=== PATIENT | male | born 1950 | race Two or more races ===

== ENCOUNTER 2016-08-19 17:50 | Emergency (ER) | payer MEDICARE, OTHER ==
[~2016-08-19] VITALS: Ht 170.2 cm; Wt 118.8 kg
[2016-08-19] MEDS ORDERED: DULO30CA PO (18:19)
[2016-08-19] MEDS ORDERED: ATOR1TAB21 PO (18:19)
[2016-08-19] MEDS ORDERED: FURO40TA2 PO (18:19)
[2016-08-19] MEDS ORDERED: FLOM5CAP PO (18:19)
[2016-08-19] MEDS ORDERED: AMLO10TA2 PO (18:19)
[2016-08-19] MEDS ORDERED: CLOP75TA2 PO (18:19)
[2016-08-19] MEDS ORDERED: PANT40TA2 PO (18:19)
[2016-08-19] MEDS ORDERED: ASPI1TAB PO (18:19)
[2016-08-19] MEDS ORDERED: ATEN50TA2 PO (18:19)
[2016-08-19] MEDS ORDERED: GABA600T PO (18:24)
[2016-08-19] MEDS ORDERED: OXYM15TA PO (18:24)
[2016-08-19] MEDS ORDERED: INSUHUMDS SC ×2 (18:24→18:30)
[2016-08-19] MEDS ORDERED: INSULANT SC (18:24)
[2016-08-19] MEDS ORDERED: ONDANSETRON 4MG/2ML VIAL (J2405) IV ONE (20:15)
[2016-08-19] MEDS ORDERED: GASTROGRAFIN SOLUTION 30ML (Q9963) As Ordered ONE (20:26)
[2016-08-19] MEDS ORDERED: GASTROGRAFIN SOLUTION 30ML (Q9963) PO ONE ×2 (20:30)
[2016-08-19 20:53] LABS: BASO # 0.1 K/mm3 (0.0-0.2); BASO % 0.7 % (0.0-1.0); EOS # 0.2 K/mm3 (0.0-0.50); EOS % 1.5 % (0.0-3.0); LARGE UNSTAINED CELL # 0.1 K/mm3 (0.0-0.4); LARGE UNSTAINED CELL % 1.1 % (0.0-4.0); LYMPH # 1.8 K/mm3 (1.5-4.5); LYMPH % 13.8 % (24.0-44.0); MEAN CORPUSCULAR HEMOGLOBIN 30.2 pg (27.0-33.0); MEAN CORPUSCULAR VOLUME 91.4 fl (80.0-96.0); MONO # 0.6 K/mm3 (0.0-0.8); NEUTROPHILS # 9.2 K/mm3 (1.8-7.7); NEUTROPHILS % 77.9 % (36.0-66.0); PLATELET COUNT, AUTOMATED 375 k/mm3 (150-450); WHITE BLOOD COUNT 11.8 K/mm3 (4.0-10.0)
[2016-08-19 21:11] LABS: ALBUMIN 3.8 GM/DL (3.2-5.2); ALBUMIN/GLOBULIN RATIO 1.12 (1.00-1.93); BILIRUBIN,DIRECT 0.2 MG/DL (0.0-0.2); BILIRUBIN,TOTAL 0.4 MG/DL (0.2-1.0); CALCIUM LEVEL 8.8 MG/DL (8.8-10.2); CREATININE FOR GFR 1.33 MG/DL (0.70-1.30); GLOMERULAR FILTRATION RATE 57.1 (>49); POTASSIUM SERUM 4.5 MEQ/L (3.5-5.1); TOTAL PROTEIN 7.2 GM/DL (6.4-8.2)
[2016-08-19] MEDS ORDERED: ISOVUE-370 76% 100ML VIAL (Q9967) As Ordered ONE (21:58)
--- NOTE | 2016-08-19 22:50 | REPUSA ---
CLINICAL HISTORY: Left lower quadrant pain. TECHNIQUE: Multiple axial CT images were obtained through the abdomen and pelvis after administratio n of oral and intravenous contrast material. COMMENTS: The liver is markedly lobulated with irregular contour compatible with cirrhosis. There is no intra or extrahepatic biliary ductal dilatation. The spleen is normal. The gallbladder is within normal l imits. The pancreas is of normal contour and attenuation characteristics. There is no evidence of a drenal mass. Both kidneys demonstrate prompt and equal nephrograms. There is no evidence of renal or ureteral mas s. No renal or ureteral calculi are identified. There is no hydroureter or hydronephrosis. Both ki dneys are lobulated but grossly normal in size There is no evidence for appendicitis. Diffuse sigmoid diverticulosis is present. There is no bowel wall thickening. No evidence for small or large bowel obstruction. There is no evidence of abdomina l ascites or lymphadenopathy. There is no evidence of intrinsic or extrinsic bladder mass. There is no pelvic ascites or lymphaden opathy. Images of the lung bases show no evidence of pleural or parenchymal mass. There are no pleural effus ions. Prostate gland is mildly enlarged. The bony structures are free of lytic or blastic lesions. Multilevel degenerative changes are seen i nvolving the thoracolumbar spine. Note is made of moderate to severe compression fracture deformity involving L1 vertebral body. Consider correlation with MRI. Scattered calcifications are seen involving the aorta and major branches compatible with atherosclero sis. IMPRESSION: 1. Evidence of cirrhosis. 2. Moderate to severe compression fracture deformity involving L1 vertebral body. Consider correlat ion with MRI. Thank you for your kind referral of this patient. We appreciate the opportunity to participate in thi s patient's care.
[2016-08-19] MEDS ORDERED: LIDOCAINE 5% OINT 30 GM TOP SCH (23:30)
[2016-08-20 00:26] VITALS: BP 139/54
== END 2016-08-20 01:31 | disposition home or self-care (01) ==
LOC: M ED 20:16
DX: M54.16 Radiculopathy, lumbar region (principal); R10.32 Left lower quadrant pain; S32.018A Other fracture of first lumbar vertebra, initial encounter for closed fracture; X58.XXXA Exposure to other specified factors, initial encounter; Y92.89 Other specified places as the place of occurrence of the external cause; Y93.89 Activity, other specified; Y99.8 Other external cause status; R11.0 Nausea; K21.9 Gastro-esophageal reflux disease without esophagitis; I10 Essential (primary) hypertension; E78.5 Hyperlipidemia, unspecified; E03.9 Hypothyroidism, unspecified; F41.9 Anxiety disorder, unspecified; F32.9 Major depressive disorder, single episode, unspecified; Z98.1 Arthrodesis status; Z79.899 Other long term (current) drug therapy; Z79.82 Long term (current) use of aspirin; Z79.4 Long term (current) use of insulin; Z87.891 Personal history of nicotine dependence
CPT/HCPCS: 74177; 80048; 80076; 81001; 82150; 83690; 85025; 86140; 96374; 99282; J2405; Q9963; Q9967

== ENCOUNTER → 2017-11-07 | Outpatient (REF) | payer MEDICARE, OTHER ==
[2017-11-07 18:00] LABS: ERYTHROCYTE SEDIMENTATION RATE 27 mm/hr (0-20)
== END ==
LOC: M LABNEURO 14:00
DX: R51 Headache (principal); I77.6 Arteritis, unspecified
CPT/HCPCS: 36415

== ENCOUNTER → 2018-06-28 | Outpatient (CLI) | payer MEDICARE, OTHER ==
[~2018-06-28] MED LIST: AKWASOL OU; AMLO10TA5 PO; ASPI1TAB PO; ASPI81TAEC PO; ATEN50TA2 PO; ATOR1TAB21 PO; BACT800T5 PO; BISA10SU PR; BISAC5TA PO; CALC1250 PO; CLOP75TA2 PO; DULO1CAP3 PO; DULO30CA PO; ELIQ2.5T PO; FLOM0.4C39 PO; FURO40TA2 PO; GABA-843 PO; GABA-845 PO; GABA600T4 PO; GING500C3 PO; GLUC1INJ21 SC; GLUC4CHW19 PO; HUMA75VL SC; INSUDET SC; INSUHUMDS SC; INSULANT SC; MECL-68 PO; MILK120011 PO; MUPI2OI TOP; OXYC-403 PO; OXYC-517 PO; OXYC10TA12 PO; OXYC15TA66 PO; OXYC15TA76 PO; OXYCO5TA PO; OXYM15TA PO; PANT40TA3 PO; PEG1POW PO; POLY1.4S OU; PRED10TA2 PO; PRED20TA PO; PRED50TA PO; ROXI1TAB2 PO; SENN18TA PO; SYNT100T PO; TOUJ1.2I SQ; VITA-122 PO; VITAD1000T PO; VITMTA PO
--- NOTE | 2018-06-28 13:02 | REP ---
MRI right knee without contrast: History: Unilateral primary osteoarthritis of the right knee. Rule out internal derangement. The patient reports tib-fib surgery February 2018. No comparison radiographs or comparison MRI study. Technique: Axial, coronal and sagittal imaging planes are utilized. T1, proton density and T2-weighted scans were obtained in the usual fashion with without fat saturation. MRI findings: There is considerable metallic field susceptibility artifact due to metallic orthopedic material transversely oriented across the patella as well as in the medial and posterior tibia. This larger proximal tibial hardware produces more troublesome artifact which extends up into the joint on some of the sequences. There is evidence of a small joint effusion. No observable Owusu's cyst. The anterior and posterior cruciate ligaments appear to be intact. There is no evidence of patellar or quadriceps tendon disruption. There is no evidence of medial collateral ligament disruption. The lateral collateral ligament cannot be cleared due to the metallic artifact. No definite meniscal tear is seen medially or laterally. There is a normal fabella posterolaterally. Impression: Metallic field susceptibility artifact limits the exam from hardware in the patella and proximal tibia. No definite internal derangement seen. Small joint effusion. Electronically Signed by Primo Perera MD 06/28/2018 02:31 P
== END ==
LOC: M RAD 09:37
PROVIDERS: ATTEND Physician Assistant
DX: M17.11 Unilateral primary osteoarthritis, right knee (principal)

== ENCOUNTER → 2018-11-17 | Outpatient (CLI) | payer MEDICARE, OTHER ==
[~2018-11-17] MED LIST changes: +ACTE20IN SC; -ASPI1TAB PO; +ASPI81TA26 PO; +CALC500T44 PO; +D31000TA PO; -DULO30CA PO; +DULO30CA9 PO; +ECOT81TA5 PO; +HUMA75IN2 SC; +MIRA3350 PO; +MORP1CAP32 PO; +TOUJ1.2I SC
--- NOTE | 2018-11-17 15:19 | REP ---
BILATERAL LOWER EXTREMITY DUPLEX DOPPLER ARTERIAL ULTRASOUND: Real-time ultrasound evaluation and duplex Doppler interrogation of bilateral lower extremity arterial systems is performed. Extensive atherosclerotic calcifications are present bilaterally, somewhat limiting the exam. Biphasic waveforms are seen diffusely throughout the bilateral lower extremity arterial systems. There is no compelling evidence for hemodynamically significant stenosis bilaterally. PEAK SYSTOLIC VELOCITY RIGHT LEFT Common femoral artery 87.6 cm/s 76.0 cm/s Profunda 42.4 57.0 Proximal SFA 65.6 59.5 Superficial femoral artery mid 56.0 68.0 Superficial femoral artery distal 66.7 45.0 Popliteal 35.7 39.5 Proximal anterior tibial artery 37.8 33.6 Tibial peroneal trunk 44.7 36.2 Proximal posterior tibial artery not seen 62.6 Distal posterior tibial artery 32.6 47.7 Distal anterior tibial artery 21.5 32.2 IMPRESSION: Extensive moderate atherosclerotic calcifications bilaterally limiting the exam. No compelling evidence for significant stenosis of bilateral lower extremity arterial systems. Electronically Signed by Chase Lei MD 11/18/2018 12:02 P
== END ==
LOC: M RAD 12:30
PROVIDERS: ATTEND Surgery Vascular Surgery
DX: I70.203 Unspecified atherosclerosis of native arteries of extremities, bilateral legs (principal)

== ENCOUNTER 2020-04-29 13:25 | Inpatient (IN) | payer MEDICARE, OTHER ==
[~2020-04-29] VITALS: Ht 170.2 cm; Wt 134.5 kg
[~2020-04-29 13:25] MED LIST changes: -AMLO10TA5 PO; +AMLO1TAB25 PO; +CHOL100029 PO; -DULO1CAP3 PO; +DULO1CAP6 PO; -MECL-68 PO; +MECL1TAB31 PO; +OXYC-1 PO; -OXYC15TA76 PO; +PANT40TA29 PO; -PANT40TA3 PO; -VITAD1000T PO
[2020-04-29] MEDS ORDERED: DEXTROSE 50% 50 ML SYRINGE IV PRN (14:45)
[2020-04-29] MEDS ORDERED: GLUCAGON INJ 1MG VIAL SC PRN (14:45)
[2020-04-29] MEDS ORDERED: GLUCOSE 4GM CHEW TABLET PO PRN (14:45)
[2020-04-29 15:18] VITALS: BP 121/58
[2020-04-29] MEDS ORDERED: ATEN50TA2 PO (15:33)
[2020-04-29] MEDS ORDERED: TOLN1CRE9 TOP (15:33)
[2020-04-29] MEDS ORDERED: PRED25TA PO (15:33)
[2020-04-29] MEDS ORDERED: PANT20TA6 PO (15:33)
[2020-04-29] MEDS ORDERED: MYRB50TA PO (15:33)
[2020-04-29] MEDS ORDERED: PIPE3INJ6 IV (15:33)
[2020-04-29] MEDS ORDERED: OXYB5TAB10 PO (15:33)
[2020-04-29] MEDS ORDERED: BISA10SU4 PR (15:33)
[2020-04-29] MEDS ORDERED: HUMA100I5 SC (15:33)
[2020-04-29] MEDS ORDERED: SYNT112T2 PO (15:33)
[2020-04-29] MEDS ORDERED: ELIQ2.5T PO (15:33)
[2020-04-29] MEDS ORDERED: CALC500C15 PO (15:33)
[2020-04-29] MEDS ORDERED: VANC IV (15:33)
[2020-04-29] MEDS ORDERED: DOCU100C16 PO (15:33)
[2020-04-29] MEDS ORDERED: ONDA-83 PO (15:33)
[2020-04-29] MEDS ORDERED: ACET-908 PO (15:33)
[2020-04-29] MEDS ORDERED: GABA800T4 PO (15:33)
[2020-04-29 16:34] LABS: VANCOMYCIN LEVEL TROUGH 17.7 UG/ML (10.0-20.0)
[2020-04-29] MEDS ORDERED: POLYVINYL ALCOHOL OPHTH SOLN 15 ML(LIQUITEARS) OU PRN (17:00)
[2020-04-29] MEDS: FUROSEMIDE 40 MG TAB PO SCH (18:01)
[2020-04-29] MEDS: GABAPENTIN 400 MG CAP PO SCH ×2 (18:01→21:37)
[2020-04-29] MEDS: HumaLOG INSULIN (NovoLOG) PER UNIT SC SCH (18:02)
[2020-04-29] MEDS: PIPERACILLIN/TAZOBACTAM SOD 3.375 GM in D5W MINI-BAG PLUS 50 ML IV SCH ×2 (18:02→22:44)
[2020-04-29] MEDS: ACETAMINOPHEN TAB 650MG DOSE (2X325MG) PO PRN (18:04)
[2020-04-29 19:13] LABS: CALCIUM LEVEL 8.7 MG/DL (8.8-10.2); CREATININE FOR GFR 1.54 MG/DL (0.70-1.30); GLOMERULAR FILTRATION RATE 47.8 (>42); POTASSIUM SERUM 3.8 MEQ/L (3.5-5.1)
--- NOTE | 2020-04-29 19:26 | HPEPDOC ---
Medical Billing And Coding Specialist Note DATE OF ADMISSION: 04.29.2020 DATE OF SERVICE: 04.29.2020 TIME OF ADMISSION: Please refer to physician's admission order. SOURCE OF ADMISSION INFORMATION: medical record, patient ADMITTING DIAGNOSES: ORIF right tibial fracture, nonunion with removable hardware, osteomyelitis, intramedullary abscess status post debridement and placement of external fixator 04.25.2020. Osteomyelitis R Tibia Prior ORIF Left ankle Chronic low back pain status post multiple back surgeries (5), insertion/removal spine stimulator Closed compression fracture first lumbar vertebrae Bilateral paraparesis left heel Diabetic ulcer Diabetes. Peripheral neuropathy. Anemia. Hypertension. Coronary artery disease. CHF. History PE. FARRUKH on BiPAP. Temporal arteritis on chronic steroids 50 mg daily, Tocilizumab resuming every 2 weeks. HLD. GERD. Anxiety. Left leg ulcer. Liver lesion, right lobe Tinea pedis CHIEF COMPLAINT: . 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 Patient was on oral antibiotics prior to debridement, will need to be on IV antibiotics for 6 weeks starting from 04/25/2020 (to 06.06.2020), currently on vancomycin and Zosyn. Vancomycin. Apparently pulse dose due to high troughs last 22mcg per mL, 04/29/2020 and clinical pharmacy change dosing to 1750 mg Q 24 hours with trough drawn on the 16th. Picc line in place. Patient followed by the ID clinic at [facility]. He notes resorting to WC mobility due to inconsistency/unreliability of LE strength with buckling of knees and increased risk of falls. He presents for comprehensive rehabilitation work on transfers, limited mobilization with weightbearing as tolerated right lower extremity, self-care for lower extremity osteomyelitis , education regarding his chronic conditions and optimal management. REVIEW OF SYSTEMS: The following is a completed review of systems and has been reviewed. Review of systems otherwise unremarkable. PAIN: Patient lives with chronic pain managed with [facility] living, failed prior spine stimulator, Fentanyl patches. EYES: Double vision, no complete visual loss EARS, NOSE, & THROAT: No throat pain, or dysphagia, or rhinorrhea. CARDIOVASCULAR: Denies chest pain or palpitations. PULMONARY: Denies shortness of breath. GASTROINTESTINAL: Denies constipation/diarrhea. GENITOURINARY: continent. BPH MUSCULOSKELETAL: chronic polyarticular MSK pain NEUROLOGICAL:.PN HEMATOLOGICAL: anemic, fatigue, bruises easily SKIN: left heel, fungal infections. PSYCHIATRIC: Unremarkable. All other review of systems found to be negative. PAST MEDICAL HISTORY: CAD status post PCI T2 DM HTN FARRUKH on BiPAP. Right temporal arteritis on steroids. Chronic low back pain status post multiple back surgeries HLD Right tibial fracture 2018, nonunion, REMOVED HARDWARE 12/21/2019, W PSEUDOMONAS ACNES DISEASE. 6 WEEKS OF IV VANCOMYCIN AND 818 MRI 1016 CONTINUED OSTEOMYELITIS WITH COMPLEX COLLECTION of fluid PAST SURGICAL HISTORY: ORIF, left ankle 1976 ORIF, right tibial fracture with nonunion. Debridement external fixator placement Carpal tunnel release Shoulder surgery. Basal cell carcinoma excision. Dorsal column stimulator. Laparotomy, cholecystectomy Ulnar nerve transection at the elbow. Tonsillectomy. S/P Knee arthroscopy ORIF R tibia fracture L Ankle fracture. Laminectomy. Total surgery. Multiple spinal surgeries ALLERGIES: Please see below. MEDICATIONS: Please see below. FAMILY HISTORY: Kidney disease in mother, lung cancer father SOCIAL HISTORY: Remote Smoker, No EtOH, lives in a ramped entrance single story home with his . DIET: low salt, low CHO, low Fat regular. PHYSICAL EXAMINATION: VITAL SIGNS: Please see below. GENERAL: Pleasant and cooperative. MIld distress. Alert and oriented times three. HEENT: PERRL. Extraocular movements intact. Clear conjunctiva, difficult to fully assess, no obvious adenopathy or thyromegaly. Full cervical range of motion without tenderness or spasm. Healed left temporal artery biopsy CARDIOVASCULAR: Regular rate and rhythm. LUNGS: Clear to auscultation bilaterally. No wheezes. No rhonchi. ABDOMEN: Soft, obese, distended. Positive Normal active bowel sounds. NEUROLOGICAL: Alert and oriented times three. Cranial nerves II through XII intact. Sensation grossly intact to light touch, diminished in lower extremities.. Reflexes 1 + and symmetric bilateral brachial radialis absent biceps, triceps tendon jerks. EXTREMITIES: 5/5 investment consultant, elbow flexion, elbow extension, unable to fully assess foot dorsiflexion, plantar flexion. Right foreleg in external fixator device. Right foot v cool, cyanotic 2-5 toes, no breakdown, edematous. No point tenderness about left knee. Generalized tenderness right knee, foreleg. Pulses difficult to appreciate SKIN: .multiple small reddened areas bilateral lower extremities circular quarter sized lesion left heel, external fixator, multiple attachment points right foreleg LABORATORY DATA: Please see below. IMAGING:Imaging documentation personally reviewed by record. MRI 04/04/2020 Proximal right tibial fracture nonunion with irregular fluid signal tract extending from the lateral fracture cortical defect into the intramedullary Cavity with 26 x 22 x 36 mm, irregularly intramedullary complex fluid collection and moderate lateral subcutaneous soft tissue edema. Most likely proximal tibial osteomyelitis with intramedullary abscess and overlying extremity soft tissue edema and/or cellulitis. FUNCTIONAL STATUS: Premorbid: Wheelchair for mobility slide board for transfers. Currently moderate to maximal assistance for mobility and maximum assistance for lower body dressing. Bilateral lower extremity weakness. GOALS: Probable most realistic to work towards regaining slide board transfers as start, see how pain management and weight bearing tolerance proceeds for BLE. Prevention of worsening left heel wound, facilitation of healing infected right foreleg, preservation of both feet through protective measures to reduce edema, protect skin from shearing forces, maintain warmth/circulation. 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 Patient was on oral antibiotics prior to debridement, will need to be on IV antibiotics for 6 weeks starting from 04/25/2020 (to 06.06.2020), currently on vancomycin and Zosyn. Vancomycin. Apparently pulse dose due to high troughs last 22mcg per mL, 04/29/2020 and clinical pharmacy change dosing to 1750 mg Q 24 hours with trough drawn on the 16th. Picc line in place. Patient followed by the ID clinic at [facility]. He notes resorting to WC mobility due to i nconsistency/unreliability of LE strength with buckling of knees and increased risk of falls. He presents for comprehensive rehabilitation work on transfers, limited mobilization with weightbearing as tolerated right lower extremity, self-care for lower extremity osteomyelitis , education regarding his chronic conditions and optimal management. PLAN: 1. Rehab- PT/OT advance gait and ADls, strengthen/stretch/maintain ROM all 4 limbs. We'll continue to work on timing pain medication with therapy interventions to optimize possible capacity to participate. Focus on safe transfers, wound management and prevention of further complications of complex medical conditions. 2. 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 3. Ortho- OM, rx vanc/zosyn, left heel ulcer at risk for OM, s/p multiple spinal surgeries, CLBP, s/p multiple jt replacements 4. Cardiac- hx of AK/ CAD with Stents, CHF, -HTN c/u ARB -HLD- c/u Zocor 5. Resp -incentive spirometry, monitor for infection 6. Endo- DM, hypothyroid, c/u insulin and ISS, thyroid med 7. - monitor output, RF 8. GI ppx- PPI 9. Skin wound care recommend turn and positioning every 2. Hours out of bed with static air cushion, no tenderness. Off loading the heels. Cleanse in the left foot with normal saline moistened gauze, medical, and the daily and covering with gauze secured with tape. Applying Tinactin twice a day to fungal area on foot, wrapping with angelina, securing with tape. Monitor Vanc protocols, ESR, CRP, vs, cbc POST ADMISSION PHYSICIAN EVALUATION: Medical and functional status: Description of medical status, medical assessment: As above. Rehabilitation diagnosis and current and prior cold morbid medical conditions as above. Risk of complications and plans to mitigate them as above. Description of functional status current status is as above. Prior status as above. Status compared to preadmission: There are no clinically significant differences between the patient's current status and the information described on the preadmission screening document. Treatment plan anticipated: Treatment plan is as described above. Required disciplines including physical therapy, occupational therapy, others as noted above. Intensity of services: 3 hours a day, 6-7 days a week. Special considerations: There are no specific special or safety considerations that would likely preclude immediate implementation of an intensive rehabilitation program or subsequently influence the plan of care. ATTESTATION: Considering all the information above, it is my best judgment that this patient requires intensive rehabilitation therapy as described above and an inpatient hospital environment due to the complexity of nursing, medical, and rehabilitation needs required by the patient. Furthermore, this patient can reasonably be expected to participate in an benefit from an inpatient rehabilitation stay with an interdisciplinary team approach to the delivery of rehabilitation care under the direction and supervision of rehabilitation physician. PROGNOSIS: Excellent. ESTIMATED LENGTH OF STAY:14 days. PROJECTED DISCHARGE DESTINATION: Home with family support and any durable medical equipment required to increase functional safety and mobility. TIME SPENT COUNSELING AND COORDINATING INITIAL CARE: Greater than 60 minutes. This document is generated using speech recognition software which may result in grammatical, typographical and individual word errors. Vital Signs Vital Sign - Last 24 Hours 04/29/20 15:18 Temp 96.6 Pulse 86 Resp 14 B/P (MAP) 121/58 (79) Pulse Ox 98 O2 Delivery Room Air Laboratory Data CBC/BMP Laboratory Tests 04/29/20 15:05 Labs 24H Laboratory Tests 2 04/29/20 15:05: Anion Gap 9, Glomerular Filtration Rate 47.8, Calcium Level 8.7L, Vancomycin Level Trough 17.7 04/29/20 16:21: Bedside Glucose (Misc Panel) 180H FSBS Laboratory Tests Test 04/29/20 16:21 Range/Units Bedside Glucose (Misc Panel) 180 83-110 MG/DL Home Medications Scheduled Apixaban (Eliquis) 2.5 Mg Tablet, 2.5 MG PO BID, (Reported) Aspirin (Ecotrin) 81 Mg Tablet.dr, 81 MG PO QHS, (Reported) Atenolol (Atenolol) 50 Mg Tablet, 50 MG PO BID, (Reported) Atorvastatin Calcium (Atorvastatin Calcium) 20 Mg Tab, 20 MG PO QHS, (Reported) Duloxetine Hcl (Duloxetine HCl) 60 Mg Cap, 60 MG PO QHS, (Reported) Furosemide (Furosemide) 40 Mg Tab, 40 MG PO BID, (Reported) Gabapentin (Gabapentin) 800 Mg Tablet, 800 MG PO TID, (Reported) Insulin Glargine,Hum.rec.anlog ([place] Solostar) 300 Unit/1 Ml Insuln.pen, 180 UNIT SC QHS, (Reported) Insulin Lispro (Humalog Kwikpen U-100) 100 Unit/1 Ml Insuln.pen, 1 DOSE SC AC, ( Reported) Levothyroxine Sodium (Synthroid) 112 Mcg Tablet, 112 MCG PO DAILY, (Reported) Mirabegron (Myrbetriq) 50 Mg Tab.er.24h, 50 MG PO QHS, (Reported) Morphine Sulfate (Morphine Sulfate ER 24HR) 45 Mg Cpmp.24hr, 45 MG PO BID, (Reported) VERIFIED DOSE Oxybutynin Chloride (Oxybutynin Chloride) 5 Mg Tablet, 5 MG PO TID, (Reported) Pantoprazole Sodium (Pantoprazole Sodium) 20 Mg Tablet.dr, 20 MG PO BID, (Reported) Piperacillin Sodium/Tazobactam (Piperacil-Tazobact 3.375 gm Vl) 3.375 Gm Vial, 1 INJ IV Q6H, (Reported) Prednisone (Prednisone) 2.5 Mg Tablet, 12.5 MG PO DAILY, (Reported) Tolnaftate (Tolnaftate) 30 Gm Cream..g., 1 APPLIC TOP DAILY, (Reported) APPLY TO LEFT FOOT Vancomycin HCl in Water (Vancomycin 1,750 mg/17.5 ml Vl) 1.75 Gm/17.5 Ml Vial, 1.75 GM IV DAILY, (Reported) HELD DOSE ON 04/29 TO START 1.75 G ON 04/30 Scheduled PRN Acetaminophen (Acetaminophen) 325 Mg Tablet, 650 MG PO Q6H PRN for PAIN / FEVER, (Reported) Bisacodyl (Bisacodyl) 10 Mg Supp.rect, 10 MG ME DAILY PRN for CONSTIPATION, (Reported) Calcium Carbonate (Antacid) 200 Mg Tab.chew, 500 MG PO DAILY PRN for HEARTBURN, (Reported) Docusate Sodium (Docusate Sodium) 100 Mg Capsule, 100 MG PO BID PRN for CONSTIPATION, (Reported) Ondansetron HCl (Ondansetron HCl) 4 Mg Tablet, 4 MG PO Q8H PRN for NAUSEA OR VOMITING, (Reported) Polyethylene Glycol 3350 (Miralax) 119 Gm Powder, 17 GM PO DAILY PRN for CONSTIPATION, (Reported) Polyvinyl Alcohol (Akwa Tears) 1.4 % Idalmis, 2 DROP OU QID PRN for DRY EYES Allergies Coded Allergies: No Known Allergies (Verified , 12/21/02) A-FIB/CHADSVASC A-FIB History Current/History of A-Fib/PAF?: No Current PO Anticoag Therapy: Yes Age/Risk Factor Scoring CHADSVASC: CHADSVASC Response (Comments) Value Age Risk Factor Age 65-74 years old 1 Gender Risk Factor Male 0 Hx of CHF Yes 1 Hx of HTN Yes 1 Hx of Stroke/TIA/or VTE No 0 Hx of Diabetes Yes 1 Hx of Vascular Disease Yes 1 Total 5 Treatment Treatment ordered: Apixaban JEFRY LOPEZ MD Apr 29, 2020 19:26
[2020-04-29 20:00] VITALS: BP 148/74
[2020-04-29] MEDS: VANCOMYCIN HCL 750 MG, VIAL MATE ADAPTER 1 EACH in D5W 250 ML IV SCH (20:25)
[2020-04-29] MEDS ORDERED: DOCUSATE SODIUM 100MG CAPSULE PO PRN (21:00)
[2020-04-29] MEDS: VANCOMYCIN HCL 500 MG in D5W MINI-BAG PLUS 100 ML IV SCH (21:33)
[2020-04-29] MEDS: MORPHINE 15 MG SA TAB PO SCH (21:35)
[2020-04-29] MEDS: DULoxetine 30 MG CAP (CYMBALTA) PO SCH (21:36)
[2020-04-29] MEDS: APIXABAN 2.5 MG TAB (ELIQUIS) PO SCH (21:36)
[2020-04-29] MEDS: atenoloL 50 MG TAB PO SCH (21:36)
[2020-04-29] MEDS: PANTOPRAZOLE 20 MG TAB PO SCH (21:36)
[2020-04-29] MEDS: oxyBUTYnin 5 MG TAB PO SCH (21:37)
[2020-04-29] MEDS: ASPIRIN 81 MG CHEW TABLET PEG SCH (21:37)
[2020-04-29] MEDS: LEVEMIR (INSULIN DETEMIR) 1 UNITS/0.01ML SC SCH (21:37)
[2020-04-29] MEDS: ATORVASTATIN 20 MG TAB PO SCH (21:37)
[2020-04-29] MEDS: SODIUM CHLORIDE 0.9% INJ 10 ML SYR IV PRN (23:48)
[2020-04-30 04:48] LABS: APPEARANCE, URINE CLOUDY (CLEAR); BACTERIA, URINE AUTO NEGATIVE (NEGATIVE); BILIRUBIN, URINE AUTO NEGATIVE (NEGATIVE); BLOOD, URINE BLOOD 1+ (NEGATIVE); COLOR, URINE YELLOW (YELLOW); GLUCOSE, URINE (UA) AUTO 3+ mg/dL (NEGATIVE); KETONE, URINE AUTO NEGATIVE (NEGATIVE); LEUKOCYTE ESTERASE, URINE AUTO 3+ (NEGATIVE); NITRITE, URINE AUTO NEGATIVE (NEGATIVE); PROTEIN, URINE AUTO NEGATIVE (NEGATIVE); RBC, URINE AUTO 16 /HPF (0-3); SQUAMOUS EPITHELIAL CELL UR AU 0 /HPF (0-6); UROBILINOGEN, URINE AUTO 0.2 mg/dL (0.0-2.0); WBC, URINE AUTO 145 /HPF (0-3)
[2020-04-30] MEDS: PIPERACILLIN/TAZOBACTAM SOD 3.375 GM in D5W MINI-BAG PLUS 50 ML IV SCH ×4 (04:51→22:39)
[2020-04-30] MEDS: SODIUM CHLORIDE 0.9% INJ 10 ML SYR IV SCH ×2 (05:54→16:49)
[2020-04-30] MEDS: LEVOTHYROXINE 112MCG TABLET (0.112MG) PO SCH (05:54)
[2020-04-30] MEDS: SODIUM CHLORIDE 0.9% INJ 10 ML SYR IV PRN ×4 (05:55→23:53)
[2020-04-30] MEDS: GABAPENTIN 400 MG CAP PO SCH ×3 (05:55→21:41)
[2020-04-30 06:03] VITALS: BP 150/72
[2020-04-30 07:36] LABS: BASO # 0.1 10^3/uL (0.0-0.2); BASO % 0.5 % (0.0-1.0); EOS # 0.3 10^3/uL (0.0-0.5); EOS % 2.7 % (0.0-3.0); HEMATOCRIT 26.6 % (42.0-52.0); HEMOGLOBIN 7.5 g/dl (13.5-17.5); LYMPH % 9.3 % (24.0-44.0); MEAN CORPUSCULAR HEMOGLOBIN 24.5 pg (27.0-33.0); MEAN CORPUSCULAR HGB CONC 28.2 g/dl (32.0-36.5); MEAN CORPUSCULAR VOLUME 86.9 fl (80.0-96.0); MONO # 0.6 10^3/uL (0.0-0.8); MONO % 6.2 % (0.0-5.0); NEUTROPHILS # 8.2 10^3/uL (1.5-8.5); NEUTROPHILS % 78.6 % (36.0-66.0); PLATELET COUNT, AUTOMATED 278 10^3/uL (150-450); RED BLOOD COUNT 3.06 10^6/uL (4.30-6.10); WHITE BLOOD COUNT 10.4 10^3/uL (4.0-10.0)
[2020-04-30] MEDS: predniSONE 1 MG TAB PO SCH (08:03)
[2020-04-30] MEDS: HumaLOG INSULIN (NovoLOG) PER UNIT SC SCH ×4 (08:03→22:16)
[2020-04-30 08:04] LABS: ALBUMIN 2.6 GM/DL (3.2-5.2); BILIRUBIN,TOTAL 0.6 MG/DL (0.2-1.0); CALCIUM LEVEL 8.8 MG/DL (8.8-10.2); CREATININE FOR GFR 1.44 MG/DL (0.70-1.30); GLOMERULAR FILTRATION RATE 51.6 (>42); POTASSIUM SERUM 3.5 MEQ/L (3.5-5.1); TOTAL PROTEIN 5.8 GM/DL (6.4-8.2)
[2020-04-30] MEDS: FUROSEMIDE 40 MG TAB PO SCH ×2 (08:04→16:42)
[2020-04-30] MEDS: APIXABAN 2.5 MG TAB (ELIQUIS) PO SCH ×2 (08:04→21:42)
[2020-04-30] MEDS: oxyBUTYnin 5 MG TAB PO SCH ×3 (08:05→21:42)
[2020-04-30] MEDS: MORPHINE 15 MG SA TAB PO SCH ×2 (08:05→21:42)
[2020-04-30] MEDS: MULTIVITAMINS/MINERALS THERAP 1 TAB PO SCH (08:05)
[2020-04-30] MEDS: atenoloL 50 MG TAB PO SCH ×2 (08:05→21:42)
[2020-04-30] MEDS: predniSONE 10 MG TAB PO SCH (08:06)
[2020-04-30] MEDS: PANTOPRAZOLE 20 MG TAB PO SCH ×2 (08:06→21:43)
[2020-04-30] MEDS: MIRALAX *UNIT DOSE* 17GM PACKET PO SCH (08:07)
[2020-04-30] MEDS ORDERED: PANTOPRAZOLE 40MG TAB (PROTONIX) PO SCH (09:00)
--- NOTE | 2020-04-30 12:33 | IPNPDOC ---
Text Note Date of Service The patient was seen on 04/30/20. NOTE Subjective: No any acute events overnight. 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 Patient received antibiotic therapy with vancomycin and Zosyn. Patient was transferred to ARU after initial stabilization. Osteomyelitis of right tibia Continue antibiotic therapy for 6 weeks Coronary artery diseases, status post ME with stents Continue home cardioprotective medications CHF Not in acute exacerbation Cardiac diet Diabetes Insulin sliding scale Detemir Keep glucose level between 140 and 180 Hypothyroidism Continue levothyroxine Mood disorder Continue with Cymbalta Obstructive sleep apnea CPAP. Right temporal arteritis: Continue with prednisone and outpatient follow-up Gastroesophageal reflux disease: Continue with Protonix History of PE: He is on chronic anticoagulation Morbid obesity: Complicating care VS,Fishbone, I+O VS, Fishbone, I+O Laboratory Tests 04/29/20 15:05 04/30/20 07:04 Vital Signs Date Time Temp Pulse Resp B/P (MAP) Pulse Ox O2 Delivery O2 Flow Rate FiO2 04/30/20 08:05 18 Room Air 04/30/20 08:05 70 148/70 04/30/20 06:03 97.3 94 I&O- Last 24 Hours up to 6 AM 04/30/20 06:00 Intake Total 1700 ml Output Total 875 ml Balance 825 ml MAIKEL NESS DO Apr 30, 2020 12:33
[2020-04-30 14:00] VITALS: BP 135/60
[2020-04-30] MEDS: VANCOMYCIN HCL 750 MG, VIAL MATE ADAPTER 1 EACH in D5W 250 ML IV SCH (20:35)
[2020-04-30 20:40] VITALS: BP 159/72
[2020-04-30] MEDS: VANCOMYCIN HCL 500 MG in D5W MINI-BAG PLUS 100 ML IV SCH (21:38)
[2020-04-30] MEDS: DULoxetine 30 MG CAP (CYMBALTA) PO SCH (21:41)
[2020-04-30] MEDS: ASPIRIN 81 MG CHEW TABLET PEG SCH (21:42)
[2020-04-30] MEDS: ATORVASTATIN 20 MG TAB PO SCH (21:43)
[2020-04-30] MEDS: LEVEMIR (INSULIN DETEMIR) 1 UNITS/0.01ML SC SCH (21:43)
[2020-05-01] VITALS (8 sets, daily range): BP systolic 126–142; BP diastolic 60–68
[2020-05-01] MEDS: GABAPENTIN 400 MG CAP PO SCH ×3 (05:38→20:39)
[2020-05-01] MEDS: PIPERACILLIN/TAZOBACTAM SOD 3.375 GM in D5W MINI-BAG PLUS 50 ML IV SCH ×4 (05:38→23:41)
[2020-05-01] MEDS: LEVOTHYROXINE 112MCG TABLET (0.112MG) PO SCH (05:38)
[2020-05-01 05:54] LABS: HEMATOCRIT 24.6 % (42.0-52.0); MEAN CORPUSCULAR HEMOGLOBIN 24.6 pg (27.0-33.0); MEAN CORPUSCULAR HGB CONC 28.5 g/dl (32.0-36.5); MEAN CORPUSCULAR VOLUME 86.6 fl (80.0-96.0); PLATELET COUNT, AUTOMATED 258 10^3/uL (150-450); RED BLOOD COUNT 2.84 10^6/uL (4.30-6.10); WHITE BLOOD COUNT 9.8 10^3/uL (4.0-10.0)
[2020-05-01 06:21] LABS: ALBUMIN 2.7 GM/DL (3.2-5.2); BILIRUBIN,TOTAL 0.5 MG/DL (0.2-1.0); CALCIUM LEVEL 8.5 MG/DL (8.8-10.2); CREATININE FOR GFR 1.55 MG/DL (0.70-1.30); GLOMERULAR FILTRATION RATE 47.4 (>42); POTASSIUM SERUM 3.2 MEQ/L (3.5-5.1); TOTAL PROTEIN 5.7 GM/DL (6.4-8.2)
[2020-05-01] MEDS: SODIUM CHLORIDE 0.9% INJ 10 ML SYR IV SCH ×2 (06:52→16:51)
[2020-05-01] MEDS: APIXABAN 2.5 MG TAB (ELIQUIS) PO SCH ×2 (08:34→20:41)
[2020-05-01] MEDS: atenoloL 50 MG TAB PO SCH ×2 (08:34→21:00)
[2020-05-01] MEDS: MORPHINE 15 MG SA TAB PO SCH ×2 (08:34→20:40)
[2020-05-01] MEDS: MULTIVITAMINS/MINERALS THERAP 1 TAB PO SCH (08:34)
[2020-05-01] MEDS: oxyBUTYnin 5 MG TAB PO SCH ×3 (08:35→20:39)
[2020-05-01] MEDS: predniSONE 1 MG TAB PO SCH (08:35)
[2020-05-01] MEDS: predniSONE 10 MG TAB PO SCH (08:35)
[2020-05-01] MEDS: PANTOPRAZOLE 20 MG TAB PO SCH ×2 (08:35→20:40)
[2020-05-01] MEDS: MIRALAX *UNIT DOSE* 17GM PACKET PO SCH (08:36)
[2020-05-01] MEDS: HumaLOG INSULIN (NovoLOG) PER UNIT SC SCH ×6 (08:36→20:41)
[2020-05-01] MEDS: FUROSEMIDE 40 MG TAB PO SCH ×2 (09:00→15:59)
[2020-05-01] MEDS: SODIUM CHLORIDE 0.9% INJ 10 ML SYR IV PRN ×2 (11:01→16:52)
[2020-05-01 11:15] LABS: HEMOGLOBIN A1c 8.8 %
[2020-05-01] MEDS ORDERED: POTASSIUM CHLORIDE 10 MEQ SR TABLET PO ONE ×2 (11:30→21:00)
[2020-05-01] MEDS ORDERED: FUROSEMIDE 40MG/4ML VIAL (J1940) IV ONE ×2 (13:45→19:00)
--- NOTE | 2020-05-01 15:05 | IPNPDOC ---
Text Note Date of Service The patient was seen on 05/01/20. NOTE Subjective: No complaints at present. Abnormal labs this am. No overt bleeding from anywhere. PHYSICAL EXAMINATION: VITAL SIGNS: Please see below. GENERAL: Pleasant and cooperative. No distress sitting in WC. Alert and oriented times three. HEENT: PERRL. Extraocular movements intact. Clear conjunctiva, difficult to fully assess, no obvious adenopathy or thyromegaly. Full cervical range of motion without tenderness or spasm. Healed left temporal artery biopsy CARDIOVASCULAR: Regular rate and rhythm. No rub/ murmur or gallop LUNGS: Clear to auscultation bilaterally. No wheezes. No rhonchi. Overall distant breath sounds. ABDOMEN: Soft, obese, distended. Positive Normal active bowel sounds. NEUROLOGICAL: Alert and oriented times three. Cranial nerves II through XII intact. Sensation grossly intact to light touch, diminished in lower extremities. 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 Right foreleg in external fixator device. Right foot v cool, cyanotic 2-5 toes, no breakdown, edematous. No point tenderness about left knee. Generalized tenderness right knee, foreleg. 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 Patient was on oral antibiotics prior to debridement, will need to be on IV antibiotics for 6 weeks starting from 04/25/2020 (to 06.06.2020), currently on vancomycin and Zosyn. Patient was transferred to ARU for completion of IV antibiotics. Patient is now at mobility due to inconsistency/unreliability of LE strength with buckling of knees and increased risk of falls. He presents for comprehensive rehabilitation work on transfers, limited mobilization with weightbearing as tolerated right lower extremity, self-care for lower extremity osteomyelitis , education regarding his chronic conditions and optimal management. Acute on chronic anemia Hb at 7.0 will transfuse 2 units of PRBC. Lasix iv between 2 untis of transfusion. Hypokalemia replaced OM of Right Tibia/ Non union of right tibial fracture from 2018 Right tibial fracture 2018, nonunion, OM, REMOVED HARDWARE 12/21/2019, W PSEUDOMONAS ACNES DISEASE. 6 WEEKS OF IV VANCOMYCIN AND 02/02/20 MRI 04/01/20 showed CONTINUED OSTEOMYELITIS WITH COMPLEX COLLECTION of fluid /intramedullary abscess status post debridement and placement of external fixator 04.25.2020. Antibiotics Vanco and Zosyn for at least 6 weeks from 04/25/2020 (to 06.06.2020), Bilateral upper extremity weakness more on the left upper extremity Patient reports has cervical compression and has been recommended surgery before. Chronic low back pain status post multiple back surgeries (5), insertion/removal spine stimulator Closed compression fracture first lumbar vertebrae Bilateral paraparesis WC bound Chronic Pain Leg/ back /neck/ neuropathy on Morphine po bid, gabapentin, cymbalta. DM with neuropathy and left heel ulcer sugars uncontrolled Continue Levemir 180 units at bed time Lispro 15 Units with meals + sliding scale lispr AC and HS. Hypertension. Atenolol Coronary artery disease. Atenolol, statin CHF Edema in the back and buttocks. will continue lasix. History PE. on Eliquis Morbid obesity/ FARRUKH on BiPAP. continue own Temporal arteritis on chronic [id number] mg Tocilizumab resuming every 2 weeks. HLD. statin GERD. PPI Anxiety. Liver lesion, right lobe Tinea pedis Prior ORIF Left ankle in 1976 VS,Fishbonericka, I+O VS, Fishbone, I+O Laboratory Tests 05/01/20 05:35 Vital Signs Date Time Temp Pulse Resp B/P (MAP) Pulse Ox O2 Delivery O2 Flow Rate FiO2 05/01/20 14:00 97.1 80 17 126/60 (82) 95 Room Air I&O- Last 24 Hours up to 6 AM 05/01/20 07:00 Intake Total 2660 ml Output Total 2550 ml Balance 110 ml SERGIO SANTIAGO MD May 01, 2020 15:05
[2020-05-01] MEDS: ACETAMINOPHEN TAB 650MG DOSE (2X325MG) PO PRN (15:19)
[2020-05-01] MEDS: ATORVASTATIN 20 MG TAB PO SCH (20:40)
[2020-05-01] MEDS: DULoxetine 30 MG CAP (CYMBALTA) PO SCH (20:40)
[2020-05-01] MEDS: ASPIRIN 81 MG CHEW TABLET PEG SCH (20:40)
[2020-05-01] MEDS: LEVEMIR (INSULIN DETEMIR) 1 UNITS/0.01ML SC SCH (20:42)
[2020-05-01] MEDS: VANCOMYCIN HCL 750 MG, VIAL MATE ADAPTER 1 EACH in D5W 250 ML IV SCH (21:08)
[2020-05-01] MEDS: VANCOMYCIN HCL 500 MG in D5W MINI-BAG PLUS 100 ML IV SCH (22:34)
[2020-05-02] VITALS (7 sets, daily range): BP systolic 130–170; BP diastolic 56–79
[2020-05-02] MEDS: PIPERACILLIN/TAZOBACTAM SOD 3.375 GM in D5W MINI-BAG PLUS 50 ML IV SCH ×4 (05:13→22:52)
[2020-05-02] MEDS: LEVOTHYROXINE 112MCG TABLET (0.112MG) PO SCH (05:14)
[2020-05-02] MEDS: GABAPENTIN 400 MG CAP PO SCH ×3 (05:14→20:37)
[2020-05-02] MEDS: SODIUM CHLORIDE 0.9% INJ 10 ML SYR IV SCH ×2 (05:17→17:17)
[2020-05-02] MEDS: ACETAMINOPHEN TAB 650MG DOSE (2X325MG) PO PRN ×2 (05:26→13:16)
[2020-05-02] MEDS: SODIUM CHLORIDE 0.9% INJ 10 ML SYR IV PRN ×3 (06:17→17:18)
[2020-05-02 06:45] LABS: HEMATOCRIT 27.6 % (42.0-52.0); HEMOGLOBIN 8.1 g/dl (13.5-17.5); MEAN CORPUSCULAR HEMOGLOBIN 25.8 pg (27.0-33.0); MEAN CORPUSCULAR HGB CONC 29.3 g/dl (32.0-36.5); MEAN CORPUSCULAR VOLUME 87.9 fl (80.0-96.0); PLATELET COUNT, AUTOMATED 250 10^3/uL (150-450); RED BLOOD COUNT 3.14 10^6/uL (4.30-6.10); WHITE BLOOD COUNT 10.7 10^3/uL (4.0-10.0)
[2020-05-02 07:08] LABS: ALBUMIN 2.3 GM/DL (3.2-5.2); C REACTIVE PROTEIN QUANTITATIV 2.7 MG/DL (0.00-0.30); CALCIUM LEVEL 7.5 MG/DL (8.8-10.2); CREATININE FOR GFR 1.49 MG/DL (0.70-1.30); GLOMERULAR FILTRATION RATE 49.6 (>42); POTASSIUM SERUM 3.1 MEQ/L (3.5-5.1)
[2020-05-02 08:00] LABS: ERYTHROCYTE SEDIMENTATION RATE 63 mm/hr (0-20)
[2020-05-02] MEDS: HumaLOG INSULIN (NovoLOG) PER UNIT SC SCH ×7 (09:57→20:36)
[2020-05-02] MEDS: predniSONE 10 MG TAB PO SCH (09:59)
[2020-05-02] MEDS: APIXABAN 2.5 MG TAB (ELIQUIS) PO SCH ×2 (10:01→20:37)
[2020-05-02] MEDS: predniSONE 1 MG TAB PO SCH (10:01)
[2020-05-02] MEDS: oxyBUTYnin 5 MG TAB PO SCH ×3 (10:01→20:37)
[2020-05-02] MEDS: FUROSEMIDE 40 MG TAB PO SCH ×2 (10:02→17:15)
[2020-05-02] MEDS: POTASSIUM CHLORIDE 10 MEQ SR TABLET PO SCH (10:02)
[2020-05-02] MEDS: MORPHINE 15 MG SA TAB PO SCH ×2 (10:03→20:39)
[2020-05-02] MEDS: PANTOPRAZOLE 20 MG TAB PO SCH ×2 (10:03→20:36)
[2020-05-02] MEDS: MULTIVITAMINS/MINERALS THERAP 1 TAB PO SCH (10:03)
[2020-05-02] MEDS: MIRALAX *UNIT DOSE* 17GM PACKET PO SCH (10:06)
[2020-05-02] MEDS: atenoloL 50 MG TAB PO SCH ×2 (10:06→20:38)
[2020-05-02] MEDS: CEPACOL LOZENGE PO PRN (16:17)
--- NOTE | 2020-05-02 17:00 | IPNPDOC ---
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 Patient was on oral antibiotics prior to debridement, will need to be on IV antibiotics for 6 weeks starting from 04/25/2020 (to 06.06.2020), currently on vancomycin and Zosyn. Vancomycin. Apparently pulse dose due to high troughs last 22mcg per mL, 04/29/2020 and clinical pharmacy change dosing to 1750 mg Q 24 hours with trough drawn today. Picc line in place. Patient followed by the ID clinic at [facility]. He notes resorting to WC mobility due to inconsistency/unreliability of LE strength with buckling of knees and increased risk of falls. He was admitted last Saturday for comprehensive rehabilitation work on transfers, limited mobilization with weightbearing as tolerated right lower extremity, self-care for lower extremity osteomyelitis , education regarding his chronic conditions and optimal management. Hb dropped over weekend necessitating transfusion 2 U PRBC. BS this morning spuriously elevated in 500, possible artifact from drawing off picc. Repeat 248 and finger sticks in 200s. On SS coverage and hefty doses long acting I. Pain is reasonably controlled, notes some respiratory distress over weekend requiring O2, back 90s on Room air today. REVIEW OF SYSTEMS: The following is a completed review of systems and has been reviewed. Review of systems otherwise unremarkable. PAIN: Patient lives with chronic pain managed with MS contin fci, failed prior spine stimulator, Fentanyl patches. EYES: Double vision, no complete visual loss EARS, NOSE, & THROAT: No throat pain, or dysphagia, or rhinorrhea. CARDIOVASCULAR: Denies chest pain or palpitations. PULMONARY: Denies shortness of breath. GASTROINTESTINAL: Denies constipation/diarrhea. GENITOURINARY: continent. BPH MUSCULOSKELETAL: chronic polyarticular MSK pain NEUROLOGICAL:.PN HEMATOLOGICAL: anemic, fatigue, bruises easily SKIN: left heel, fungal infections, new lesion right heel. PSYCHIATRIC: Unremarkable. All other review of systems found to be negative. PAST MEDICAL HISTORY: CAD status post PCI T2 DM HTN FARRUKH on BiPAP. Right temporal arteritis on steroids. Chronic low back pain status post multiple back surgeries HLD Right tibial fracture 2018, nonunion, REMOVED HARDWARE 12/21/2019, W PSEUDOMONAS ACNES DISEASE. 6 WEEKS OF IV VANCOMYCIN AND 818 MRI 1016 CONTINUED OSTEOMYELITIS WITH COMPLEX COLLECTION of fluid PAST SURGICAL HISTORY: ORIF, left ankle 1977 ORIF, right tibial fracture with nonunion. Debridement external fixator placement 11. 6. 20 Carpal tunnel release Shoulder surgery. Basal cell carcinoma excision. Dorsal column stimulator. Laparotomy, cholecystectomy Ulnar nerve transection at the elbow. Tonsillectomy. S/P Knee arthroscopy ORIF R tibia fracture L Ankle fracture. Laminectomy. Total surgery. Multiple spinal surgeries ALLERGIES: Please see below. MEDICATIONS: Please see below. PHYSICAL EXAMINATION: VITAL SIGNS: Please see below. GENERAL: Pleasant and cooperative. Alert and oriented times three. HEENT: Extraocular movements intact. Difficult to fully assess, no obvious adenopathy or thyromegaly. Full cervical range of motion without tenderness or spasm. Healed left temporal artery biopsy CARDIOVASCULAR: Regular rate and rhythm. LUNGS: Clear to auscultation bilaterally. No wheezes. No rhonchi. ABDOMEN: Soft, obese, distended. Positive Normal active bowel sounds. NEUROLOGICAL: Alert and oriented times three. Cranial nerves II through XII grossly intact. 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 Right foreleg in external fixator device. Right foot more pink and warmer today, however dime sized blackened circular area right heel , edematous. No point tenderness about left knee. Generalized tenderness right knee, foreleg. Pulses difficult to appreciate. SKIN: .multiple small reddened areas bilateral lower extremities circular quarter sized lesion left heel, external fixator, multiple attachment points right foreleg LABORATORY DATA: Please see below. IMAGING:Imaging documentation personally reviewed by record. MRI 04/04/2020 Proximal right tibial fracture nonunion with irregular fluid signal tract extending from the lateral fracture cortical defect into the intramedullary Cavity with 26 x 22 x 36 mm, irregularly intramedullary complex fluid collection and moderate lateral subcutaneous soft tissue edema. Most likely proximal tibial osteomyelitis with intramedullary abscess and overlying extremity soft tissue edema and/or cellulitis. FUNCTIONAL STATUS: Premorbid: Wheelchair for mobility slide board for transfers. Currently moderate to maximal assistance for mobility and maximum assistance for lower body dressing. Bilateral lower extremity weakness. Pt cont to demonstrate limited buttock clearance during transfer board transfers. Pt is limited by decreased activity tolerance and decreased strength. GOALS: Probable most realistic to work towards regaining slide board transfers as start, see how pain management and weight bearing tolerance proceeds for BLE. Prevention of worsening left and new right heel wounds, facilitation of healing infected right foreleg, preservation of both feet through protective measures to reduce edema, protect skin from shearing forces, maintain warmth/circulation, protective footwear without worsening shear. 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 Patient was on oral antibiotics prior to debridement, will need to be on IV antibiotics for 6 weeks starting from 04/25/2020 (to 06.06.2020), currently on vancomycin and Zosyn. Vancomycin. Apparently pulse dose due to high troughs last 22mcg per mL, 04/29/2020 and clinical pharmacy change dosing to 1750 mg Q 24 hours with trough drawn on the 16th. Picc line in place. Patient followed by the ID clinic at [facility]. He notes resorting to WC mobility due to inconsistency/unreliability of LE strength with buckling of knees and increased risk of falls. He presents for comprehensive rehabilitation work on transfers, limited mobilization with weightbearing as tolerated right lower extremity, self-care for lower extremity osteomyelitis , education regarding his chronic conditions and optimal management. PLAN: 1. Rehab- PT/OT advance gait and ADls, strengthen/stretch/maintain ROM all 4 limbs. We'll continue to work on timing pain medication with therapy interventions to optimize possible capacity to participate. Focus on safe transfers, wound management and prevention of further complications of complex medical conditions. 2. 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 3. Ortho- OM, rx vanc/zosyn, left heel ulcer at risk for OM, s/p multiple spinal surgeries, CLBP, s/p multiple jt replacements 4. Cardiac- hx of MO/ CAD with Stents, CHF, -HTN c/u ARB -HLD- c/u Zocor 5. Resp -incentive spirometry, monitor for infection 6. Endo- DM, hypothyroid, c/u insulin and ISS, thyroid med 7. - monitor output, RF 8. GI ppx- PPI 9. Skin wound care recommend turn and positioning every 2. Hours out of bed with static air cushion, no tenderness. Off loading the heels and heel protector, foam to right heel. Cleanse in the left foot with normal saline moistened gauze, medical, and the daily and covering with gauze secured with tape. Applying Tinactin twice a day to fungal area on foot, wrapping with angelina, securing with tape. Monitor Vanc protocols, ESR, CRP, vs, cbc PROGNOSIS: Excellent. ESTIMATED LENGTH OF STAY:14 days. PROJECTED DISCHARGE DESTINATION: Home with family support and any durable medical equipment required to increase functional safety and mobility. TIME SPENT COUNSELING AND COORDINATING INITIAL CARE: 35 minutes. This document is generated using speech recognition software which may result in grammatical, typographical and individual word errors. Allergies Coded Allergies: No Known Allergies (Verified , 12/21/02) Vital Signs Vital Signs Date Time Temp Pulse Resp B/P (MAP) Pulse Ox O2 Delivery O2 Flow Rate FiO2 05/02/20 14:00 98.8 82 17 147/70 (95) 91 Room Air 05/01/20 18:35 2.0 Laboratory Data CBC/BMP Laboratory Tests 05/02/20 06:11 Labs 24H Laboratory Tests 2 05/01/20 18:47: Vancomycin Level Trough 17.0 05/01/20 19:55: Bedside Glucose (Misc Panel) 402H 05/02/20 05:35: Bedside Glucose (Misc Panel) 260H 05/02/20 06:11: Nucleated Red Blood Cells % (auto) 0.6H, Erythrocyte Sedimentation Rate 63H, Anion Gap 15, Glomerular Filtration Rate 49.6, Calcium Level 7.5L, Total Bilirubin 1.0#, Aspartate Amino Transf (AST/SGOT) 41H, Alanine Aminotransferase (ALT/SGPT) 37, Alkaline Phosphatase 199H, C-Reactive Protein, Quantitative 2.70H, Total Protein 6.0L, Albumin 2.3L, Albumin/Globulin Ratio 0.6 05/02/20 07:14: Bedside Glucose (Misc Panel) 342H 11/16/20 07:52: Bedside Glucose Confirm (Misc) 248H 05/02/20 11:31: Bedside Glucose (Misc Panel) 225H 05/02/20 16:45: Bedside Glucose (Misc Panel) 155H Current Medications Current Medications Current Medications Medications (Trade) Dose Ordered Sig/Mima Route PRN Reason Start Time Stop Time Status Last Admin Dose Admin Acetaminophen (Tylenol Tab) 650 mg Q4HP PRN PO MILD PAIN (PS 1-4) 04/29/20 14:15 05/02/20 13:16 Apixaban (Eliquis) 2.5 mg BID PO 04/29/20 21:00 05/02/20 10:01 Artificial Tears (Akwa Tears) 2 drop QID PRN OU DRY EYES 04/29/20 17:00 Aspirin (Aspirin Chewable) 81 mg QPM PEG 04/29/20 21:00 05/01/20 20:40 Atenolol (Tenormin) 50 mg BID PO 04/29/20 21:00 05/02/20 10:06 Atorvastatin Calcium (Lipitor) 20 mg QPM PO 04/29/20 21:00 05/01/20 20:40 Cetylpyridinium Chloride (Cepacol) 1 chrissy Q4HP PRN PO SORE THROAT 05/01/20 16:00 05/02/20 16:17 Dextrose (Dextrose 50%) 25 ml ASDIRECTED PRN IV SEE LABEL COMMENTS 04/29/20 14:45 Docusate Sodium (Colace) 100 mg BIDP PRN PO CONSTIPATION 04/29/20 21:00 Duloxetine HCl (Cymbalta) 60 mg QHS PO 04/29/20 21:00 05/01/20 20:40 Furosemide (Lasix) 40 mg BID@09,17 PO 04/29/20 17:00 05/02/20 10:02 Gabapentin (Neurontin) 800 mg Q8H PO 04/29/20 14:00 05/02/20 13:16 Glucagon (Glucagon) 1 mg ASDIRECTED PRN SC SEE LABEL COMMENTS 04/29/20 14:45 Glucose (Glucose) 16 GM ASDIRECTED PRN PO SEE LABEL COMMENTS 04/29/20 14:45 Heparin Sodium (Heparin (Flush)) 200 units ASDIRECTED PRN IV SEE LABEL COMMENTS 04/29/20 20:00 05/02/20 13:18 Heparin Sodium (Heparin (Flush)) 200 units PICC IV 04/30/20 06:00 05/02/20 05:14 Home Med (Med Rec Complete!) ASDIRECTED XX 04/29/20 15:45 04/29/20 15:56 DC Insulin Detemir (Levemir Insulin) 180 units DAILY@2100 MT 04/29/20 21:00 05/01/20 20:42 Insulin Human Lispro (HumaLOG INSULIN) 15 units [facility] 05/01/20 12:00 05/01/20 20:35 DC 05/01/20 17:27 Insulin Human Lispro (HumaLOG INSULIN) 25 units [facility] 05/02/20 07:30 05/02/20 12:10 Insulin Human Lispro (HumaLOG INSULIN) See Protocol Table AC MT 04/29/20 17:30 05/02/20 12:09 Insulin Human Lispro (HumaLOG INSULIN) See Protocol Table [facility] 04/30/20 21:00 05/01/20 20:41 Levothyroxine Sodium (Synthroid) 112 mcg DAILY@06 PO 04/30/20 06:00 05/02/20 05:14 Morphine Sulfate (Ms Contin) 45 mg BID PO 04/29/20 21:00 05/02/20 10:03 Multivitamins (Theragram-M) 1 tab DAILY PO 04/30/20 09:00 05/02/20 10:03 Oxybutynin Chloride (Ditropan) 5 mg TID PO 04/29/20 21:00 05/02/20 16:17 Pantoprazole Sodium (Protonix) 20 mg BID PO 04/29/20 21:00 05/02/20 10:03 Pantoprazole Sodium (Protonix) 20 mg DAILY PO 04/30/20 09:00 04/29/20 16:34 DC Piperacillin Sod/ Tazobactam Sod 3.375 gm/Dextrose 50 ml @ 50 mls/hr Q6H IV 04/29/20 17:00 05/02/20 12:08 Polyethylene Glycol (Miralax) 1 pkt DAILY PO 04/30/20 09:00 Potassium Chloride (Micro-K Extencaps) 40 meq DAILY PO 05/02/20 09:00 05/02/20 10:02 Prednisone (Deltasone) 2 mg DAILY PO 04/30/20 09:00 05/02/20 10:01 Prednisone (Deltasone) 10 mg DAILY PO 04/30/20 09:00 05/02/20 09:59 Sodium Chloride (Saline Lock Flush) 10 ml ASDIRECTED PRN IV SEE LABEL COMMENTS 04/29/20 20:00 05/02/20 13:18 Sodium Chloride (Saline Lock Flush) 10 ml PICC IV 04/30/20 06:00 05/02/20 05:17 Vancomycin HCl 500 mg/Dextrose 110 ml @ 110 mls/hr Q24H IV 04/29/20 21:00 05/01/20 22:34 Vancomycin HCl 750 mg/IV Miscellaneous Supplies 1 each/ Dextrose 275 ml @ 275 mls/hr Q24H IV 04/29/20 20:00 05/01/20 21:08 JEFRY LOPEZ MD May 02, 2020 17:00
[2020-05-02] MEDS: VANCOMYCIN HCL 750 MG, VIAL MATE ADAPTER 1 EACH in D5W 250 ML IV SCH (20:30)
[2020-05-02] MEDS: LEVEMIR (INSULIN DETEMIR) 1 UNITS/0.01ML SC SCH (20:36)
[2020-05-02] MEDS: ATORVASTATIN 20 MG TAB PO SCH (20:37)
[2020-05-02] MEDS: DULoxetine 30 MG CAP (CYMBALTA) PO SCH (20:37)
[2020-05-02] MEDS: ASPIRIN 81 MG CHEW TABLET PEG SCH (20:37)
[2020-05-02] MEDS: VANCOMYCIN HCL 500 MG in D5W MINI-BAG PLUS 100 ML IV SCH (21:30)
[2020-05-03] MEDS: GABAPENTIN 400 MG CAP PO SCH ×3 (05:07→21:10)
[2020-05-03] MEDS: LEVOTHYROXINE 112MCG TABLET (0.112MG) PO SCH (05:07)
[2020-05-03] MEDS: PIPERACILLIN/TAZOBACTAM SOD 3.375 GM in D5W MINI-BAG PLUS 50 ML IV SCH ×4 (05:08→23:10)
[2020-05-03] MEDS: SODIUM CHLORIDE 0.9% INJ 10 ML SYR IV SCH ×2 (05:09→17:47)
[2020-05-03 05:54] VITALS: BP 180/75
[2020-05-03 06:21] LABS: HEMATOCRIT 29.6 % (42.0-52.0); HEMOGLOBIN 8.6 g/dl (13.5-17.5); MEAN CORPUSCULAR HEMOGLOBIN 25.7 pg (27.0-33.0); MEAN CORPUSCULAR HGB CONC 29.1 g/dl (32.0-36.5); MEAN CORPUSCULAR VOLUME 88.4 fl (80.0-96.0); PLATELET COUNT, AUTOMATED 272 10^3/uL (150-450); RED BLOOD COUNT 3.35 10^6/uL (4.30-6.10); WHITE BLOOD COUNT 12.2 10^3/uL (4.0-10.0)
[2020-05-03 06:26] VITALS: BP 162/70
[2020-05-03 06:38] LABS: ERYTHROCYTE SEDIMENTATION RATE 65 mm/hr (0-20)
[2020-05-03 06:48] LABS: ALBUMIN 2.5 GM/DL (3.2-5.2); BILIRUBIN,TOTAL 0.5 MG/DL (0.2-1.0); C REACTIVE PROTEIN QUANTITATIV 2.9 MG/DL (0.00-0.30); CALCIUM LEVEL 8.2 MG/DL (8.8-10.2); CREATININE FOR GFR 1.47 MG/DL (0.70-1.30); GLOMERULAR FILTRATION RATE 50.4 (>42); POTASSIUM SERUM 3.6 MEQ/L (3.5-5.1); TOTAL PROTEIN 5.8 GM/DL (6.4-8.2)
[2020-05-03] MEDS: HumaLOG INSULIN (NovoLOG) PER UNIT SC SCH ×7 (08:26→21:08)
[2020-05-03] MEDS: oxyBUTYnin 5 MG TAB PO SCH ×3 (08:28→21:10)
[2020-05-03] MEDS: MULTIVITAMINS/MINERALS THERAP 1 TAB PO SCH (08:28)
[2020-05-03] MEDS: POTASSIUM CHLORIDE 10 MEQ SR TABLET PO SCH (08:28)
[2020-05-03] MEDS: FUROSEMIDE 40 MG TAB PO SCH ×2 (08:29→16:44)
[2020-05-03] MEDS: atenoloL 50 MG TAB PO SCH ×2 (08:29→21:10)
[2020-05-03] MEDS: predniSONE 1 MG TAB PO SCH (08:31)
[2020-05-03] MEDS: MIRALAX *UNIT DOSE* 17GM PACKET PO SCH (08:31)
[2020-05-03] MEDS: APIXABAN 2.5 MG TAB (ELIQUIS) PO SCH ×2 (08:31→21:10)
[2020-05-03] MEDS: PANTOPRAZOLE 20 MG TAB PO SCH ×2 (08:31→21:09)
[2020-05-03] MEDS: predniSONE 10 MG TAB PO SCH (08:31)
[2020-05-03] MEDS: MORPHINE 15 MG SA TAB PO SCH ×2 (08:31→21:11)
[2020-05-03] MEDS: ZINC SULFATE 220 MG CAP PO SCH ×2 (10:54→21:09)
[2020-05-03] MEDS: ASCORBIC ACID 500 MG TAB PO SCH (10:54)
[2020-05-03] MEDS: CEPACOL LOZENGE PO PRN ×2 (10:54→21:09)
[2020-05-03] MEDS: SODIUM CHLORIDE 0.9% INJ 10 ML SYR IV PRN ×3 (12:08→17:47)
[2020-05-03 14:00] VITALS: BP 129/61
[2020-05-03] MEDS: FIBER-CON 625 MG TAB PO SCH (14:00)
--- NOTE | 2020-05-03 14:46 | IPNPDOC ---
PM&R Progress Note DATE OF SERVICE: May 03, 2020 Project Engineer Progress Note DATE OF ADMISSION: Apr 29, 2020 at 14:24 INPATIENT REHABILITATION ADMISSION DAY: #5 CHIEF COMPLAINT: . 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 Patient was on oral antibiotics prior to debridement, will need to be on IV antibiotics for 6 weeks starting from 04/25/2020 (to 06.06.2020), currently on vancomycin and Zosyn. Vancomycin. Apparently pulse dose due to high troughs last 22mcg per mL, 04/29/2020 and clinical pharmacy change dosing to 1750 mg Q 24 hours with trough drawn today. Picc line in place. Patient followed by the ID clinic at [facility]. He notes resorting to WC mobility due to inconsistency/unreliability of LE strength with buckling of knees and increased risk of falls. He was admitted last Saturday for comprehensive rehabilitation work on transfers, limited mobilization with weightbearing as tolerated right lower extremity, self-care for lower extremity osteomyelitis , education regarding his chronic conditions and optimal management. Hb dropped over weekend necessitating transfusion 2 U PRBC. BS yesterday morning spuriously elevated in 500, possible artifact from drawing off picc. Repeat 248 and finger sticks in 200s. This morning 249 glucometer, 398 blood draw, getting glucometer checked/recalibrated. On SS coverage and hefty doses long acting I. Pain is reasonably controlled, notes some respiratory distress over weekend requiring O2, back 90s on Room air today. Gets SOB with exertion. REVIEW OF SYSTEMS: The following is a completed review of systems and has been reviewed. Review of systems otherwise unremarkable. PAIN: Patient lives with chronic pain managed with MS contin snf, failed prior spine stimulator, Fentanyl patches. EYES: Double vision, no complete visual loss EARS, NOSE, & THROAT: No throat pain, or dysphagia, or rhinorrhea. CARDIOVASCULAR: Denies chest pain or palpitations. PULMONARY: Denies shortness of breath. GASTROINTESTINAL: Notes frequent soft stools. GENITOURINARY: continent. BPH MUSCULOSKELETAL: chronic polyarticular MSK pain NEUROLOGICAL:.PN HEMATOLOGICAL: anemic, fatigue, bruises easily SKIN: left heel, fungal infections, new lesion right heel. PSYCHIATRIC: Unremarkable. All other review of systems found to be negative. PAST MEDICAL HISTORY: CAD status post PCI T2 DM HTN FARRUKH on BiPAP. Right temporal arteritis on steroids. Chronic low back pain status post multiple back surgeries HLD Right tibial fracture 2018, nonunion, REMOVED HARDWARE 12/21/2019, W PSEUDOMONAS ACNES DISEASE. 6 WEEKS OF IV VANCOMYCIN AND 818 MRI 1016 CONTINUED OSTEOMYELITIS WITH COMPLEX COLLECTION of fluid PAST SURGICAL HISTORY: ORIF, left ankle 1976 ORIF, right tibial fracture with nonunion. Debridement external fixator placement Carpal tunnel release Shoulder surgery. Basal cell carcinoma excision. Dorsal column stimulator. Laparotomy, cholecystectomy Ulnar nerve transection at the elbow. Tonsillectomy. S/P Knee arthroscopy ORIF R tibia fracture L Ankle fracture. Laminectomy. Total surgery. Multiple spinal surgeries ALLERGIES: Please see below. MEDICATIONS: Please see below. PHYSICAL EXAMINATION: VITAL SIGNS: Please see below. GENERAL: Pleasant and cooperative. Alert and oriented times three. HEENT: Extraocular movements intact. Difficult to fully assess, no obvious adenopathy or thyromegaly. Full cervical range of motion without tenderness or spasm. Healed left temporal artery biopsy CARDIOVASCULAR: Regular rate and rhythm. LUNGS: Clear to auscultation bilaterally. No wheezes. No rhonchi. ABDOMEN: Soft, obese, distended. Positive Normal active bowel sounds. NEUROLOGICAL: Alert and oriented times three. Cranial nerves II through XII grossly intact. Sensation grossly intact to light touch, diminished in lower extremities EXTREMITIES: 5/5 returner, elbow flexion, elbow extension, unable to fully assess foot dorsiflexion, plantar flexion but can wiggle both feet. Right foreleg in external fixator device. Right foot more pink and warmer, however dime sized blackened circular area right heel , edematous. No point tenderness about left knee. Generalized tenderness right knee, foreleg. Pulses difficult to appreciate. Sensation decreased globally over both feet. SKIN: multiple small reddened areas bilateral lower extremities circular quarter sized lesion left heel, external fixator, multiple attachment points right foreleg LABORATORY DATA: Please see below. FUNCTIONAL STATUS: Premorbid: Wheelchair for mobility slide board for transfers. Currently moderate to maximal assistance for mobility and maximum assistance for lower body dressing. Bilateral lower extremity weakness. Pt cont to demonstrate limited buttock clearance during transfer board transfers requiring CTGA. Pt is limited by decreased activity tolerance and decreased strength and decreased standing tolerance BLE. GOALS: Probable most realistic to work towards regaining slide board transfers in and out of bed, to commode, car, see how pain management and weight bearing tolerance proceeds for BLE. Prevention of worsening left and new right heel wounds, facilitation of healing infected right foreleg, preservation of both feet through protective measures to reduce edema, protect skin from shearing forces, maintain warmth/circulation, protective footwear without worsening shear. 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 Patient was on oral antibiotics prior to debridement, will need to be on IV antibiotics for 6 weeks starting from 04/25/2020 (to 06.06.2020), currently on vancomycin and Zosyn. Vancomycin. Apparently pulse dose due to high troughs last 22mcg per mL, 04/29/2020 and clinical pharmacy change dosing to 1750 mg Q 24 hours with trough drawn on the , pharmacy making calculated adjustments. Picc line in place. Patient followed by the ID clinic at [facility], discussed case with MT Hampton who confirmed rx plan Vanc 1500 BID, Zosyn 3.25 Q 6 x 6 week. He will continue with comprehensive rehabilitation work on transfers, limited mobilization with weightbearing as tolerated right lower extremity, self-care for lower extremity osteomyelitis , education regarding his chronic conditions and optimal management. PLAN: 1. Rehab- PT/OT advance gait and ADls, strengthen/stretch/maintain ROM all 4 limbs. We'll continue to work on timing pain medication with therapy interventions to optimize possible capacity to participate. Focus on safe transfers, wound management and prevention of further complications of complex medical conditions. 2. 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 3. Ortho- OM, rx vanc/zosyn, left heel ulcer at risk for OM, s/p multiple spinal surgeries, CLBP, s/p multiple jt replacements. Added Vitamin C, Zinc to promote would healing, continue wound care protocol. 4. Cardiac- hx of FL/ CAD with Stents, CHF, -HTN c/u ARB -HLD- c/u Zocor 5. Resp -incentive spirometry, monitor for infection 6. Endo- DM, hypothyroid, c/u insulin and ISS, thyroid med, coordinate with hospitalists regarding slightly increasing dose long acting Insulin goal of keeping better control. 7. - monitor output, RF 8. GI ppx- PPI, pepto, fibe, probiotics, dc miralax, low threshold to submit sample for C Diff if liquid stools noted. 9. Skin wound care recommend turn and positioning every 2. Hours out of bed with static air cushion, no tenderness. Off loading the heels and heel protector, foam to right heel. Cleanse in the left foot with normal saline moistened gauze, medical, and the daily and covering with gauze secured with tape. Applying Tinactin twice a day to fungal area on foot, wrapping with angelina, securing with tape. Monitor Vanc protocols, ESR, CRP, vs, cbc PROGNOSIS: Excellent. ESTIMATED LENGTH OF STAY:14 days. PROJECTED DISCHARGE DESTINATION: Home with family support and any durable medical equipment required to increase functional safety and mobility. TIME SPENT COUNSELING AND COORDINATING INITIAL CARE: 35 minutes. This document is generated using speech recognition software which may result in grammatical, typographical and individual word errors. Allergies Coded Allergies: No Known Allergies (Verified , 12/21/02) Vital Signs Vital Signs Date Time Temp Pulse Resp B/P (MAP) Pulse Ox O2 Delivery O2 Flow Rate FiO2 05/03/20 08:31 18 Room Air 05/03/20 08:29 70 158/70 05/03/20 05:54 99.4 93 05/01/20 18:35 2.0 Laboratory Data CBC/BMP Laboratory Tests 05/03/20 05:38 Labs 24H Laboratory Tests 2 05/02/20 16:45: Bedside Glucose (Misc Panel) 155H 05/02/20 19:38: Bedside Glucose (Misc Panel) 240H 05/03/20 05:32: Bedside Glucose (Misc Panel) 249H 05/03/20 05:38: Nucleated Red Blood Cells % (auto) 0.3H, Erythrocyte Sedimentation Rate 65H, Anion Gap 11, Glomerular Filtration Rate 50.4, Calcium Level 8.2L, Total Bilirubin 0.5, Aspartate Amino Transf (AST/SGOT) 42H, Alanine Aminotransferase (ALT/SGPT) 45, Alkaline Phosphatase 204H, C-Reactive Protein, Quantitative 2.90H, Total Protein 5.8L, Albumin 2.5L, Albumin/Globulin Ratio 0.8 05/03/20 11:31: Bedside Glucose (Misc Panel) 282H Current Medications Current Medications Current Medications Medications (Trade) Dose Ordered Sig/Mima Route PRN Reason Start Time Stop Time Status Last Admin Dose Admin Acetaminophen (Tylenol Tab) 650 mg Q4HP PRN PO MILD PAIN (PS 1-4) 04/29/20 14:15 05/02/20 13:16 Apixaban (Eliquis) 2.5 mg BID PO 04/29/20 21:00 05/03/20 08:31 Artificial Tears (Akwa Tears) 2 drop QID PRN OU DRY EYES 04/29/20 17:00 Ascorbic Acid (Vitamin C) 1,000 mg DAILY PO 05/03/20 09:00 05/03/20 10:54 Aspirin (Aspirin Chewable) 81 mg QPM PEG 04/29/20 21:00 Hold 05/02/20 20:37 Atenolol (Tenormin) 50 mg BID PO 04/29/20 21:00 05/03/20 08:29 Atorvastatin Calcium (Lipitor) 20 mg QPM PO 04/29/20 21:00 05/02/20 20:37 Bismuth Subsalicylate (Pepto Bismol) 30 ml Q4HP PRN PO DIARRHEA 05/03/20 11:30 Calcium Polycarbophil (Fiber Con) 1 ea DAILY PO 05/03/20 12:00 05/16/20 09:00 05/03/20 14:00 Cetylpyridinium Chloride (Cepacol) 1 chrissy Q4HP PRN PO SORE THROAT 05/01/20 16:00 05/03/20 10:54 Dextrose (Dextrose 50%) 25 ml ASDIRECTED PRN IV SEE LABEL COMMENTS 04/29/20 14:45 Docusate Sodium (Colace) 100 mg BIDP PRN PO CONSTIPATION 04/29/20 21:00 Duloxetine HCl (Cymbalta) 60 mg QHS PO 04/29/20 21:00 05/02/20 20:37 Furosemide (Lasix) 40 mg BID@ PO 04/29/20 17:00 05/03/20 08:29 Gabapentin (Neurontin) 800 mg Q8H PO 04/29/20 14:00 05/03/20 14:01 Glucagon (Glucagon) 1 mg ASDIRECTED PRN SC SEE LABEL COMMENTS 04/29/20 14:45 Glucose (Glucose) 16 GM ASDIRECTED PRN PO SEE LABEL COMMENTS 04/29/20 14:45 Heparin Sodium (Heparin (Flush)) 200 units ASDIRECTED PRN IV SEE LABEL COMMENTS 04/29/20 20:00 05/03/20 12:08 Heparin Sodium (Heparin (Flush)) 200 units PICC IV 04/30/20 06:00 05/03/20 05:08 Home Med (Med Rec Complete!) ASDIRECTED XX 04/29/20 15:45 04/29/20 15:56 DC Insulin Detemir (Levemir Insulin) 180 units DAILY@2100 CO 04/29/20 21:00 05/02/20 20:36 Insulin Human Lispro (HumaLOG INSULIN) 15 units [facility] 05/01/20 12:00 05/01/20 20:35 DC 05/01/20 17:27 Insulin Human Lispro (HumaLOG INSULIN) 25 units [facility] 05/02/20 07:30 05/03/20 07:28 DC 05/02/20 17:16 Insulin Human Lispro (HumaLOG INSULIN) 30 units [facility] 05/03/20 07:30 05/03/20 12:08 Insulin Human Lispro (HumaLOG INSULIN) See Protocol Table AC [facility] 04/29/20 17:30 05/03/20 12:07 Insulin Human Lispro (HumaLOG INSULIN) [facility] 04/30/20 21:00 05/01/20 20:41 Lactobacillus Acidophilus (Bacid) 1 ea WM PO 05/03/20 18:00 Levothyroxine Sodium (Synthroid) 112 mcg DAILY@06 PO 04/30/20 06:00 05/03/20 05:07 Morphine Sulfate (Ms Contin) 45 mg BID PO 04/29/20 21:00 05/03/20 08:31 Multivitamins (Theragram-M) 1 tab DAILY PO 04/30/20 09:00 05/03/20 08:28 Oxybutynin Chloride (Ditropan) 5 mg TID PO 04/29/20 21:00 05/03/20 08:28 Pantoprazole Sodium (Protonix) 20 mg BID PO 04/29/20 21:00 05/03/20 08:31 Pantoprazole Sodium (Protonix) 20 mg DAILY PO 04/30/20 09:00 04/29/20 16:34 DC Piperacillin Sod/ Tazobactam Sod 3.375 gm/Dextrose 50 ml @ 50 mls/hr Q6H IV 04/29/20 17:00 05/03/20 10:53 Polyethylene Glycol (Miralax) 1 pkt DAILY PO 04/30/20 09:00 Hold Potassium Chloride (Micro-K Extencaps) 40 meq DAILY PO 05/02/20 09:00 05/03/20 08:28 Prednisone (Deltasone) 2 mg DAILY PO 04/30/20 09:00 05/03/20 08:31 Prednisone (Deltasone) 10 mg DAILY PO 04/30/20 09:00 05/03/20 08:31 Sodium Chloride (Saline Lock Flush) 10 ml ASDIRECTED PRN IV SEE LABEL COMMENTS 04/29/20 20:00 05/03/20 12:08 Sodium Chloride (Saline Lock Flush) 10 ml PICC IV 04/30/20 06:00 05/03/20 05:09 Vancomycin HCl 500 mg/Dextrose 110 ml @ 110 mls/hr Q24H IV 04/29/20 21:00 05/02/20 21:30 Vancomycin HCl 750 mg/IV Miscellaneous Supplies 1 each/ Dextrose 275 ml @ 275 mls/hr Q24H IV 04/29/20 20:00 05/02/20 20:30 Zinc Sulfate (Zinc Sulfate) 220 mg BID PO 05/03/20 09:00 05/03/20 10:54 JEFRY LOPEZ MD May 03, 2020 14:46
[2020-05-03] MEDS: LACTOBACILLUS ACIDOPHILUS CAP (BACID) PO SCH (16:44)
[2020-05-03 20:00] VITALS: BP 167/73
[2020-05-03] MEDS: VANCOMYCIN HCL 750 MG, VIAL MATE ADAPTER 1 EACH in D5W 250 ML IV SCH (21:07)
[2020-05-03] MEDS: LEVEMIR (INSULIN DETEMIR) 1 UNITS/0.01ML SC SCH (21:08)
[2020-05-03] MEDS: PINK BISMUTH SUSP 524MG/30ML ORAL SYRINGE PO PRN (21:09)
[2020-05-03] MEDS: DULoxetine 30 MG CAP (CYMBALTA) PO SCH (21:09)
[2020-05-03] MEDS: ATORVASTATIN 20 MG TAB PO SCH (21:10)
[2020-05-03] MEDS: VANCOMYCIN HCL 500 MG in D5W MINI-BAG PLUS 100 ML IV SCH (22:00)
[2020-05-04] MEDS: LEVOTHYROXINE 112MCG TABLET (0.112MG) PO SCH (05:08)
[2020-05-04] MEDS: PIPERACILLIN/TAZOBACTAM SOD 3.375 GM in D5W MINI-BAG PLUS 50 ML IV SCH ×4 (05:08→22:57)
[2020-05-04] MEDS: GABAPENTIN 400 MG CAP PO SCH ×3 (05:08→21:48)
[2020-05-04] MEDS: SODIUM CHLORIDE 0.9% INJ 10 ML SYR IV SCH ×2 (05:09→17:01)
[2020-05-04 06:00] VITALS: BP 151/70
[2020-05-04 07:05] LABS: HEMATOCRIT 28.8 % (42.0-52.0); HEMOGLOBIN 8.3 g/dl (13.5-17.5); MEAN CORPUSCULAR HEMOGLOBIN 25.7 pg (27.0-33.0); MEAN CORPUSCULAR HGB CONC 28.8 g/dl (32.0-36.5); MEAN CORPUSCULAR VOLUME 89.2 fl (80.0-96.0); PLATELET COUNT, AUTOMATED 265 10^3/uL (150-450); RED BLOOD COUNT 3.23 10^6/uL (4.30-6.10); WHITE BLOOD COUNT 11.8 10^3/uL (4.0-10.0)
[2020-05-04 07:27] LABS: ERYTHROCYTE SEDIMENTATION RATE 67 mm/hr (0-20)
[2020-05-04] MEDS: FIBER-CON 625 MG TAB PO SCH (08:15)
[2020-05-04] MEDS: APIXABAN 2.5 MG TAB (ELIQUIS) PO SCH ×2 (08:15→20:17)
[2020-05-04] MEDS: HumaLOG INSULIN (NovoLOG) PER UNIT SC SCH ×7 (08:16→21:00)
[2020-05-04] MEDS: POTASSIUM CHLORIDE 10 MEQ SR TABLET PO SCH (08:17)
[2020-05-04] MEDS: atenoloL 50 MG TAB PO SCH ×2 (08:17→20:17)
[2020-05-04] MEDS: PANTOPRAZOLE 20 MG TAB PO SCH ×2 (08:17→20:16)
[2020-05-04] MEDS: FUROSEMIDE 40 MG TAB PO SCH ×2 (08:17→17:00)
[2020-05-04] MEDS: MORPHINE 15 MG SA TAB PO SCH ×2 (08:17→20:16)
[2020-05-04] MEDS: oxyBUTYnin 5 MG TAB PO SCH ×3 (08:17→20:16)
[2020-05-04] MEDS: ASCORBIC ACID 500 MG TAB PO SCH (08:18)
[2020-05-04] MEDS: predniSONE 10 MG TAB PO SCH (08:18)
[2020-05-04] MEDS: ZINC SULFATE 220 MG CAP PO SCH ×2 (08:18→20:16)
[2020-05-04] MEDS: predniSONE 1 MG TAB PO SCH (08:18)
[2020-05-04] MEDS: MULTIVITAMINS/MINERALS THERAP 1 TAB PO SCH (08:18)
[2020-05-04] MEDS: LACTOBACILLUS ACIDOPHILUS CAP (BACID) PO SCH ×3 (08:18→17:01)
--- NOTE | 2020-05-04 09:15 | IPNPDOC ---
PM&R Progress Note DATE OF SERVICE: May 04, 2020 Campus Safety Officer Progress Note DATE OF ADMISSION: Apr 29, 2020 at 14:24 05/04/2020 INPATIENT REHABILITATION ADMISSION DAY: #6 CHIEF COMPLAINT: . 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 Patient was on oral antibiotics prior to debridement, will need to be on IV antibiotics for 6 weeks starting from 04/25/2020 (to 06.06.2020), currently on vancomycin and Zosyn. Vancomycin. Apparently pulse dose due to high troughs last 22mcg per mL, 04/29/2020 and clinical pharmacy change dosing to 1750 mg Q 24 hours with trough drawn today. Picc line in place. Patient followed by the ID clinic at [facility]. He notes resorting to WC mobility due to inconsistency/unreliability of LE strength with buckling of knees and increased risk of falls. He was admitted last Saturday for comprehensive rehabilitation work on transfers, limited mobilization with weightbearing as tolerated right lower extremity, self-care for lower extremity osteomyelitis , education regarding his chronic conditions and optimal management. Hb dropped over weekend necessitating transfusion 2 U PRBC. BS yesterday morning spuriously elevated in 500, possible artifact from drawing off picc. Repeat 248 and finger sticks in 200s. This morning 249 glucometer, 398 blood draw, getting glucometer checked/recalibrated. On SS coverage and hefty doses long acting I. Pain is reasonably controlled, notes some respiratory distress over weekend requiring O2, back 90s on Room air today. Gets SOB with exertion. Yesterday, gave a dose of Pepto-Bismol and added fiber for frequent soft stools. He notes no further bowel action or GI distress had another soft stool this morning. REVIEW OF SYSTEMS: The following is a completed review of systems and has been reviewed. Review of systems otherwise unremarkable. PAIN: Patient lives with chronic pain managed with MS contin alf, failed prior spine stimulator, Fentanyl patches. EYES: Double vision, no complete visual loss EARS, NOSE, & THROAT: No throat pain, or dysphagia, or rhinorrhea. CARDIOVASCULAR: Denies chest pain or palpitations. PULMONARY: Denies shortness of breath. GASTROINTESTINAL: Notes frequent soft stools. GENITOURINARY: continent. BPH MUSCULOSKELETAL: chronic polyarticular MSK pain NEUROLOGICAL:.PN HEMATOLOGICAL: anemic, fatigue, bruises easily SKIN: left heel, fungal infections, new lesion right heel. PSYCHIATRIC: Unremarkable. All other review of systems found to be negative. PAST MEDICAL HISTORY: CAD status post PCI T2 DM HTN FARRUKH on BiPAP. Right temporal arteritis on steroids. Chronic low back pain status post multiple back surgeries HLD Right tibial fracture 2018, nonunion, REMOVED HARDWARE 12/21/2019, W PSEUDOMONAS ACNES DISEASE. 6 WEEKS OF IV VANCOMYCIN AND 818 MRI 1016 CONTINUED OSTEOMYELITIS WITH COMPLEX COLLECTION of fluid PAST SURGICAL HISTORY: ORIF, left ankle 1976 ORIF, right tibial fracture with nonunion. Debridement external fixator placement Carpal tunnel release Shoulder surgery. Basal cell carcinoma excision. Dorsal column stimulator. Laparotomy, cholecystectomy Ulnar nerve transection at the elbow. Tonsillectomy. S/P Knee arthroscopy ORIF R tibia fracture L Ankle fracture. Laminectomy. Total surgery. Multiple spinal surgeries ALLERGIES: Please see below. MEDICATIONS: Please see below. PHYSICAL EXAMINATION: VITAL SIGNS: Please see below. GENERAL: Pleasant and cooperative. Alert and oriented times three. HEENT: Extraocular movements intact. Difficult to fully assess, no obvious adenopathy or thyromegaly. Full cervical range of motion without tenderness or spasm. Healed left temporal artery biopsy CARDIOVASCULAR: Regular rate and rhythm. LUNGS: Clear to auscultation bilaterally. No wheezes. No rhonchi. ABDOMEN: Soft, obese, distended. Positive Normal active bowel sounds. NEUROLOGICAL: Alert and oriented times three. Cranial nerves II through XII grossly intact. Sensation grossly intact to light touch, diminished in lower extremities EXTREMITIES: 5/5 spike maker, elbow flexion, elbow extension, unable to fully assess foot dorsiflexion, plantar flexion but can wiggle both feet. Right foreleg in external fixator device. Right foot more pink and warmer less edematous . No point tenderness about left knee. Generalized tenderness right knee, foreleg. Pulses difficult to appreciate. Sensation decreased globally over both feet. Booties present bilateral feet SKIN: multiple small reddened areas bilateral lower extremities circular quarter sized lesion left heel, external fixator, multiple attachment points right foreleg dime sized blackened circular area right heel no increase in size, small pin head satellite blackened area lower achilles. Right heel 1cm clean heel ulceration . LABORATORY DATA: Please see below. FUNCTIONAL STATUS: Premorbid: Wheelchair for mobility slide board for transfers. Pt. continues to demonstrate limited strength in LE's to facilitate slideboard transfers; requires donning of pants prior to initiating transfer to facilitate sliding as is unable to clear buttocks; states that he uses powder at home to improve this and likely was presenting with this difficulty over some time prior to admission. Patient participated with bathing and dressing tasks at bed level. Able to wash james area, upper legs and lower legs with long handled sponge in supine and UB seated EOB. Assistance required to wash feet and buttocks and to don/doff socks. Max A required to don clean brief at bed level. GOALS: Probable most realistic to work towards regaining slide board transfers in and out of bed, to commode, car, see how pain management and weight bearing tolerance proceeds for BLE. Prevention of worsening left and new right heel wounds, facilitation of healing infected right foreleg, preservation of both feet through protective measures to reduce edema, protect skin from shearing forces, maintain warmth/circulation, protective footwear without worsening shear. 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 Patient was on oral antibiotics prior to debridement, will need to be on IV antibiotics for 6 weeks starting from 04/25/2020 (to 06.06.2020), currently on vancomycin and Zosyn. Vancomycin. Apparently pulse dose due to high troughs last 22mcg per mL, 04/29/2020 and clinical pharmacy change dosing to 1750 mg Q 24 hours with trough drawn on the 16, pharmacy making calculated adjustments. Picc line in place. Patient followed by the ID clinic at [facility], discussed case with MT Hampton who confirmed rx plan Vanc 1500 BID, Zosyn 3.25 Q 6 x 6 week. He will continue with comprehensive rehabilitation work on transfers, limited mobilization with weightbearing as tolerated right lower extremity, self-care for lower extremity osteomyelitis , education regarding his chronic conditions and optimal management. Will need continued close monitoring of bilateral heels, healing status. PLAN: 1. Rehab- PT/OT advance gait and ADls, strengthen/stretch/maintain ROM all 4 limbs. We'll continue to work on safe transfers, wound management and prevention of further complications of complex medical conditions. 2. 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 3. Ortho- OM, rx vanc/zosyn, left heel ulcer at risk for OM, s/p multiple spinal surgeries, CLBP, s/p multiple jt replacements. Added Vitamin C, Zinc to promote would healing, continue wound care protocol. 4. Cardiac- hx of AK/ CAD with Stents, CHF, -HTN c/u ARB -HLD- c/u Zocor 5. Resp -incentive spirometry, monitor for infection 6. Endo- DM, hypothyroid, c/u insulin and ISS, thyroid med, coordinate with hospitalists regarding slightly increasing dose long acting Insulin/daytime Insulin with goal of keeping better control. FBS slightly better under 200 today. 7. - monitor output, RF 8. GI ppx- PPI, pepto, fiber, probiotics, dc miralax, low threshold to submit sample for C Diff if liquid stools noted. Improving. 9. Skin wound care recommend turn and positioning every 2. Off loading the heels and heel protector, foam to right heel. Cleanse in the left foot with normal saline moistened gauze, medical, and the daily and covering with gauze secured with tape. Applying Tinactin twice a day to fungal area on foot, wrapping with angelina, securing with tape. Monitor Vanc protocols, ESR, CRP, vs, cbc PROGNOSIS: Excellent. ESTIMATED LENGTH OF STAY:14 days. PROJECTED DISCHARGE DESTINATION: Home with family support and any durable medical equipment required to increase functional safety and mobility. TIME SPENT COUNSELING AND COORDINATING INITIAL CARE: 35 minutes. This document is generated using speech recognition software which may result in grammatical, typographical and individual word errors. Allergies Coded Allergies: No Known Allergies (Verified , 12/21/02) Vital Signs Vital Signs Date Time Temp Pulse Resp B/P (MAP) Pulse Ox O2 Delivery O2 Flow Rate FiO2 05/04/20 08:17 16 05/04/20 08:17 73 151/70 05/04/20 06:00 98.3 95 Room Air 05/01/20 18:35 2.0 Laboratory Data CBC/BMP Laboratory Tests 05/04/20 06:51 Labs 24H Laboratory Tests 2 05/03/20 11:31: Bedside Glucose (Misc Panel) 282H 05/03/20 16:41: Bedside Glucose (Misc Panel) 252H 05/03/20 20:39: Bedside Glucose (Misc Panel) 282H 05/04/20 06:31: Bedside Glucose (Misc Panel) 177H 05/04/20 06:51: Nucleated Red Blood Cells % (auto) 0.3H, Erythrocyte Sedimentation Rate 67H Current Medications Current Medications Current Medications Medications (Trade) Dose Ordered Sig/Mima Route PRN Reason Start Time Stop Time Status Last Admin Dose Admin Acetaminophen (Tylenol Tab) 650 mg Q4HP PRN PO MILD PAIN (PS 1-4) 04/29/20 14:15 05/02/20 13:16 Apixaban (Eliquis) 2.5 mg BID PO 04/29/20 21:00 05/04/20 08:15 Artificial Tears (Akwa Tears) 2 drop QID PRN OU DRY EYES 04/29/20 17:00 Ascorbic Acid (Vitamin C) 1,000 mg DAILY PO 05/03/20 09:00 05/04/20 08:18 Aspirin (Aspirin Chewable) 81 mg QPM PEG 04/29/20 21:00 Hold 05/02/20 20:37 Atenolol (Tenormin) 50 mg BID PO 04/29/20 21:00 05/04/20 08:17 Atorvastatin Calcium (Lipitor) 20 mg QPM PO 04/29/20 21:00 05/03/20 21:10 Bismuth Subsalicylate (Pepto Bismol) 30 ml Q4HP PRN PO DIARRHEA 05/03/20 11:30 05/03/20 21:09 Calcium Polycarbophil (Fiber Con) 1 ea DAILY PO 05/03/20 12:00 05/16/20 09:00 05/04/20 08:15 Cetylpyridinium Chloride (Cepacol) 1 chrissy Q4HP PRN PO SORE THROAT 05/01/20 16:00 05/03/20 21:09 Dextrose (Dextrose 50%) 25 ml ASDIRECTED PRN IV SEE LABEL COMMENTS 04/29/20 14:45 Docusate Sodium (Colace) 100 mg BIDP PRN PO CONSTIPATION 04/29/20 21:00 Duloxetine HCl (Cymbalta) 60 mg QHS PO 04/29/20 21:00 05/03/20 21:09 Furosemide (Lasix) 40 mg BID@09,17 PO 04/29/20 17:00 05/04/20 08:17 Gabapentin (Neurontin) 800 mg Q8H PO 04/29/20 14:00 05/04/20 05:08 Glucagon (Glucagon) 1 mg ASDIRECTED PRN SC SEE LABEL COMMENTS 04/29/20 14:45 Glucose (Glucose) 16 GM ASDIRECTED PRN PO SEE LABEL COMMENTS 04/29/20 14:45 Heparin Sodium (Heparin (Flush)) 200 units ASDIRECTED PRN IV SEE LABEL COMMENTS 04/29/20 20:00 05/04/20 05:09 Heparin Sodium (Heparin (Flush)) 200 units PICC IV 04/30/20 06:00 05/04/20 05:09 Home Med (Med Rec Complete!) ASDIRECTED XX 04/29/20 15:45 04/29/20 15:56 DC Insulin Detemir (Levemir Insulin) 180 units DAILY@2100 DC 04/29/20 21:00 05/03/20 21:08 Insulin Human Lispro (HumaLOG INSULIN) 15 units [facility] 05/01/20 12:00 05/01/20 20:35 DC 05/01/20 17:27 Insulin Human Lispro (HumaLOG INSULIN) 25 units [facility] 05/02/20 07:30 05/03/20 07:28 SD 05/02/20 17:16 Insulin Human Lispro (HumaLOG INSULIN) 30 units [facility] 05/03/20 07:30 05/04/20 08:16 Insulin Human Lispro (HumaLOG INSULIN) See Protocol Table AC DC 04/29/20 17:30 05/04/20 08:16 Insulin Human Lispro (HumaLOG INSULIN) See Protocol Table [facility] 04/30/20 21:00 05/03/20 21:08 Lactobacillus Acidophilus (Bacid) 1 ea WM PO 05/03/20 18:00 05/04/20 08:18 Levothyroxine Sodium (Synthroid) 112 mcg DAILY@06 PO 04/30/20 06:00 05/04/20 05:08 Morphine Sulfate (Ms Contin) 45 mg BID PO 04/29/20 21:00 05/04/20 08:17 Multivitamins (Theragram-M) 1 tab DAILY PO 04/30/20 09:00 05/04/20 08:18 Oxybutynin Chloride (Ditropan) 5 mg TID PO 04/29/20 21:00 05/04/20 08:17 Pantoprazole Sodium (Protonix) 20 mg BID PO 04/29/20 21:00 05/04/20 08:17 Pantoprazole Sodium (Protonix) 20 mg DAILY PO 04/30/20 09:00 04/29/20 16:34 DC Piperacillin Sod/ Tazobactam Sod 3.375 gm/Dextrose 50 ml @ 50 mls/hr Q6H IV 04/29/20 17:00 05/04/20 05:08 Polyethylene Glycol (Miralax) 1 pkt DAILY PO 04/30/20 09:00 Hold Potassium Chloride (Micro-K Extencaps) 40 meq DAILY PO 05/02/20 09:00 05/04/20 08:17 Prednisone (Deltasone) 2 mg DAILY PO 04/30/20 09:00 05/04/20 08:18 Prednisone (Deltasone) 10 mg DAILY PO 04/30/20 09:00 05/04/20 08:18 Sodium Chloride (Saline Lock Flush) 10 ml ASDIRECTED PRN IV SEE LABEL COMMENTS 04/29/20 20:00 05/03/20 17:47 Sodium Chloride (Saline Lock Flush) 10 ml PICC IV 04/30/20 06:00 05/04/20 05:09 Vancomycin HCl 500 mg/Dextrose 110 ml @ 110 mls/hr Q24H IV 04/29/20 21:00 05/03/20 22:00 Vancomycin HCl 750 mg/IV Miscellaneous Supplies 1 each/ Dextrose 275 ml @ 275 mls/hr Q24H IV 04/29/20 20:00 05/03/20 21:07 Zinc Sulfate (Zinc Sulfate) 220 mg BID PO 05/03/20 09:00 05/04/20 08:18 JEFRY LOPEZ MD May 04, 2020 09:15
[2020-05-04 09:31] LABS: ALBUMIN 2.6 GM/DL (3.2-5.2); BILIRUBIN,TOTAL 0.5 MG/DL (0.2-1.0); C REACTIVE PROTEIN QUANTITATIV 2.22 MG/DL (0.00-0.30); CALCIUM LEVEL 8.3 MG/DL (8.8-10.2); CREATININE FOR GFR 1.4 MG/DL (0.70-1.30); GLOMERULAR FILTRATION RATE 53.3 (>42); POTASSIUM SERUM 3.6 MEQ/L (3.5-5.1); TOTAL PROTEIN 5.5 GM/DL (6.4-8.2)
[2020-05-04] MEDS: SODIUM CHLORIDE 0.9% INJ 10 ML SYR IV PRN (10:59)
[2020-05-04 14:00] VITALS: BP 142/63
[2020-05-04 20:00] VITALS: BP 141/70
[2020-05-04] MEDS: VANCOMYCIN HCL 750 MG, VIAL MATE ADAPTER 1 EACH in D5W 250 ML IV SCH ×2 (20:14→21:47)
[2020-05-04] MEDS: ATORVASTATIN 20 MG TAB PO SCH (20:16)
[2020-05-04] MEDS: DULoxetine 30 MG CAP (CYMBALTA) PO SCH (20:16)
[2020-05-04] MEDS: LEVEMIR (INSULIN DETEMIR) 1 UNITS/0.01ML SC SCH (21:49)
[2020-05-05] MEDS: SODIUM CHLORIDE 0.9% INJ 10 ML SYR IV PRN (00:19)
[2020-05-05] MEDS: PIPERACILLIN/TAZOBACTAM SOD 3.375 GM in D5W MINI-BAG PLUS 50 ML IV SCH ×4 (04:03→22:52)
[2020-05-05] MEDS: LEVOTHYROXINE 112MCG TABLET (0.112MG) PO SCH (05:46)
[2020-05-05] MEDS: GABAPENTIN 400 MG CAP PO SCH ×3 (05:46→21:23)
[2020-05-05] MEDS: SODIUM CHLORIDE 0.9% INJ 10 ML SYR IV SCH ×2 (05:48→17:51)
[2020-05-05 06:00] VITALS: BP 145/88
[2020-05-05 07:13] LABS: HEMATOCRIT 30.4 % (42.0-52.0); HEMOGLOBIN 8.7 g/dl (13.5-17.5); MEAN CORPUSCULAR HEMOGLOBIN 25.7 pg (27.0-33.0); MEAN CORPUSCULAR HGB CONC 28.6 g/dl (32.0-36.5); MEAN CORPUSCULAR VOLUME 89.9 fl (80.0-96.0); PLATELET COUNT, AUTOMATED 259 10^3/uL (150-450); RED BLOOD COUNT 3.38 10^6/uL (4.30-6.10); WHITE BLOOD COUNT 11.8 10^3/uL (4.0-10.0)
[2020-05-05 07:16] LABS: ALBUMIN 2.6 GM/DL (3.2-5.2); BILIRUBIN,TOTAL 0.5 MG/DL (0.2-1.0); C REACTIVE PROTEIN QUANTITATIV 2.39 MG/DL (0.00-0.30); CALCIUM LEVEL 8.5 MG/DL (8.8-10.2); CREATININE FOR GFR 1.36 MG/DL (0.70-1.30); GLOMERULAR FILTRATION RATE 55.2 (>42); POTASSIUM SERUM 3.5 MEQ/L (3.5-5.1); TOTAL PROTEIN 5.5 GM/DL (6.4-8.2)
[2020-05-05 07:43] LABS: ERYTHROCYTE SEDIMENTATION RATE 60 mm/hr (0-20)
[2020-05-05] MEDS: LACTOBACILLUS ACIDOPHILUS CAP (BACID) PO SCH ×3 (08:55→17:51)
[2020-05-05] MEDS: HumaLOG INSULIN (NovoLOG) PER UNIT SC SCH ×7 (08:55→20:37)
[2020-05-05] MEDS: oxyBUTYnin 5 MG TAB PO SCH ×3 (08:56→20:40)
[2020-05-05] MEDS: MULTIVITAMINS/MINERALS THERAP 1 TAB PO SCH (08:56)
[2020-05-05] MEDS: atenoloL 50 MG TAB PO SCH ×2 (08:56→20:39)
[2020-05-05] MEDS: POTASSIUM CHLORIDE 10 MEQ SR TABLET PO SCH (08:56)
[2020-05-05] MEDS: PANTOPRAZOLE 20 MG TAB PO SCH ×2 (08:57→20:38)
[2020-05-05] MEDS: predniSONE 10 MG TAB PO SCH (08:57)
[2020-05-05] MEDS: ZINC SULFATE 220 MG CAP PO SCH ×2 (08:57→20:40)
[2020-05-05] MEDS: FUROSEMIDE 40 MG TAB PO SCH ×2 (08:58→17:51)
[2020-05-05] MEDS: APIXABAN 2.5 MG TAB (ELIQUIS) PO SCH ×2 (08:58→20:38)
[2020-05-05] MEDS: FIBER-CON 625 MG TAB PO SCH (08:58)
[2020-05-05] MEDS: predniSONE 1 MG TAB PO SCH (08:58)
[2020-05-05] MEDS: ASCORBIC ACID 500 MG TAB PO SCH (08:58)
[2020-05-05] MEDS: MORPHINE 15 MG SA TAB PO SCH ×2 (08:59→20:38)
[2020-05-05] MEDS: ACETAMINOPHEN TAB 650MG DOSE (2X325MG) PO PRN (12:07)
[2020-05-05 14:00] VITALS: BP 150/69
--- NOTE | 2020-05-05 14:57 | IPNPDOC ---
PM&R Progress Note DATE OF SERVICE: May 05, 2020 Location Manager Progress Note DATE OF ADMISSION: Apr 29, 2020 at 14:24 05/05/2020 INPATIENT REHABILITATION ADMISSION DAY: #7 CHIEF COMPLAINT: . 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 Patient was on oral antibiotics prior to debridement, will need to be on IV antibiotics for 6 weeks starting from 04/25/2020 (to 06.06.2020), currently on vancomycin and Zosyn. Vancomycin. Apparently pulse dose due to high troughs last 22mcg per mL, 04/29/2020 and clinical pharmacy change dosing to 1750 mg Q 24 hours with trough drawn today. Picc line in place. Patient [facility]. He notes resorting to WC mobility due to inconsistency/unreliability of LE strength with buckling of knees and increased risk of falls. He was admitted 04.29 for comprehensive rehabilitation work on transfers, limited mobilization with weightbearing as tolerated right lower extremity, self-care for lower extremity osteomyelitis , education regarding his chronic conditions and optimal management. Hb dropped over weekend following admission necessitating transfusion 2 U PRBC, has held steady thus far, will require monitoring, on steroids. BS readings labile earlier this week possible artifact from drawing off picc. Repeat low 200s.. On SS coverage and hefty doses long acting I. Pain is reasonably controlled, no further respiratory distress, improving exercise tolerance. Started a few episodes of soft, not runny BM, improved with a dose of Pepto and addition of Fiberconfib. REVIEW OF SYSTEMS: The following is a completed review of systems and has been reviewed. Review of systems otherwise unremarkable. PAIN: Patient lives with chronic pain managed with MS contin supervisor intermediates, failed prior spine stimulator, Fentanyl patches, currently controlled, some soreness RLE. EYES: Double vision, no complete visual loss EARS, NOSE, & THROAT: No throat pain, or dysphagia, or rhinorrhea. CARDIOVASCULAR: Denies chest pain or palpitations. PULMONARY: Denies shortness of breath. GASTROINTESTINAL: Notes frequent soft stools. GENITOURINARY: continent. BPH MUSCULOSKELETAL: chronic polyarticular MSK pain NEUROLOGICAL:.PN HEMATOLOGICAL: anemic, fatigue, bruises easily SKIN: left heel, fungal infections, new lesion right heel. PSYCHIATRIC: Unremarkable. All other review of systems found to be negative. PAST MEDICAL HISTORY: CAD status post PCI T2 DM HTN FARRUKH on BiPAP. Right temporal arteritis on steroids. Chronic low back pain status post multiple back surgeries HLD Right tibial fracture 2018, nonunion, REMOVED HARDWARE 12/21/2019, W PSEUDOMONAS ACNES DISEASE. 6 WEEKS OF IV VANCOMYCIN AND 818 MRI 1016 CONTINUED OSTEOMYELITIS WITH COMPLEX COLLECTION of fluid PAST SURGICAL HISTORY: ORIF, left ankle 1976 ORIF, right tibial fracture with nonunion. Debridement external fixator placement 11. Carpal tunnel release Shoulder surgery. Basal cell carcinoma excision. Dorsal column stimulator. Laparotomy, cholecystectomy Ulnar nerve transection at the elbow. Tonsillectomy. S/P Knee arthroscopy ORIF R tibia fracture L Ankle fracture. Laminectomy. Total surgery. Multiple spinal surgeries ALLERGIES: Please see below. MEDICATIONS: Please see below. PHYSICAL EXAMINATION: VITAL SIGNS: Please see below. GENERAL: Pleasant and cooperative. Alert and oriented times three. HEENT: Extraocular movements intact. no obvious adenopathy or thyromegaly. Healed left temporal artery biopsy CARDIOVASCULAR: Regular rate and rhythm. LUNGS: Clear to auscultation bilaterally. No wheezes. No rhonchi. ABDOMEN: Soft, obese, distended. Positive Normal active bowel sounds. NEUROLOGICAL: Alert and oriented times three. Cranial nerves II through XII grossly intact. Sensation grossly intact to light touch, diminished in distal lower extremities EXTREMITIES: 5/5 target man, elbow flexion, elbow extension, 4/5 foot dorsiflexion, plantar flexion . Right foreleg in external fixator device. Right foot more pink and warmer. No point tenderness about left knee. Generalized tenderness rig ht knee, foreleg. Pulses difficult to appreciate. Sensation decreased globally over both feet. SKIN: multiple small reddened areas bilateral lower extremities circular quarter sized clean lesion left heel, external fixator, multiple attachment points right foreleg dime sized blackened circular dime sized area right heel with satellite lesion Achilles insertion. LABORATORY DATA: Please see below. FUNCTIONAL STATUS: Premorbid: Wheelchair for mobility slide board for transfers. Pt. gaining strength in LE's to facilitate slideboard transfers with SBA. Can independently mobilize in 20 WC, but not quite sturdy enough for weight requirements for supervisor intermediates use. Able to wash james area, upper legs and lower legs with long handled sponge insupine and UB seated EOB. Assistance required to wash feet and buttocks and to don/doff socks. Max A required to thread brief around feet with difficulty coordinating BLE's with use of drilling field professional simultanously. Clothing management with max assist for side to side weight shifting. GOALS: Probable most realistic to work towards regaining slide board transfers in and out of bed, to commode, car, see how pain management and weight bearing tolerance proceeds for BLE. Prevention of worsening left and new right heel wounds, facilitation of healing infected right foreleg, preservation of both feet through protective measures to reduce edema, protect skin from shearing forces, maintain warmth/circulation, protective footwear without worsening shear. 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 Patient was on oral antibiotics prior to debridement, will need to be on IV antibiotics for 6 weeks starting from 04/25/2020 (to 06.06.2020), currently on vancomycin and Zosyn. Vancomycin. Apparently pulse dose due to high troughs last 22mcg per mL, 04/29/2020 and clinical pharmacy change dosing to 1750 mg Q 24 hours with trough drawn on the , pharmacy making calculated adjustments. Picc line in place. Patient followed by the ID clinic [facility], discussed case with MT Hampton who confirmed rx plan Vanc 1500 BID, Zosyn 3.25 Q 6 x 6 week. He will continue with comprehensive rehabilitation work on t ransfers, limited mobilization with weightbearing as tolerated right lower extremity, self-care for lower extremity osteomyelitis , education regarding his chronic conditions and optimal management. Will need continued close monitoring of bilateral heels, healing status. Added FiberCon and probiotics to help bulk stools encouraged eating apples and also adding iron for anemia, which will also slow bowel motility. PLAN: 1. Rehab- PT/OT advance gait and ADls, strengthen/stretch/maintain ROM all 4 limbs. We'll continue to work on safe transfers, wound management and prevention of further complications of complex medical conditions. 2. 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 3. Ortho- OM, rx vanc/zosyn, left heel ulcer at risk for OM, s/p multiple spinal surgeries, CLBP, s/p multiple jt replacements. Added Vitamin C, Zinc to promote would healing, continue wound care protocol. 4. Cardiac- hx of MA/ CAD with Stents, CHF, -HTN c/u ARB -HLD- c/u Zocor 5. Resp -incentive spirometry, monitor for infection 6. Endo- DM, hypothyroid, c/u insulin and ISS, thyroid med, coordinate with hospitalists regarding slightly increasing dose long acting Insulin/daytime Insulin with goal of keeping better control. FBS slightly better. 7. - monitor output, RF 8. GI ppx- PPI, pepto, fiber, probiotics, dc miralax, low threshold to submit sample for C Diff if liquid stools noted. Improving. 9. Skin wound care recommend turn and positioning every 2. Off loading the heels and heel protector, foam to right heel. Cleanse in the left foot with normal saline moistened gauze, medical, and the daily and covering with gauze secured with tape. Applying Tinactin twice a day to fungal area on foot, wrapping with angelina, securing with tape. Monitor Vanc protocols, ESR, CRP, vs, cbc PROGNOSIS: Excellent. ESTIMATED LENGTH OF STAY:14 days. PROJECTED DISCHARGE DESTINATION: Home with family support and any durable medical equipment required to increase functional safety and mobility. TIME SPENT COUNSELING AND COORDINATING INITIAL CARE: 35 minutes. This document is generated using speech recognition software which may result in grammatical, typographical and individual word errors. Allergies Coded Allergies: No Known Allergies (Verified , 12/21/02) Vital Signs Vital Signs Date Time Temp Pulse Resp B/P (MAP) Pulse Ox O2 Delivery O2 Flow Rate FiO2 05/05/20 14:29 20 Room Air 05/05/20 14:00 98.0 83 150/69 (96) 91 05/01/20 18:35 2.0 Laboratory Data CBC/BMP Laboratory Tests 05/05/20 05:37 Labs 24H Laboratory Tests 2 05/04/20 16:38: Bedside Glucose (Misc Panel) 246H 05/04/20 18:12: Vancomycin Level Trough 13.8 05/04/20 19:56: Bedside Glucose (Misc Panel) 235H 05/05/20 05:37: Nucleated Red Blood Cells % (auto) 0.0, Erythrocyte Sedimentation Rate 60H, Anion Gap 7L, Glomerular Filtration Rate 55.2, Calcium Level 8.5L, Total Bilirubin 0.5, Aspartate Amino Transf (AST/SGOT) 42H, Alanine Aminotransferase (ALT/SGPT) 45, Alkaline Phosphatase 201H, C-Reactive Protein, Quantitative 2.39H, Total Protein 5.5L, Albumin 2.6L, Albumin/Globulin Ratio 0.9 05/05/20 06:01: Bedside Glucose (Misc Panel) 234H 05/05/20 11:29: Bedside Glucose (Misc Panel) 204H Current Medications Current Medications Current Medications Medications (Trade) Dose Ordered Sig/Mima Route PRN Reason Start Time Stop Time Status Last Admin Dose Admin Acetaminophen (Tylenol Tab) 650 mg Q4HP PRN PO MILD PAIN (PS 1-4) 04/29/20 14:15 05/05/20 12:07 Apixaban (Eliquis) 2.5 mg BID PO 04/29/20 21:00 05/05/20 08:58 Artificial Tears (Akwa Tears) 2 drop QID PRN OU DRY EYES 04/29/20 17:00 Ascorbic Acid (Vitamin C) 1,000 mg DAILY PO 05/03/20 09:00 05/05/20 08:58 Aspirin (Aspirin Chewable) 81 mg QPM PEG 04/29/20 21:00 05/02/20 20:37 Atenolol (Tenormin) 50 mg BID PO 04/29/20 21:00 05/05/20 08:56 Atorvastatin Calcium (Lipitor) 20 mg QPM PO 04/29/20 21:00 05/04/20 20:16 Bismuth Subsalicylate (Pepto Bismol) 30 ml Q4HP PRN PO DIARRHEA 05/03/20 11:30 05/03/20 21:09 Calcium Polycarbophil (Fiber Con) 1 ea DAILY PO 05/03/20 12:00 05/16/20 09:00 05/05/20 08:58 Calcium Polycarbophil (Fiber Con) 1 ea DAILY PO 05/05/20 17:00 UNV Cetylpyridinium Chloride (Cepacol) 1 chrissy Q4HP PRN PO SORE THROAT 05/01/20 16:00 05/03/20 21:09 Dextrose (Dextrose 50%) 25 ml ASDIRECTED PRN IV SEE LABEL COMMENTS 04/29/20 14:45 Docusate Sodium (Colace) 100 mg BIDP PRN PO CONSTIPATION 04/29/20 21:00 Duloxetine HCl (Cymbalta) 60 mg QHS PO 04/29/20 21:00 05/04/20 20:16 Ferrous Gluconate (Fergon) 324 mg DAILY PO 05/05/20 09:00 Furosemide (Lasix) 40 mg BID@,17 PO 04/29/20 17:00 05/05/20 08:58 Gabapentin (Neurontin) 800 mg Q8H PO 04/29/20 14:00 05/05/20 05:46 Glucagon (Glucagon) 1 mg ASDIRECTED PRN SC SEE LABEL COMMENTS 04/29/20 14:45 Glucose (Glucose) 16 GM ASDIRECTED PRN PO SEE LABEL COMMENTS 04/29/20 14:45 Heparin Sodium (Heparin (Flush)) 200 units ASDIRECTED PRN IV SEE LABEL COMMENTS 04/29/20 20:00 05/05/20 00:18 Heparin Sodium (Heparin (Flush)) 200 units PICC IV 04/30/20 06:00 05/05/20 05:47 Home Med (Med Rec Complete!) ASDIRECTED XX 04/29/20 15:45 04/29/20 15:56 DC Insulin Detemir (Levemir Insulin) 180 units DAILY@2100 [place] 04/29/20 21:00 05/04/20 21:49 Insulin Human Lispro (HumaLOG INSULIN) 15 units [facility] 05/01/20 12:00 05/01/20 20:35 DC 05/01/20 17:27 Insulin Human Lispro (HumaLOG INSULIN) 25 units [facility] 05/02/20 07:30 05/03/20 07:28 DC 05/02/20 17:16 Insulin Human Lispro (HumaLOG INSULIN) 30 units [facility] 05/03/20 07:30 05/05/20 06:27 DC 05/04/20 17:01 Insulin Human Lispro (HumaLOG INSULIN) 33 units [facility] 05/05/20 07:30 05/05/20 11:59 Insulin Human Lispro (HumaLOG INSULIN) See Protocol Table AC SC 04/29/20 17:30 05/05/20 11:58 Insulin Human Lispro (HumaLOG INSULIN) See Protocol Table QHS SC 04/30/20 21:00 05/03/20 21:08 Lactobacillus Acidophilus (Bacid) 1 ea WM PO 05/03/20 18:00 05/05/20 11:59 Levothyroxine Sodium (Synthroid) 112 mcg DAILY@06 PO 04/30/20 06:00 05/05/20 05:46 Morphine Sulfate (Ms Contin) 45 mg BID PO 04/29/20 21:00 05/05/20 08:59 Multivitamins (Theragram-M) 1 tab DAILY PO 04/30/20 09:00 05/05/20 08:56 Oxybutynin Chloride (Ditropan) 5 mg TID PO 04/29/20 21:00 05/05/20 08:56 Pantoprazole Sodium (Protonix) 20 mg BID PO 04/29/20 21:00 05/05/20 08:57 Pantoprazole Sodium (Protonix) 20 mg DAILY PO 04/30/20 09:00 04/29/20 16:34 DC Piperacillin Sod/ Tazobactam Sod 3.375 gm/Dextrose 50 ml @ 50 mls/hr Q6H IV 04/29/20 17:00 05/05/20 11:58 Polyethylene Glycol (Miralax) 1 pkt DAILY PO 04/30/20 09:00 Hold Potassium Chloride (Micro-K Extencaps) 40 meq DAILY PO 05/02/20 09:00 05/05/20 08:56 Prednisone (Deltasone) 2 mg DAILY PO 04/30/20 09:00 05/05/20 08:58 Prednisone (Deltasone) 10 mg DAILY PO 04/30/20 09:00 05/05/20 08:57 Sodium Chloride (Saline Lock Flush) 10 ml ASDIRECTED PRN IV SEE LABEL COMMENTS 04/29/20 20:00 05/05/20 00:19 Sodium Chloride (Saline Lock Flush) 10 ml PICC IV 04/30/20 06:00 05/05/20 05:48 Vancomycin HCl 500 mg/Dextrose 110 ml @ 110 mls/hr Q24H IV 04/29/20 21:00 05/04/20 19:00 DC 05/03/20 22:00 Vancomycin HCl 750 mg/IV Miscellaneous Supplies 1 each/ Dextrose 275 ml @ 275 mls/hr Q24H IV 04/29/20 20:00 05/04/20 20:14 Vancomycin HCl 750 mg/IV Miscellaneous Supplies 1 each/ Dextrose 275 ml @ 275 mls/hr Q24H IV 05/04/20 21:00 05/04/20 21:47 Zinc Sulfate (Zinc Sulfate) 220 mg BID PO 05/03/20 09:00 05/05/20 08:57 JEFRY LOPEZ MD May 05, 2020 14:57
[2020-05-05] MEDS: FERROUS GLUCONATE 324 MG TAB PO SCH (15:12)
[2020-05-05] MEDS ORDERED: FIBER-CON 625 MG TAB PO SCH (17:00)
[2020-05-05] MEDS: VANCOMYCIN HCL 750 MG, VIAL MATE ADAPTER 1 EACH in D5W 250 ML IV SCH ×2 (19:54→21:22)
[2020-05-05 20:15] VITALS: BP 151/82
[2020-05-05] MEDS: LEVEMIR (INSULIN DETEMIR) 1 UNITS/0.01ML SC SCH (20:37)
[2020-05-05] MEDS: ATORVASTATIN 20 MG TAB PO SCH (20:38)
[2020-05-05] MEDS: ASPIRIN 81 MG CHEW TABLET PEG SCH (20:38)
[2020-05-05] MEDS: DULoxetine 30 MG CAP (CYMBALTA) PO SCH (20:38)
[2020-05-06] MEDS: PIPERACILLIN/TAZOBACTAM SOD 3.375 GM in D5W MINI-BAG PLUS 50 ML IV SCH ×4 (04:45→23:06)
[2020-05-06] MEDS: SODIUM CHLORIDE 0.9% INJ 10 ML SYR IV SCH ×2 (05:57→16:46)
[2020-05-06] MEDS: LEVOTHYROXINE 112MCG TABLET (0.112MG) PO SCH (05:57)
[2020-05-06] MEDS: GABAPENTIN 400 MG CAP PO SCH ×3 (05:57→20:38)
[2020-05-06 06:00] VITALS: BP 147/74
[2020-05-06] MEDS: HumaLOG INSULIN (NovoLOG) PER UNIT SC SCH ×7 (07:32→20:37)
[2020-05-06] MEDS: LACTOBACILLUS ACIDOPHILUS CAP (BACID) PO SCH ×3 (09:09→16:46)
[2020-05-06] MEDS: predniSONE 1 MG TAB PO SCH (09:09)
[2020-05-06] MEDS: ZINC SULFATE 220 MG CAP PO SCH ×2 (09:11→20:37)
[2020-05-06] MEDS: APIXABAN 2.5 MG TAB (ELIQUIS) PO SCH ×2 (09:11→20:37)
[2020-05-06] MEDS: MORPHINE 15 MG SA TAB PO SCH ×2 (09:11→20:39)
[2020-05-06] MEDS: FIBER-CON 625 MG TAB PO SCH (09:11)
[2020-05-06] MEDS: atenoloL 50 MG TAB PO SCH ×2 (09:12→20:39)
[2020-05-06] MEDS: PANTOPRAZOLE 20 MG TAB PO SCH ×2 (09:12→20:38)
[2020-05-06] MEDS: POTASSIUM CHLORIDE 10 MEQ SR TABLET PO SCH (09:12)
[2020-05-06] MEDS: MULTIVITAMINS/MINERALS THERAP 1 TAB PO SCH (09:12)
[2020-05-06] MEDS: oxyBUTYnin 5 MG TAB PO SCH ×3 (09:13→20:38)
[2020-05-06] MEDS: ASCORBIC ACID 500 MG TAB PO SCH (09:13)
[2020-05-06] MEDS: FUROSEMIDE 40 MG TAB PO SCH ×2 (09:13→16:45)
[2020-05-06] MEDS: predniSONE 10 MG TAB PO SCH (09:13)
[2020-05-06] MEDS: FERROUS GLUCONATE 324 MG TAB PO SCH (09:13)
[2020-05-06] MEDS: PINK BISMUTH SUSP 524MG/30ML ORAL SYRINGE PO PRN ×2 (09:23→20:36)
[2020-05-06 14:00] VITALS: BP 140/77
--- NOTE | 2020-05-06 15:58 | IPNPDOC ---
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 Patient was on oral antibiotics prior to debridement, will need to be on IV antibiotics for 6 weeks starting from 04/25/2020 (to 06.06.2020), currently on vancomycin and Zosyn. Vancomycin. Apparently pulse dose due to high troughs last 22mcg per mL, 04/29/2020 and clinical pharmacy change dosing to 1750 mg Q 24 hours with trough drawn today. Picc line in place. Patient followed by [facility]. He notes resorting to WC mobility due to inconsistency/unreliability of LE strength with buckling of knees and increased risk of falls. He was admitted 04.29 for comprehensive rehabilitation work on transfers, limited mobilization with weightbearing as tolerated right lower extremity, self-care for lower extremity osteomyelitis , education regarding his chronic conditions and optimal management. Hb dropped over weekend following admission necessitating transfusion 2 U PRBC, has held steady thus far, will require monitoring, on steroids. BS readings labile earlier this week possible artifact from drawing off picc. Repeat low 200s.. On SS coverage and hefty doses long acting I. Pain is reasonably controlled, no further respiratory distress, improving exercise tolerance. Started a few episodes of soft, not runny BM, improved with a dose of Pepto and addition of Fiberconfib. Nursing confiscated stash of candies and brown sugar jerky. Blood sugars in 120s during day. REVIEW OF SYSTEMS: The following is a completed review of systems and has been reviewed. Review of systems otherwise unremarkable. PAIN: Patient lives with chronic pain managed with MS contin buttermaker, failed prior spine stimulator, Fentanyl patches, currently controlled, some soreness RLE. EYES: Double vision, no complete visual loss EARS, NOSE, & THROAT: No throat pain, or dysphagia, or rhinorrhea. CARDIOVASCULAR: Denies chest pain or palpitations. PULMONARY: Denies shortness of breath. GASTROINTESTINAL: Notes frequent soft stools. GENITOURINARY: continent. BPH MUSCULOSKELETAL: chronic polyarticular MSK pain NEUROLOGICAL:.PN HEMATOLOGICAL: anemic, fatigue, bruises easily SKIN: left heel, fungal infections, new lesion right heel. PSYCHIATRIC: Unremarkable. All other review of systems found to be negative. PAST MEDICAL HISTORY: CAD status post PCI T2 DM HTN FARRUKH on BiPAP. Right temporal arteritis on steroids. Chronic low back pain status post multiple back surgeries HLD Right tibial fracture 2018, nonunion, REMOVED HARDWARE 12/21/2019, W PSEUDOMONAS ACNES DISEASE. 6 WEEKS OF IV VANCOMYCIN AND 818 MRI 1016 CONTINUED OSTEOMYELITIS WITH COMPLEX COLLECTION of fluid PAST SURGICAL HISTORY: ORIF, left ankle 1976 ORIF, right tibial fracture with nonunion. Debridement external fixator placement Carpal tunnel release Shoulder surgery. Basal cell carcinoma excision. Dorsal column stimulator. Laparotomy, cholecystectomy Ulnar nerve transection at the elbow. Tonsillectomy. S/P Knee arthroscopy ORIF R tibia fracture L Ankle fracture. Laminectomy. Total surgery. Multiple spinal surgeries ALLERGIES: Please see below. MEDICATIONS: Please see below. PHYSICAL EXAMINATION: VITAL SIGNS: Please see below. GENERAL: Pleasant and cooperative. Alert and oriented times three. HEENT: Extraocular movements intact. no obvious adenopathy or thyromegaly. Healed left temporal artery biopsy CARDIOVASCULAR: Regular rate and rhythm. LUNGS: Clear to auscultation bilaterally. No wheezes. No rhonchi. ABDOMEN: Soft, obese, distended. Positive Normal active bowel sounds. NEUROLOGICAL: Alert and oriented times three. Cranial nerves II through XII grossly intact. Sensation grossly intact to light touch, diminished in distal lower extremities EXTREMITIES: 5/5 ip architect, elbow flexion, elbow extension, 4/5 foot dorsiflexion, plantar flexion . Right foreleg in external fixator device. Right foot more pink and warmer, less edema. No point tenderness about left knee. Generalized tenderness right knee, foreleg. Pulses difficult to appreciate. Sensation decreased globally over both feet. SKIN: multiple small reddened areas bilateral lower extremities circular 1.5cm clean lesion left heel, external fixator, multiple attachment points right foreleg dime sized blackened circular dime sized area right heel with satellite lesion Achilles insertion. Small ecchymotic areas gluteal cleft, no breakdown, no redness, ischia clear. LABORATORY DATA: Please see below. FUNCTIONAL STATUS: Premorbid: Wheelchair for mobility slide board for transfers. Pt. gaining strength in LE's to facilitate slideboard transfers with SBA. Can independently mobilize in 20 WC, but not quite sturdy enough for weight requirements for buttermaker use. Able to wash james area, upper legs and lower legs with long handled sponge insupine and UB seated EOB. Assistance required to wash feet and buttocks and to don/doff socks. Max A required to thread brief around feet with difficulty coordinating BLE's with use of cnmt simultanously. Clothing management with max assist for side to side weight shifting. GOALS: Probable most realistic to work towards regaining slide board transfers in and out of bed, to commode, car, see how pain management and weight bearing tolerance proceeds for BLE. Prevention of worsening left and new right heel wounds, facilitation of healing infected right foreleg, preservation of both feet through protective measures to reduce edema, protect skin from shearing forces, maintain warmth/circulation, protective footwear without worsening shear. 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 Patient was on oral antibiotics prior to debridement, will need to be on IV antibiotics for 6 weeks starting from 04/25/2020 (to 06.06.2020), currently on vancomycin and Zosyn. Vancomycin. Apparently pulse dose due to high troughs last 22mcg per mL, 04/29/2020 and clinical pharmacy change dosing to 1750 mg Q 24 hours with trough drawn on the 16, pharmacy making calculated adjustments. Picc line in place. Patient followed by the ID clinic at [facility], discussed case with MT Hampton who confirmed rx plan Vanc 1500 BID, Zosyn 3.25 Q 6 x 6 week. He will continue with comprehensive rehabilitation work on transfers, limited mobilization with weightbearing as tolerated right lower extremity, self-care for lower extremity osteomyelitis , education regarding his chronic conditions and optimal management. Will need continued close monitoring of bilateral heels, healing status. Added FiberCon and probiotics to help bulk stools encouraged eating apples and also adding iron for anemia, which will also slow bowel motility. PLAN: 1. Rehab- PT/OT advance gait and ADls, strengthen/stretch/maintain ROM all 4 limbs. We'll continue to work on safe transfers, wound management and prevention of further complications of complex medical conditions. 2. 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 3. Ortho- OM, rx vanc/zosyn, left heel ulcer at risk for OM, s/p multiple spinal surgeries, CLBP, s/p multiple jt replacements. Added Vitamin C, Zinc to promote would healing, continue wound care protocol. 4. Cardiac- hx of MS/ CAD with Stents, CHF seems to be retaining fluid in hands a bit more, may need more diuresis -HTN c/u ARB -HLD- c/u Zocor 5. Resp -incentive spirometry, monitor for infection 6. Endo- DM, hypothyroid, c/u insulin and ISS, thyroid med, coordinate with hospitalists regarding slightly increasing dose long acting Insulin/daytime Insulin with goal of keeping better control. FBS slightly better. 7. - monitor output, RF 8. GI ppx- PPI, pepto, fiber, probiotics, dc miralax, low threshold to submit sample for C Diff if liquid stools noted. Improving. 9. Skin wound care recommend turn and positioning every 2. Off loading the heels and heel protector, foam to right heel. Cleanse in the left foot with normal saline moistened gauze, medical, and the daily and covering with gauze secured with tape. Applying Tinactin twice a day to fungal area on foot, wrapping with angelina, securing with tape. Monitor Vanc protocols, ESR, CRP, vs, cbc. Changed to /fr lab monitoring. PROGNOSIS: Excellent. ESTIMATED LENGTH OF STAY:14 days. PROJECTED DISCHARGE DESTINATION: Home with family support and any durable medical equipment required to increase functional safety and mobility. TIME SPENT COUNSELING AND COORDINATING INITIAL CARE: 35 minutes. This document is generated using speech recognition software which may result in grammatical, typographical and individual word errors. Allergies Coded Allergies: No Known Allergies (Verified , 12/21/02) Vital Signs Vital Signs Date Time Temp Pulse Resp B/P (MAP) Pulse Ox O2 Delivery O2 Flow Rate FiO2 05/06/20 14:00 98.0 87 17 140/77 (98) 91 Room Air 05/01/20 18:35 2.0 Laboratory Data Labs 24H Laboratory Tests 2 05/05/20 16:18: Bedside Glucose (Misc Panel) 126H 05/05/20 20:12: Bedside Glucose (Misc Panel) 267H 05/06/20 06:01: Bedside Glucose (Misc Panel) 222H 05/06/20 11:37: Bedside Glucose (Misc Panel) 126H Current Medications Current Medications Current Medications Medications (Trade) Dose Ordered Sig/Mima Route PRN Reason Start Time Stop Time Status Last Admin Dose Admin Acetaminophen (Tylenol Tab) 650 mg Q4HP PRN PO MILD PAIN (PS 1-4) 04/29/20 14:15 05/05/20 12:07 Apixaban (Eliquis) 2.5 mg BID PO 04/29/20 21:00 05/06/20 09:11 Artificial Tears (Akwa Tears) 2 drop QID PRN OU DRY EYES 04/29/20 17:00 Ascorbic Acid (Vitamin C) 1,000 mg DAILY PO 05/03/20 09:00 05/06/20 09:13 Aspirin (Aspirin Chewable) 81 mg QPM PEG 04/29/20 21:00 05/05/20 20:38 Atenolol (Tenormin) 50 mg BID PO 04/29/20 21:00 05/06/20 09:12 Atorvastatin Calcium (Lipitor) 20 mg QPM PO 04/29/20 21:00 05/05/20 20:38 Bismuth Subsalicylate (Pepto Bismol) 30 ml Q4HP PRN PO DIARRHEA 05/03/20 11:30 05/06/20 09:23 Calcium Polycarbophil (Fiber Con) 1 ea DAILY PO 05/03/20 12:00 05/16/20 09:00 05/06/20 09:11 Calcium Polycarbophil (Fiber Con) 1 ea DAILY PO 05/05/20 17:00 UNV Cetylpyridinium Chloride (Cepacol) 1 chrissy Q4HP PRN PO SORE THROAT 05/01/20 16:00 05/03/20 21:09 Dextrose (Dextrose 50%) 25 ml ASDIRECTED PRN IV SEE LABEL COMMENTS 04/29/20 14:45 Docusate Sodium (Colace) 100 mg BIDP PRN PO CONSTIPATION 04/29/20 21:00 Duloxetine HCl (Cymbalta) 60 mg QHS PO 04/29/20 21:00 05/05/20 20:38 Ferrous Gluconate (Fergon) 324 mg DAILY PO 05/05/20 09:00 05/06/20 09:13 Furosemide (Lasix) 40 mg BID@09,17 PO 04/29/20 17:00 05/06/20 09:13 Gabapentin (Neurontin) 800 mg Q8H PO 04/29/20 14:00 05/06/20 14:03 Glucagon (Glucagon) 1 mg ASDIRECTED PRN SC SEE LABEL COMMENTS 04/29/20 14:45 Glucose (Glucose) 16 GM ASDIRECTED PRN PO SEE LABEL COMMENTS 04/29/20 14:45 Heparin Sodium (Heparin (Flush)) 200 units ASDIRECTED PRN IV SEE LABEL COMMENTS 04/29/20 20:00 05/05/20 00:18 Heparin Sodium (Heparin (Flush)) 200 units PICC IV 04/30/20 06:00 05/06/20 05:57 Home Med (Med Rec Complete!) ASDIRECTED XX 04/29/20 15:45 04/29/20 15:56 DC Insulin Detemir (Levemir Insulin) 180 units DAILY@2100 [place] 04/29/20 21:00 05/05/20 20:37 Insulin Human Lispro (HumaLOG INSULIN) 15 units [facility] 05/01/20 12:00 05/01/20 20:35 DC 05/01/20 17:27 Insulin Human Lispro (HumaLOG INSULIN) 25 units [facility] 05/02/20 07:30 05/03/20 07:28 DC 05/02/20 17:16 Insulin Human Lispro (HumaLOG INSULIN) 30 units [facility] 05/03/20 07:30 05/05/20 06:27 DC 05/04/20 17:01 Insulin Human Lispro (HumaLOG INSULIN) 33 units [facility] 05/05/20 07:30 05/06/20 12:08 Insulin Human Lispro (HumaLOG INSULIN) See Protocol Table [facility] [place] 04/29/20 17:30 05/06/20 12:07 Insulin Human Lispro (HumaLOG INSULIN) See [facility] 04/30/20 21:00 05/05/20 20:37 Lactobacillus Acidophilus (Bacid) 1 ea WM PO 05/03/20 18:00 05/06/20 12:08 Levothyroxine Sodium (Synthroid) 112 mcg DAILY@06 PO 04/30/20 06:00 05/06/20 05:57 Morphine Sulfate (Ms Contin) 45 mg BID PO 04/29/20 21:00 05/06/20 09:11 Multivitamins (Theragram-M) 1 tab DAILY PO 04/30/20 09:00 05/06/20 09:12 Oxybutynin Chloride (Ditropan) 5 mg TID PO 04/29/20 21:00 05/06/20 09:13 Pantoprazole Sodium (Protonix) 20 mg BID PO 04/29/20 21:00 05/06/20 09:12 Pantoprazole Sodium (Protonix) 20 mg DAILY PO 04/30/20 09:00 04/29/20 16:34 DC Piperacillin Sod/ Tazobactam Sod 3.375 gm/Dextrose 50 ml @ 50 mls/hr Q6H IV 04/29/20 17:00 05/06/20 10:58 Polyethylene Glycol (Miralax) 1 pkt DAILY PO 04/30/20 09:00 Hold Potassium Chloride (Micro-K Extencaps) 40 meq DAILY PO 05/02/20 09:00 05/06/20 09:12 Prednisone (Deltasone) 2 mg DAILY PO 04/30/20 09:00 05/06/20 09:09 Prednisone (Deltasone) 10 mg DAILY PO 04/30/20 09:00 05/06/20 09:13 Sodium Chloride (Saline Lock Flush) 10 ml ASDIRECTED PRN IV SEE LABEL COMMENTS 04/29/20 20:00 05/05/20 00:19 Sodium Chloride (Saline Lock Flush) 10 ml PICC IV 04/30/20 06:00 05/06/20 05:57 Vancomycin HCl 500 mg/Dextrose 110 ml @ 110 mls/hr Q24H IV 04/29/20 21:00 05/04/20 19:00 DC 05/03/20 22:00 Vancomycin HCl 750 mg/IV Miscellaneous Supplies 1 each/ Dextrose 275 ml @ 275 mls/hr Q24H IV 04/29/20 20:00 05/05/20 19:54 Vancomycin HCl 750 mg/IV Miscellaneous Supplies 1 each/ Dextrose 275 ml @ 275 mls/hr Q24H IV 05/04/20 21:00 05/05/20 21:22 Zinc Sulfate (Zinc Sulfate) 220 mg BID PO 05/03/20 09:00 05/06/20 09:11 JEFRY LOPEZ MD May 06, 2020 15:58
[2020-05-06] MEDS: SODIUM CHLORIDE 0.9% INJ 10 ML SYR IV PRN (16:47)
[2020-05-06] MEDS: ACETAMINOPHEN TAB 650MG DOSE (2X325MG) PO PRN (18:40)
[2020-05-06 20:01] VITALS: BP 168/73
[2020-05-06] MEDS: VANCOMYCIN HCL 750 MG, VIAL MATE ADAPTER 1 EACH in D5W 250 ML IV SCH ×2 (20:35→21:58)
[2020-05-06] MEDS: ASPIRIN 81 MG CHEW TABLET PEG SCH (20:37)
[2020-05-06] MEDS: LEVEMIR (INSULIN DETEMIR) 1 UNITS/0.01ML SC SCH (20:37)
[2020-05-06] MEDS: ATORVASTATIN 20 MG TAB PO SCH (20:38)
[2020-05-06] MEDS: CEPACOL LOZENGE PO PRN (20:38)
[2020-05-06] MEDS: DULoxetine 30 MG CAP (CYMBALTA) PO SCH (20:38)
[2020-05-07] MEDS: SODIUM CHLORIDE 0.9% INJ 10 ML SYR IV SCH ×2 (05:17→17:41)
[2020-05-07] MEDS: LEVOTHYROXINE 112MCG TABLET (0.112MG) PO SCH (05:17)
[2020-05-07] MEDS: GABAPENTIN 400 MG CAP PO SCH ×3 (05:17→20:20)
[2020-05-07] MEDS: PIPERACILLIN/TAZOBACTAM SOD 3.375 GM in D5W MINI-BAG PLUS 50 ML IV SCH ×4 (05:17→22:32)
[2020-05-07 05:44] VITALS: BP 162/73
[2020-05-07] MEDS: HumaLOG INSULIN (NovoLOG) PER UNIT SC SCH ×7 (08:30→20:15)
[2020-05-07] MEDS: MULTIVITAMINS/MINERALS THERAP 1 TAB PO SCH (08:31)
[2020-05-07] MEDS: predniSONE 10 MG TAB PO SCH (08:31)
[2020-05-07] MEDS: POTASSIUM CHLORIDE 10 MEQ SR TABLET PO SCH (08:31)
[2020-05-07] MEDS: LACTOBACILLUS ACIDOPHILUS CAP (BACID) PO SCH ×3 (08:31→16:50)
[2020-05-07] MEDS: ASCORBIC ACID 500 MG TAB PO SCH (08:31)
[2020-05-07] MEDS: APIXABAN 2.5 MG TAB (ELIQUIS) PO SCH ×2 (08:31→20:20)
[2020-05-07] MEDS: FERROUS GLUCONATE 324 MG TAB PO SCH (08:31)
[2020-05-07] MEDS: FUROSEMIDE 40 MG TAB PO SCH ×2 (08:31→16:50)
[2020-05-07] MEDS: predniSONE 1 MG TAB PO SCH (08:32)
[2020-05-07] MEDS: FIBER-CON 625 MG TAB PO SCH (08:32)
[2020-05-07] MEDS: MORPHINE 15 MG SA TAB PO SCH ×2 (08:32→20:21)
[2020-05-07] MEDS: PANTOPRAZOLE 20 MG TAB PO SCH ×2 (08:33→20:21)
[2020-05-07] MEDS: ZINC SULFATE 220 MG CAP PO SCH ×2 (08:33→20:20)
[2020-05-07] MEDS: oxyBUTYnin 5 MG TAB PO SCH ×3 (08:33→20:21)
[2020-05-07] MEDS: atenoloL 50 MG TAB PO SCH ×2 (08:33→20:22)
[2020-05-07 14:00] VITALS: BP 133/58
[2020-05-07 20:06] VITALS: BP 165/77
[2020-05-07] MEDS: VANCOMYCIN HCL 750 MG, VIAL MATE ADAPTER 1 EACH in D5W 250 ML IV SCH ×2 (20:13→21:25)
[2020-05-07] MEDS: PINK BISMUTH SUSP 524MG/30ML ORAL SYRINGE PO PRN (20:15)
[2020-05-07] MEDS: LEVEMIR (INSULIN DETEMIR) 1 UNITS/0.01ML SC SCH (20:15)
[2020-05-07] MEDS: ASPIRIN 81 MG CHEW TABLET PEG SCH (20:19)
[2020-05-07] MEDS: CEPACOL LOZENGE PO PRN (20:20)
[2020-05-07] MEDS: DULoxetine 30 MG CAP (CYMBALTA) PO SCH (20:20)
[2020-05-07] MEDS: ATORVASTATIN 20 MG TAB PO SCH (20:21)
[2020-05-08] MEDS: LEVOTHYROXINE 112MCG TABLET (0.112MG) PO SCH (05:07)
[2020-05-08] MEDS: GABAPENTIN 400 MG CAP PO SCH ×3 (05:07→21:05)
[2020-05-08] MEDS: SODIUM CHLORIDE 0.9% INJ 10 ML SYR IV SCH ×2 (05:07→17:08)
[2020-05-08] MEDS: PIPERACILLIN/TAZOBACTAM SOD 3.375 GM in D5W MINI-BAG PLUS 50 ML IV SCH ×3 (05:07→17:07)
[2020-05-08 06:00] VITALS: BP 177/80
[2020-05-08] MEDS: HumaLOG INSULIN (NovoLOG) PER UNIT SC SCH ×7 (08:49→21:01)
[2020-05-08] MEDS: ASCORBIC ACID 500 MG TAB PO SCH (08:50)
[2020-05-08] MEDS: MORPHINE 15 MG SA TAB PO SCH ×2 (08:50→20:58)
[2020-05-08] MEDS: MULTIVITAMINS/MINERALS THERAP 1 TAB PO SCH (08:50)
[2020-05-08] MEDS: predniSONE 1 MG TAB PO SCH (08:51)
[2020-05-08] MEDS: atenoloL 50 MG TAB PO SCH ×2 (08:51→21:00)
[2020-05-08] MEDS: predniSONE 10 MG TAB PO SCH (08:51)
[2020-05-08] MEDS: FERROUS GLUCONATE 324 MG TAB PO SCH (08:51)
[2020-05-08] MEDS: PANTOPRAZOLE 20 MG TAB PO SCH ×2 (08:52→20:57)
[2020-05-08] MEDS: oxyBUTYnin 5 MG TAB PO SCH ×3 (08:52→20:57)
[2020-05-08] MEDS: ZINC SULFATE 220 MG CAP PO SCH ×2 (08:52→20:57)
[2020-05-08] MEDS: APIXABAN 2.5 MG TAB (ELIQUIS) PO SCH ×2 (08:52→20:57)
[2020-05-08] MEDS: LACTOBACILLUS ACIDOPHILUS CAP (BACID) PO SCH ×3 (08:52→17:05)
[2020-05-08] MEDS: FIBER-CON 625 MG TAB PO SCH (08:52)
[2020-05-08] MEDS: FUROSEMIDE 40 MG TAB PO SCH (08:52)
[2020-05-08] MEDS: POTASSIUM CHLORIDE 10 MEQ SR TABLET PO SCH (08:53)
[2020-05-08] MEDS: SODIUM CHLORIDE 0.9% INJ 10 ML SYR IV PRN (10:55)
[2020-05-08 14:00] VITALS: BP 132/60
--- NOTE | 2020-05-08 16:39 | IPNPDOC ---
Text Note Date of Service The patient was seen on 05/08/20. NOTE Subjective: No complaints at present. One of the ports of the PICC line is not working as per nurses. No fever or chills, No chest pain or SOB. No abdominal pain. His sugars have been in the 180 to 240 range. PHYSICAL EXAMINATION: VITAL SIGNS: Please see below. GENERAL: Pleasant and cooperative. No distress laying in bed. Alert and oriented times three. HEENT: PERRL.NC/AT , moist mucous membranes. CARDIOVASCULAR: Regular rate and rhythm. No rub/ murmur or gallop LUNGS: Clear to auscultation bilaterally. No wheezes. No rhonchi. Overall distant breath sounds. Few basal crackles. ABDOMEN: Soft, obese, distended. Positive Normal active bowel sounds. NEUROLOGICAL: Alert and oriented times three. Cranial nerves II through XII intact. Sensation grossly intact to light touch, diminished in lower extremities. EXTREMITIES: Right foreleg in external fixator device. Right foot edematous. No point tenderness about left knee., Edema in both the thighs and also in the left foot. 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 Patient was on oral antibiotics prior to debridement, will need to be on IV antibiotics for 6 weeks starting from 04/25/2020 (to 06.06.2020), currently on vancomycin and Zosyn. Patient was transferred to ARU for completion of IV antibiotics. Patient is now at mobility due to inconsistency/unreliability of LE strength with buckling of knees and increased risk of falls. He presents for comprehensive rehabilitation work on transfers, limited mobilization with weightbearing as tolerated right lower extremity, self-care for lower extremity osteomyelitis , education regarding his chronic conditions and optimal management. Acute on chronic anemia s/p 2 units of PRBC. HH remains stable. OM of Right Tibia/ Non union of right tibial fracture from 2018 Right tibial fracture 2018, nonunion, OM, REMOVED HARDWARE 12/21/2019, W PSEUDOMONAS ACNES DISEASE. 6 WEEKS OF IV VANCOMYCIN AND 02/02/20 MRI 04/01/20 showed CONTINUED OSTEOMYELITIS WITH COMPLEX COLLECTION of fluid /intramedullary abscess status post debridement and placement of external fixator 04.25.2020. Antibiotics Vanco and Zosyn for at least 6 weeks from 04/25/2020 (to 06.06.2020), Bilateral upper extremity weakness more on the left upper extremity Patient reports has cervical compression and has been recommended surgery before. Chronic low back pain status post multiple back surgeries (5), insertion/removal spine stimulator Closed compression fracture first lumbar vertebrae Bilateral paraparesis WC bound Chronic Pain Leg/ back /neck/ neuropathy on Morphine po bid, gabapentin, cymbalta. DM with neuropathy and left heel ulcer sugars still not well controlled Continue Levemir 180 units at bed time Lispro 37 units with meals + sliding scale lispr AC and HS. Hypertension. Atenolol Coronary artery disease. Atenolol, statin CHF Edema in the back and buttocks seems to be a little more than before will continue lasix. will give an iv lasix today. CKD stage 3 creatinine stable. History PE. on Eliquis Morbid obesity/ FARRUKH on BiPAP. continue own Temporal arteritis on chronic [id number] mg Tocilizumab resuming every 2 weeks. HLD. statin GERD. PPI Anxiety. Liver lesion, right lobe Tinea pedis Prior ORIF Left ankle in 1976 VS,Adarsh, I+O VS, Adarsh, I+O Vital Signs Date Time Temp Pulse Resp B/P (MAP) Pulse Ox O2 Delivery O2 Flow Rate FiO2 05/08/20 14:00 97.3 80 18 132/60 (84) 92 Room Air I&O- Last 24 Hours up to 6 AM 05/08/20 07:00 Intake Total 3610 ml Output Total 2725 ml Balance 885 ml SERGIO SANTIAGO MD May 08, 2020 16:39
[2020-05-08] MEDS ORDERED: FUROSEMIDE 40MG/4ML VIAL (J1940) IV ONE (17:00)
[2020-05-08] MEDS: VANCOMYCIN HCL 750 MG, VIAL MATE ADAPTER 1 EACH in D5W 250 ML IV SCH ×2 (20:52→22:15)
[2020-05-08] MEDS: DULoxetine 30 MG CAP (CYMBALTA) PO SCH (20:57)
[2020-05-08] MEDS: ATORVASTATIN 20 MG TAB PO SCH (20:57)
[2020-05-08] MEDS: ASPIRIN 81 MG CHEW TABLET PEG SCH (20:57)
[2020-05-08] MEDS: LEVEMIR (INSULIN DETEMIR) 1 UNITS/0.01ML SC SCH (21:01)
[2020-05-08 22:00] VITALS: BP 149/70
[2020-05-09] MEDS: PIPERACILLIN/TAZOBACTAM SOD 3.375 GM in D5W MINI-BAG PLUS 50 ML IV SCH ×5 (00:04→23:24)
[2020-05-09] MEDS: PINK BISMUTH SUSP 524MG/30ML ORAL SYRINGE PO PRN (05:36)
[2020-05-09 06:00] VITALS: BP 154/74
[2020-05-09] MEDS: SODIUM CHLORIDE 0.9% INJ 10 ML SYR IV SCH ×2 (06:19→16:49)
[2020-05-09] MEDS: HumaLOG INSULIN (NovoLOG) PER UNIT SC SCH ×7 (07:30→21:00)
[2020-05-09] MEDS: LACTOBACILLUS ACIDOPHILUS CAP (BACID) PO SCH ×3 (08:00→17:18)
[2020-05-09] MEDS: ONDANSETRON 4 MG ORAL DISINTEGRATING TAB PO PRN ×2 (08:07→17:18)
[2020-05-09] MEDS: GABAPENTIN 400 MG CAP PO SCH ×3 (10:32→21:24)
--- NOTE | 2020-05-09 11:37 | IPNPDOC ---
PM&R Progress Note DATE OF SERVICE: May 09, 2020 Surgical Scrub Technician Progress Note DATE OF ADMISSION: Apr 29, 2020 at 14:24 INPATIENT REHABILITATION ADMISSION DAY: #11 CHIEF COMPLAINT: . 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 Patient was on oral antibiotics prior to debridement, will need to be on IV antibiotics for 6 weeks starting from 04/25/2020 (to 06.06.2020), currently on vancomycin and Zosyn. Vancomycin. Apparently pulse dose due to high troughs last 22mcg per mL, 04/29/2020 and clinical pharmacy change dosing to 1750 mg Q 24 hours with trough drawn today. Picc line in place. Patient followed by the ID clinic at [facility]. He notes resorting to WC mobility due to inconsistency/unreliability of LE strength with buckling of knees and increased risk of falls. He was admitted 04.29 for comprehensive rehabilitation work on transfers, limited mobilization with weightbearing as tolerated right lower extremity, self-care for lower extremity osteomyelitis , education regarding his chronic conditions and optimal management. Hb dropped over weekend following admission necessitating transfusion 2 U PRBC, has held steady thus far, will require monitoring, on steroids. BS readings labile earlier this week possible artifact from drawing off picc. Repeat low 200s.. On SS coverage and hefty doses long a cting I. Pain is reasonably controlled, no further respiratory distress, improving exercise tolerance. Started a few episodes of soft, not runny BM, improved with a dose of Pepto and addition of Fiberconfib. Nursing confiscated stash of candies and brown sugar jerky last week and blood sugars improved significantly. Patient has had frequent soft stools, increased to gastroenteritis this weekend with nausea/vomiting overnight. REVIEW OF SYSTEMS: The following is a completed review of systems and has been r thuwediandra. Review of systems otherwise unremarkable. PAIN: Patient lives with chronic pain managed with MS contin half-way, failed prior spine stimulator, Fentanyl patches, currently controlled, some soreness RLE. EYES: Double vision, no complete visual loss EARS, NOSE, & THROAT: No throat pain, or dysphagia, or rhinorrhea. CARDIOVASCULAR: Denies chest pain or palpitations. PULMONARY: Denies shortness of breath. GASTROINTESTINAL: Notes frequent soft stools, recent NVD. GENITOURINARY: continent. BPH MUSCULOSKELETAL: chronic polyarticular MSK pain NEUROLOGICAL:.PN HEMATOLOGICAL: anemic, fatigue, bruises easily SKIN: left heel, fungal infections, new lesion right heel. PSYCHIATRIC: Unremarkable. All other review of systems found to be negative. MEDICATIONS: Please see below. PHYSICAL EXAMINATION: VITAL SIGNS: Please see below. GENERAL: Pleasant and cooperative. Alert and oriented times three. HEENT: Extraocular movements intact. no obvious adenopathy or thyromegaly. Healed left temporal artery biopsy CARDIOVASCULAR: Regular rate and rhythm. LUNGS: Clear to auscultation bilaterally. No wheezes. No rhonchi. ABDOMEN: Soft, obese, distended. Positive Normal active bowel sounds. NEUROLOGICAL: Alert and oriented times three. Cranial nerves II through XII grossly intact. Sensation grossly intact to light touch, diminished in distal lower extremities EXTREMITIES: 5/5 institutional research coordinator, elbow flexion, elbow extension, 4/5 foot dorsiflexion, plantar flexion . Right foreleg in external fixator device. Right foot more pink and warmer, less edema. No point tenderness about left knee. Generalized tenderness right knee, foreleg. Pulses difficult to appreciate. Sensation decreased globally over both feet. SKIN: multiple small reddened areas bilateral lower extremities circular 1.5cm clean lesion left heel, external fixator, multiple attachment points right foreleg dime sized blackened circular dime sized area right heel with satellite lesion Achilles insertion. Small ecchymotic areas gluteal cleft, no breakdown, no redness, ischia clear. LABORATORY DATA: Please see below. FUNCTIONAL STATUS: Premorbid: Wheelchair for mobility slide board for transfers. Pt. gaining strength in LE's to facilitate slideboard transfers with SBA. 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 Able to wash james area, upper legs and lower legs with long handled sponge insupine and UB seated EOB. Assistance required to wash feet and buttocks and to don/doff socks. Max A required to thread brief around feet with difficulty coordinating BLE's with use of chemical pathologist simultaneously. Clothing management with max assist for side to side weight shifting. Improving with Slide Board transfers sup. GOALS: Probable most realistic to work towards regaining slide board transfers in and out of bed, to commode, car, see how pain management and weight bearing tolerance proceeds for BLE. Prevention of worsening left and new right heel wounds, facilitation of healing infected right foreleg, preservation of both feet through protective measures to reduce edema, protect skin from shearing forces, maintain warmth/circulation, protective footwear without worsening shear. 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 Patient was on oral antibiotics prior to debridement, will need to be on IV antibiotics for 6 weeks starting from 04/25/2020 (to 06.06.2020), currently on vancomycin and Zosyn. Vancomycin. Apparently pulse dose due to high troughs last 22mcg per mL, 04/29/2020 and clinical pharmacy change dosing to 1750 mg Q 24 hours with trough drawn on the , pharmacy making calculated adjustments. Picc line in place. Patient followed by the ID clinic at [facility], discussed case with MT Hampton who confirmed rx plan Vanc 1500 BID, Zosyn 3.25 Q 6 x 6 week. He will continue with comprehensive rehabilitation work on transfers, limited mobilization with weightbearing as tolerated right lower extremity, self-care for lower extremity osteomyelitis , education regarding his chronic conditions and optimal management. Will need continued close monitoring of bilateral heels, healing status. Added FiberCon , Peptco Bismol, probiotics to help bulk stools encouraged eating apples and also adding iron for anemia, which will also slow bowel motility. Zofran given and will send cx and adjust Insulin requirements with reduced PO intake. PLAN: 1. Rehab- PT/OT advance gait and ADls, strengthen/stretch/maintain ROM all 4 limbs. We'll continue to work on safe transfers, wound management and prevention of further complications of complex medical conditions. 2. 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 3. Ortho- OM, rx vanc/zosyn, left heel ulcer at risk for OM, s/p multiple spinal surgeries, CLBP, s/p multiple jt replacements. Added Vitamin C, Zinc to promote would healing, continue wound care protocol. 4. Cardiac- hx of [place]/ CAD with Stents, CHF seems to be retaining fluid in hands a bit more, may need more diuresis -HTN c/u ARB -HLD- c/u Zocor 5. Resp -incentive spirometry, monitor for infection 6. Endo- DM, hypothyroid, c/u insulin and ISS, thyroid med, coordinate with ho spitalists regarding slightly increasing dose long acting Insulin/daytime Insulin with goal of keeping better control. FBS better w decreased PO intake. 7. - monitor output, RF 8. GI ppx- PPI, pepto, fiber, probiotics, dc miralax, submit sample for C Diff, and gastroenteritis screen. 9. Skin wound care recommend turn and positioning every 2. Off loading the heels and heel protector, foam to right heel. Cleanse in the left foot with normal saline moistened gauze, medical, and the daily and covering with gauze secured with tape. Applying Tinactin twice a day to fungal area on foot, wrapping with angelina, securing with tape. Monitor Vanc protocols, ESR, CRP, vs, cbc. Changed to 2x/week monitoring. PROGNOSIS: Excellent. ESTIMATED LENGTH OF STAY:14 days. PROJECTED DISCHARGE DESTINATION: Home with family support and any durable medical equipment required to increase functional safety and mobility. TIME SPENT COUNSELING AND COORDINATING INITIAL CARE: 35 minutes. This document is generated using speech recognition software which may result in grammatical, typographical and individual word errors. Allergies Coded Allergies: No Known Allergies (Verified , 12/21/02) Vital Signs Vital Signs Date Time Temp Pulse Resp B/P (MAP) Pulse Ox O2 Delivery O2 Flow Rate FiO2 05/09/20 06:00 98.0 84 18 154/74 (100) 95 Room Air Laboratory Data Labs 24H Laboratory Tests 2 05/08/20 11:55: Bedside Glucose (Misc Panel) 228H 05/08/20 16:35: Bedside Glucose (Misc Panel) 288H 05/08/20 19:11: Vancomycin Level Trough 17.1 05/08/20 19:50: Bedside Glucose (Misc Panel) 283H 05/09/20 05:17: Bedside Glucose (Misc Panel) 209H 05/09/20 11:30: Bedside Glucose (Misc Panel) 202H Current Medications Current Medications Current Medications Medications (Trade) Dose Ordered Sig/Mima Route PRN Reason Start Time Stop Time Status Last Admin Dose Admin Acetaminophen (Tylenol Tab) 650 mg Q4HP PRN PO MILD PAIN (PS 1-4) 04/29/20 14:15 05/06/20 18:40 Apixaban (Eliquis) 2.5 mg BID PO 04/29/20 21:00 05/08/20 20:57 Artificial Tears (Akwa Tears) 2 drop QID PRN OU DRY EYES 04/29/20 17:00 Ascorbic Acid (Vitamin C) 1,000 mg DAILY PO 05/03/20 09:00 05/08/20 08:50 Aspirin (Aspirin Chewable) 81 mg QPM PEG 04/29/20 21:00 05/08/20 20:57 Atenolol (Tenormin) 50 mg BID PO 04/29/20 21:00 05/08/20 21:00 Atorvastatin Calcium (Lipitor) 20 mg QPM PO 04/29/20 21:00 05/08/20 20:57 Bismuth Subsalicylate (Pepto Bismol) 30 ml Q4HP PRN PO DIARRHEA 05/03/20 11:30 05/09/20 05:36 Calcium Polycarbophil (Fiber Con) 1 ea DAILY PO 05/03/20 12:00 05/16/20 09:00 05/08/20 08:52 Calcium Polycarbophil (Fiber Con) 1 ea DAILY PO 05/05/20 17:00 UNV Cetylpyridinium Chloride (Cepacol) 1 chrissy Q4HP PRN PO SORE THROAT 05/01/20 16:00 05/07/20 20:20 Dextrose (Dextrose 50%) 25 ml ASDIRECTED PRN IV SEE LABEL COMMENTS 04/29/20 14:45 Docusate Sodium (Colace) 100 mg BIDP PRN PO CONSTIPATION 04/29/20 21:00 Duloxetine HCl (Cymbalta) 60 mg QHS PO 04/29/20 21:00 05/08/20 20:57 Ferrous Gluconate (Fergon) 324 mg DAILY PO 05/05/20 09:00 05/08/20 08:51 Furosemide (Lasix) 40 mg BID@ PO 04/29/20 17:00 05/08/20 08:52 Gabapentin (Neurontin) 800 mg Q8H PO 04/29/20 14:00 05/08/20 21:05 Glucagon (Glucagon) 1 mg ASDIRECTED PRN SC SEE LABEL COMMENTS 04/29/20 14:45 Glucose (Glucose) 16 GM ASDIRECTED PRN PO SEE LABEL COMMENTS 04/29/20 14:45 Heparin Sodium (Heparin (Flush)) 200 units ASDIRECTED PRN IV SEE LABEL COMMENTS 04/29/20 20:00 05/08/20 10:55 Heparin Sodium (Heparin (Flush)) 200 units PICC IV 04/30/20 06:00 05/09/20 06:19 Home Med (Med Rec Complete!) ASDIRECTED XX 04/29/20 15:45 04/29/20 15:56 DC Insulin Detemir (Levemir Insulin) 180 units DAILY@2100 [place] 04/29/20 21:00 05/08/20 21:01 Insulin Human Lispro (HumaLOG INSULIN) 15 units [facility] 05/01/20 12:00 05/01/20 20:35 DC 05/01/20 17:27 Insulin Human Lispro (HumaLOG INSULIN) 25 units [facility] 05/02/20 07:30 05/03/20 07:28 DC 05/02/20 17:16 Insulin Human Lispro (HumaLOG INSULIN) 30 units [facility] 05/03/20 07:30 05/05/20 06:27 DC 05/04/20 17:01 Insulin Human Lispro (HumaLOG INSULIN) 33 units [facility] 05/05/20 07:30 05/08/20 16:29 DC 05/08/20 12:17 Insulin Human Lispro (HumaLOG INSULIN) 37 units [facility] 05/08/20 17:30 05/08/20 17:07 Insulin Human Lispro (HumaLOG INSULIN) See Protocol Table AC MT 04/29/20 17:30 05/09/20 08:52 Insulin Human Lispro (HumaLOG INSULIN) [facility] 04[facility] 21:00 05/08/20 21:01 Lactobacillus Acidophilus (Bacid) 1 ea WM PO 05/03/20 18:00 05/08/20 17:05 Levothyroxine Sodium (Synthroid) 112 mcg DAILY@06 PO 04/30/20 06:00 05/08/20 05:07 Morphine Sulfate (Ms Contin) 45 mg BID PO 04/29/20 21:00 05/08/20 20:58 Multivitamins (Theragram-M) 1 tab DAILY PO 04/30/20 09:00 05/08/20 08:50 Ondansetron HCl (Zofran Odt) 4 mg Q6HP PRN PO NAUSEA OR VOMITING 05/09/20 08:00 05/09/20 08:07 Oxybutynin Chloride (Ditropan) 5 mg TID PO 04/29/20 21:00 05/08/20 20:57 Pantoprazole Sodium (Protonix) 20 mg BID PO 04/29/20 21:00 05/08/20 20:57 Pantoprazole Sodium (Protonix) 20 mg DAILY PO 04/30/20 09:00 04/29/20 16:34 DC Piperacillin Sod/ Tazobactam Sod 3.375 gm/Dextrose 50 ml @ 50 mls/hr Q6H IV 04/29/20 17:00 06/06/20 16:59 05/09/20 05:02 Polyethylene Glycol (Miralax) 1 pkt DAILY PO 04/30/20 09:00 Potassium Chloride (Micro-K Extencaps) 40 meq DAILY PO 05/02/20 09:00 05/08/20 08:53 Prednisone (Deltasone) 2 mg DAILY PO 04/30/20 09:00 05/08/20 08:51 Prednisone (Deltasone) 10 mg DAILY PO 04/30/20 09:00 05/08/20 08:51 Sodium Chloride (Saline Lock Flush) 10 ml ASDIRECTED PRN IV SEE LABEL COMMENTS 04/29/20 20:00 05/08/20 10:55 Sodium Chloride (Saline Lock Flush) 10 ml PICC IV 04/30/20 06:00 05/09/20 06:19 Vancomycin HCl 500 mg/Dextrose 110 ml @ 110 mls/hr Q24H IV 04/29/20 21:00 05/04/20 19:00 DC 05/03/20 22:00 Vancomycin HCl 750 mg/IV Miscellaneous Supplies 1 each/ Dextrose 275 ml @ 275 mls/hr Q24H IV 04/29/20 20:00 05/08/20 20:52 Vancomycin HCl 750 mg/IV Miscellaneous Supplies 1 each/ Dextrose 275 ml @ 275 mls/hr Q24H IV 05/04/20 21:00 05/08/20 22:15 Zinc Sulfate (Zinc Sulfate) 220 mg BID PO 05/03/20 09:00 05/08/20 20:57 JEFRY LOPEZ MD May 09, 2020 11:37
[2020-05-09] MEDS: SODIUM CHLORIDE 0.9% INJ 10 ML SYR IV PRN (11:40)
[2020-05-09] MEDS: predniSONE 10 MG TAB PO SCH (12:37)
[2020-05-09] MEDS: predniSONE 1 MG TAB PO SCH (12:38)
[2020-05-09] MEDS: FUROSEMIDE 40 MG TAB PO SCH ×2 (12:38→17:18)
[2020-05-09] MEDS: atenoloL 50 MG TAB PO SCH ×2 (12:38→21:23)
[2020-05-09] MEDS: APIXABAN 2.5 MG TAB (ELIQUIS) PO SCH ×2 (12:57→21:23)
[2020-05-09] MEDS: oxyBUTYnin 5 MG TAB PO SCH ×3 (12:57→21:23)
[2020-05-09] MEDS: LEVOTHYROXINE 112MCG TABLET (0.112MG) PO SCH (12:57)
[2020-05-09] MEDS: FIBER-CON 625 MG TAB PO SCH (12:58)
[2020-05-09] MEDS: MULTIVITAMINS/MINERALS THERAP 1 TAB PO SCH (12:58)
[2020-05-09] MEDS: POTASSIUM CHLORIDE 10 MEQ SR TABLET PO SCH (12:58)
[2020-05-09] MEDS: PANTOPRAZOLE 20 MG TAB PO SCH ×2 (12:58→21:23)
[2020-05-09] MEDS: MORPHINE 15 MG SA TAB PO SCH ×2 (12:58→21:25)
[2020-05-09] MEDS: ASCORBIC ACID 500 MG TAB PO SCH (12:59)
[2020-05-09] MEDS: ZINC SULFATE 220 MG CAP PO SCH ×2 (12:59→21:25)
[2020-05-09] MEDS: FERROUS GLUCONATE 324 MG TAB PO SCH (12:59)
[2020-05-09 13:35] VITALS: BP 145/78
[2020-05-09 14:22] LABS: BASO % 0.3 % (0.0-1.0); EOS # 0.3 10^3/uL (0.0-0.5); EOS % 2.3 % (0.0-3.0); HEMATOCRIT 41.5 % (42.0-52.0); LYMPH # 0.3 10^3/uL (1.5-5.0); LYMPH % 2.1 % (24.0-44.0); MEAN CORPUSCULAR HEMOGLOBIN 26.3 pg (27.0-33.0); MEAN CORPUSCULAR HGB CONC 28.9 g/dl (32.0-36.5); MONO # 0.8 10^3/uL (0.0-0.8); MONO % 6.1 % (0.0-5.0); NEUTROPHILS # 11.6 10^3/uL (1.5-8.5); NEUTROPHILS % 87.7 % (36.0-66.0); PLATELET COUNT, AUTOMATED 302 10^3/uL (150-450); RED BLOOD COUNT 4.56 10^6/uL (4.30-6.10); WHITE BLOOD COUNT 13.2 10^3/uL (4.0-10.0)
[2020-05-09 15:10] LABS: CREATININE FOR GFR 1.33 MG/DL (0.70-1.30); GLOMERULAR FILTRATION RATE 56.6 (>42); POTASSIUM SERUM 4.1 MEQ/L (3.5-5.1); TOTAL PROTEIN 6.5 GM/DL (6.4-8.2)
[2020-05-09] MEDS ORDERED: ISOVUE-370 76% 100ML VIAL As Ordered ONE (17:52)
--- NOTE | 2020-05-09 19:24 | REPVR ---
PROCEDURE INFORMATION: Exam: CT Abdomen And Pelvis With Contrast Exam date and time: 05/09/2020 6:51 PM Age: 69 years old Clinical indication: Abdominal pain; Generalized TECHNIQUE: Imaging protocol: Computed tomography of the abdomen and pelvis with intravenous contrast. Radiation optimization: All CT scans at this facility use at least one of these dose optimization techniques: automated exposure control; mA and/or kV adjustment per patient size (includes targeted exams where dose is matched to clinical indication); or iterative reconstruction. Contrast material: ISOVUE 370; Contrast volume: 100 ml; Contrast route: INTRAVENOUS (IV); COMPARISON: CT ABD/PEL W/IV CONTRAST ONLY 11/24/2018 5:36 PM FINDINGS: Lungs: No suspicious mass or airspace process in the visualized lung bases. Liver: Liver appears cirrhotic with nodular contours. Low-density lesion in the right hepatic lobe measuring 2.2 cm on axial image 45, new since the prior CT. Another new lesion in the posterior right hepatic lobe measuring 2.7 cm on axial image 48. Gallbladder and bile ducts: Gallbladder is surgically absent. Pancreas: Pancreas appears normal. No focal mass or peripancreatic inflammation. Spleen: Spleen appears homogeneous without focal mass. Adrenal glands: Adrenal glands are normal in appearance. Kidneys and ureters: Kidneys appear normal, with no stone, solid mass or hydronephrosis. Stomach and bowel: No evidence of acute diverticulitis. Appendix: Appendix is not seen. No RLQ inflammation to suggest appendicitis. Intraperitoneal space: Small volume of abdominal and pelvic free fluid likely related to ascites.No evidence of small bowel obstruction. No pneumoperitoneum. Vasculature: Atherosclerotic calcifications in the coronary vessels. Main portal and splenic veins enhance normally. Atherosclerotic change present in the aorta, without aneurysm. Lymph nodes: . No enlarged lymph nodes. Urinary bladder: Urinary bladder appears normal. Reproductive: No overt enlargement of the prostate gland. Bones/joints: Degenerative changes are present in the hips and lumbar spine and posterior decompression changes are also present in the spine. Soft tissues: Diffuse body wall edema is present. Other findings: Exam is limited due to patient motion. IMPRESSION: Cirrhosis with small volume ascites. Two new lesions in the liver. Measurements are given above. These were not present in November 2018 and could be developing neoplasm, metastases or regenerating nodules. Electronically signed by: Dimas Morris On 05/09/2020 19:24:36 PM
[2020-05-09 21:00] VITALS: BP 138/63
[2020-05-09] MEDS: LEVEMIR (INSULIN DETEMIR) 1 UNITS/0.01ML SC SCH (21:00)
[2020-05-09] MEDS: VANCOMYCIN HCL 750 MG, VIAL MATE ADAPTER 1 EACH in D5W 250 ML IV SCH ×2 (21:12→22:17)
[2020-05-09] MEDS: DULoxetine 30 MG CAP (CYMBALTA) PO SCH (21:25)
[2020-05-09] MEDS: ATORVASTATIN 20 MG TAB PO SCH (21:25)
[2020-05-09] MEDS: ASPIRIN 81 MG CHEW TABLET PEG SCH (21:25)
[2020-05-10] MEDS: SODIUM CHLORIDE 0.9% INJ 10 ML SYR IV PRN ×2 (00:20→11:55)
[2020-05-10] MEDS: PIPERACILLIN/TAZOBACTAM SOD 3.375 GM in D5W MINI-BAG PLUS 50 ML IV SCH ×4 (05:21→22:49)
[2020-05-10 05:30] VITALS: BP 125/60
[2020-05-10] MEDS: SODIUM CHLORIDE 0.9% INJ 10 ML SYR IV SCH ×2 (06:25→17:47)
[2020-05-10] MEDS: GABAPENTIN 400 MG CAP PO SCH ×3 (06:25→20:47)
[2020-05-10] MEDS: LEVOTHYROXINE 112MCG TABLET (0.112MG) PO SCH (06:25)
[2020-05-10] MEDS: HumaLOG INSULIN (NovoLOG) PER UNIT SC SCH ×7 (08:22→20:50)
[2020-05-10] MEDS: FIBER-CON 625 MG TAB PO SCH (08:23)
[2020-05-10] MEDS: predniSONE 10 MG TAB PO SCH (08:23)
[2020-05-10] MEDS: MULTIVITAMINS/MINERALS THERAP 1 TAB PO SCH (08:23)
[2020-05-10] MEDS: ZINC SULFATE 220 MG CAP PO SCH ×2 (08:23→20:48)
[2020-05-10] MEDS: FUROSEMIDE 40 MG TAB PO SCH ×2 (08:23→17:43)
[2020-05-10] MEDS: POTASSIUM CHLORIDE 10 MEQ SR TABLET PO SCH (08:23)
[2020-05-10] MEDS: APIXABAN 2.5 MG TAB (ELIQUIS) PO SCH ×2 (08:23→20:47)
--- NOTE | 2020-05-10 08:23 | IPNPDOC ---
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 He notes resorting to WC mobility due to inconsistency/unreliability of LE strength with buckling of knees and increased risk of falls. He was admitted 04.29 for comprehensive rehabilitation work on transfers, limited mobilization with weightbearing as tolerated right lower extremity, self -care for lower extremity osteomyelitis , education regarding his chronic conditions and optimal management. Hb dropped initially necessitating transfusion 2 U PRBC, will require monitoring, on steroids for temporal arteritis. BS was labile, improved control with increased Insulin and dietary restrictions. Patient was on oral antibiotics prior to debridement, will need to be on IV antibiotics for 6 weeks starting from 04/25/2020 (to 06.06.2020), currently on vancomycin and Zosyn. Picc line in place. Requested pharmacy to recalc dosing. Patient followed by the ID clinic at [facility], however due to recent escalation of clinical toxicity with elevated LFTs, CRP, nausea, vomiting and loose stools, we appreciate Dr. Lynn involvement in the case. Patient was unable to keep anything down by mouth yesterday. CT Abdomen noted for mild ascites, possible liver lesions. REVIEW OF SYSTEMS: The following is a completed review of systems and has been reviewed. 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 EYES: Double vision, no complete visual loss EARS, NOSE, & THROAT: No throat pain, or dysphagia, or rhinorrhea. CARDIOVASCULAR: Denies chest pain or palpitations. PULMONARY: Denies shortness of breath. GASTROINTESTINAL: Notes frequent soft stools, recent NVD, improving this morning, episode large loose incontinent stool last night soiling both lower extremities. GENITOURINARY: continent. BPH MUSCULOSKELETAL: chronic polyarticular MSK pain NEUROLOGICAL:.PN HEMATOLOGICAL: anemic, fatigue, bruises easily SKIN: left heel, fungal infections, new lesion right heel. PSYCHIATRIC: anxiety All other review of systems found to be negative. MEDICATIONS: Please see below. PHYSICAL EXAMINATION: VITAL SIGNS: Please see below. GENERAL: Pleasant and cooperative drowsy but more responsive and conversant this morning. HEENT: Extraocular movements intact. no obvious adenopathy or thyromegaly. Healed left temporal artery biopsy site CARDIOVASCULAR: S1S2 Tachycardic. LUNGS: Clear to auscultation bilaterally. No wheezes. No rhonchi. Crackles bilateral bases. ABDOMEN: Soft, obese, less distended today. Positive normal active bowel sounds. NEUROLOGICAL:. Cranial nerves II through XII grossly intact. Sensation grossly intact to light touch, diminished in distal lower extremities EXTREMITIES: 5/5 weekend caregiver, elbow flexion, elbow extension, 4/5 foot dorsiflexion, plantar flexion . Right foreleg in external fixator device. Right foot more pink and warmer, less edema. No point tenderness about left knee. Generalized tenderness right knee, foreleg. Pulses difficult to appreciate. Sensation decreased globally over both feet. SKIN: multiple small reddened areas bilateral lower extremities circular 1.5cm clean lesion left heel, external fixator, multiple attachment points right foreleg dime sized blackened circular dime sized area right heel with satellite lesion Achilles insertion. Previously have noted small ecchymotic areas gluteal cleft, no breakdown, no redness, ischia clear. LABORATORY DATA: Please see below. Increasing , ALT, Alk Phos, CRP, WBC (also on chronic steroids) IMAGIN05.10.2020 CT Abdomen noted for: Liver: Liver appears cirrhotic with nodular contours. Low-density lesion in the right hepatic lobe measuring 2.2 cm on axial image 45, new since the prior CT. Another new lesion in the posterior right hepatic lobe measuring 2.7 cm on axial image 48. Cirrhosis with small volume ascites FUNCTIONAL STATUS: Premorbid: Wheelchair for mobility slide board for transfers. Pt. gaining strength in LE's to facilitate slideboard transfers with SBA. Can independently mobilize in 20 WC, but not quite sturdy enough for weight requirements for group home use. Able to wash james area, upper legs and lower legs with long handled sponge insupine and UB seated EOB. Assistance required to wash feet and buttocks and to don/doff socks. Max A required to thread brief around feet with difficulty coordinating BLE's with use of dinkey locomotive operator simultanously. Clothing management with max assist for side to side weight shifting. Improving with Slide Board transfers sup. GOALS: Most realistic to work towards regaining slide board transfers in and out of bed, to commode, car, see how pain management and weight bearing tolerance proceeds for BLE. Prevention of worsening bilateral heel wounds, facilitation of healing infected right foreleg, preservation of both feet through protective measures to reduce edema, protect skin from shearing forces, maintain warmth/circulation, protective footwear without worsening shear. 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 He will continue with comprehensive rehabilitation work on transfers, limited mobilization with weightbearing as tolerated right lower extremity, self-care for lower extremity osteomyelitis , education regarding his chronic conditions and optimal management. Will need continued close monitoring of bilateral heels, healing status. Added FiberCon , Peptco Bismol, probiotics to help bulk stools encouraged eating apples and also adding iron for anemia, which will also slow bowel motility. Zofran given and will send cx and adjust Insulin requirements with reduced PO intake, FBS 217 with Levemir held last night and much of usual insulin dosing held yesterday due to inability to tolerate PO intake. Ascites and slight increased swelling hands/feet reflect some fluid imbalance despite poor PO intake. Will continue close I&O and weights to ty and get better sense of how ahead/behind he is. PLAN: 1. Rehab- PT/OT advance gait and ADls, strengthen/stretch/maintain ROM all 4 limbs. We'll continue to work on safe transfers, wound management and prevention of further complications of complex medical conditions. Resume as tolerated today and continue to progress. 2. Neuro- probable DM neuropathy and polyradiculopathy along with hx temporal arteritis, compensate for PN s/s, observe for visual deterioration, none thus far, continue steroids, monitor ESR-recent escalation may reflect overall increased inflammation/infectious processes. 3. Ortho- OM, rx vanc/zosyn, left heel ulcer at risk for OM, s/p multiple spinal surgeries, CLBP, s/p multiple jt replacements. Added Vitamin C, Zinc to promote would healing, continue wound care protocol. 4. Cardiac- hx of [place]/ CAD with Stents, CHF seems to be retaining fluid in hands a bit more, may need more diuresis -HTN c/u ARB -HLD- c/u Zocor 5. Resp -incentive spirometry, monitor for infection 6. Endo- DM, hypothyroid, c/u insulin and ISS, thyroid med, coordinate with hospitalists regarding slightly increasing dose long acting Insulin/daytime Insulin with goal of keeping better control. FBS better w decreased PO intake. 7. - monitor output, RF 8. GI ppx- PPI, pepto, fiber, probiotics, dc miralax, submit sample for C Diff, and gastroenteritis screen. 9. Skin wound care recommend turn and positioning every 2. Off loading the heels and heel protector, foam to right heel. Cleanse in the left foot with normal saline moistened gauze, medical, and the daily and covering with gauze secured with tape. Applying Tinactin twice a day to fungal area on foot, wrapping with angelina, securing with tape. Monitor Vanc protocols,LFTS, ESR, CRP, vs, cbc. Discussed case with pharmacist, creatinine clearance is good, however we have room to warrant slight reduction in vanco dosing. PROGNOSIS: Good. ESTIMATED LENGTH OF STAY:14 days. PROJECTED DISCHARGE DESTINATION: Home with family support and any durable medical equipment required to increase functional safety and mobility. TIME SPENT COUNSELING AND COORDINATING INITIAL CARE: 40 minutes. This document is generated using speech recognition software which may result in grammatical, typographical and individual word errors. Allergies Coded Allergies: No Known Allergies (Verified , 12/21/02) Vital Signs Vital Signs Date Time Temp Pulse Resp B/P (MAP) Pulse Ox O2 Delivery O2 Flow Rate FiO2 05/10/20 05:30 96.9 82 18 125/60 (81) 93 Room Air Laboratory Data CBC/BMP Laboratory Tests 05/09/20 13:57 Labs 24H Laboratory Tests 2 05/09/20 11:30: Bedside Glucose (Misc Panel) 202H 05/09/20 13:57: Immature Granulocyte % (Auto) 1.5, Neutrophils (%) (Auto) 87.7H, Lymphocytes (%) (Auto) 2.1L, Monocytes (%) (Auto) 6.1H, Eosinophils (%) (Auto) 2.3, Basophils (%) (Auto) 0.3, Neutrophils # (Auto) 11.6H, Lymphocytes # (Auto) 0.3L, Monocytes # (Auto) 0.8, Eosinophils # (Auto) 0.3, Basophils # (Auto) 0.0, Nucleated Red Blood Cells % (auto) 0.4H, Anion Gap 10, Glomerular Filtration Rate 56.6, Calcium Level 9.0, Total Bilirubin 1.0, Aspartate Amino Transf (AST/SGOT) 100H, Alanine Aminotransferase (ALT/SGPT) 95H, Alkaline Phosphatase 312H, Total Protein 6.5, Albumin 3.0L, Albumin/Globulin Ratio 0.9 05/09/20 16:16: Bedside Glucose (Misc Panel) 236H 05/09/20 17:14: Erythrocyte Sedimentation Rate 63H, C-Reactive Protein, Quantitative 7.26H 05/09/20 20:05: Bedside Glucose (Misc Panel) 214H 05/10/20 06:30: Bedside Glucose (Misc Panel) 217H Microbiology Microbiology 05/09/20 Blood Culture, Received Pending 05/09/20 Blood Culture, Received Pending Current Medications Current Medications Current Medications Medications (Trade) Dose Ordered Sig/Mima Route PRN Reason Start Time Stop Time Status Last Admin Dose Admin Acetaminophen (Tylenol Tab) 650 mg Q4HP PRN PO MILD PAIN (PS 1-4) 04/29/20 14:15 05/06/20 18:40 Apixaban (Eliquis) 2.5 mg BID PO 04/29/20 21:00 05/09/20 21:23 Artificial Tears (Akwa Tears) 2 drop QID PRN OU DRY EYES 04/29/20 17:00 Ascorbic Acid (Vitamin C) 1,000 mg DAILY PO 05/03/20 09:00 05/08/20 08:50 Aspirin (Aspirin Chewable) 81 mg QPM PEG 04/29/20 21:00 05/09/20 21:25 Atenolol (Tenormin) 50 mg BID PO 04/29/20 21:00 05/09/20 21:23 Atorvastatin Calcium (Lipitor) 20 mg QPM PO 04/29/20 21:00 05/09/20 21:25 Bismuth Subsalicylate (Pepto Bismol) 30 ml Q4HP PRN PO DIARRHEA 05/03/20 11:30 05/09/20 05:36 Calcium Polycarbophil (Fiber Con) 1 ea DAILY PO 05/03/20 12:00 05/16/20 09:00 05/08/20 08:52 Calcium Polycarbophil (Fiber Con) 1 ea DAILY PO 05/05/20 17:00 UNV Cetylpyridinium Chloride (Cepacol) 1 chrissy Q4HP PRN PO SORE THROAT 05/01/20 16:00 05/07/20 20:20 Dextrose (Dextrose 50%) 25 ml ASDIRECTED PRN IV SEE LABEL COMMENTS 04/29/20 14:45 Docusate Sodium (Colace) 100 mg BIDP PRN PO CONSTIPATION 04/29/20 21:00 05/09/20 15:39 DC Duloxetine HCl (Cymbalta) 60 mg QHS PO 04/29/20 21:00 05/09/20 21:25 Ferrous Gluconate (Fergon) 324 mg DAILY PO 05/05/20 09:00 Hold 05/08/20 08:51 Furosemide (Lasix) 40 mg BID@,17 PO 04/29/20 17:00 05/09/20 17:18 Gabapentin (Neurontin) 800 mg Q8H PO 04/29/20 14:00 05/10/20 06:25 Glucagon (Glucagon) 1 mg ASDIRECTED PRN SC SEE LABEL COMMENTS 04/29/20 14:45 Glucose (Glucose) 16 GM ASDIRECTED PRN PO SEE LABEL COMMENTS 04/29/20 14:45 Heparin Sodium (Heparin (Flush)) 200 units ASDIRECTED PRN IV SEE LABEL COMMENTS 04/29/20 20:00 05/10/20 00:20 Heparin Sodium (Heparin (Flush)) 200 units PICC IV 04/30/20 06:00 05/10/20 06:25 Home Med (Med Rec Complete!) ASDIRECTED XX 04/29/20 15:45 04/29/20 15:56 DC Insulin Detemir (Levemir Insulin) 180 units DAILY@2100 SC 04/29/20 21:00 05/08/20 21:01 Insulin Human Lispro (HumaLOG INSULIN) 15 units AC SC 05/01/20 12:00 05/01/20 20:35 DC 05/01/20 17:27 Insulin Human Lispro (HumaLOG INSULIN) 25 units AC SC 05/02/20 07:30 05/03/20 07:28 DC 05/02/20 17:16 Insulin Human Lispro (HumaLOG INSULIN) 30 units [facility] 05/03/20 07:30 05/05/20 06:27 DC 05/04/20 17:01 Insulin Human Lispro (HumaLOG INSULIN) 33 units [facility] 05/05/20 07:30 05/08/20 16:29 DC 05/08/20 12:17 Insulin Human Lispro (HumaLOG INSULIN) 35 units [facility] 05/10/20 07:30 Insulin Human Lispro (HumaLOG INSULIN) 37 units [facility] 05/08/20 17:30 05/09/20 18:07 DC 05/08/20 17:07 Insulin Human Lispro (HumaLOG INSULIN) See Protocol Table [facility] 04/29/20 17:30 05/09/20 17:18 Insulin Human Lispro (HumaLOG INSULIN) See Protocol Table [facility] 04/30/20 21:00 05/08/20 21:01 Lactobacillus Acidophilus (Bacid) 1 ea WM PO 05/03/20 18:00 05/09/20 17:18 Levothyroxine Sodium (Synthroid) 112 mcg DAILY@06 PO 04/30/20 06:00 05/10/20 06:25 Morphine Sulfate (Ms Contin) 45 mg BID PO 04/29/20 21:00 05/09/20 21:25 Multivitamins (Theragram-M) 1 tab DAILY PO 04/30/20 09:00 05/08/20 08:50 Ondansetron HCl (Zofran Odt) 4 mg Q6HP PRN PO NAUSEA OR VOMITING 05/09/20 08:00 05/09/20 17:18 Oxybutynin Chloride (Ditropan) 5 mg TID PO 04/29/20 21:00 05/09/20 21:23 Pantoprazole Sodium (Protonix) 20 mg BID PO 04/29/20 21:00 05/09/20 21:23 Pantoprazole Sodium (Protonix) 20 mg DAILY PO 04/30/20 09:00 04/29/20 16:34 DC Piperacillin Sod/ Tazobactam Sod 3.375 gm/Dextrose 50 ml @ 50 mls/hr Q6H IV 04/29/20 17:00 06/06/20 16:59 05/10/20 05:21 Polyethylene Glycol (Miralax) 1 pkt DAILY PO 04/30/20 09:00 05/09/20 15:39 DC Potassium Chloride (Micro-K Extencaps) 40 meq DAILY PO 05/02/20 09:00 05/08/20 08:53 Prednisone (Deltasone) 2 mg DAILY PO 04/30/20 09:00 05/09/20 12:38 Prednisone (Deltasone) 10 mg DAILY PO 04/30/20 09:00 05/09/20 12:37 Sodium Chloride (Saline Lock Flush) 10 ml ASDIRECTED PRN IV SEE LABEL COMMENTS 04/29/20 20:00 05/10/20 00:20 Sodium Chloride (Saline Lock Flush) 10 ml PICC IV 04/30/20 06:00 05/10/20 06:25 Vancomycin HCl 500 mg/Dextrose 110 ml @ 110 mls/hr Q24H IV 04/29/20 21:00 05/04/20 19:00 DC 05/03/20 22:00 Vancomycin HCl 750 mg/IV Miscellaneous Supplies 1 each/ Dextrose 275 ml @ 275 mls/hr Q24H IV 04/29/20 20:00 05/09/20 21:12 Vancomycin HCl 750 mg/IV Miscellaneous Supplies 1 each/ Dextrose 275 ml @ 275 mls/hr Q24H IV 05/04/20 21:00 05/09/20 22:17 Zinc Sulfate (Zinc Sulfate) 220 mg BID PO 05/03/20 09:00 05/09/20 21:25 JEFRY LOPEZ MD May 10, 2020 08:23
[2020-05-10] MEDS: PANTOPRAZOLE 20 MG TAB PO SCH ×2 (08:24→20:48)
[2020-05-10] MEDS: oxyBUTYnin 5 MG TAB PO SCH ×3 (08:24→20:47)
[2020-05-10] MEDS: MORPHINE 15 MG SA TAB PO SCH ×2 (08:24→20:48)
[2020-05-10] MEDS: ASCORBIC ACID 500 MG TAB PO SCH (08:24)
[2020-05-10] MEDS: LACTOBACILLUS ACIDOPHILUS CAP (BACID) PO SCH ×3 (08:24→17:43)
[2020-05-10] MEDS: predniSONE 1 MG TAB PO SCH (08:24)
[2020-05-10] MEDS: atenoloL 50 MG TAB PO SCH ×2 (08:25→20:49)
[2020-05-10 12:35] LABS: BASO % 0.4 % (0.0-1.0); EOS # 0.2 10^3/uL (0.0-0.5); EOS % 2.5 % (0.0-3.0); HEMATOCRIT 33.1 % (42.0-52.0); HEMOGLOBIN 9.5 g/dl (13.5-17.5); LYMPH # 0.4 10^3/uL (1.5-5.0); MEAN CORPUSCULAR HEMOGLOBIN 26.2 pg (27.0-33.0); MEAN CORPUSCULAR HGB CONC 28.7 g/dl (32.0-36.5); MEAN CORPUSCULAR VOLUME 91.4 fl (80.0-96.0); MONO # 0.8 10^3/uL (0.0-0.8); MONO % 8.2 % (0.0-5.0); NEUTROPHILS % 82.6 % (36.0-66.0); PLATELET COUNT, AUTOMATED 301 10^3/uL (150-450); RED BLOOD COUNT 3.62 10^6/uL (4.30-6.10); WHITE BLOOD COUNT 9.7 10^3/uL (4.0-10.0)
[2020-05-10] MEDS: ACETAMINOPHEN TAB 650MG DOSE (2X325MG) PO PRN (12:58)
[2020-05-10 13:01] LABS: ALBUMIN 2.5 GM/DL (3.2-5.2); BILIRUBIN,TOTAL 0.8 MG/DL (0.2-1.0); C REACTIVE PROTEIN QUANTITATIV 13.1 MG/DL (0.00-0.30); CALCIUM LEVEL 8.6 MG/DL (8.8-10.2); CREATININE FOR GFR 1.57 MG/DL (0.70-1.30); GLOMERULAR FILTRATION RATE 46.7 (>42); TOTAL PROTEIN 5.7 GM/DL (6.4-8.2)
[2020-05-10 13:35] LABS: ERYTHROCYTE SEDIMENTATION RATE 68 mm/hr (0-20)
--- NOTE | 2020-05-10 13:40 | CR ---
INFECTIOUS DISEASE CONSULTATION DATE OF CONSULTATION: 05/09/2020 CONSULTATION REQUESTED BY: Dr. Andujar. REASON FOR CONSULTATION: For evaluation of abdominal pain, soft stools in a patient with chronic osteomyelitis of the right tibia. HISTORY OF PRESENT ILLNESS: Mr. Szymanski is a pleasant, morbidly obese, 69-year-old gentleman with a history of tibial fracture in January of 2018, who had an open reduction internal fixation by [facility]. The patient had a nonunion and had removal of the hardware on 12/21/2019. The patient was the treated with six weeks of I.V. Vancomycin for P. acnes, but he had persistent osteomyelitis and tibial abscess. He underwent further debridement with external fixator on 04/25/2020 and transferred to [facility] for continued I.V. antibiotics with Zosyn and Vancomycin per recommendation from infectious disease at [facility]. The patient had been doing fairly well. He was admitted ten days ago on 04/29/2020 and slowly progressed until this morning when he had some increase in his soft stools, worsening abdominal pain and vomiting. He was noted to be dehydrated. He did not want to drink or eat. He refused some of his medications this morning. He had received, prior to his I and D, oral antibiotics. PRIOR MEDICAL HISTORY: Significant for right tibial fracture 01/2018; status post ORIF with nonunion due to steroid use, removal of hardware 12/21/2019, culture of P. acnes, coronary artery disease, hypertension, peripheral neuropathy, diabetes, diabetic foot ulcer, bilateral renal cysts, compression lumbar vertebrae; the patient has not walked for two years, temporal arteritis on prednisone and Tocilizumab every two weeks, gastroesophageal reflux disease, anxiety, liver adhesion. PAST SURGICAL HISTORY: ORIF of left ankle in 1976, right tibial fracture with nonunion 01/2018, carpal tunnel release, shoulder surgery, dorsal column stimulator, laparotomy, cholecystectomy, tonsillectomy, knee arthroscopy, laminectomy, five back surgeries. ALLERGIES: No known drug allergies. MEDICATIONS: 1. Zofran 4 mg p.o. every 6 hours p.r.n. 2. Insulin 37 units subcutaneously ac. 3. Vancomycin 750 I.V. every 24 hours. 4. Probiotics; patient refused today. 5. Fibercon; patient refused. 6. senokot as needed. 7. Zinc 220 mg p.o. b.i.d. 8. Micro-K 40 mEq daily. 9. Multivitamin one tablet daily. 10. Prednisone 12 mg daily. 11. Levothyroxine 112 mcg daily. 12. Aspirin 81 mg daily. 13. Atenolol 50 mg b.i.d. 14. Atorvastatin 20 mg daily. 15. Duloxetine 60 mg q.h.s. 16. Pantoprazole 20 mg b.i.d. 17. Oxybutynin 5 mg p.o. t.i.d. 18. Levemir 180 units subcutaneously daily. 19. Furosemide 40 mg p.o. b.i.d. 20. Zosyn 3.375 grams I.V. every 6 hours. 21. Gabapentin 800 mg p.o. every 8 hours. LABORATORY DATA: White count 13.2 which is slightly increased compared to previous white counts which were between 9 and 11. Hemoglobin 12, hematocrit 41.5 which is a dramatic increase from last week from 30 to 41.5 most likely due to dehydration. Sodium 141, potassium 4.1, chloride 104, bicarb 27, BUN 23, creatinine 1.33, glucose 231, calcium 9. AST 100, ALT 95, alkaline phosphatase 312. Total protein 6.5, albumin 2, vancomycin trough 17.1. Urinalysis on 04/30/2020 had 145 wbc, 16 rbc. No cultures have been done since admission. PHYSICAL EXAMINATION: GENERAL: He is a sick looking gentleman who has a CPAP mask, lethargic, responds to questions appropriately but falls asleep as soon as I stopped talking to him, dehydrated, asking for water, drank at least half a cup while I was at his bedside. HEENT: Oropharynx dry mucosa. Good dentition. Head and neck no adenopathy. Face cushingoid due to chronic steroid use. NECK: Supple. No JVD. HEART: Normal S1, S2. No murmurs appreciated. LUNGS: Distant lungs anteriorly clear. No wheezes, rales or rhonchi. ABDOMEN: Distended, mildly tender. Decreased bowel sounds. No hepatosplenomegaly appreciated, but morbidly obese. EXTREMITIES: Trace edema. He has an external fixator below the knee of the right leg. He has an incision with carey along the lateral gaffe over the fibula, those carey are clean with no surrounding cellulitis or redness. Left leg has a few Optifoam, that were removed, there were just ecchymosis or blood blisters with no evidence of infection. Upper extremities +1 pitting edema bilaterally with multiple ecchymosis. PICC line in the left arm without any redness, tenderness or swelling. No evidence of infection. IMPRESSION: This is a 69-year-old gentleman with a 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 acnes on I.V. Vancomycin and Zosyn per [facility] from 04/25/2020 until 06/06/2020. The patient now has increasing abdominal pain, vomiting, increased LFTs, mild leukocytosis. Concern for bowel pathology. He had two bowel movements this morning, which were soft. Patient on a large amount of narcotics 45 mg b.i.d. He could have an ileus, obstructive liver disease with some infectious process, bacteremia possibly from the line, although less likely. PLAN: Will obtain CT abdomen and pelvis with contrast today. If patient has diarrhea or loose stools, send stool for C. diff not a GI panel . Will obtain two sets of blood cultures, CRP, sed rate today. May need a liver ultrasound as well. Thank you for this consultation. FLORECITA
[2020-05-10 14:00] VITALS: BP 130/64
[2020-05-10 20:34] VITALS: BP 124/57
[2020-05-10] MEDS: VANCOMYCIN HCL 750 MG, VIAL MATE ADAPTER 1 EACH in D5W 250 ML IV SCH ×2 (20:40→21:42)
[2020-05-10] MEDS: DULoxetine 30 MG CAP (CYMBALTA) PO SCH (20:47)
[2020-05-10] MEDS: ATORVASTATIN 20 MG TAB PO SCH (20:47)
[2020-05-10] MEDS: ASPIRIN 81 MG CHEW TABLET PEG SCH (20:48)
[2020-05-10] MEDS: LEVEMIR (INSULIN DETEMIR) 1 UNITS/0.01ML SC SCH (20:49)
[2020-05-11] MEDS: SODIUM CHLORIDE 0.9% INJ 10 ML SYR IV PRN ×2 (00:03→14:34)
[2020-05-11] MEDS: PIPERACILLIN/TAZOBACTAM SOD 3.375 GM in D5W MINI-BAG PLUS 50 ML IV SCH ×4 (05:35→23:02)
[2020-05-11 06:32] VITALS: BP 133/62
[2020-05-11] MEDS: GABAPENTIN 400 MG CAP PO SCH ×3 (06:34→20:31)
[2020-05-11] MEDS: SODIUM CHLORIDE 0.9% INJ 10 ML SYR IV SCH ×2 (06:34→17:02)
[2020-05-11] MEDS: LEVOTHYROXINE 112MCG TABLET (0.112MG) PO SCH (06:34)
[2020-05-11 07:15] LABS: CLOSTRIDIUM DIFFICILE PCR NEGATIVE (NEGATIVE)
[2020-05-11] MEDS: HumaLOG INSULIN (NovoLOG) PER UNIT SC SCH ×7 (07:44→20:27)
[2020-05-11] MEDS: PANTOPRAZOLE 20 MG TAB PO SCH ×2 (07:45→20:31)
[2020-05-11] MEDS: atenoloL 50 MG TAB PO SCH ×2 (07:45→20:32)
[2020-05-11] MEDS: predniSONE 10 MG TAB PO SCH (07:45)
[2020-05-11] MEDS: oxyBUTYnin 5 MG TAB PO SCH ×3 (07:45→20:31)
[2020-05-11] MEDS: APIXABAN 2.5 MG TAB (ELIQUIS) PO SCH ×2 (07:45→20:31)
[2020-05-11] MEDS: predniSONE 1 MG TAB PO SCH (07:46)
[2020-05-11] MEDS: POTASSIUM CHLORIDE 10 MEQ SR TABLET PO SCH (07:46)
[2020-05-11] MEDS: ZINC SULFATE 220 MG CAP PO SCH ×2 (07:46→20:31)
[2020-05-11] MEDS: FUROSEMIDE 40 MG TAB PO SCH (07:46)
[2020-05-11] MEDS: FIBER-CON 625 MG TAB PO SCH (07:46)
[2020-05-11] MEDS: ASCORBIC ACID 500 MG TAB PO SCH (07:47)
[2020-05-11] MEDS: MORPHINE 15 MG SA TAB PO SCH ×2 (07:47→20:32)
[2020-05-11] MEDS: LACTOBACILLUS ACIDOPHILUS CAP (BACID) PO SCH ×3 (07:47→17:02)
[2020-05-11] MEDS: MULTIVITAMINS/MINERALS THERAP 1 TAB PO SCH (07:48)
--- NOTE | 2020-05-11 10:48 | IPNPDOC ---
PM&R Progress Note DATE OF SERVICE: May 11, 2020 Bottle [employer]rier Progress Note DATE OF ADMISSION: Apr 29, 2020 at 14:24 05/11/2020 INPATIENT REHABILITATION ADMISSION DAY: #13 CHIEF COMPLAINT: . 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 He notes resorting to WC mobility due to inconsistency/unreliability of LE strength with buckling of knees and increased risk of falls. He was admitted 04.29 for comprehensive rehabilitation work on transfers, limited mobilization with weightbearing as tolerated right lower extremity, self-care for lower extremity osteomyelitis , education regarding his chronic c onditions and optimal management. Hb dropped initially necessitating transfusion 2 U PRBC, will require monitoring, on steroids for temporal arteritis. BS was labile, improved control with increased Insulin and dietary restrictions. Patient was on oral antibiotics prior to debridement, will need to be on IV antibiotics for 6 weeks starting from 04/25/2020 (to 06.06.2020), currently on vancomycin and Zosyn. Picc line in place. Requested pharmacy to recalc dosing. Patient followed by the ID clinic at [facility], however due to recent escalation of clinical toxicity with elevated LFTs, CRP, nausea, vomiting and loose stools, we appreciate Dr. Lynn involvement in the case. Patient was unable to keep anything down by mouth yesterday. CT Abdomen noted for mild ascites, liver lesions, cirrhosis, patient notes prior GI workup negative for Ca. BM more formed, no abdominal distress, SOB, AMS or NVD today. Vanc trough came back slightly higher at 19.2, pharm recalculating dosing. in today for family training, still needs work on transfers. REVIEW OF SYSTEMS: The following is a completed review of systems and has been reviewed. PAIN: Patient lives with chronic pain managed with MS contin terminal manager, failed prior spine stimulator, Fentanyl patches, currently controlled, some soreness RLE. EYES: Double vision, no complete visual loss EARS, NOSE, & THROAT: No throat pain, or dysphagia, or rhinorrhea. CARDIOVASCULAR: Denies chest pain or palpitations. PULMONARY: Denies shortness of breath. GASTROINTESTINAL: Improving GI symptoms, stools formed GENITOURINARY: continent. BPH MUSCULOSKELETAL: chronic polyarticular MSK pain NEUROLOGICAL:.PN HEMATOLOGICAL: anemic, fatigue, bruises easily SKIN: left heel, fungal infections, new lesion right heel. PSYCHIATRIC: anxiety All other review of systems found to be negative. MEDICATIONS: Please see below. PHYSICAL EXAMINATION: VITAL SIGNS: Please see below. GENERAL: Pleasant and cooperative drowsy but more responsive and conversant this morning. HEENT: Extraocular movements intact. no obvious adenopathy or thyromegaly. Healed left temporal artery biopsy site CARDIOVASCULAR: S1S2 Tachycardic. LUNGS: Clear to auscultation bilaterally. No wheezes. No rhonchi. ABDOMEN: Soft, obese, less distended today. Positive normal active bowel sounds. NEUROLOGICAL: Cranial nerves II through XII grossly intact. Sensation grossly intact to light touch, diminished in distal lower extremities EXTREMITIES: 5/5 corner cutter machine operator, elbow flexion, elbow extension, 4/5 foot dorsiflexion, plantar flexion Right foreleg in external fixator device, healing carey /incision right foreleg. Right foot more pink and warmer, less edema. No point tenderness about left knee. Generalized tenderness right knee, foreleg. Pulses difficult to appreciate. Sensation decreased globally over both feet. SKIN: multiple small reddened areas bilateral lower extremities circular 1.2cm clean lesion left heel more shallow, no drainage, external fixator, multiple attachment points right foreleg, dime sized blackened circular dime sized area right heel, previous satellite lesion Achilles insertion resolved. Left forearm weeping serous fluid, hands puffy. LABORATORY DATA: Please see below. Increasing , ALT, Alk Phos, CRP, WBC (also on chronic steroids). Blood cx and c diff neg. IMAGIN05.10.2020 CT Abdomen noted for: Liver: Liver appears cirrhotic with nodular contours. Low-density lesion in the right hepatic lobe measuring 2.2 cm on axial image 45, new since the prior CT. Another new lesion in the posterior right hepatic lobe measuring 2.7 cm on axial image 48. Cirrhosis with small volume ascites FUNCTIONAL STATUS: Premorbid: Wheelchair for mobility slide board for transfers. Pt. gaining strength in LE's to facilitate slideboard transfers with SBA. Can independently mobilize in 20 WC, but not quite sturdy enough for weight requirements for terminal manager use. Able to wash james area, upper legs and lower legs with long handled sponge insupine and UB seated EOB. Assistance required to wash feet and buttocksand to don/doff socks. Max A required to thread brief around feet with difficulty coordinating BLE's with use of rotary cutter operator simultanously. Clothing management with max assist for side to side weight shifting. Improving with Slide Board transfers sup, struggled with to master SB transfers to back of vehicle, unable to achieve. Will need transport assistance and bariatric wheelchair for size, unable to ambulate with assistive device due to size, inability to sustain weight bearing on right lower extremity and risk of worsening breakdown on heels with prolonged standing activities of any type. Although he is a large man, the 20 wheelchair was better fit to permit self propulsion and ability to reach the wheels to push himself, he has limited ability to scoot due to the hardware getting caught up in the wheelchair and has to keep the leg slightly extended. GOALS: Most realistic to work towards regaining slide board transfers in and out of bed, to commode, car, see how pain management and weight bearing tolerance proceeds for BLE. Prevention of worsening bilateral heel wounds, facilitation of healing infected right foreleg, preservation of both feet through protective measures to reduce edema, protect skin from shearing forces, maintain warmth/circulation, protective footwear without worsening shear. 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 He will continue with comprehensive rehabilitation work on transfers, limited mobilization with weightbearing as tolerated right lower extremity, self-care for lower extremity osteomyelitis , education regarding his chronic conditions and optimal management. Will need continued close monitoring of bilateral heels, healing status. Added FiberCon , Peptco Bismol, probiotics to help bulk stools encouraged eating apples and also adding iron for anemia, which will also slow bowel motility. Zofran given cx neg and adjusted Insulin requirements with reduced PO intake, FBS 111 t and much of usual insulin dosing held periodically due to inability to tolerate PO intake or low BS, 75 today. Ascites and slight increased swelling hands/feet reflect some fluid imbalance despite poor PO intake. Appreciate hospitalist input to diurese and adjust meds. Will continue close I&O and weights to ty and get better sense of how ahead/behind he is as the week goes on. PLAN: 1. Rehab- PT/OT advance gait and ADls, strengthen/stretch/maintain ROM all 4 limbs. We'll continue to work on safe transfers, wound management and prevention of further complications of complex medical conditions. Resumed as tolerated and continue to progress. 2. 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 3. Ortho- OM, rx vanc/zosyn, left heel ulcer at risk for OM, s/p multiple spinal surgeries, CLBP, s/p multiple jt replacements. Added Vitamin C, Zinc to promote would healing, continue wound care protocol. 4. Cardiac- hx of NM/ CAD with Stents, CHF seems to be retaining fluid in hands a bit more, proceeding with increased diuresis, hospitalist checking US UE/LE R/O DVT and CXRY -HTN c/u ARB -HLD- c/u Zocor 5. Resp -incentive spirometry, monitor for infection 6. Endo- DM, hypothyroid, c/u insulin and ISS, thyroid med, FBS better w decreased PO intake and increased physical activities. 7. - monitor output, RF 8. GI ppx- PPI, pepto, fiber, probiotics, dc miralax, submit sample for C Diff, and gastroenteritis screen. 9. Skin wound care recommend turn and positioning every 2. Off loading the heels and heel protector, foam to right heel. Cleanse in the left foot with normal saline moistened gauze, medical, and the daily and covering with gauze secured with tape. Applying Tinactin twice a day to fungal area on foot, wrapping with angelina, securing with tape. Monitor Vanc protocols,LFTS, ESR, CRP, vs, cbc. Changed to 2x/week monitoring. PROGNOSIS: Good. ESTIMATED LENGTH OF STAY:14 days. PROJECTED DISCHARGE DESTINATION: Home with family support and any durable medical equipment required to increase functional safety and mobility. TIME SPENT COUNSELING AND COORDINATING INITIAL CARE: 40 minutes. This document is generated using speech recognition software which may result in grammatical, typographical and individual word errors. Allergies Coded Allergies: No Known Allergies (Verified , 12/21/02) Vital Signs Vital Signs Date Time Temp Pulse Resp B/P (MAP) Pulse Ox O2 Delivery O2 Flow Rate FiO2 05/11/20 07:47 18 Room Air 05/11/20 07:45 73 133/62 05/11/20 06:32 96.4 90 Laboratory Data CBC/BMP Laboratory Tests 05/10/20 12:00 Labs 24H Laboratory Tests 2 05/10/20 12:00: Immature Granulocyte % (Auto) 2.3, Neutrophils (%) (Auto) 82.6H, Lymphocytes (%) (Auto) 4.0L, Monocytes (%) (Auto) 8.2H, Eosinophils (%) (Auto) 2.5, Basophils (%) (Auto) 0.4, Neutrophils # (Auto) 8.0, Lymphocytes # (Auto) 0.4L, Monocytes # (Auto) 0.8, Eosinophils # (Auto) 0.2, Basophils # (Auto) 0.0, Immature Granulocyte # (Auto) 0.2H, Nucleated Red Blood Cells % (auto) 0.2H, Platelet Estimate , Erythrocyte Sedimentation Rate 68H, Anion Gap 11, Glomerular Filtration Rate 46.7, Calcium Level 8.6L, Total Bilirubin 0.8, Aspartate Amino Transf (AST/SGOT) 62H, Alanine Aminotransferase (ALT/SGPT) 70, Alkaline Phosphatase 235H, C-Reactive Protein, Quantitative 13.10H, Total Protein 5.7L, Albumin 2.5L, Albumin/Globulin Ratio 0.8 05/10/20 16:29: Bedside Glucose (Misc Panel) 188H 05/10/20 19:15: Vancomycin Level Trough 19.2 05/10/20 20:46: Bedside Glucose (Misc Panel) 183H 05/11/20 06:03: Clostridium difficile 027-NAP1-B1 PRESUMPTIVE NEGATIVE, Clostridium difficile Toxin (PCR) NEGATIVE 05/11/20 06:40: Bedside Glucose (Misc Panel) 111H Microbiology Microbiology 05/09/20 Blood Culture - Preliminary, Resulted No growth after 24 hours . All specim... 05/09/20 Blood Culture - Preliminary, Resulted No growth after 24 hours . All specim... Current Medications Current Medications Current Medications Medications (Trade) Dose Ordered Sig/Mima Route PRN Reason Start Time Stop Time Status Last Admin Dose Admin Acetaminophen (Tylenol Tab) 650 mg Q4HP PRN PO MILD PAIN (PS 1-4) 04/29/20 14:15 05/10/20 12:58 Apixaban (Eliquis) 2.5 mg BID PO 04/29/20 21:00 05/11/20 07:45 Artificial Tears (Akwa Tears) 2 drop QID PRN OU DRY EYES 04/29/20 17:00 Ascorbic Acid (Vitamin C) 1,000 mg DAILY PO 05/03/20 09:00 05/11/20 07:47 Aspirin (Aspirin Chewable) 81 mg QPM PEG 04/29/20 21:00 05/10/20 20:48 Atenolol (Tenormin) 50 mg BID PO 04/29/20 21:00 05/11/20 07:45 Atorvastatin Calcium (Lipitor) 20 mg QPM PO 04/29/20 21:00 05/10/20 20:47 Bismuth Subsalicylate (Pepto Bismol) 30 ml Q4HP PRN PO DIARRHEA 05/03/20 11:30 05/09/20 05:36 Calcium Polycarbophil (Fiber Con) 1 ea DAILY PO 05/03/20 12:00 05/16/20 09:00 05/11/20 07:46 Calcium Polycarbophil (Fiber Con) 1 ea DAILY PO 05/05/20 17:00 UNV Cetylpyridinium Chloride (Cepacol) 1 chrissy Q4HP PRN PO SORE THROAT 05/01/20 16:00 05/07/20 20:20 Dextrose (Dextrose 50%) 25 ml ASDIRECTED PRN IV SEE LABEL COMMENTS 04/29/20 14:45 Docusate Sodium (Colace) 100 mg BIDP PRN PO CONSTIPATION 04/29/20 21:00 05/09/20 15:39 DC Duloxetine HCl (Cymbalta) 60 mg QHS PO 04/29/20 21:00 05/10/20 20:47 Ferrous Gluconate (Fergon) 324 mg DAILY PO 05/05/20 09:00 Hold 05/08/20 08:51 Furosemide (Lasix) 40 mg BID@,17 PO 04/29/20 17:00 05/11/20 07:46 Gabapentin (Neurontin) 800 mg Q8H PO 04/29/20 14:00 05/11/20 06:34 Glucagon (Glucagon) 1 mg ASDIRECTED PRN SC SEE LABEL COMMENTS 04/29/20 14:45 Glucose (Glucose) 16 GM ASDIRECTED PRN PO SEE LABEL COMMENTS 04/29/20 14:45 Heparin Sodium (Heparin (Flush)) 200 units ASDIRECTED PRN IV SEE LABEL COMMENTS 04/29/20 20:00 05/11/20 00:03 Heparin Sodium (Heparin (Flush)) 200 units PICC IV 04/30/20 06:00 05/11/20 06:34 Home Med (Med Rec Complete!) ASDIRECTED XX 04/29/20 15:45 04/29/20 15:56 DC Insulin Detemir (Levemir Insulin) 180 units DAILY@2100 IN 04/29/20 21:00 05/10/20 20:49 Insulin Human Lispro (HumaLOG INSULIN) 15 units [facility] 05/01/20 12:00 05/01/20 20:35 DC 05/01/20 17:27 Insulin Human Lispro (HumaLOG INSULIN) 25 units [facility] 05/02/20 07:30 05/03/20 07:28 DC 05/02/20 17:16 Insulin Human Lispro (HumaLOG INSULIN) 30 units [facility] 05/03/20 07:30 05/05/20 06:27 DC 05/04/20 17:01 Insulin Human Lispro (HumaLOG INSULIN) 33 units [facility] 05/05/20 07:30 05/08/20 16:29 DC 05/08/20 12:17 Insulin Human Lispro (HumaLOG INSULIN) 35 units [facility] 05/10/20 07:30 05/11/20 07:44 Insulin Human Lispro (HumaLOG INSULIN) 37 units [facility] 05/08/20 17:30 05/09/20 18:07 DC 05/08/20 17:07 Insulin Human Lispro (HumaLOG INSULIN) See Protocol Table AC IN 04/29/20 17:30 05/11/20 07:44 Insulin Human Lispro (HumaLOG INSULIN) See Protocol Table [facility] 04/30/20 21:00 05/08/20 21:01 Lactobacillus Acidophilus (Bacid) 1 ea WM PO 05/03/20 18:00 05/11/20 07:47 Levothyroxine Sodium (Synthroid) 112 mcg DAILY@06 PO 04/30/20 06:00 05/11/20 06:34 Morphine Sulfate (Ms Contin) 45 mg BID PO 04/29/20 21:00 05/11/20 07:47 Multivitamins (Theragram-M) 1 tab DAILY PO 04/30/20 09:00 05/11/20 07:48 Ondansetron HCl (Zofran Odt) 4 mg Q6HP PRN PO NAUSEA OR VOMITING 05/09/20 08:00 05/09/20 17:18 Oxybutynin Chloride (Ditropan) 5 mg TID PO 04/29/20 21:00 05/11/20 07:45 Pantoprazole Sodium (Protonix) 20 mg BID PO 04/29/20 21:00 05/11/20 07:45 Pantoprazole Sodium (Protonix) 20 mg DAILY PO 04/30/20 09:00 04/29/20 16:34 DC Piperacillin Sod/ Tazobactam Sod 3.375 gm/Dextrose 50 ml @ 50 mls/hr Q6H IV 04/29/20 17:00 06/06/20 16:59 05/11/20 05:35 Polyethylene Glycol (Miralax) 1 pkt DAILY PO 04/30/20 09:00 05/09/20 15:39 DC Potassium Chloride (Micro-K Extencaps) 40 meq DAILY PO 05/02/20 09:00 05/11/20 07:46 Prednisone (Deltasone) 2 mg DAILY PO 04/30/20 09:00 05/11/20 07:46 Prednisone (Deltasone) 10 mg DAILY PO 04/30/20 09:00 05/11/20 07:45 Sodium Chloride (Saline Lock Flush) 10 ml ASDIRECTED PRN IV SEE LABEL COMMENTS 04/29/20 20:00 05/11/20 00:03 Sodium Chloride (Saline Lock Flush) 10 ml PICC IV 04/30/20 06:00 05/11/20 06:34 Vancomycin HCl 500 mg/Dextrose 110 ml @ 110 mls/hr Q24H IV 04/29/20 21:00 05/04/20 19:00 DC 05/03/20 22:00 Vancomycin HCl 500 mg/Dextrose 110 ml @ 110 mls/hr Q24H IV 05/11/20 21:00 Vancomycin HCl 750 mg/IV Miscellaneous Supplies 1 each/ Dextrose 275 ml @ 275 mls/hr Q24H IV 04/29/20 20:00 05/10/20 20:40 Vancomycin HCl 750 mg/IV Miscellaneous Supplies 1 each/ Dextrose 275 ml @ 275 mls/hr Q24H IV 05/04/20 21:00 05/11/20 10:16 DC 05/10/20 21:42 Zinc Sulfate (Zinc Sulfate) 220 mg BID PO 05/03/20 09:00 05/11/20 07:46 JEFRY LOPEZ MD May 11, 2020 10:48
[2020-05-11] MEDS ORDERED: metOLazone 5 MG TAB PO ONE (14:00)
--- NOTE | 2020-05-11 14:11 | REP ---
INDICATION: sob h/o chf r/o edema/pleural effusion COMPARISON: 11/24/2018 TECHNIQUE: Portable AP view of the chest FINDINGS: Left-sided PICC line with tip in the SVC. The mediastinum and cardiac silhouette are stable and within normal limits for portable technique. The lung jasmine are clear without acute consolidation, effusion, or pneumothorax. Skeletal structures are intact. IMPRESSION: No acute cardiopulmonary process appreciated. <Electronically signed by Neptali Ghotra > 05/11/20 [id number]
[2020-05-11] MEDS ORDERED: FUROSEMIDE 100MG/10ML VIAL (J1940) IV ONE (14:30)
--- NOTE | 2020-05-11 15:41 | REP ---
INDICATION: edema r/o dvt COMPARISON: None. TECHNIQUE: Real time compression and duplex Doppler interrogation of the left lower extremity deep venous system is performed. FINDINGS: The left common femoral, superficial femoral and popliteal veins are fully compressible with transducer pressure and demonstrate normal spontaneous and phasic flow, without evidence of deep venous thrombosis. IMPRESSION: No evidence of deep venous thrombosis of the left lower extremity femoral popliteal venous system. <Electronically signed by Chase Lei > 05/11/20 [id number]
--- NOTE | 2020-05-11 15:43 | REP ---
INDICATION: left picc edema r/o dvt COMPARISON: None. TECHNIQUE: Real time compression and duplex Doppler evaluation of the Left upper extremity deep venous system is performed. FINDINGS: The Left subclavian, jugular, axillary, brachial, and basilic veins are fully compressible where accessible with transducer pressure, and demonstrate no intraluminal thrombus and normal venous waveforms. A PICC line is seen in the basilic vein. There is thrombus in the mid to distal left cephalic vein.. IMPRESSION: Thrombus seen in the mid to distal left cephalic vein. Otherwise no other evidence of deep vein thrombosis of the left upper extremity deep vein system. <Electronically signed by Chase Lei > 05/11/20 [id number]
--- NOTE | 2020-05-11 17:38 | IPNPDOC ---
Date Seen The patient was seen on 05/11/20. Progress Note Subjective: Patient was seen and examined the bedside chart it's been reviewed. He has noted increasing swelling of the left upper extremity with significant amount of leakage and drainage as well as bilateral lower extremity edema, which is worsened. He has been at negative balance for the past 4 days of fever, chills, slight shortness of breath, but no paroxysmal nocturnal dyspnea or orthopnea. He denies any cough PHYSICAL EXAMINATION: VITAL SIGNS: Please see below. GENERAL: Morbidly obese male, answering questions appropriately. No conversational dyspnea HEENT: Moist mucous membranes. No JVD or thyromegaly CARDIOVASCULAR: S1, S2, sinus rhythm, no murmurs, rubs or gallops LUNGS diminished and distant breath sounds, fine crepitations at the bases but clear to auscultation in the upper lobes ABDOMEN: Soft, obese, distended. , No hepatosplenomegaly Positive Normal active bowel sounds 4 quadrants. NEUROLOGICAL: Alert and oriented times three. Cranial nerves II through XII intact. Sensation grossly intact to light touch, diminished in lower extremities. EXTREMITIES: Right foreleg in external fixator device. 3+ bilateral lower extremity edema to the sacrum, left arm has significant edema and weeping. 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 Patientis on IV vancomycin and Zosynfrom 04/25/2020 to 06.06.2020. 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 Pharmacy has been now managing patient's intravenous vancomycin. He is on a trial of diuresis in order to improve his lower extremity edema. Due to episodes of hypoglycemia. Patient's long-acting insulins been decreased. We'll continue to monitor for now with fingersticks before every meal CHS and will need to [place] patient's basal apartment. VS, I&O, 24H, Fishbone Vital Signs/I&O Vital Signs Date Time Temp Pulse Resp B/P (MAP) Pulse Ox O2 Delivery O2 Flow Rate FiO2 05/11/20 14:00 97.5 76 19 94 Room Air 05/11/20 07:45 133/62 I&O- Last 24 Hours up to 6 AM 05/11/20 05:59 Intake Total 1510 ml Output Total 425 ml Balance 1085 ml Laboratory Data 24H LABS Laboratory Tests 2 05/10/20 16:29: Bedside Glucose (Misc Panel) 188H 05/10/20 19:15: Vancomycin Level Trough 19.2 05/10/20 20:46: Bedside Glucose (Misc Panel) 183H 05/11/20 06:03: Clostridium difficile 027-NAP1-B1 PRESUMPTIVE NEGATIVE, Clostridium difficile Toxin (PCR) NEGATIVE 05/11/20 06:40: Bedside Glucose (Misc Panel) 111H 05/11/20 12:39: Bedside Glucose (Misc Panel) 75L 05/11/20 14:12: Microbiology Microbiology 05/09/20 Blood Culture - Preliminary, Resulted No growth after 24 hours . All specim... 05/09/20 Blood Culture - Preliminary, Resulted No growth after 24 hours . All specim... NEENA ACE MD May 11, 2020 14:41
[2020-05-11 20:00] VITALS: BP 184/74
[2020-05-11 20:05] LABS: CALCIUM LEVEL 8.4 MG/DL (8.8-10.2); CREATININE FOR GFR 1.5 MG/DL (0.70-1.30); GLOMERULAR FILTRATION RATE 49.3 (>42); MAGNESIUM LEVEL 1.9 MG/DL (1.8-2.4); POTASSIUM SERUM 3.9 MEQ/L (3.5-5.1)
[2020-05-11] MEDS: VANCOMYCIN HCL 750 MG, VIAL MATE ADAPTER 1 EACH in D5W 250 ML IV SCH (20:22)
[2020-05-11] MEDS: LEVEMIR (INSULIN DETEMIR) 1 UNITS/0.01ML SC SCH (20:27)
[2020-05-11] MEDS: ASPIRIN 81 MG CHEW TABLET PEG SCH (20:31)
[2020-05-11] MEDS: DULoxetine 30 MG CAP (CYMBALTA) PO SCH (20:31)
[2020-05-11] MEDS: ATORVASTATIN 20 MG TAB PO SCH (20:31)
[2020-05-11] MEDS ORDERED: VANCOMYCIN HCL 500 MG in D5W MINI-BAG PLUS 100 ML IV SCH (21:00)
[2020-05-12] MEDS: PIPERACILLIN/TAZOBACTAM SOD 3.375 GM in D5W MINI-BAG PLUS 50 ML IV SCH ×4 (05:08→23:10)
[2020-05-12] MEDS: GABAPENTIN 400 MG CAP PO SCH ×3 (05:32→21:22)
[2020-05-12] MEDS: LEVOTHYROXINE 112MCG TABLET (0.112MG) PO SCH (05:32)
[2020-05-12 06:03] VITALS: BP 137/65
[2020-05-12] MEDS: SODIUM CHLORIDE 0.9% INJ 10 ML SYR IV SCH ×2 (06:22→17:27)
[2020-05-12] MEDS: HumaLOG INSULIN (NovoLOG) PER UNIT SC SCH ×7 (07:30→21:00)
[2020-05-12] MEDS ORDERED: metOLazone 5 MG TAB PO ONE (08:00)
[2020-05-12] MEDS ORDERED: FUROSEMIDE 100MG/10ML VIAL (J1940) IV ONE (08:30)
[2020-05-12] MEDS: ZINC SULFATE 220 MG CAP PO SCH ×2 (08:42→21:21)
[2020-05-12] MEDS: predniSONE 1 MG TAB PO SCH (08:42)
[2020-05-12] MEDS: oxyBUTYnin 5 MG TAB PO SCH ×3 (08:44→21:21)
[2020-05-12] MEDS: MULTIVITAMINS/MINERALS THERAP 1 TAB PO SCH (08:44)
[2020-05-12] MEDS: MORPHINE 15 MG SA TAB PO SCH ×2 (08:44→21:22)
[2020-05-12] MEDS: predniSONE 10 MG TAB PO SCH (08:44)
[2020-05-12] MEDS: FIBER-CON 625 MG TAB PO SCH (08:44)
[2020-05-12] MEDS: FERROUS GLUCONATE 324 MG TAB PO SCH (08:44)
[2020-05-12] MEDS: PANTOPRAZOLE 20 MG TAB PO SCH ×2 (08:44→21:22)
[2020-05-12] MEDS: LACTOBACILLUS ACIDOPHILUS CAP (BACID) PO SCH ×3 (08:44→17:26)
[2020-05-12] MEDS: POTASSIUM CHLORIDE 10 MEQ SR TABLET PO SCH (08:45)
[2020-05-12] MEDS: APIXABAN 2.5 MG TAB (ELIQUIS) PO SCH ×2 (08:45→21:21)
[2020-05-12] MEDS: ASCORBIC ACID 500 MG TAB PO SCH (08:45)
[2020-05-12] MEDS: atenoloL 50 MG TAB PO SCH ×2 (08:45→21:23)
[2020-05-12] MEDS ORDERED: MAGNESIUM CHLORIDE 64 MG TABCR (SLO MAG) PO SCH (09:00)
--- NOTE | 2020-05-12 09:57 | IPNPDOC ---
PM&R Progress Note DATE OF SERVICE: May 12, 2020 Furnace [employer]aster Progress Note DATE OF ADMISSION: Apr 29, 2020 at 14:24 INPATIENT REHABILITATION ADMISSION DAY: #14 CHIEF COMPLAINT: . 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 while on steroid immunosuppressive therapy for right temporal arteritis, developed nonunion and osteomyelitis with intramedullary abscess of healing right tibial fracture. He notes resorting to WC mobility due to inconsistency/unreliability of LE strength with buckling of knees and increased risk of falls. He was admitted 04.29 for comprehensive rehabilitation work on transfers, limited mobilization with weightbearing as tolerated right lower extremity, self-care for lower extremity osteomyelitis education regarding his chronic conditions and optimal medical management. Hb dropped initially necessitating transfusion 2 U PRBC, will require monitoring. BS was labile, improved control with increased Insulin, increased activity and dietary restrictions. Patient was on oral antibiotics prior to debridement, will need to be on IV antibiotics for 6 weeks starting from 04/25/2020 (to 06.06.2020), currently on Vancomycin and Zosyn. Picc line in place. Requested pharmacy to recalc dosing due to probable recent toxicity with elevated trough 19, recalculated dosing to 500mg. Patient followed by the ID clinic at [facility], however due to recent escalation of clinical toxicity with elevated LFTs, CRP, nausea, vomiting and loose stools, we appreciate Dr. Lynn involvement in the case. Patient was unable to keep anything down by mouth 05.09. CT Abdomen noted for mild ascites, new and old liver lesions, cirrhosis, patient notes prior GI workup negative for Ca. As week progressed, BM more formed at times, still loose this morning, no abdominal distress, no SOB, AMS or NVD today. Vanc trough came back slightly higher at 19.2,. and family were in yesterday for family training, still needs work on transfers. Slept well over night. 4 extremity US noted for DVT left mid to distal cephalic veins, BLE clear, CXray clear. Dr. Hardy pushing diuretics. 12Kg weight gain. REVIEW OF SYSTEMS: The following is a completed review of systems and has been reviewed. PAIN: Patient lives with chronic low back pain managed with MS contin skilled nursing, failed prior spine stimulator, Fentanyl patches, currently controlled about 6/10.No soreness RLE. EYES: Double vision, no complete visual loss EARS, NOSE, & THROAT: No throat pain, or dysphagia, or rhinorrhea. CARDIOVASCULAR: Denies chest pain or palpitations. PULMONARY: Denies shortness of breath. GASTROINTESTINAL: Improving GI symptoms, stools formed GENITOURINARY: continent. BPH MUSCULOSKELETAL: chronic polyarticular MSK pain NEUROLOGICAL:.PN HEMATOLOGICAL: anemic, fatigue, bruises easily SKIN: left heel, fungal infections, new lesion right heel. PSYCHIATRIC: anxiety All other review of systems found to be negative. MEDICATIONS: Please see below. PHYSICAL EXAMINATION: VITAL SIGNS: Please see below. GENERAL: Pleasant and conversant, much more alert this morning. Hands less swollen, still stanley weeping left forearm. HEENT: Extraocular movements intact. no obvious adenopathy or thyromegaly. Healed left temporal artery biopsy site CARDIOVASCULAR: S1S2 Tachycardic. LUNGS: Clear to auscultation bilaterally. No wheezes. No rhonchi. ABDOMEN: Soft, obese, less distended today. Positive normal active bowel sounds. NEUROLOGICAL: Cranial nerves II through XII grossly intact. Sensation grossly intact to light touch, diminished in distal lower extremities EXTREMITIES: 5/5 counter stacker, elbow flexion, elbow extension, 4/5 foot dorsiflexion, plantar flexion Right foreleg in external fixator device, healing sta ples/incision right foreleg. Less redness/warmth left forearm. Picc in place. Both feet more pink and warmer, less edema. SKIN: fewere small reddened areas bilateral lower extremities circular 1.2cm clean lesion left heel more shallow, no drainage, external fixator, multiple attachment points right foreleg, dime sized blackened circular dime sized area right heel, previous satellite lesion Achilles insertion resolved. LABORATORY DATA: Please see below. Elevated Cr , ALT, Alk Phos, CRP, WBC (also on chronic steroids). Blood cx and c diff neg. Did not do general GI panel. IMAGIN05.10.2020 CT Abdomen noted for: Liver: Liver appears cirrhotic with nodular contours. Low-density lesion in the right hepatic lobe measuring 2.2 cm on axial image 45, new since the prior CT. Another new lesion in the posterior right hepatic lobe measuring 2.7 cm on axial image 48. Cirrhosis with small volume ascites 05.12.2020 US UE/LE noted for: FINDINGS: The Left subclavian, jugular, axillary, brachial, and basilic veins are fully compressible where accessible with transducer pressure, and demonstrate no intraluminal thrombus and normal venous waveforms. A PICC line is seen in the basilic vein. There is thrombus in the mid to distal left cephalic vein.. IMPRESSION: Thrombus seen in the mid to distal left cephalic vein. Otherwise no other evidence of deep vein thrombosis of the left upper extremity deep vein system. C X-Ray negative Left-sided PICC line with tip in the SVC. The mediastinum and cardiac silhouette are stable and within normal limits for portable technique. The lung jasmine are clear without acute consolidation, effusion, or pneumothorax. Skeletal structures are intact. FUNCTIONAL STATUS: Premorbid: Wheelchair for mobility slide board for transfers. Pt. gaining strength in LE's to facilitate slideboard transfers with SBA. Can independently mobilize in 20 WC, but not quite sturdy enough for weight requirements for home appliance washing machine mechanic use. Able to wash james area, upper legs and lower legs with long handled sponge insupine and UB seated EOB. Assistance required t o wash feet and buttocksand to don/doff socks. Max A required to thread brief around feet with difficulty coordinating BLE's with use of career technology teacher simultanously. Clothing management with max assist for side to side weight shifting. Improving with Slide Board transfers sup, struggled with to mast er SB transfers to back of vehicle, unable to achieve. He has mobility limitations that significantly impairs his ability to produce pain in activities of daily living such as toileting, dressing, grooming, bathing and customary locations in the home. His limitations cannot sufficiently be resolving use of an appropriately fitted cane or walker and his home has adequate access between rooms to maneuver him with a manual wheelchair. The use of a manual wheelchair will significantly improve his ability to participate in mobility related activities of daily living and he has sufficient upper extremity function, physical and mental capabilities and desired to self propel the manual wheelchair safely on a typical day. His would be able to serve as a caregiver to provide assistance with the wheelchair when necessary. Will need transport assistance and durable bariatric wheelchair for his size, current weight over 300 pounds. He is unable to ambulate with assistive device due to size, bilateral lower extremity paresis due to lumbosacral challenges, inability to sustain weight bearing on right lower extremity and risk of worsening breakdown on heels with prolonged standing activities of any type. Although he is a large man, the 20 wheelchair was a better fit to permit self propulsion and ability to reach the wheels to push himself, he has limited ability to scoot due to the hardware getting caught up in the wheelchair and he has to keep the right leg slightly extended. Swing away arm rests are needed to best position the slide board for transfers and a Gel Foam cushion needed for preservation of skin integrity. GOALS: Most realistic to continue work towards regaining consistency of slide board transfers in and out of bed, to commode, car, see how pain management and weight bearing tolerance proceeds for BLE. Prevention of worsening bilateral heel wounds, facilitation of healing infected right foreleg, preservation of both feet through protective measures to reduce edema, protect skin from shearing forces, maintain warmth/circulation, protective footwear without worsening shear. 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 while on immunosuppressive therapy for right temporal arteritis. He developed nonunion and osteomyelitis with intramedullary abscess of prior healing right tibial fracture. He will continue with comprehensive rehabilitation work on transfers, limited mobilization with weightbearing as tolerated right lower extremity, self-care for lower extremity osteomyelitis , education regarding his chronic conditions and optimal management. Will need continued close monitoring of bilateral heels, healing status. Added FiberCon , Pepto Bismol, probiotics to help bulk stools, encouraged eating apples and also added iron for anemia, which will also slow bowel motility. Will continue to adjust Insulin requirements FBS improved more consistently in low 100s, and some daytime Insulin doses held due to tighter control. Ascites and slight increased swelling hands/feet improving with diuresis. Appreciate hospitalist and I.D input. Will continue close I&O and weights to try and get better sense of how ahead/behind he is as the week goes on and decision whether or not DC home is feasible before next week. PLAN: 1. Rehab- PT/OT advance gait and ADls, strengthen/stretch/maintain ROM all 4 limbs. We'll continue to work on safe transfers, wound management and prevention of further complications of complex medical conditions. Resumed as tolerated and continue to progress. DVT L arm, applying compressive and absorbant dressings left forearm with elevation at rest. Appears with patent/compressible brachial and basilica veins, picc functioning, can continue use, hopefully as more fluid comes off, less compartment effect and less weeping will be noted. Awaiting input from pharm/hospitalist given complexity of case whether or not more aggressive anticoagulation/precautions indicated. 2. 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 3. Ortho- OM, rx vanc/zosyn, left heel ulcer at less risk for OM as it continues to heal. He is also s/p multiple spinal surgeries, CLBP, s/p multiple jt replacements. Added Vitamin C, Zinc to promote would healing, continue wound care protocols. To have carey removed as outpatient next week and fx healing reassessed. 4. Cardiac- hx of MA/ CAD with Stents, CHF gained weight quickly and edematous extremities, was retaining responding to increased diuresis. -HTN c/u ARB -HLD- c/u Zocor 5. Resp -incentive spirometry, monitor for infection 6. Endo- DM, hypothyroid, c/u insulin and ISS, thyroid med, FBS better w decreased PO intake and increased physical activities. 7. - monitor output, RF 8. GI ppx- PPI, pepto, fiber, probiotics, dc miralax, submit sample for gastroenteritis screen still needed, C Diff was negative, however fluid overload combined with dysbiosis can also cause frequent loose stools. Mg wnl, will hold dosing and recheck. 9. Skin wound care recommend turn and positioning every 2. Off loading the heels and heel protector, foam to right heel. Cleanse in the left foot with normal saline moistened gauze, medi honey application, and change daily and covering with gauze secured with tape. Applying Tinactin twice a day to fungal area on foot, wrapping with angelina, securing with tape. Monitor Vanc protocols,LFTS, ESR, CRP, vs, cbc. PROGNOSIS: Good. PROJECTED DISCHARGE DESTINATION: Home with family support and any durable medical equipment required to increase functional safety and mobility. TIME SPENT COUNSELING AND COORDINATING INITIAL CARE: 40 minutes. This document is generated using speech recognition software which may result in grammatical, typographical and individual word errors. Allergies Coded Allergies: No Known Allergies (Verified , 12/21/02) Vital Signs Vital Signs Date Time Temp Pulse Resp B/P (MAP) Pulse Ox O2 Delivery O2 Flow Rate FiO2 05/12/20 08:45 75 140/64 05/12/20 08:44 18 05/12/20 06:03 97.9 93 NIPPV (BIPAP/CPAP) Laboratory Data CBC/BMP Laboratory Tests 05/11/20 19:18 Labs 24H Laboratory Tests 2 05/11/20 12:39: Bedside Glucose (Misc Panel) 75L 05/11/20 14:12: QA-Srl-B-Type Natriuretic Peptide 461H 05/11/20 16:47: Bedside Glucose (Misc Panel) 157H 05/11/20 19:18: Anion Gap 7L, Glomerular Filtration Rate 49.3, Calcium Level 8.4L, Magnesium Level 1.9 05/11/20 20:04: Bedside Glucose (Misc Panel) 116H 05/12/20 06:37: Bedside Glucose (Misc Panel) 119H Microbiology Microbiology 05/09/20 Blood Culture - Preliminary, Resulted No Growth after 48 hours. All Specime... 05/09/20 Blood Culture - Preliminary, Resulted No Growth after 48 hours. All Specime... Current Medications Current Medications Current Medications Medications (Trade) Dose Ordered Sig/Mima Route PRN Reason Start Time Stop Time Status Last Admin Dose Admin Acetaminophen (Tylenol Tab) 650 mg Q4HP PRN PO MILD PAIN (PS 1-4) 04/29/20 14:15 05/10/20 12:58 Apixaban (Eliquis) 2.5 mg BID PO 04/29/20 21:00 05/12/20 08:45 Artificial Tears (Akwa Tears) 2 drop QID PRN OU DRY EYES 04/29/20 17:00 Ascorbic Acid (Vitamin C) 1,000 mg DAILY PO 05/03/20 09:00 05/12/20 08:45 Aspirin (Aspirin Chewable) 81 mg QPM PEG 04/29/20 21:00 05/11/20 20:31 Atenolol (Tenormin) 50 mg BID PO 04/29/20 21:00 05/12/20 08:45 Atorvastatin Calcium (Lipitor) 20 mg QPM PO 04/29/20 21:00 05/11/20 20:31 Bismuth Subsalicylate (Pepto Bismol) 30 ml Q4HP PRN PO DIARRHEA 05/03/20 11:30 05/09/20 05:36 Calcium Polycarbophil (Fiber Con) 1 ea DAILY PO 05/03/20 12:00 05/16/20 09:00 05/12/20 08:44 Calcium Polycarbophil (Fiber Con) 1 ea DAILY PO 05/05/20 17:00 UNV Cetylpyridinium Chloride (Cepacol) 1 chrissy Q4HP PRN PO SORE THROAT 05/01/20 16:00 05/07/20 20:20 Dextrose (Dextrose 50%) 25 ml ASDIRECTED PRN IV SEE LABEL COMMENTS 04/29/20 14:45 Docusate Sodium (Colace) 100 mg BIDP PRN PO CONSTIPATION 04/29/20 21:00 05/09/20 15:39 DC Duloxetine HCl (Cymbalta) 60 mg QHS PO 04/29/20 21:00 05/11/20 20:31 Ferrous Gluconate (Fergon) 324 mg DAILY PO 05/05/20 09:00 05/12/20 08:44 Furosemide (Lasix) 40 mg BID@09,17 PO 04/29/20 17:00 05/11/20 13:31 DC 05/11/20 07:46 Gabapentin (Neurontin) 800 mg Q8H PO 04/29/20 14:00 05/12/20 05:32 Glucagon (Glucagon) 1 mg ASDIRECTED PRN SC SEE LABEL COMMENTS 04/29/20 14:45 Glucose (Glucose) 16 GM ASDIRECTED PRN PO SEE LABEL COMMENTS 04/29/20 14:45 Heparin Sodium (Heparin (Flush)) 200 units ASDIRECTED PRN IV SEE LABEL COMMENTS 04/29/20 20:00 05/11/20 14:34 Heparin Sodium (Heparin (Flush)) 200 units PICC IV 04/30/20 06:00 05/12/20 06:22 Home Med (Med Rec Complete!) ASDIRECTED XX 04/29/20 15:45 04/29/20 15:56 DC Insulin Detemir (Levemir Insulin) 180 units DAILY@2100 IN 04/29/20 21:00 05/11/20 20:27 Insulin Human Lispro (HumaLOG INSULIN) 15 units [facility] 05/01/20 12:00 05/01/20 20:35 DC 05/01/20 17:27 Insulin Human Lispro (HumaLOG INSULIN) 25 units [facility] 05/02/20 07:30 05/03/20 07:28 DC 05/02/20 17:16 Insulin Human Lispro (HumaLOG INSULIN) 30 units [facility] 05/03/20 07:30 05/05/20 06:27 DC 05/04/20 17:01 Insulin Human Lispro (HumaLOG INSULIN) 33 units [facility] 05/05/20 07:30 05/08/20 16:29 DC 05/08/20 12:17 Insulin Human Lispro (HumaLOG INSULIN) 35 units [facility] 05/10/20 07:30 05/11/20 17:01 Insulin Human Lispro (HumaLOG INSULIN) 37 units [facility] 05/08/20 17:30 05/09/20 18:07 DC 05/08/20 17:07 Insulin Human Lispro (HumaLOG INSULIN) See Protocol Table [facility] 04/29/20 17:30 05/12/20 08:46 Insulin Human Lispro (HumaLOG INSULIN) See Protocol Table [facility] 04/30/20 21:00 05/08/20 21:01 Lactobacillus Acidophilus (Bacid) 1 ea WM PO 05/03/20 18:00 05/12/20 08:44 Levothyroxine Sodium (Synthroid) 112 mcg DAILY@06 PO 04/30/20 06:00 05/12/20 05:32 Magnesium Chloride (Slow-Mag) 64 mg DAILY PO 05/12/20 09:00 05/12/20 08:41 Morphine Sulfate (Ms Contin) 45 mg BID PO 04/29/20 21:00 05/12/20 08:44 Multivitamins (Theragram-M) 1 tab DAILY PO 04/30/20 09:00 05/12/20 08:44 Ondansetron HCl (Zofran Odt) 4 mg Q6HP PRN PO NAUSEA OR VOMITING 05/09/20 08:00 05/09/20 17:18 Oxybutynin Chloride (Ditropan) 5 mg TID PO 04/29/20 21:00 05/12/20 08:44 Pantoprazole Sodium (Protonix) 20 mg BID PO 04/29/20 21:00 05/12/20 08:44 Pantoprazole Sodium (Protonix) 20 mg DAILY PO 04/30/20 09:00 04/29/20 16:34 DC Piperacillin Sod/ Tazobactam Sod 3.375 gm/Dextrose 50 ml @ 50 mls/hr Q6H IV 04/29/20 17:00 06/06/20 16:59 05/12/20 05:08 Polyethylene Glycol (Miralax) 1 pkt DAILY PO 04/30/20 09:00 05/09/20 15:39 DC Potassium Chloride (Micro-K Extencaps) 40 meq DAILY PO 05/02/20 09:00 05/12/20 08:45 Prednisone (Deltasone) 2 mg DAILY PO 04/30/20 09:00 05/12/20 08:42 Prednisone (Deltasone) 10 mg DAILY PO 04/30/20 09:00 05/12/20 08:44 Sodium Chloride (Saline Lock Flush) 10 ml ASDIRECTED PRN IV SEE LABEL COMMENTS 04/29/20 20:00 05/11/20 14:34 Sodium Chloride (Saline Lock Flush) 10 ml PICC IV 04/30/20 06:00 05/12/20 06:22 Vancomycin HCl 500 mg/Dextrose 110 ml @ 110 mls/hr Q24H IV 04/29/20 21:00 05/04/20 19:00 DC 05/03/20 22:00 Vancomycin HCl 500 mg/Dextrose 110 ml @ 110 mls/hr Q24H IV 05/11/20 21:00 05/11/20 21:22 Vancomycin HCl 750 mg/IV Miscellaneous Supplies 1 each/ Dextrose 275 ml @ 275 mls/hr Q24H IV 04/29/20 20:00 05/11/20 20:22 Vancomycin HCl 750 mg/IV Miscellaneous Supplies 1 each/ Dextrose 275 ml @ 275 mls/hr Q24H IV 05/04/20 21:00 05/11/20 10:16 DC 05/10/20 21:42 Zinc Sulfate (Zinc Sulfate) 220 mg BID PO 05/03/20 09:00 05/12/20 08:42 JEFRY LOPEZ MD May 12, 2020 09:57
[2020-05-12] MEDS ORDERED: APIXABAN 2.5 MG TAB (ELIQUIS) PO ONE (11:45)
[2020-05-12 14:00] VITALS: BP 143/65
[2020-05-12] MEDS: ACETAMINOPHEN TAB 650MG DOSE (2X325MG) PO PRN (14:06)
[2020-05-12 19:56] VITALS: BP 135/69
[2020-05-12 20:18] LABS: CALCIUM LEVEL 8.5 MG/DL (8.8-10.2); CREATININE FOR GFR 1.71 MG/DL (0.70-1.30); GLOMERULAR FILTRATION RATE 42.3 (>42); POTASSIUM SERUM 3.8 MEQ/L (3.5-5.1)
[2020-05-12] MEDS ORDERED: VANCOMYCIN HCL 1,000 MG, VIAL MATE ADAPTER 1 EACH in D5W 250 ML IV SCH (21:00)
[2020-05-12] MEDS: LEVEMIR (INSULIN DETEMIR) 1 UNITS/0.01ML SC SCH (21:21)
[2020-05-12] MEDS: ATORVASTATIN 20 MG TAB PO SCH (21:22)
[2020-05-12] MEDS: ASPIRIN 81 MG CHEW TABLET PEG SCH (21:22)
[2020-05-12] MEDS: DULoxetine 30 MG CAP (CYMBALTA) PO SCH (21:22)
[2020-05-13] MEDS: SODIUM CHLORIDE 0.9% INJ 10 ML SYR IV PRN (00:20)
[2020-05-13] MEDS: LEVOTHYROXINE 112MCG TABLET (0.112MG) PO SCH (05:12)
[2020-05-13] MEDS: GABAPENTIN 400 MG CAP PO SCH ×2 (05:12→14:47)
[2020-05-13] MEDS: PIPERACILLIN/TAZOBACTAM SOD 3.375 GM in D5W MINI-BAG PLUS 50 ML IV SCH ×3 (05:12→16:47)
[2020-05-13] MEDS: SODIUM CHLORIDE 0.9% INJ 10 ML SYR IV SCH ×2 (05:13→16:47)
[2020-05-13 05:55] VITALS: BP 142/67
[2020-05-13 07:13] LABS: HEMOGLOBIN 9.1 g/dl (13.5-17.5); MEAN CORPUSCULAR HEMOGLOBIN 25.6 pg (27.0-33.0); MEAN CORPUSCULAR HGB CONC 28.4 g/dl (32.0-36.5); MEAN CORPUSCULAR VOLUME 89.9 fl (80.0-96.0); PLATELET COUNT, AUTOMATED 281 10^3/uL (150-450); RED BLOOD COUNT 3.56 10^6/uL (4.30-6.10)
[2020-05-13] MEDS: HumaLOG INSULIN (NovoLOG) PER UNIT SC SCH ×6 (07:29→17:10)
[2020-05-13 07:38] LABS: ERYTHROCYTE SEDIMENTATION RATE 65 mm/hr (0-20)
[2020-05-13] MEDS ORDERED: ELIQ5TAB PO (07:42)
[2020-05-13] MEDS ORDERED: RISATAB3 PO (07:44)
[2020-05-13] MEDS ORDERED: FERR32TA PO (07:44)
[2020-05-13 07:47] LABS: ALBUMIN 2.5 GM/DL (3.2-5.2); BILIRUBIN,TOTAL 0.5 MG/DL (0.2-1.0); C REACTIVE PROTEIN QUANTITATIV 3.89 MG/DL (0.00-0.30); CALCIUM LEVEL 8.4 MG/DL (8.8-10.2); CREATININE FOR GFR 1.51 MG/DL (0.70-1.30); GLOMERULAR FILTRATION RATE 48.9 (>42); TOTAL PROTEIN 5.7 GM/DL (6.4-8.2)
[2020-05-13] MEDS: LACTOBACILLUS ACIDOPHILUS CAP (BACID) PO SCH ×3 (07:47→16:40)
[2020-05-13] MEDS: MULTIVITAMINS/MINERALS THERAP 1 TAB PO SCH (07:47)
[2020-05-13] MEDS: PANTOPRAZOLE 20 MG TAB PO SCH (07:47)
[2020-05-13] MEDS: ZINC SULFATE 220 MG CAP PO SCH (07:47)
[2020-05-13] MEDS: FERROUS GLUCONATE 324 MG TAB PO SCH (07:48)
[2020-05-13] MEDS: oxyBUTYnin 5 MG TAB PO SCH ×2 (07:48→15:52)
[2020-05-13] MEDS: MORPHINE 15 MG SA TAB PO SCH (07:48)
[2020-05-13] MEDS: FIBER-CON 625 MG TAB PO SCH (07:49)
[2020-05-13] MEDS: APIXABAN 2.5 MG TAB (ELIQUIS) PO SCH (07:49)
[2020-05-13] MEDS: predniSONE 10 MG TAB PO SCH (07:49)
[2020-05-13 07:50] VITALS: BP 138/67
[2020-05-13] MEDS: atenoloL 50 MG TAB PO SCH (07:50)
[2020-05-13] MEDS: POTASSIUM CHLORIDE 10 MEQ SR TABLET PO SCH (07:51)
[2020-05-13] MEDS: ASCORBIC ACID 500 MG TAB PO SCH (07:51)
[2020-05-13] MEDS: predniSONE 1 MG TAB PO SCH (07:55)
[2020-05-13] MEDS ORDERED: POTASSIUM CHLORIDE 10 MEQ SR TABLET PO ONE (08:45)
[2020-05-13] MEDS: FUROSEMIDE 40 MG TAB PO SCH ×2 (09:25→16:41)
--- NOTE | 2020-05-13 10:47 | IPNPDOC ---
Date Seen The patient was seen on 05/13/20. Progress Note Subjective: Patient was seen, examined at the bedside chart it's been reviewed. He denies any shortness of breath, chest pain, pressure or tightness. Denies any pleuritic chest pain. He has decreased swelling in the left arm with persistent 3+ pitting edema in the lower extremities, unchanged from before. Patient was found to have a nonocclusive thrombus on the left arm where the PICC line is but is anxious to go home. PHYSICAL EXAMINATION: VITAL SIGNS: Please see below. GENERAL: Morbidly obese male, no respiratory distress HEENT: Moist mucous membranes. No JVD. No cervical lymphadenopathy CARDIOVASCULAR: S1, S2, sinus rhythm, no murmurs, rubs or gallops LUNGS diminished and distant breath sounds, fine crepitations at the bases but clear to auscultation in the upper lobes ABDOMEN: Soft, obese, distended. , No hepatosplenomegaly Positive Normal active bowel sounds 4 quadrants. NEUROLOGICAL: Alert and oriented times three. Cranial nerves II through XII intact. Sensation grossly intact to light touch, diminished in lower extremities. EXTREMITIES: Right foreleg in external fixator device. 3+ bilateral lower extremity edema to the sacrum, left arm has significant edema and weeping. 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 Patientis on IV vancomycin and Zosynfrom 04/25/2020 to 06.06.2020. Left cephalic vein thrombosis, status post PICC line Osteomyelitis of the right tibia status post hardware. Chronic kidney disease stage III Acute on chronic anemia Chronic low back pain status post multiple back surgeries (5), insertion/removal spine stimulator Closed compression fracture first lumbar vertebrae Bilateral paraparesis WC bound Chronic Pain Leg/ back /neck/ neuropathy DM with neuropathy and left heel ulcer Diabetes with episodes of hypoglycemia, glucose of 78-80 PLAN: Patient has developed a PICC line associated blood clot and according to his GFR patient's ELIQUIS has been increased to 5 mg twice a day .ideally, patient should have the PICC line removed and a Placed. I have discussed with Dr. Andujar that the following options are possi ble If the patient agrees (1) discontinue the PICC line, general surgery to place a triple lumen for prolonged IV antibiotics, resume anticoagulation after triple-lumen catheter. He has been placed.(2) postpone discharge today, requests a midline or PICC line on Saturday, hold oral anticoagulation prior to midline or PICC line insertion on Saturday, discontinue the PICC line once a new central line has been placed. If the patient insists on being discharged today, patient is to continue his oral anticoagulation at a higher dose 5 mg twice a day, re-consider removing the PICC line as outpatient, and for primary care physician to schedule a new central catheter before removing the PICC line. Because the patient has had episodes of glucose of 78-80 patient's Levemir can be decreased by 5 units. Patient is to continue on IV antibiotics as recommended by Dr. Kelley home care nurse to obtain blood tests for Vancomycin trough to assist in adjustments of vancomycin dose by Dr. MARINELLI or S pharmacy as previously recommended. He is to have a weekly CBC with differential, sedimentation rate ,C-reactive protein, and Basic metabolic panel checked everyMonday to adjust medications and monitor the infection VS, [facility] Vital Signs Date Time Temp Pulse Resp B/P (MAP) Pulse Ox O2 Delivery O2 Flow Rate FiO2 05/13/20 07:50 80 138/67 05/13/20 07:48 18 Room Air 05/13/20 05:55 97.8 92 I&O- Last 24 Hours up to 6 AM 05/13/20 06:00 Intake Total 990 ml Output Total 3250 ml Balance -2260 ml Laboratory Data 24H LABS Laboratory Tests 2 05/12/20 11:19: Bedside Glucose (Misc Panel) 158H 05/12/20 16:22: Bedside Glucose (Misc Panel) 218H 05/12/20 19:03: Anion Gap 9, Glomerular Filtration Rate 42.3, Calcium Level 8.5L, Magnesium Level 2.0, Vancomycin Level Trough 21.5H 05/12/20 19:37: Bedside Glucose (Misc Panel) 187H 05/13/20 05:38: Bedside Glucose (Misc Panel) 81L 05/13/20 06:35: Nucleated Red Blood Cells % (auto) 0.2H, Erythrocyte Sedimentation Rate 65H, Anion Gap 6L, Glomerular Filtration Rate 48.9, Calcium Level 8.4L, Magnesium Level 2.0, Total Bilirubin 0.5, Aspartate Amino Transf (AST/SGOT) 53H, Alanine Aminotransferase (ALT/SGPT) 60, Alkaline Phosphatase 272H, C-Reactive Protein, Quantitative 3.89H, Total Protein 5.7L, Albumin 2.5L, Albumin/Globulin Ratio 0.8 05/13/20 09:33: Random Vancomycin Level 24.6 CBC/BMP Laboratory Tests 05/12/20 19:03 05/13/20 06:35 Microbiology Microbiology 05/12/20 Campylobacter (PCR), Received Pending 05/12/20 Clostridium difficile Toxin A&B PCR, Received Pending 05/12/20 Plesiomonas shigelloides (PCR), Received Pending 05/12/20 Salmonella (PCR)(LAURA), Received Pending 05/12/20 Vibrio Species (PCR), Received Pending 05/12/20 Vibrio Cholerae (PCR), Received Pending 05/12/20 Yersinia enterocolitica (PCR), Received Pending 05/12/20 Enteroaggregative E. coli (PCR), Received Pending 05/12/20 Enteropathogenic E. coli (PCR), Received Pending 05/12/20 Enterotoxigenic E. coli (PCR), Received Pending 05/12/20 E. coli Shiga-like Toxin (PCR), Received Pending 05/12/20 Escherichia coli 0157 (PCR), Received Pending 05/12/20 Enteroinvasive E. coli/Shigella PCR, Received Pending 05/12/20 Cryptosporidium (PCR), Received Pending 05/12/20 Cyclospora cayetanensis (PCR), Received Pending 05/12/20 Entamoeba histolytica (PCR), Received Pending 05/12/20 Giardia lamblia (PCR), Received Pending 05/12/20 Adenovirus Type F 40/41 (PCR), Received Pending 05/12/20 Astrovirus (PCR), Received Pending 05/12/20 Norovirus GI/GII (PCR), Received Pending 05/12/20 Rotavirus A (PCR), Received Pending 05/12/20 Sapovirus I/II/IV/V (PCR), Received Pending 05/09/20 Blood Culture - Preliminary, Resulted No Growth after 72 hours. All specime... 05/09/20 Blood Culture - Preliminary, Resulted No Growth after 72 hours. All specime... NEENA ACE MD May 13, 2020 10:47
[2020-05-13 14:00] VITALS: BP 148/66
[2020-05-13] MEDS ORDERED: TOUJ1.2I SC (14:21)
[2020-05-13] MEDS ORDERED: KLOR10TA76 PO (14:21)
[2020-05-13] MEDS ORDERED: PIPE3INJ6 IV (14:21)
[2020-05-13] MEDS ORDERED: FIBE62TA PO (14:21)
[2020-05-13] MEDS ORDERED: INSUHUMDS SC (14:21)
[2020-05-13] MEDS ORDERED: VANC IV (14:21)
[2020-05-13] MEDS ORDERED: ASCO50TA PO (14:21)
[2020-05-13] MEDS ORDERED: ZINC220CA PO (14:21)
[2020-05-13] MEDS: ACETAMINOPHEN TAB 650MG DOSE (2X325MG) PO PRN (14:50)
--- NOTE | 2020-05-13 15:53 | DS.PDOC ---
PM&R Discharge Summary [facility] Discharge Note DATE OF ADMISSION: Apr 29, 2020 at 14:24 DATE OF DISCHARGE: 05.13.2020 DISCHARGE DIAGNOSES: ORIF right tibial fracture, nonunion with removable hardware, osteomyelitis, intramedullary abscess status post debridement and placement of external fixator 04.25.2020. Osteomyelitis R Tibia Prior ORIF Left ankle Chronic low back pain status post multiple back surgeries (5), insertion/removal spine stimulator Closed compression fracture first lumbar vertebrae Bilateral paraparesis left heel Diabetic ulcer Diabetes. Peripheral neuropathy. Anemia. Hypertension. Coronary artery disease. CHF History PE FARRUKH on BiPAP Temporal arteritis on chronic steroids 50 mg daily, Tocilizumab resuming every 2 weeks. HLD. GERD. Anxiety. Bilateral heel ulcers Liver lesion, right lobe, new Tinea pedis DVT left forearm mid/distal cephalic vein PAST MEDICAL HISTORY: CAD status post PCI T2 DM HTN FARRUKH on BiPAP. Right temporal arteritis on steroids. Chronic low back pain status post multiple back surgeries HLD Right tibial fracture 2018, nonunion, REMOVED HARDWARE 12/21/2019, W PSEUDOMONAS ACNES DISEASE. 6 WEEKS OF IV VANCOMYCIN MRI 1016 CONTINUED OSTEOMYELITIS WITH COMPLEX COLLECTION of fluid PAST SURGICAL HISTORY: ORIF, left ankle 1977 ORIF, right tibial fracture with nonunion. Debridement external fixator placement Carpal tunnel release Shoulder surgery. Basal cell carcinoma excision. Dorsal column stimulator. Laparotomy, cholecystectomy Ulnar nerve transection at the elbow. Tonsillectomy. S/P Knee arthroscopy ORIF R tibia fracture L Ankle fracture. Laminectomy. Total surgery. 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 while on immunosuppressive therapy for right temporal arteritis. He developed nonunion and osteomyelitis with intramedullary abscess of prior healing right tibial fracture. He underwent surgical incision/drainage and has an external fixation device. He was admitted 04.29 for comprehensive rehabilitation work on transfers, limited mobilization with weight bearing as tolerated right lower extremity, self-care for lower extremity osteomyelitis education regarding his chronic conditions and optimal medical management. Hb dropped initially necessitating transfusion 2 U PRBC, will require monitoring. BS was labile running high 200s to 300s during the day, improved control with increased Insulin, increased activity and dietary restrictions. Patient was on oral antibiotics prior to debridement, will need to be on IV antibiotics for 6 weeks starting from 04/25/2020 (to 06.06.2020), currently on Vancomycin and Zosyn. Had to downshift dosing due to clinical toxicity and elevated trough and elevated CR to 1.71 down to 1.51 day of discharge. Picc line in place. Marked 12 Kg weight gain, weeping from left forearm and 4 extremity edema noted requiring more aggressive diuresis. 4 extremity US on 05.11 noted for DVT left mid/distal cephalic vein, otherwise clear. Cxray clear. 05.11 Had episode of NVD, continued soft/loose stools C Diff negative, Vanc downshifted from 750 to 500 w elev trough 19.2, Cr crept up to 1.71 yesterday now down to 1.5 on discharge. Added FiberCon , Pepto Bismol, probiotics to help bulk stools, encouraged eating apples and also added iron for anemia, which has helped slow bowel motility. PHYSICAL EXAMINATION: VITAL SIGNS: Please see below. GENERAL: Pleasant and conversant, much more alert this morning. Hands less swollen, no further weeping left forearm with optilock dressing. HEENT: Extraocular movements intact. No obvious adenopathy or thyromegaly. Healed left temporal artery biopsy site CARDIOVASCULAR: S1S2 no gallops or murmurs. LUNGS: Clear to auscultation bilaterally. No wheezes. No rhonchi. ABDOMEN: Soft, obese, less distended today. Positive normal active bowel sounds. NEUROLOGICAL: Cranial nerves II through XII grossly intact. 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 Less redness/warmth left forearm. Picc in place. Both feet more pink and warmer, less edema. SKIN: fewer small reddened areas bilateral lower extremities circular 1.2cm clean circular lesion left heel more shallow, no drainage, external fixator, multiple attachment points right foreleg, dime sized blackened circular dime sized area right heel, previous satellite lesion Achilles insertion resolved. LABORATORY DATA: Please see below. Elevated Cr , ALT, Alk Phos, CRP, WBC (also on chronic steroids). Blood cx and c diff neg. General GI panel pending at time of discharge. FUNCTIONAL STATUS AT DISCHARGE: Bed mobility supine to sit with mod A. Pt completed clothing management seated EOB modified Independent. Max assist supine to sit Sliding board transfers with supervision Continent Bowel/Bladder uses bariatric commode IMAGES: MRI 04/04/2020 Proximal right tibial fracture nonunion with irregular fluid signal tract extending from the lateral fracture cortical defect into the intramedullary Cavity with 26 x 22 x 36 mm, irregularly intramedullary complex fluid collection and moderate lateral subcutaneous soft tissue edema. Most likely proximal tibial osteomyelitis with intramedullary abscess and overlying extremity soft tissue edema and/or cellulitis. 05.10.2020 CT Abdomen noted for: Liver: Liver appears cirrhotic with nodular contours. Low-density lesion in the right hepatic lobe measuring 2.2 cm on axial image 45, new since the prior CT. Another new lesion in the posterior right hepatic lobe measuring 2.7 cm on axial image 48. Cirrhosis with small volume ascites 05.12.2020 US UE/LE noted for: FINDINGS: The Left subclavian, jugular, axillary, brachial, and basilic veins are fully compressible where accessible with transducer pressure, and demonstrate no intraluminal thrombus and normal venous waveforms. A PICC line is seen in the basilic vein. There is thrombus in the mid to distal left cephalic vein.. IMPRESSION: Thrombus seen in the mid to distal left cephalic vein. Otherwise no other evidence of deep vein thrombosis of the left upper extremity deep vein system. C X-Ray negative Left-sided PICC line with tip in the SVC. The mediastinum and cardiac silho uette are stable and within normal limits for portable technique. The lung jasmine are clear without acute consolidation, effusion, or pneumothorax. Skeletal structures are intact. ALLERGIES: See below. MEDICATIONS: See Below. DISCHARGE DISPOSITION: Home with follow up with Home Health, PT, OT. Nursing, Ortho, PMD, I.D. Neuro/Rheumatology, GI. Slide board, Bariatric 20 wheelchair with flip away arm rests, Gel Cusion. Optilock absorbant dressing, curlex and Acewrap left forearm. Close Follow up for: Pain management ID osteomyelitis RLE and Wound healing heels, R Foreleg/external fixator /incision staple removal ? Picc change if clots off further and attempt to continuously infuse Zosyn, trial TPA to unclog one port does not work, however on Eliquis for upper extremity DVT, suboptimal time to attempt a switch. ? insulin pump in future CV, DVT L UE/Htn/episodic CHF Sleep apnea New vs old liver lesions GI/Heme onc TIME SPENT: Chart Review, examination, re examination, multiple calls, faxes, physician care coordination and triple pharmacy coordination inpatient, community and infusion pharmacists and documentation 120 minutes. This document is generated using speech recognition software which may result in grammatical, typographical and individual word errors. Vital Signs/I&O Vital Sign - Last 24 Hours 05/12/20 05/12/20 05/12/20 05/13/20 19:56 21:22 21:23 05:55 Temp 97.4 97.8 Pulse 83 83 83 Resp 19 18 18 B/P (MAP) 135/69 (91) 135/69 142/67 (92) Pulse Ox 92 92 O2 Delivery Room Air Room Air Room Air 05/13/20 05/13/20 05/13/20 07:48 07:50 14:00 Temp 97.5 Pulse 80 86 Resp 18 18 B/P (MAP) 138/67 148/66 (93) Pulse Ox 91 O2 Delivery Room Air Room Air I&O- Last 24 Hours up to 6 AM 05/13/20 06:00 Intake Total 990 ml Output Total 3250 ml Balance -2260 ml Laboratory Data CBC/BMP Laboratory Tests 05/11/20 19:18 05/12/20 19:03 05/13/20 06:35 Labs 48H Laboratory Tests 05/11/20 16:47: Bedside Glucose (Misc Panel) 157H 05/11/20 19:18: Sodium Level 142, Potassium Level 3.9, Chloride Level 104, Carbon Dioxide Level 31, Anion Gap 7L, Blood Urea Nitrogen 16, Creatinine 1.50H, Glomerular Filtration Rate 49.3, Fasting Glucose 120H, Calcium Level 8.4L, Magnesium Level 1.9 05/11/20 20:04: Bedside Glucose (Misc Panel) 116H 05/12/20 06:37: Bedside Glucose (Misc Panel) 119H 05/12/20 11:19: Bedside Glucose (Misc Panel) 158H 05/12/20 16:22: Bedside Glucose (Misc Panel) 218H 05/12/20 19:03: Sodium Level 139, Potassium Level 3.8, Chloride Level 101, Carbon Dioxide Level 29, Anion Gap 9, Blood Urea Nitrogen 25#H, Creatinine 1.71H, Glomerular Filtration Rate 42.3, Fasting Glucose 190H, Calcium Level 8.5L, Magnesium Level 2.0, Vancomycin Level Trough 21.5H 05/12/20 19:37: Bedside Glucose (Misc Panel) 187H 05/13/20 05:38: Bedside Glucose (Misc Panel) 81L 05/13/20 06:35: White Blood Count 9.0, Red Blood Count 3.56L, Hemoglobin 9.1L, Hematocrit 32.0L, Mean Corpuscular Volume 89.9, Mean Corpuscular Hemoglobin 25.6L, Mean Corpuscular Hemoglobin Concent 28.4L, Red Cell Distribution Width 20.2H, Platelet Count 281, Nucleated Red Blood Cells % (auto) 0.2H, Erythrocyte Sedimentation Rate 65H, Sodium Level 141, Potassium Level 3.0#L, Chloride Level 103, Carbon Dioxide Level 32, Anion Gap 6L, Blood Urea Nitrogen 22H, Creatinine 1.51H, Glomerular Filtration Rate 48.9, Fasting Glucose 72, Calcium Level 8.4L, Magnesium Level 2.0, Total Bilirubin 0.5, Aspartate Amino Transf (AST/SGOT) 53H, Alanine Aminotransferase (ALT/SGPT) 60, Alkaline Phosphatase 272H, C-Reactive Protein, Quantitative 3.89H, Total Protein 5.7L, Albumin 2.5L, Albumin/Globulin Ratio 0.8 05/13/20 09:33: Random Vancomycin Level 24.6 05/13/20 11:43: Bedside Glucose (Misc Panel) 90 FSBS Laboratory Tests Test 05/12/20 16:22 05/12/20 19:37 05/13/20 05:38 05/13/20 11:43 Range/Units Bedside Glucose (Misc Panel) 218 187 81 90 83-110 MG/DL Microbiology Microbiology 05/12/20 Campylobacter (PCR), Received Pending 05/12/20 Clostridium difficile Toxin A&B PCR, Received Pending 05/12/20 Plesiomonas shigelloides (PCR), Received Pending 05/12/20 Salmonella (PCR)(LAURA), Received Pending 05/12/20 Vibrio Species (PCR), Received Pending 05/12/20 Vibrio Cholerae (PCR), Received Pending 05/12/20 Yersinia enterocolitica (PCR), Received Pending 05/12/20 Enteroaggregative E. coli (PCR), Received Pending 05/12/20 Enteropathogenic E. coli (PCR), Received Pending 05/12/20 Enterotoxigenic E. coli (PCR), Received Pending 05/12/20 E. coli Shiga-like Toxin (PCR), Received Pending 05/12/20 Escherichia coli 0157 (PCR), Received Pending 05/12/20 Enteroinvasive E. coli/Shigella PCR, Received Pending 05/12/20 Cryptosporidium (PCR), Received Pending 05/12/20 Cyclospora cayetanensis (PCR), Received Pending 05/12/20 Entamoeba histolytica (PCR), Received Pending 05/12/20 Giardia lamblia (PCR), Received Pending 05/12/20 Adenovirus Type F 40/41 (PCR), Received Pending 05/12/20 Astrovirus (PCR), Received Pending 05/12/20 Norovirus GI/GII (PCR), Received Pending 05/12/20 Rotavirus A (PCR), Received Pending 05/12/20 Sapovirus I/II/IV/V (PCR), Received Pending 05/09/20 Blood Culture - Preliminary, Resulted No Growth after 72 hours. All specime... 05/09/20 Blood Culture - Preliminary, Resulted No Growth after 72 hours. All specime... Medications Medications Current Medications Medications (Trade) Dose Ordered Sig/Mima Route PRN Reason Start Time Stop Time Status Last Admin Dose Admin Acetaminophen (Tylenol Tab) 650 mg Q4HP PRN PO MILD PAIN (PS 1-4) 04/29/20 14:15 05/13/20 14:50 Apixaban (Eliquis) 2.5 mg BID PO 04/29/20 21:00 05/12/20 11:32 DC 05/12/20 08:45 Apixaban (Eliquis) 5 mg BID PO 05/12/20 21:00 05/13/20 07:49 Artificial Tears (Akwa Tears) 2 drop QID PRN OU DRY EYES 04/29/20 17:00 Ascorbic Acid (Vitamin C) 1,000 mg DAILY PO 05/03/20 09:00 05/13/20 07:51 Aspirin (Aspirin Chewable) 81 mg QPM PEG 04/29/20 21:00 05/12/20 21:22 Atenolol (Tenormin) 50 mg BID PO 04/29/20 21:00 05/13/20 07:50 Atorvastatin Calcium (Lipitor) 20 mg QPM PO 04/29/20 21:00 05/12/20 21:22 Bismuth Subsalicylate (Pepto Bismol) 30 ml Q4HP PRN PO DIARRHEA 05/03/20 11:30 05/09/20 05:36 Calcium Polycarbophil (Fiber Con) 1 ea DAILY PO 05/03/20 12:00 05/16/20 09:00 05/13/20 07:49 Calcium Polycarbophil (Fiber Con) 1 ea DAILY PO 05/05/20 17:00 UNV Cetylpyridinium Chloride (Cepacol) 1 chrissy Q4HP PRN PO SORE THROAT 05/01/20 16:00 05/07/20 20:20 Dextrose (Dextrose 50%) 25 ml ASDIRECTED PRN IV SEE LABEL COMMENTS 04/29/20 14:45 Docusate Sodium (Colace) 100 mg BIDP PRN PO CONSTIPATION 04/29/20 21:00 05/09/20 15:39 DC Duloxetine HCl (Cymbalta) 60 mg QHS PO 04/29/20 21:00 05/12/20 21:22 Ferrous Gluconate (Fergon) 324 mg DAILY PO 05/05/20 09:00 05/13/20 07:48 Furosemide (Lasix) 40 mg BID@,17 PO 04/29/20 17:00 05/11/20 13:31 DC 05/11/20 07:46 Furosemide (Lasix) 40 mg BID@09,17 PO 05/13/20 09:00 05/13/20 09:25 Gabapentin (Neurontin) 800 mg Q8H PO 04/29/20 14:00 05/13/20 14:47 Glucagon (Glucagon) 1 mg ASDIRECTED PRN SC SEE LABEL COMMENTS 04/29/20 14:45 Glucose (Glucose) 16 GM ASDIRECTED PRN PO SEE LABEL COMMENTS 04/29/20 14:45 Heparin Sodium (Heparin (Flush)) 200 units ASDIRECTED PRN IV SEE LABEL COMMENTS 04/29/20 20:00 05/13/20 00:20 Heparin Sodium (Heparin (Flush)) 200 units PICC IV 04/30/20 06:00 05/13/20 05:13 Home Med (Med Rec Complete!) ASDIRECTED XX 04/29/20 15:45 04/29/20 15:56 DC Insulin Detemir (Levemir Insulin) 150 units DAILY@2100 [place] 05/13/20 21:00 Insulin Detemir (Levemir Insulin) 180 units DAILY@2100 [place] 04/29/20 21:00 05/13/20 09:01 DC 05/12/20 21:21 Insulin Human Lispro (HumaLOG INSULIN) 15 units [facility] 05/01/20 12:00 05/01/20 20:35 DC 05/01/20 17:27 Insulin Human Lispro (HumaLOG INSULIN) 25 units [facility] 05/02/20 07:30 05/03/20 07:28 [place] 05/02/20 17:16 Insulin Human Lispro (HumaLOG INSULIN) 30 units [facility] 05/03/20 07:30 05/05/20 06:27 DC 05/04/20 17:01 Insulin Human Lispro (HumaLOG INSULIN) 33 units [facility] 05/05/20 07:30 05/08/20 16:29 DC 05/08/20 12:17 Insulin Human Lispro (HumaLOG INSULIN) 35 units [facility] 05/10/20 07:30 05/12/20 17:27 Insulin Human Lispro (HumaLOG INSULIN) 37 units [facility] 05/08/20 17:30 05/09/20 18:07 DC 05/08/20 17:07 Insulin Human Lispro (HumaLOG INSULIN) See Protocol Table [facility] [place] 04/29/20 17:30 05/12/20 17:26 Insulin Human Lispro (HumaLOG INSULIN) See Protocol Table [facility] 04/30/20 21:00 05/08/20 21:01 Lactobacillus Acidophilus (Bacid) 1 ea WM PO 05/03/20 18:00 05/13/20 12:47 Levothyroxine Sodium (Synthroid) 112 mcg DAILY@06 PO 04/30/20 06:00 05/13/20 05:12 Magnesium Chloride (Slow-Mag) 64 mg DAILY PO 05/12/20 09:00 Hold 05/12/20 08:41 Morphine Sulfate (Ms Contin) 45 mg BID PO 04/29/20 21:00 05/13/20 07:48 Multivitamins (Theragram-M) 1 tab DAILY PO 04/30/20 09:00 05/13/20 07:47 Ondansetron HCl (Zofran Odt) 4 mg Q6HP PRN PO NAUSEA OR VOMITING 05/09/20 08:00 05/09/20 17:18 Oxybutynin Chloride (Ditropan) 5 mg TID PO 04/29/20 21:00 05/13/20 07:48 Pantoprazole Sodium (Protonix) 20 mg BID PO 04/29/20 21:00 05/13/20 07:47 Pantoprazole Sodium (Protonix) 20 mg DAILY PO 04/30/20 09:00 04/29/20 16:34 DC Piperacillin Sod/ Tazobactam Sod 3.375 gm/Dextrose 50 ml @ 50 mls/hr Q6H IV 04/29/20 17:00 06/06/20 16:59 05/13/20 10:42 Polyethylene Glycol (Miralax) 1 pkt DAILY PO 04/30/20 09:00 05/09/20 15:39 DC Potassium Chloride (Micro-K Extencaps) 40 meq DAILY PO 05/02/20 09:00 Hold 05/13/20 07:51 Prednisone (Deltasone) 2 mg DAILY PO 04/30/20 09:00 05/13/20 07:55 Prednisone (Deltasone) 10 mg DAILY PO 04/30/20 09:00 05/13/20 07:49 Sodium Chloride (Saline Lock Flush) 10 ml ASDIRECTED PRN IV SEE LABEL COMMENTS 04/29/20 20:00 05/13/20 00:20 Sodium Chloride (Saline Lock Flush) 10 ml PICC IV 04/30/20 06:00 05/13/20 05:13 Vancomycin HCl 500 mg/Dextrose 110 ml @ 110 mls/hr Q24H IV 04/29/20 21:00 05/04/20 19:00 DC 05/03/20 22:00 Vancomycin HCl 500 mg/Dextrose 110 ml @ 110 mls/hr Q24H IV 05/11/20 21:00 05/12/20 20:20 DC 05/11/20 21:22 Vancomycin HCl 750 mg/IV Miscellaneous Supplies 1 each/ Dextrose 275 ml @ 275 mls/hr Q24H IV 04/29/20 20:00 05/12/20 20:20 DC 05/11/20 20:22 Vancomycin HCl 750 mg/IV Miscellaneous Supplies 1 each/ Dextrose 275 ml @ 275 mls/hr Q24H IV 05/04/20 21:00 05/11/20 10:16 DC 05/10/20 21:42 Vancomycin HCl 1000 mg/IV Miscellaneous Supplies 1 each/ Dextrose 270 ml @ 270 mls/hr Q24H IV 05/12/20 21:00 05/13/20 11:51 DC 05/12/20 21:20 Zinc Sulfate (Zinc Sulfate) 220 mg BID PO 05/03/20 09:00 05/13/20 07:47 Scheduled Apixaban (Eliquis) 5 Mg Tablet, 5 MG PO BID Ascorbic Acid (Vitamin C) 500 Mg Tablet, 1,000 MG PO DAILY Aspirin (Ecotrin) 81 Mg Tablet.dr, 81 MG PO QHS, (Reported) Atenolol (Atenolol) 50 Mg Tablet, 50 MG PO BID, (Reported) Atorvastatin Calcium (Atorvastatin Calcium) 20 Mg Tab, 20 MG PO QHS, (Reported) Calcium Polycarbophil (Fiber-Lax) 625 Mg Tablet, 1 EA PO DAILY Duloxetine Hcl (Duloxetine HCl) 60 Mg Cap, 60 MG PO QHS, (Reported) Ferrous Gluconate (Ferrous Gluconate) 324 Mg Tablet, 324 MG PO DAILY Furosemide (Furosemide) 40 Mg Tab, 40 MG PO BID, (Reported) Gabapentin (Gabapentin) 800 Mg Tablet, 800 MG PO TID, (Reported) Insulin Glargine,Hum.rec.anlog ([place] Solostar) 300 Unit/1 Ml Insuln.pen, 150 UNIT SC QHS Insulin Human Lispro (Humalog) 100 Unit/1 Ml Vial, 33 UNITS SC AC Insulin Lispro (Humalog Kwikpen U-100) 100 Unit/1 Ml Insuln.pen, 1 DOSE SC AC, (Reported) L.acidoph/L.bulg/B.bif/S.therm (Josy-Bid Caplet) 1 Each Tablet, 1 EA PO WM Levothyroxine Sodium (Synthroid) 112 Mcg Tablet, 112 MCG PO DAILY, (Reported) Mirabegron (Myrbetriq) 50 Mg Tab.er.24h, 50 MG PO QHS, (Reported) Morphine Sulfate (Morphine Sulfate ER 24HR) 45 Mg Cpmp.24hr, 45 MG PO BID, (Reported) VERIFIED DOSE Oxybutynin Chloride (Oxybutynin Chloride) 5 Mg Tablet, 5 MG PO TID, (Reported) Pantoprazole Sodium (Pantoprazole Sodium) 20 Mg Tablet.dr, 20 MG PO BID, (Reported) Piperacillin Sodium/Tazobactam (Piperacil-Tazobact 3.375 gm Vl) 3.375 Gm Vial, 13.58 GM IV DAILY Continuous infusion per infusion nursing team Potassium Chloride (Klor-Con M10) 10 Meq Tab.er.prt, 40 MEQ PO DAILY Prednisone (Prednisone) 2.5 Mg Tablet, 12.5 MG PO DAILY, (Reported) Tolnaftate (Tolnaftate) 30 Gm Cream..g., 1 APPLIC TOP DAILY, (Reported) APPLY TO LEFT FOOT Vancomycin HCl in Water (Vancomycin 1,750 mg/17.5 ml Vl) 1.75 Gm/17.5 Ml Vial, 750 MG IV DAILY To begin 750mg Q 24hr dosing 1600 on 05.14.2020 Zinc Sulfate (Zinc Sulfate) 220 Mg Capsule, 220 MG PO BID Scheduled PRN Acetaminophen (Acetaminophen) 325 Mg Tablet, 650 MG PO Q6H PRN for PAIN / FEVER, (Reported) Bisacodyl (Bisacodyl) 10 Mg Supp.rect, 10 MG NC DAILY PRN for CONSTIPATION, (Reported) Calcium Carbonate (Antacid) 200 Mg Tab.chew, 500 MG PO DAILY PRN for HEARTBURN, (Reported) Docusate Sodium (Docusate Sodium) 100 Mg Capsule, 100 MG PO BID PRN for CONSTIPATION, (Reported) Ondansetron HCl (Ondansetron HCl) 4 Mg Tablet, 4 MG PO Q8H PRN for NAUSEA OR VOMITING, (Reported) Polyethylene Glycol 3350 (Miralax) 119 Gm Powder, 17 GM PO DAILY PRN for CONSTIPATION, (Reported) Polyvinyl Alcohol (Akwa Tears) 1.4 % Idalmis, 2 DROP OU QID PRN for DRY EYES Allergies Coded Allergies: No Known Allergies (Verified , 12/21/02) JEFRY LOPEZ MD May 13, 2020 15:53
[2020-05-13] MEDS ORDERED: VANCOMYCIN HCL 500 MG in D5W MINI-BAG PLUS 100 ML IV ONE (16:00)
[2020-05-13] MEDS ORDERED: LEVEMIR (INSULIN DETEMIR) 1 UNITS/0.01ML SC SCH (21:00)
== END 2020-05-13 18:20 | disposition home health service (06) | DRG 560 ==
LOC: M PM&R 14:24
PROVIDERS: ADMIT Physical Medicine & Rehabilitation; ATTEND Physical Medicine & Rehabilitation
PROC: 30233N1 Transfusion of Nonautologous Red Blood Cells into Peripheral Vein, Percutaneous Approach (ICD-10-PCS; principal; 2020-05-01)
DX: S82.101D Unspecified fracture of upper end of right tibia, subsequent encounter for closed fracture with routine healing (principal); M86.9 Osteomyelitis, unspecified; L97.429 Non-pressure chronic ulcer of left heel and midfoot with unspecified severity; G82.20 Paraplegia, unspecified; Z68.41 Body mass index [BMI] 40.0-44.9, adult; L97.419 Non-pressure chronic ulcer of right heel and midfoot with unspecified severity; I82.612 Acute embolism and thrombosis of superficial veins of left upper extremity; I13.0 Hypertensive heart and chronic kidney disease with heart failure and stage 1 through stage 4 chronic kidney disease, or unspecified chronic kidney disease; T82.868A Thrombosis due to vascular prosthetic devices, implants and grafts, initial encounter; M54.5 Low back pain; E11.621 Type 2 diabetes mellitus with foot ulcer; E11.42 Type 2 diabetes mellitus with diabetic polyneuropathy; D64.9 Anemia, unspecified; I25.10 Atherosclerotic heart disease of native coronary artery without angina pectoris; I50.9 Heart failure, unspecified; G47.33 Obstructive sleep apnea (adult) (pediatric); M31.6 Other giant cell arteritis; E78.5 Hyperlipidemia, unspecified; K21.9 Gastro-esophageal reflux disease without esophagitis; F41.9 Anxiety disorder, unspecified; K76.89 Other specified diseases of liver; B35.3 Tinea pedis; E11.622 Type 2 diabetes mellitus with other skin ulcer; H54.7 Unspecified visual loss; R20.0 Anesthesia of skin; E03.9 Hypothyroidism, unspecified; R11.2 Nausea with vomiting, unspecified; R26.89 Other abnormalities of gait and mobility; N18.30 Chronic kidney disease, stage 3 unspecified; E11.22 Type 2 diabetes mellitus with diabetic chronic kidney disease; E66.01 Morbid (severe) obesity due to excess calories; N40.0 Benign prostatic hyperplasia without lower urinary tract symptoms; I25.2 Old myocardial infarction; E87.6 Hypokalemia; Z85.828 Personal history of other malignant neoplasm of skin; Z90.49 Acquired absence of other specified parts of digestive tract; Z87.891 Personal history of nicotine dependence; Z79.01 Long term (current) use of anticoagulants; Z79.82 Long term (current) use of aspirin; Z79.4 Long term (current) use of insulin; Z79.52 Long term (current) use of systemic steroids; Z79.899 Other long term (current) drug therapy; Z79.891 Long term (current) use of opiate analgesic; Z86.711 Personal history of pulmonary embolism; Z95.828 Presence of other vascular implants and grafts; Z95.5 Presence of coronary angioplasty implant and graft; Z74.09 Other reduced mobility; Y83.1 Surgical operation with implant of artificial internal device as the cause of abnormal reaction of the patient, or of later complication, without mention of misadventure at the time of the procedure

== ENCOUNTER 2020-05-18 12:34 | Inpatient (IN) | payer MEDICARE, OTHER ==
[~2020-05-18] VITALS: Ht 170.2 cm; Wt 141.3 kg
[~2020-05-18 12:34] MED LIST changes: +ACET-908 PO; +ASCO50TA PO; +BISA10SU4 PR; +CALC500C15 PO; +DOCU100C16 PO; +ELIQ5TAB PO; +FERR32TA PO; +FIBE62TA PO; +GABA800T4 PO; +HUMA100I5 SC; +KLOR10TA76 PO; +MIRALAX *UNIT DOSE* 17GM PACKET PO PRN; +MYRB50TA PO; +ONDA-83 PO; +OXYB5TAB10 PO; +PANT20TA6 PO; +PIPE3INJ6 IV; +PRED25TA PO; +RISATAB3 PO; +SYNT112T2 PO; +TOLN1CRE9 TOP; +VANC IV; +ZINC220CA PO
--- NOTE | 2020-05-18 14:26 | REP ---
INDICATION: DYSPNEA/COUGH COMPARISON: 05/11/2020 TECHNIQUE: Portable AP view of the chest FINDINGS: Examination is markedly limited by underpenetration, poor inspiratory effort, and positioning. Left perihilar and left basilar atelectasis cannot be excluded. No focal consolidation. No obvious effusion. No pneumothorax. Stable cardiomegaly noted. Skeletal structures are stable. IMPRESSION: Limited examination cannot exclude left perihilar and left basilar atelectasis. <Electronically signed by Neptali Ghotra > 05/18/20 [id number]
[2020-05-18 14:38] LABS: INR 1.32; PROTHROMBIN TIME 16.7 SECONDS (12.5-14.3)
[2020-05-18 14:45] LABS: ERYTHROCYTE SEDIMENTATION RATE 73 mm/hr (0-20)
[2020-05-18 14:48] LABS: VENOUS BASE EXCESS 8.4 (-2.0-2.0); VENOUS HCO3 37.2 MEQ/L (23.0-27.0); VENOUS O2 SATURATION 82.8 % (60.0-80.0); VENOUS PARTIAL PRESSURE CO2 81.6 mmHg (38.0-50.0); VENOUS PARTIAL PRESSURE O2 54.1 mmHg (30.0-50.0); VENOUS PH 7.277 UNITS (7.330-7.430); VENOUS STANDARD HCO3 31.9 MEQ/L; VENOUS TOTAL CO2 39.7 MEQ/L (24.0-28.0)
[2020-05-18 15:00] LABS: ALBUMIN 2.6 GM/DL (3.2-5.2); BILIRUBIN,DIRECT 0.3 MG/DL (0.0-0.2); BILIRUBIN,TOTAL 0.5 MG/DL (0.2-1.0); CALCIUM LEVEL 8.3 MG/DL (8.8-10.2); CK-MB VALUE MASS 5.3 NG/ML (<3.6); CREATININE FOR GFR 2.27 MG/DL (0.70-1.30); GLOMERULAR FILTRATION RATE 30.5 (>42); MB/CK RELATIVE INDEX 8.41 (< OR =4); POTASSIUM SERUM 3.1 MEQ/L (3.5-5.1); THYROID STIMULATING HORMONE 2.4 uIU/ML (0.358-3.740); THYROXINE (T4) 8.7 UG/DL (4.5-12.0); TOTAL PROTEIN 6.3 GM/DL (6.4-8.2); TROPONIN I 0.47 NG/ML (< 0.10)
[2020-05-18] MEDS ORDERED: NALOXONE INJ 0.4MG/1ML VIAL (J2310 PER 1MG) IV STA ×2 (15:11→15:56)
[2020-05-18 16:11] LABS: BASO # 0.1 10^3/uL (0.0-0.2); BASO % 0.7 % (0.0-1.0); EOS # 0.1 10^3/uL (0.0-0.5); EOS % 0.9 % (0.0-3.0); HEMATOCRIT 31.1 % (42.0-52.0); HEMOGLOBIN 8.9 g/dl (13.5-17.5); LYMPH # 0.4 10^3/uL (1.5-5.0); LYMPH % 3.2 % (24.0-44.0); MEAN CORPUSCULAR HEMOGLOBIN 25.9 pg (27.0-33.0); MEAN CORPUSCULAR HGB CONC 28.6 g/dl (32.0-36.5); MEAN CORPUSCULAR VOLUME 90.4 fl (80.0-96.0); MONO # 0.9 10^3/uL (0.0-0.8); MONO % 6.1 % (0.0-5.0); NEUTROPHILS # 11.7 10^3/uL (1.5-8.5); NEUTROPHILS % 84.4 % (36.0-66.0); PLATELET COUNT, AUTOMATED 378 10^3/uL (150-450); RED BLOOD COUNT 3.44 10^6/uL (4.30-6.10); WHITE BLOOD COUNT 13.9 10^3/uL (4.0-10.0)
[2020-05-18] MEDS ORDERED: NS 500 ML IV ONE (17:15)
[2020-05-18] MEDS ORDERED: cefTRIAXone SOD 2 GM in D5W MINI-BAG PLUS 50 ML IV ONE (17:15)
[2020-05-18 17:27] LABS: VENOUS BASE EXCESS 11.2 (-2.0-2.0); VENOUS PARTIAL PRESSURE CO2 73.9 mmHg (38.0-50.0); VENOUS PARTIAL PRESSURE O2 50.2 mmHg (30.0-50.0); VENOUS STANDARD HCO3 34.6 MEQ/L; VENOUS TOTAL CO2 41.2 MEQ/L (24.0-28.0)
[2020-05-18] MEDS ORDERED: INSUHUMDS SC (17:56)
[2020-05-18] MEDS ORDERED: OXYC-517 PO (17:56)
[2020-05-18] MEDS ORDERED: AKWASOL OU (17:56)
[2020-05-18] MEDS ORDERED: KLOR10TA76 PO (17:56)
[2020-05-18] MEDS ORDERED: ZINC220CA PO (17:56)
[2020-05-18] MEDS ORDERED: BACITAB PO (17:56)
[2020-05-18] MEDS ORDERED: FERR325T16 PO (17:56)
[2020-05-18] MEDS ORDERED: ASCO500T PO (17:56)
[2020-05-18] MEDS ORDERED: TOUJ1.2I SC (17:56)
[2020-05-18] MEDS ORDERED: ELIQ5TAB PO (17:56)
[2020-05-18] MEDS ORDERED: FIBE625T PO (17:56)
[2020-05-18 18:13] LABS: CK-MB VALUE MASS 4.2 NG/ML (<3.6); MB/CK RELATIVE INDEX 7.92 (< OR =4); TROPONIN I 0.43 NG/ML (< 0.10)
[2020-05-18] MEDS ORDERED: DEXTROSE 50% 50 ML SYRINGE IV PRN (18:15)
[2020-05-18] MEDS ORDERED: GLUCAGON INJ 1MG VIAL SC PRN (18:15)
[2020-05-18] MEDS ORDERED: GLUCOSE 4GM CHEW TABLET PO PRN (18:15)
[2020-05-18] MEDS ORDERED: POLYVINYL ALCOHOL OPHTH SOLN 15 ML(LIQUITEARS) OU PRN (18:15)
--- NOTE | 2020-05-18 18:23 | HPEPDOC ---
General Date of Admission 05/18/20 Date of Service: May 18, 2020 Chief Complaint The patient is a 69-year-old male admitted with a reason for visit of Hypotension. Source: Patient, Family Exam Limitations: Mild cognitive slowing Timing/Duration: 24 hours Severity: Moderate Associated Symptoms: Shortness of breath History of Present Illness Patient is 69 years old male with past medical history of coronary artery disease, hypertension, peripheral neuropathy, diabetes, diabetic foot ulcer, bilateral renal cysts, compression lumbar vertebrae, right tibial fracture 01/2018; status post ORIF with nonunion due to steroid use, removal of hardware 12/21/2019 presented to the hospital with altered mental status. According to his family patient was somnolent and lethargic since morning. In ER patient was found to have leukocytosis of 13.9, potassium 3.1, lactic acid 2.4, blood gas showed pH 7.2 with CO2 81. Patient was placed on the BiPAP blood gas improved pH 7.3 CO2 is 73.9. Chest x-ray showed possible left perihilar and left basilar atelectasis. Home Medications Scheduled Apixaban (Eliquis) 5 Mg Tablet, 5 MG PO BID Ascorbic Acid (Vitamin C) 500 Mg Tablet, 1,000 MG PO DAILY Aspirin (Ecotrin) 81 Mg Tablet.dr, 81 MG PO QHS, (Reported) Atenolol (Atenolol) 50 Mg Tablet, 50 MG PO BID, (Reported) Atorvastatin Calcium (Atorvastatin Calcium) 20 Mg Tab, 20 MG PO QHS, (Reported) Calcium Polycarbophil (Fiber-Lax) 625 Mg Tablet, 1 EA PO DAILY Duloxetine Hcl (Duloxetine HCl) 60 Mg Cap, 60 MG PO QHS, (Reported) Ferrous Gluconate (Ferrous Gluconate) 324 Mg Tablet, 324 MG PO DAILY Furosemide (Furosemide) 40 Mg Tab, 40 MG PO BID, (Reported) Gabapentin (Gabapentin) 800 Mg Tablet, 800 MG PO TID, (Reported) Insulin Glargine,Hum.rec.anlog (Meka Quijano) 300 Unit/1 Ml Insuln.pen, 150 UNIT SC QHS Insulin Human Lispro (Humalog) 100 Unit/1 Ml Vial, 33 UNITS SC AC Insulin Lispro (Humalog Kwikpen U-100) 100 Unit/1 Ml Insuln.pen, 1 DOSE SC AC, (Reported) L.acidoph/L.bulg/B.bif/S.therm (Josy-Bid Caplet) 1 Each Tablet, 1 EA PO WM Levothyroxine Sodium (Synthroid) 112 Mcg Tablet, 112 MCG PO DAILY, (Reported) Mirabegron (Myrbetriq) 50 Mg Tab.er.24h, 50 MG PO QHS, (Reported) Morphine Sulfate (Morphine Sulfate ER 24HR) 45 Mg Cpmp.24hr, 45 MG PO BID, (Reported) VERIFIED DOSE Oxybutynin Chloride (Oxybutynin Chloride) 5 Mg Tablet, 5 MG PO TID, (Reported) Pantoprazole Sodium (Pantoprazole Sodium) 20 Mg Tablet.dr, 20 MG PO BID, (Repor shelly) Piperacillin Sodium/Tazobactam (Piperacil-Tazobact 3.375 gm Vl) 3.375 Gm Vial, 13.58 GM IV DAILY Continuous infusion per infusion nursing team Potassium Chloride (Klor-Con M10) 10 Meq Tab.er.prt, 40 MEQ PO DAILY Prednisone (Prednisone) 2.5 Mg Tablet, 12.5 MG PO DAILY, (Reported) Tolnaftate (Tolnaftate) 30 Gm Cream..g., 1 APPLIC TOP DAILY, (Reported) APPLY TO LEFT FOOT Vancomycin HCl in Water (Vancomycin 1,750 mg/17.5 ml Vl) 1.75 Gm/17.5 Ml Vial, 750 MG IV DAILY To begin 750mg Q 24hr dosing 1600 on 05.14.2020 Zinc Sulfate (Zinc Sulfate) 220 Mg Capsule, 220 MG PO BID Scheduled PRN Acetaminophen (Acetaminophen) 325 Mg Tablet, 650 MG PO Q6H PRN for PAIN / FEVER, (Reported) Bisacodyl (Bisacodyl) 10 Mg Supp.rect, 10 MG IN DAILY PRN for CONSTIPATION, (Reported) Calcium Carbonate (Antacid) 200 Mg Tab.chew, 500 MG PO DAILY PRN for HEARTBURN, (Reported) Docusate Sodium (Docusate Sodium) 100 Mg Capsule, 100 MG PO BID PRN for CONSTIPATION, (Reported) Ondansetron HCl (Ondansetron HCl) 4 Mg Tablet, 4 MG PO Q8H PRN for NAUSEA OR VOMITING, (Reported) Polyethylene Glycol 3350 (Miralax) 119 Gm Powder, 17 GM PO DAILY PRN for CONSTIPATION, (Reported) Polyvinyl Alcohol (Akwa Tears) 1.4 % Idalmis, 2 DROP OU QID PRN for DRY EYES Allergies Coded Allergies: No Known Allergies (Verified , 12/21/02) Past Medical History Medical History Significant for right tibial fracture 01/2018; status post ORIF with nonunion due to steroid use, removal of hardware 12/21/2019, culture of P. acnes, coronary artery disease, hypertension, peripheral neuropathy, diabetes, diabetic foot ulcer, bilateral renal cysts, compression lumbar vertebrae; the patient has not walked for two years, temporal arteritis on prednisone and Tocilizumab every two weeks, gastroesophageal reflux disease,anxiety, liver adhesion. Surgical History ORIF of left ankle in 1976, right tibial fracture with nonunion 01/2018, carpal tunnel release, shoulder surgery, dorsal column stimulator, laparotomy, cholecystectomy, tonsillectomy, knee arthroscopy, laminectomy, five back surgeries. Family History I personally reviewed family history and found not pertinent Social History * Smoker: Denies Alcohol: Denies Drugs: denies A-FIB/CHADSVASC A-FIB History Current/History of A-Fib/PAF?: No Current PO Anticoag Therapy: No Review of Systems Constitutional: Reports: Fatigue Eyes: Denies: Pain ENT: Denies: Head Aches Skin: Denies: Rash, Lesions Pulmonary: Reports: Dyspnea Cardiovascular: Denies: Chest Pain, Palpitations Gastrointestinal: Denies: Nausea Genitourinary: Denies: Dysuria, Frequency Hematologic: Denies: Bruising Endocrine: Denies: Polydipsia, Polyphagia Musculoskeletal: Denies: Neck Pain Neurological: Denies: Weakness Psych: Reports: Mood Normal Physical Examination General Exam: Positive: Alert, Moderate Distress Eye Exam: Positive: PERRLA ENT Exam: Positive: Atraumatic Neck Exam: Positive: Supple; Negative: JVD Chest Exam: Positive: Diminished Heart Exam: Positive: Rate Normal Telemetry: Positive: No significant arrhythmia Abdomen Exam: Positive: Normal bowel sounds Extremity Exam: Negative: Clubbing, Cyanosis Skin Exam: Positive: Nl turgor and temperature Neuro Exam: Positive: Cranial Nerves 3-12 NL Psych Exam: Positive: Oriented x 3 Vital Signs Vital Signs Date Time Temp Pulse Resp B/P (MAP) Pulse Ox O2 Delivery O2 Flow Rate FiO2 05/18/20 16:49 66 24 100 NIPPV (BIPAP/CPAP) 05/18/20 16:00 124/60 (81) 05/18/20 14:17 98.4 05/18/20 14:15 60 Laboratory Data Labs 24H Laboratory Tests 2 05/18/20 14:09: Immature Granulocyte % (Auto) 4.7H, Neutrophils (%) (Auto) 84.4H, Lymphocytes (%) (Auto) 3.2L, Monocytes (%) (Auto) 6.1H, Eosinophils (%) (Auto) 0.9, Basophils (%) (Auto) 0.7, Neutrophils # (Auto) 11.7H, Lymphocytes # (Auto) 0.4L, Monocytes # (Auto) 0.9H, Eosinophils # (Auto) 0.1, Basophils # (Auto) 0.1, Nucleated Red Blood Cells % (auto) 0.5H, Erythrocyte Sedimentation Rate 73H, Prothrombin Time 16.7H, Prothromb Time International Ratio 1.32, Anion Gap 4L, Glomerular Filtration Rate 30.5L, Lactic Acid Level 2.4*H, Calcium Level 8.3L, Total Bilirubin 0.5, Direct Bilirubin 0.3H, Aspartate Amino Transf (AST/SGOT) 75H, Alanine Aminotransferase (ALT/SGPT) 67, Alkaline Phosphatase 320H, Total Creatine Kinase 63, Creatine Kinase MB 5.3H, Creatine Kinase MB Relative Index 8.41H, Troponin I 0.47H, C-Reactive Protein, Quantitative 9.15H, XS-Nvl-D-Type Natriuretic Peptide 703H, Total Protein 6.3L, Albumin 2.6L, Albumin/Globulin Ra anh 0.7, Thyroid Stimulating Hormone (TSH) 2.400, Thyroxine (T4) 8.7 05/18/20 14:40: Blood Gas Bicarbonate Standard 31.9, Venous Blood pH 7.277L, Venous Blood Partial Pressure CO2 81.6H, Venous Blood Partial Pressure O2 54.1H, Venous Blood Total Carbon Dioxide 39.7H, Venous Blood HCO3 37.2H, Venous Blood Oxygen Saturation 82.8H, Venous Blood Base Excess 8.4H 05/18/20 16:10: Urine Color YELLOW, Urine Appearance TURBIDH, Urine pH 5.0, Urine Specific [place] 1.015, Urine Protein 1+H, Urine Glucose (UA) NEGATIVE, Urine Ketones NEGATIVE, Urine Blood 2+H, Urine Nitrite NEGATIVE, Urine Bilirubin NEGATIVE, Urine Urobilinogen 0.2, Urine Leukocyte Esterase 3+H, Urine WBC (Auto) TNTCH, Urine RBC (Auto) 141H, Urine Hyaline Casts (Auto) 0, Urine Bacteria (Auto) 2+H, Urine Squamous Epithelial Cells 0, Urine Yeast-Like Cells (Auto) LARGEH, Urine Sperm (Auto) SMALLH 05/18/20 17:09: 05/18/20 17:22: Blood Gas Bicarbonate Standard 34.6, Venous Blood pH 7.340, Venous Blood Partial Pressure CO2 73.9H, Venous Blood Partial Pressure O2 50.2H, Venous Blood Total Carbon Dioxide 41.2H, Venous Blood HCO3 39.0H, Venous Blood Oxygen Saturation 82.0H, Venous Blood Base Excess 11.2H CBC/BMP Laboratory Tests 05/18/20 14:09 Microbiology Microbiology 05/18/20 Urine Culture, Received Pending 05/18/20 Blood Culture, Received Pending 05/18/20 Blood Culture, Received Pending Assessment/Plan Patient is 69 years old male with past medical history of coronary artery disease, hypertension, peripheral neuropathy, diabetes, diabetic foot ulcer, bilateral renal cysts, compression lumbar vertebrae, right tibial fracture 01/2018; status post ORIF with nonunion due to steroid use, removal of hardware 12/21/2019 presented to the hospital with altered mental status. According to his family patient was somnolent and lethargic since morning. In ER patient was fou nd to have leukocytosis of 13.9, potassium 3.1, lactic acid 2.4, blood gas showed pH 7.2 with CO2 81. Patient was placed on the BiPAP blood gas improved pH 7.3 CO2 is 73.9. Chest x-ray showed possible left perihilar and left basilar atelectasis. Problems (1) Acute hypercapnic respiratory failure Status: Acute Problem Text: Most likely is Secondary to polypharmacy Chest x-ray negative for acute infiltrate Patient was on the large dose of opioids and 800 mg of gabapentin 3 times a day which potentiate the effect of opioids DC gabapentin Reduced dose of opioids BiPAP Monitor ABG (2) FARRUKH treated with BiPAP Status: Acute Problem Text: See above (3) ARF (acute renal failure) Status: Acute Problem Text: Secondary to the large dose of opioid, dehydration and Zosyn Continue to monitor Will reduce the dose of furosemide (4) Debility Status: Chronic Problem Text: Due to multiple comorbidities PT/OT (5) Congestive heart failure (CHF) Status: Chronic Problem Text: Not in acute exacerbation Continue home cardioprotective medications I's and O's Cardiac diet (6) Right tibial fracture Status: Chronic Problem Text: Patient has external fixation 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 acnes on I.V. Vancomycin and Zosyn per [facility] from 04/25/2020 until 06/06/2020 Plan / VTE VTE Prophylaxis Ordered?: Yes MAIKEL NESS DO May 18, 2020 18:23
[2020-05-18] MEDS: VANCOMYCIN HCL 750 MG, VIAL MATE ADAPTER 1 EACH in D5W 250 ML IV SCH (19:08)
[2020-05-18 20:01] LABS: VENOUS BASE EXCESS 5.1 (-2.0-2.0); VENOUS O2 SATURATION 99.7 % (60.0-80.0); VENOUS PARTIAL PRESSURE CO2 39.5 mmHg (38.0-50.0); VENOUS PH 7.483 UNITS (7.330-7.430); VENOUS STANDARD HCO3 29.2 MEQ/L; VENOUS TOTAL CO2 30.2 MEQ/L (24.0-28.0)
[2020-05-18] MEDS ORDERED: HumaLOG INSULIN (NovoLOG) PER UNIT SC SCH (21:00)
[2020-05-18] MEDS ORDERED: DOCUSATE SODIUM 100MG CAPSULE PO PRN (21:00)
[2020-05-18] MEDS ORDERED: predniSONE 2.5 MG TAB PO SCH (21:00)
[2020-05-18] MEDS ORDERED: FUROSEMIDE 40 MG TAB PO SCH (21:00)
[2020-05-18] MEDS ORDERED: LEVEMIR (INSULIN DETEMIR) 1 UNITS/0.01ML SC SCH (21:00)
[2020-05-18] MEDS: ASPIRIN 81 MG ENTERIC TAB PO SCH (21:57)
[2020-05-18] MEDS: DULoxetine 30 MG CAP (CYMBALTA) PO SCH (21:57)
[2020-05-18] MEDS: APIXABAN 5 MG TAB (ELIQUIS) PO SCH (21:57)
[2020-05-18] MEDS: atenoloL 50 MG TAB PO SCH (21:58)
[2020-05-18] MEDS: ATORVASTATIN 20 MG TAB PO SCH (21:58)
[2020-05-18] MEDS: FUROSEMIDE 40 MG TAB PO SCH (21:58)
[2020-05-18] MEDS: ZINC SULFATE 220 MG CAP PO SCH (21:59)
[2020-05-18] MEDS: PANTOPRAZOLE 20 MG TAB PO SCH (21:59)
[2020-05-19] VITALS (12 sets, daily range): BP systolic 110–133; BP diastolic 51–73; O2SAT 99
[2020-05-19] MEDS ORDERED: ZOSYN 3.375GM VIAL (J2543) IV SCH (06:00)
[2020-05-19 06:39] LABS: HEMATOCRIT 29.2 % (42.0-52.0); HEMOGLOBIN 8.5 g/dl (13.5-17.5); MEAN CORPUSCULAR HEMOGLOBIN 26.6 pg (27.0-33.0); MEAN CORPUSCULAR HGB CONC 29.1 g/dl (32.0-36.5); MEAN CORPUSCULAR VOLUME 91.5 fl (80.0-96.0); PLATELET COUNT, AUTOMATED 354 10^3/uL (150-450); RED BLOOD COUNT 3.19 10^6/uL (4.30-6.10); WHITE BLOOD COUNT 14.2 10^3/uL (4.0-10.0)
[2020-05-19] MEDS: LEVOTHYROXINE 112MCG TABLET (0.112MG) PO SCH (06:49)
[2020-05-19 07:16] LABS: ALBUMIN 2.5 GM/DL (3.2-5.2); BILIRUBIN,TOTAL 0.7 MG/DL (0.2-1.0); CALCIUM LEVEL 8.4 MG/DL (8.8-10.2); CREATININE FOR GFR 2.5 MG/DL (0.70-1.30); GLOMERULAR FILTRATION RATE 27.3 (>42); POTASSIUM SERUM 3.3 MEQ/L (3.5-5.1); TOTAL PROTEIN 5.9 GM/DL (6.4-8.2)
[2020-05-19] MEDS ORDERED: HumaLOG INSULIN (NovoLOG) PER UNIT SC SCH ×2 (07:30→12:00)
--- NOTE | 2020-05-19 08:30 | REP ---
INDICATION: sepsis COMPARISON: 05/09/2020 TECHNIQUE: Axial noncontrast images from the lung bases to the pubic symphysis with coronal and sagittal reformations. This CT examination was performed using the following dose reduction techniques: Automated exposure control, adjustment of mA and/or kv according to the patient's size, and use of iterative reconstruction technique. FINDINGS: Lung bases demonstrate chronic interstitial changes and superimposed basilar atelectasis (right greater than left) Liver again demonstrates macronodular contour with perihepatic ascites consistent with known cirrhosis. At least 2 hypodense stable round lesions are identified in the left lobe measuring 3.1 cm diameter and in the right lobe/caudate lobe region measuring 2.9 cm diameter. Spleen, atrophic pancreas, bilateral adrenal glands and kidneys are stable and grossly normal. Evidence for prior cholecystectomy. The enteric system is unremarkable and without obstruction or acute inflammatory process. Normal terminal ileum and appendix identified in the right lower quadrant. Pelvis demonstrates Weiner catheter in collapsed bladder and age-appropriate prostate/seminal vesicles. No ascites. No free air. No adenopathy. No focal inflammatory stranding. Abdominal aorta without aneurysm. Musculoskeletal structures demonstrate degenerative changes and evidence for prior lumbar laminectomy. IMPRESSION: 1. Stable hepatic changes including cirrhosis and perihepatic ascites along with 2 rounded hypodense lesions unchanged compared to 05/09/2020. 2. No obvious acute process appreciated. <Electronically signed by Neptali Ghotra > 05/19/20 2037
[2020-05-19] MEDS: FERROUS GLUCONATE 324 MG TAB PO SCH (09:00)
[2020-05-19] MEDS ORDERED: LEVEMIR (INSULIN DETEMIR) 1 UNITS/0.01ML SC SCH (09:00)
[2020-05-19] MEDS: APIXABAN 5 MG TAB (ELIQUIS) PO SCH (09:00)
[2020-05-19] MEDS ORDERED: ENOXAPARIN 40MG/0.4ML SYRINGE (J1650 PER 10MG) SC SCH (09:00)
[2020-05-19] MEDS: POTASSIUM CHLORIDE 10 MEQ SR TABLET PO SCH (09:16)
[2020-05-19] MEDS: ZINC SULFATE 220 MG CAP PO SCH ×2 (09:17→22:03)
[2020-05-19] MEDS: ASCORBIC ACID 500 MG TAB PO SCH (09:17)
[2020-05-19] MEDS: FUROSEMIDE 40 MG TAB PO SCH (09:17)
[2020-05-19] MEDS: FIBER-CON 625 MG TAB PO SCH (09:17)
[2020-05-19 09:18] LABS: TROPONIN I 0.24 NG/ML (< 0.10)
[2020-05-19] MEDS: atenoloL 50 MG TAB PO SCH ×2 (09:18→21:36)
[2020-05-19] MEDS: PANTOPRAZOLE 20 MG TAB PO SCH ×2 (09:18→21:36)
[2020-05-19] MEDS: predniSONE 5 MG TAB PO SCH ×2 (09:19→21:36)
[2020-05-19 11:20] LABS: ABG BASE EXCESS 5.9 (-2.0-2.0); ABG HCO3 31.9 MEQ/L (22.0-26.0); ABG O2 SATURATION 91.6 % (95.0-99.0); ABG PARTIAL PRESSURE CO2 54.9 mmHg (35.0-45.0); ABG PARTIAL PRESSURE O2 62.6 mmHg (75.0-100.0); ABG STANDARD HCO3 29.7 MEQ/L (22.0-26.0); ABG TOTAL CO2 33.6 MEQ/L (23.0-31.0); ABG pH (ARTERIAL) 7.382 UNITS (7.350-7.450)
[2020-05-19] MEDS: PIPERACILLIN/TAZOBACTAM SOD 3.375 GM in D5W MINI-BAG PLUS 50 ML IV SCH ×3 (12:10→23:24)
[2020-05-19] MEDS: HumaLOG INSULIN (NovoLOG) PER UNIT SC SCH ×3 (12:10→21:00)
--- NOTE | 2020-05-19 12:35 | IPNPDOC ---
Text Note Date of Service The patient was seen on 05/19/20. NOTE Subjective: Patient more alert and awake in the morning. He stated his breathing improved. He was on BiPAP overnight. Patient developed hematuria. Objective: GENERAL APPEARANCE: Morbidly obese male HEENT: no scleral icterus, no JVD, EOMI CARDIOVASCULAR: Irregularly irregular LUNGS: Diminished lung sounds bilaterally ABDOMEN: soft & not tender w palpitation MUSCULOSKELETAL: no cyanosis, no swelling INTEGUMENT: no generalized palor NEUROLOGICAL: cranial nerve function from 2-12 intact intact, follows commands, speech not dysarthric Assessment/Plan Patient is 69 years old male with past medical history of coronary artery disease, hypertension, peripheral neuropathy, diabetes, diabetic foot ulcer, bilateral renal cysts, compression lumbar vertebrae, right tibial fracture 01/2018; status post ORIF with nonunion due to steroid use, removal of hardware 12/21/2019 presented to the hospital with altered mental status. According to his family patient was somnolent and lethargic since morning. In ER patient was found to have leukocytosis of 13.9, potassium 3.1, lactic acid 2.4, blood gas showed pH 7.2 with CO2 81. Patient was placed on the BiPAP blood gas improved pH 7.3 CO2 is 73.9. Chest x-ray showed possible left perihilar and left basilar atelectasis. Problems (1) Acute hypercapnic respiratory failure Resolved Most likely is Secondary to polypharmacy Chest x-ray negative for acute infiltrate Patient was on the large dose of opioids and 800 mg of gabapentin 3 times a day which potentiate the effect of opioids DC gabapentin Reduced dose of opioids BiPAP qhs ABG in the morning improved (2) FARRUKH treated with BiPAP See above (3) ARF (acute renal failure) Secondary to the large dose of opioid, dehydration and Zosyn Continue to monitor The dose of furosemide was reduced (4) Debility Due to multiple comorbidities PT/OT (5) Congestive heart failure (CHF) Not in acute exacerbation Continue home cardioprotective medications I's and O's Cardiac diet (6) Right tibial fracture Patient has external fixation 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 acnes on I.V. Vancomycin and Zosyn per [facility] from 04/25/2020 until 06/06/2020 Hematuria DC Eliquis Patient will need follow-up with urologist in the outpatient settings Anemia Combined anemia of chronic diseases and iron deficiency anemia secondary to h ematuria and GI loss Stool positive occult blood Patient will need follow-up with GI in the outpatient settings We'll check iron studies Transaminitis with increased alkaline phosphatase CT showed Stable hepatic changes including cirrhosis and perihepatic ascites along with 2 rounded hypodense lesions unchanged compared to 05/09/2020. VS,Fishbone, I+O VS, Fishbone, I+O Laboratory Tests 05/18/20 14:09 05/19/20 06:00 Vital Signs Date Time Temp Pulse Resp B/P (MAP) Pulse Ox O2 Delivery O2 Flow Rate FiO2 05/19/20 10:01 71 123/73 (90) 91 Room Air 05/19/20 09:00 45 05/19/20 08:00 19 05/19/20 07:30 97.0 I&O- Last 24 Hours up to 6 AM 05/19/20 06:00 Intake Total 775 ml Balance 775 ml MAIKEL NESS DO May 19, 2020 12:35
[2020-05-19 13:15] LABS: PERCENT SATURATION 10.7 % (19.7-50.0)
[2020-05-19] MEDS: VANCOMYCIN HCL 750 MG, VIAL MATE ADAPTER 1 EACH in D5W 250 ML IV SCH (16:00)
[2020-05-19] MEDS ORDERED: VANCOMYCIN HCL 750 MG, VIAL MATE ADAPTER 1 EACH in D5W 250 ML IV SCH (17:00)
[2020-05-19] MEDS: DULoxetine 30 MG CAP (CYMBALTA) PO SCH (21:35)
[2020-05-19] MEDS: ATORVASTATIN 20 MG TAB PO SCH (21:36)
[2020-05-19] MEDS: ASPIRIN 81 MG ENTERIC TAB PO SCH (21:37)
[2020-05-19] MEDS: LEVEMIR (INSULIN DETEMIR) 1 UNITS/0.01ML SC SCH (21:38)
[2020-05-20] VITALS: BP 130/62
[2020-05-20] MEDS ORDERED: NS 500 ML IV ONE (02:00)
[2020-05-20 04:00] VITALS: BP 141/61
[2020-05-20 05:10] LABS: BASO # 0.1 10^3/uL (0.0-0.2); BASO % 0.4 % (0.0-1.0); EOS # 0.5 10^3/uL (0.0-0.5); EOS % 3.6 % (0.0-3.0); HEMATOCRIT 26.8 % (42.0-52.0); HEMOGLOBIN 7.7 g/dl (13.5-17.5); LYMPH # 0.4 10^3/uL (1.5-5.0); LYMPH % 3.2 % (24.0-44.0); MEAN CORPUSCULAR HEMOGLOBIN 26.1 pg (27.0-33.0); MEAN CORPUSCULAR HGB CONC 28.7 g/dl (32.0-36.5); MEAN CORPUSCULAR VOLUME 90.8 fl (80.0-96.0); MONO # 1.1 10^3/uL (0.0-0.8); MONO % 8.3 % (0.0-5.0); NEUTROPHILS # 10.4 10^3/uL (1.5-8.5); NEUTROPHILS % 82.1 % (36.0-66.0); PLATELET COUNT, AUTOMATED 311 10^3/uL (150-450); RED BLOOD COUNT 2.95 10^6/uL (4.30-6.10); WHITE BLOOD COUNT 12.7 10^3/uL (4.0-10.0)
[2020-05-20] MEDS: SODIUM CHLORIDE 0.9% INJ 10 ML SYR IV SCH ×2 (05:29→17:52)
[2020-05-20] MEDS: PIPERACILLIN/TAZOBACTAM SOD 3.375 GM in D5W MINI-BAG PLUS 50 ML IV SCH ×3 (05:29→17:53)
[2020-05-20] MEDS: LEVOTHYROXINE 112MCG TABLET (0.112MG) PO SCH (05:29)
[2020-05-20 05:37] LABS: CALCIUM LEVEL 7.9 MG/DL (8.8-10.2); CREATININE FOR GFR 3.29 MG/DL (0.70-1.30); GLOMERULAR FILTRATION RATE 19.9 (>42); POTASSIUM SERUM 3.3 MEQ/L (3.5-5.1)
[2020-05-20] MEDS ORDERED: NS 1,000 ML IV SCH (07:45)
--- NOTE | 2020-05-20 07:56 | ECGEPIP ---
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
--- NOTE | 2020-05-20 07:58 | ECGEPIP ---
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
[2020-05-20 08:00] VITALS: BP 150/70
[2020-05-20] MEDS: FERROUS GLUCONATE 324 MG TAB PO SCH (08:26)
[2020-05-20] MEDS: FIBER-CON 625 MG TAB PO SCH (08:26)
[2020-05-20] MEDS: ASCORBIC ACID 500 MG TAB PO SCH (08:26)
[2020-05-20] MEDS: atenoloL 50 MG TAB PO SCH ×2 (08:27→20:55)
[2020-05-20] MEDS: predniSONE 5 MG TAB PO SCH ×2 (08:30→20:55)
[2020-05-20] MEDS: ZINC SULFATE 220 MG CAP PO SCH ×2 (08:30→20:55)
[2020-05-20] MEDS: POTASSIUM CHLORIDE 10 MEQ SR TABLET PO SCH (08:30)
[2020-05-20] MEDS: HumaLOG INSULIN (NovoLOG) PER UNIT SC SCH ×4 (08:31→20:54)
[2020-05-20] MEDS: LEVEMIR (INSULIN DETEMIR) 1 UNITS/0.01ML SC SCH ×2 (08:31→20:53)
[2020-05-20 09:54] LABS: ABG BASE EXCESS 6.2 (-2.0-2.0); ABG HCO3 31.9 MEQ/L (22.0-26.0); ABG O2 SATURATION 89.2 % (95.0-99.0); ABG PARTIAL PRESSURE CO2 53.3 mmHg (35.0-45.0); ABG PARTIAL PRESSURE O2 57.7 mmHg (75.0-100.0); ABG STANDARD HCO3 29.9 MEQ/L (22.0-26.0); ABG TOTAL CO2 33.5 MEQ/L (23.0-31.0); ABG pH (ARTERIAL) 7.395 UNITS (7.350-7.450)
[2020-05-20 12:00] VITALS: BP 129/71
--- NOTE | 2020-05-20 12:37 | IPNPDOC ---
Text Note Date of Service The patient was seen on 05/20/20. NOTE Subjective: No any evidence overnight. Patient denies fever, chills, nausea, tachycardia. Patient continues to have hematuria Objective: GENERAL APPEARANCE: Morbidly obese male HEENT: no scleral icterus, no JVD, EOMI CARDIOVASCULAR: Irregularly irregular LUNGS: Diminished lung sounds bilaterally ABDOMEN: soft & not tender w palpitation MUSCULOSKELETAL: no cyanosis, no swelling INTEGUMENT: no generalized pallor NEUROLOGICAL: cranial nerve function from 2-12 intact intact, follows commands, speech not dysarthric Assessment/Plan Patient is 69 years old male with past medical history of coronary artery disease, hypertension, peripheral neuropathy, diabetes, diabetic foot ulcer, bilateral renal cysts, compression lumbar vertebrae, right tibial fracture 01/2018; status post ORIF with nonunion due to steroid use, removal of hardware 12/21/2019 presented to the hospital with altered mental status. According to his family patient was somnolent and lethargic since morning. In ER patient was found to have leukocytosis of 13.9, potassium 3.1, lactic acid 2.4, blood gas s howed pH 7.2 with CO2 81. Patient was placed on the BiPAP blood gas improved pH 7.3 CO2 is 73.9. Chest x-ray showed possible left perihilar and left basilar atelectasis. Problems (1) Acute hypercapnic respiratory failure Resolved Most likely is Secondary to polypharmacy Chest x-ray negative for acute infiltrate Patient was on the large dose of opioids and 800 mg of gabapentin 3 times a day which potentiate the effect of opioids DC gabapentin Reduced dose of opioids BiPAP qhs ABG in the morning improved (2) FARRUKH treated with BiPAP See above (3) ARF (acute renal failure) Worsening today Secondary to the large dose of opioid, dehydration and Zosyn Continue to monitor DC furosemide IV fluid challenge Appreciate/agree with evaporator operator consult (4) Debility Due to multiple comorbidities PT/OT (5) Congestive heart failure (CHF). 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 acnes on I.V. Vancomycin and Zosyn per [facility] from 04/25/2020 until 06/06/2020 Hematuria DC Eliquis Patient will need follow-up with urologist in the outpatient settings Anemia Combined anemia of chronic diseases and iron deficiency anemia secondary to hematuria and GI loss Stool positive occult blood Patient will need follow-up with GI in the outpatient settings Continue iron supplementation Transaminitis with increased alkaline phosphatase CT showed Stable hepatic changes including cirrhosis and perihepatic ascites along with 2 rounded hypodense lesions unchanged compared to 05/09/2020. Metabolic encephalopathy Resolved Secondary to polypharmacy due to opioids and gabapentin. Patient received Narcan with positive effect in ER Morbid obesity BMI 47.9 Complicated care Hypokalemia Replaced VS,Fishbone, I+O VS, Fishbone, I+O Laboratory Tests 05/20/20 04:55 Vital Signs Date Time Temp Pulse Resp B/P (MAP) Pulse Ox O2 Delivery O2 Flow Rate FiO2 05/20/20 08:27 69 150/70 05/20/20 08:00 97.0 19 95 Nasal Cannula 1.0 05/20/20 04:16 23 I&O- Last 24 Hours up to 6 AM 05/20/20 06:00 Intake Total 2125 ml Output Total 855 ml Balance 1270 ml MAIKEL NESS DO May 20, 2020 12:37
[2020-05-20] MEDS ORDERED: MICAFUNGIN SODIUM 100 MG in D5W MINI-BAG PLUS 100 ML IV SCH (15:00)
[2020-05-20 16:45] VITALS: BP 134/74
[2020-05-20] MEDS: ACETAMINOPHEN TAB 650MG DOSE (2X325MG) PO PRN (17:51)
[2020-05-20 20:00] VITALS: BP 129/60
[2020-05-20 20:07] LABS: HEMATOCRIT 26.2 % (42.0-52.0); HEMOGLOBIN 7.5 g/dl (13.5-17.5)
[2020-05-20] MEDS: ASPIRIN 81 MG ENTERIC TAB PO SCH ×2 (20:54→21:00)
[2020-05-20] MEDS: DULoxetine 30 MG CAP (CYMBALTA) PO SCH (20:55)
[2020-05-20] MEDS: ATORVASTATIN 20 MG TAB PO SCH (20:55)
[2020-05-20] MEDS: CEFTAROLINE FOSAMIL 300 MG in D5W 50 ML IV SCH (23:37)
[2020-05-21] VITALS (11 sets, daily range): BP systolic 121–162; BP diastolic 56–88
[2020-05-21] MEDS: LEVOTHYROXINE 112MCG TABLET (0.112MG) PO SCH (05:54)
[2020-05-21] MEDS: SODIUM CHLORIDE 0.9% INJ 10 ML SYR IV SCH ×2 (05:58→17:18)
[2020-05-21 06:41] LABS: BASO # 0.1 10^3/uL (0.0-0.2); BASO % 0.6 % (0.0-1.0); EOS # 0.5 10^3/uL (0.0-0.5); EOS % 4.1 % (0.0-3.0); HEMOGLOBIN 8.9 g/dl (13.5-17.5); LYMPH # 0.5 10^3/uL (1.5-5.0); MEAN CORPUSCULAR HEMOGLOBIN 27.2 pg (27.0-33.0); MEAN CORPUSCULAR HGB CONC 29.7 g/dl (32.0-36.5); MEAN CORPUSCULAR VOLUME 91.7 fl (80.0-96.0); MONO # 1.2 10^3/uL (0.0-0.8); MONO % 9.3 % (0.0-5.0); NEUTROPHILS # 10.3 10^3/uL (1.5-8.5); NEUTROPHILS % 79.5 % (36.0-66.0); PLATELET COUNT, AUTOMATED 328 10^3/uL (150-450); RED BLOOD COUNT 3.27 10^6/uL (4.30-6.10); WHITE BLOOD COUNT 12.9 10^3/uL (4.0-10.0)
[2020-05-21 07:00] LABS: CREATININE FOR GFR 4.09 MG/DL (0.70-1.30); GLOMERULAR FILTRATION RATE 15.5 (>42); MAGNESIUM LEVEL 2.1 MG/DL (1.8-2.4); POTASSIUM SERUM 3.5 MEQ/L (3.5-5.1)
[2020-05-21] MEDS ORDERED: FUROSEMIDE 40MG/4ML VIAL (J1940) IV ONE (07:30)
[2020-05-21] MEDS: predniSONE 5 MG TAB PO SCH ×2 (08:16→20:17)
[2020-05-21] MEDS: ZINC SULFATE 220 MG CAP PO SCH ×2 (08:16→20:18)
[2020-05-21] MEDS: FIBER-CON 625 MG TAB PO SCH (08:16)
[2020-05-21] MEDS: POTASSIUM CHLORIDE 10 MEQ SR TABLET PO SCH (08:16)
[2020-05-21] MEDS: FERROUS GLUCONATE 324 MG TAB PO SCH (08:16)
[2020-05-21] MEDS: atenoloL 50 MG TAB PO SCH ×2 (08:21→20:18)
[2020-05-21] MEDS: LEVEMIR (INSULIN DETEMIR) 1 UNITS/0.01ML SC SCH ×2 (08:22→20:19)
[2020-05-21] MEDS: HumaLOG INSULIN (NovoLOG) PER UNIT SC SCH ×4 (08:22→20:24)
[2020-05-21] MEDS ORDERED: VANCOMYCIN HCL 1,000 MG, VIAL MATE ADAPTER 1 EACH in D5W 250 ML IV SCH (10:00)
--- NOTE | 2020-05-21 11:10 | CR ---
NEPHROLOGY CONSULTATION REQUESTING PHYSICIAN: Dr. Shukri Rao CONSULTING PHYSICIAN: Dr. Leal REASON FOR CONSULTATION: Management of acute renal failure. CHIEF COMPLAINT: The patient was admitted on May 18, 2020 with shortness of breath. HISTORY OF PRESENT ILLNESS: Note: History was obtained from the Medical Team and from the patient's chart. The patient was wearing a BIPAP and he was unable to provide me with any reliable history. Rosendo Szymanski is a 69-year-old male with a past medical history of hypertension, diabetes mellitus type 2, history of open reduction internal fixation of right tibial fracture with non union and chronic infection. Multiple other comorbidities as mentioned below. He has a baseline creatinine of around 1.5 as per previous records. He presented to the hospital with progressive shortness of breath. He was somnolent and lethargic when he was brought by the family members. He had leukocytosis, lactic acidosis and hypercapnic respiratory failure in the Emergency Room. He was placed on the BIPAP. He is already on Vancomycin and Zosyn as an outpatient. The patient's creatinine on arrival was 2.27 which bumped up to 2.5 yesterday and has worsened to 3.2 today morning. Nephrology Service was called to further help in the management of this patient. I saw and evaluated the patient at the bedside. He was wearing BIPAP at that time, in moderate respiratory distress. He was getting IV fluid hydration when I saw him. PAST MEDICAL HISTORY: The patient's past medical history is significant for: 1. Chronic kidney disease stage 3, baseline creatinine of 1.5. 2. Right tibial fracture since January 2018. He has an external fixator on the right leg. Cultures positive for Staph. 3. Coronary artery disease. 4. Hypertension. 5. Diabetes mellitus with peripheral neuropathy. 6. Bilateral renal cysts. 7. Compression a number of vertebral fractures. 8. He has not walked for 2 years. He is chronically bedridden. 9. History of temporal arteritis and takes Prednisone and Tocilizumab every 2 weeks. 10. Gastroesophageal reflux disease. PAST SURGICAL HISTORY: The patient's past surgical history is significant for: 1. Status post open reduction, internal fixation of the left ankle in 1976. 2. Right tibial fracture with non union in January 2018. 3. Carpal tunnel release. 4. Shoulder surgery. 5. Dorsal column stimulator. 6. Laparotomy in the past. 7. Cholecystectomy. 8. Tonsillectomy. 9. Knee arthroscopy. 10. Laminectomy. 11. Five back surgeries. ALLERGIES: No known drug allergies. FAMILY HISTORY: No significant family history of end-stage renal disease requiring hemodialysis. SOCIAL HISTORY: There is no history of smoking, illicit drug abuse or alcohol abuse. REVIEW OF SYSTEMS: Constitutional: The patient reports fatigue. He is chronically bedridden. Eyes: He denies any blurry vision, double vision. ENT: He denies any dysphagia, odynophagia. Cardiovascular: He denies any chest pain or palpitations. Respiratory: He respiratory shortness of breath and he is wearing BIPAP. GI: He denies any nausea or vomiting. Genitourinary: He has an indwelling Weiner catheter. Musculoskeletal: He has chronic non healing right tibial fracture with external fixation. Skin: He has foot ulcers. Psych: He denies depression. SUBSTATION SUPERINTENDENT: No strokes or seizures. He does report weakness because he is chronically bedridden. All other review of systems is negative. PHYSICAL EXAMINATION: GENERAL APPEARANCE: The patient is awake, wearing BIPAP, laying in bed. VITAL SIGNS: Temperature is 97.9 degrees Fahrenheit, blood pressure is 134/74, pulse is 66, respiratory rate of 18, saturating 95% on nasal cannula at one liter. Intake and Output Urine output recorded at 630 mL yesterday, 400 mL so far today since overnight. Weight on the bed scale is 140 kg. HEAD AND NECK: He is wearing the BIPAP. Mucous membranes are dry. Neck is supple. I could not appreciate jugular venous distention because of body habitus. CARDIOVASCULAR: S1, S2, regular rate. EXTREMITIES: 2+ edema of the bilateral lower extremities all the way up to the thighs. RESPIRATORY: Decreased breath sounds bilaterally at the bases. ABDOMEN: Soft, obese. Abdominal wall edema was noted. Bowel sounds are positive. GENITOURINARY: He has an indwelling Weiner catheter. The urine is slightly cloudy. MUSCULOSKELETAL: He has a large external fixator in the right leg. SUBSTATION SUPERINTENDENT: No focal deficits. Power is 5/5 in bilateral upper extremities. There is weakness in the bilateral lower extremities. LYMPH NODES: No significant cervical or inguinal lymphadenopathy. LABORATORY DATA: CBC showed a WBC of 12.7, hemoglobin is 7.7, platelets are 311. Arterial blood gases done today morning showed a pH of 7.39, pco2 of 53, pO2 of 57, bicarbonate is 32, O2 sat is 89%. Beats per minute showed sodium 136, potassium 3.3, chloride is 96, bicarbonate 32, BUN 46, creatinine is 3.2, it was 2.5 yesterday. Calcium 7.9, magnesium is 2. Iron level is 34, TIBC 319, transferrin saturation is 10.7. Pro BNP on May 18 was 703. Vancomycin level today morning is 23.1. Microbiology: Urine culture is growing yeast-like organism. Urinalysis on admission 2 days ago showed it was turbid with 1+ protein, 2+ blood, 3+ leukocyte esterase, too numerous to count WBCs and large yeast was seen. IMAGING DATA: A CAT scan of the abdomen and pelvis was done yesterday which showed known cirrhosis with perihepatic ascites. No obvious acute process was noted. CURRENT INPATIENT MEDICATIONS: The patient's medications were all reviewed by myself. He was given a normal saline bolus and he was IV fluid hydration which I have stopped now since the patient has significant edema. The patient is getting IV Vancomycin and Zosyn. He is also getting vitamin C 1,000 mg p.o. daily, Aspirin 81 mg daily, Atenolol 50 mg p.o. twice a day, Atorvastatin 20 mg q. h.s., Tums 500 mg p.o. daily, Duloxetine 60 mg q. h.s., iron tablets 325 mg p.o. daily, insulin Levemir 70 units subcutaneously twice daily, insulin Lispro sliding scale, Levothyroxine 112 mcg p.o. daily, Oxycodone p.r.n. His Protonix has been stopped. He is on Potassium Chloride 40 mEq p.o. daily, Prednisone 5 mg p.o. twice daily. ASSESSMENT AND PLAN: 1. Acute oliguric renal failure - multiple possible etiologies at this time since urinalysis done on arrival was very cloudy. I cannot differentiate whether there is any active glomerular or renal interstitial process going on because there were too numerous to count WBCs and a lot of yeast in the urine. However, given recent medical changes, and the use of fpc Vancomycin and Zosyn, there is a possibility they might be affecting the renal function. Please consider Infectious Disease consultation for possibly switching the antibiotics. Given large amount of yeast, I have started the patient on Micafungin. The decision to continue Micafungin will be up to Infectious Disease. The patient does not look dehydrated at this time. He actually looks volume overloaded. He has significant edema and anasarca. IV fluids have been stopped. No urgent need of hemodialysis at this time. 2. Hypokalemia - The patient was already given potassium chloride today morning. 3. Iron deficiency anemia I am reluctant to give this patient IV iron because of chronic active infection. Hemoglobin is below 8. I have ordered one unit of PRBC transfusion. 4. Chronic diastolic congestive heart failure - The patient has anasarca. I have stopped the IV fluid and if the renal function shows improvement, I will start the patient on diuretics. 5. 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 Decision to change the antibiotics is as per Infectious Disease. 6. Hypercapnic respiratory failure - The patient is currently on BIPAP. Thank you for involving me in the care of this patient. I shall be happy to follow the patient along with you tomorrow morning. TJD
[2020-05-21] MEDS: CEFTAROLINE FOSAMIL 300 MG in D5W 50 ML IV SCH ×2 (11:37→23:25)
--- NOTE | 2020-05-21 12:38 | IPNPDOC ---
Text Note Date of Service The patient was seen on 05/21/20. NOTE Subjective: No any evidence overnight. Hematuria resolved Objective: GENERAL APPEARANCE: Morbidly obese male HEENT: no scleral icterus, no JVD, EOMI CARDIOVASCULAR: Irregularly irregular LUNGS: Diminished lung sounds bilaterally ABDOMEN: soft & not tender w palpitation MUSCULOSKELETAL: no cyanosis, no swelling INTEGUMENT: no generalized pallor NEUROLOGICAL: cranial nerve function from 2-12 intact intact, follows commands, speech not dysarthric Assessment/Plan Patient is 69 years old male with past medical history of coronary artery disease, hypertension, peripheral neuropathy, diabetes, diabetic foot ulcer, bilateral renal cysts, compression lumbar vertebrae, right tibial fracture 01/2018; status post ORIF with nonunion due to steroid use, removal of hardware 12/21/2019 presented to the hospital with altered mental status. According to his family patient was somnolent and lethargic since morning. In ER patient was found to have leukocytosis of 13.9, potassium 3.1, lactic acid 2.4, blood gas showed pH 7.2 with CO2 81. Patient was placed on the BiPAP blood gas improved pH 7.3 CO2 is 73.9. Chest x-ray showed possible left perihilar and left basilar atelectasis. Problems (1) Acute hypercapnic respiratory failure Resolved Most likely is Secondary to polypharmacy Chest x-ray negative for acute infiltrate Patient was on the large dose of opioids and 800 mg of gabapentin 3 times a day which potentiate the effect of opioids DC gabapentin Reduced dose of opioids BiPAP qhs (2) FARRUKH treated with BiPAP See above (3) ARF (acute renal failure)/Acute oliguric renal failure Continues to decline Secondary to the large dose of opioid, dehydration and Zosyn Vancomycin IV and Zosyn IV was discontinued. Dr. Kelley changed antibiotics to ceftaroline Nephrology team follows him (4) Debility Due to multiple comorbidities PT/OT (5) Congestive heart failure (CHF). Diastolic Patient developed anasarca. 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 acnes on I.V. Vancomycin and Zosyn per [facility] from 04/25/2020 until 06/06/2020 Hematuria DC Eliquis Patient will need follow-up with urologist in the outpatient settings Anemia Combined anemia of chronic diseases and iron deficiency anemia secondary to hematuria and GI loss Stool positive occult blood Patient will need follow-up with GI in the outpatient settings Continue iron supplementation Patient received 1 unit of blood on 05/20/20. Hemoglobin stable Transaminitis with increased alkaline phosphatase CT showed Stable hepatic changes including cirrhosis and perihepatic ascites along with 2 rounded hypodense lesions unchanged compared to 05/09/2020. Metabolic encephalopathy Resolved Secondary to polypharmacy due to opioids and gabapentin. Patient received Narcan with positive effect in ER Morbid obesity BMI 47.9 Complicated care Hypokalemia Replaced VS,Fishbone, I+O VS, Fishbone, I+O Laboratory Tests 05/20/20 19:58 05/21/20 06:24 Vital Signs Date Time Temp Pulse Resp B/P (MAP) Pulse Ox O2 Delivery O2 Flow Rate FiO2 05/21/20 08:21 90 162/78 05/21/20 08:00 98.5 17 92 Nasal Cannula 05/21/20 05:52 1.0 05/20/20 04:16 23 I&O- Last 24 Hours up to 6 AM 05/21/20 06:00 Intake Total 2299 ml Output Total 175 ml Balance 2124 ml MAIKEL NESS DO May 21, 2020 12:37
[2020-05-21] MEDS: FUROSEMIDE 100MG/10ML VIAL (J1940) IV SCH (17:15)
[2020-05-21] MEDS: DULoxetine 30 MG CAP (CYMBALTA) PO SCH (20:18)
[2020-05-21] MEDS: ATORVASTATIN 20 MG TAB PO SCH (20:18)
[2020-05-21 21:01] LABS: ALBUMIN 2.2 GM/DL (3.2-5.2); CALCIUM LEVEL 7.9 MG/DL (8.8-10.2); CREATININE FOR GFR 4.43 MG/DL (0.70-1.30); GLOMERULAR FILTRATION RATE 14.1 (>42); POTASSIUM SERUM 3.9 MEQ/L (3.5-5.1)
[2020-05-22] VITALS (8 sets, daily range): BP systolic 125–167; BP diastolic 58–85
[2020-05-22] MEDS: ACETAMINOPHEN TAB 650MG DOSE (2X325MG) PO PRN ×2 (05:24→12:51)
[2020-05-22] MEDS: LEVOTHYROXINE 112MCG TABLET (0.112MG) PO SCH (05:24)
[2020-05-22] MEDS: SODIUM CHLORIDE 0.9% INJ 10 ML SYR IV SCH ×2 (05:25→18:07)
[2020-05-22 06:15] LABS: BASO # 0.1 10^3/uL (0.0-0.2); BASO % 0.5 % (0.0-1.0); EOS # 0.4 10^3/uL (0.0-0.5); EOS % 2.8 % (0.0-3.0); HEMATOCRIT 28.9 % (42.0-52.0); HEMOGLOBIN 8.5 g/dl (13.5-17.5); LYMPH # 0.5 10^3/uL (1.5-5.0); LYMPH % 3.8 % (24.0-44.0); MEAN CORPUSCULAR HEMOGLOBIN 26.6 pg (27.0-33.0); MEAN CORPUSCULAR HGB CONC 29.4 g/dl (32.0-36.5); MEAN CORPUSCULAR VOLUME 90.6 fl (80.0-96.0); MONO % 7.8 % (0.0-5.0); NEUTROPHILS # 10.8 10^3/uL (1.5-8.5); NEUTROPHILS % 83.1 % (36.0-66.0); PLATELET COUNT, AUTOMATED 323 10^3/uL (150-450); RED BLOOD COUNT 3.19 10^6/uL (4.30-6.10)
[2020-05-22 06:27] LABS: CALCIUM LEVEL 8.2 MG/DL (8.8-10.2); CREATININE FOR GFR 4.22 MG/DL (0.70-1.30); GLOMERULAR FILTRATION RATE 14.9 (>42); POTASSIUM SERUM 3.7 MEQ/L (3.5-5.1)
[2020-05-22] MEDS: FERROUS GLUCONATE 324 MG TAB PO SCH (09:00)
[2020-05-22] MEDS: ZINC SULFATE 220 MG CAP PO SCH ×2 (10:00→20:23)
[2020-05-22] MEDS: predniSONE 5 MG TAB PO SCH (10:00)
[2020-05-22] MEDS: FIBER-CON 625 MG TAB PO SCH (10:00)
[2020-05-22] MEDS: POTASSIUM CHLORIDE 10 MEQ SR TABLET PO SCH (10:00)
[2020-05-22] MEDS: HumaLOG INSULIN (NovoLOG) PER UNIT SC SCH ×4 (10:02→20:22)
[2020-05-22] MEDS: atenoloL 50 MG TAB PO SCH ×2 (10:02→20:23)
[2020-05-22] MEDS: FUROSEMIDE 100MG/10ML VIAL (J1940) IV SCH ×2 (10:03→18:06)
[2020-05-22] MEDS: LEVEMIR (INSULIN DETEMIR) 1 UNITS/0.01ML SC SCH ×2 (10:03→20:23)
--- NOTE | 2020-05-22 10:24 | IPN ---
PROGRESS NOTE DATE: 05/21/2020 SUBJECTIVE: Patient was seen and examined at the bedside today morning. He was seen by infectious disease. His I.V. Vancomycin and Zosyn were stopped. He was started on Ceftaroline. His Weiner catheter was also removed yesterday. Patient is off of BiPAP today and denies any shortness of breath. He was given a dose of Lasix 40 mg I.V. times one dose today morning. Renal function is worse today as compared with yesterday. OBJECTIVE: VITAL SIGNS: Temperature 96.8 degrees Fahrenheit, blood pressure 121/59, pulse 72, respiratory rate 19, saturation 98% on nasal cannula at 1 liter. INTAKE AND OUTPUT: Urine output recorded as 475 mL. Some of his voids were incontinent. Weight in the bed scale is 141.6 kg. PHYSICAL EXAMINATION: GENERAL: Patient is awake, alert, oriented x3, lying in bed, morbidly obese. HEAD/NECK: Extraocular muscles intact. Pupils equally round and reactive to light. Mucous membranes are moist. Neck is supple. Mildly elevated JVD. CARDIOVASCULAR: S1, S2, regular rate. 2+ edema of the bilateral lower extremities all the way up the thighs. RESPIRATORY: Mild decreased breath sounds at the bases, otherwise no active rales or rhonchi. ABDOMEN: Soft, obese, positive bowel sounds. Abdominal wall edema was noted. GENITOURINARY: His Weiner catheter has been removed. MUSCULOSKELETAL: He has an external fixator in the right tibia and 2+ edema of the bilateral lower extremities was noted. DISABILITY EXAMINER: No focal deficit. Power is 5/5 in bilateral upper extremities. LABORATORY REVIEW: CBC showed WBC 12.9, hemoglobin 8.9, platelets 328,000. BMP showed sodium 138, potassium 3.5, chloride 98, bicarb 33, BUN 47, creatinine 4; it was 3.2 yesterday. MICROBIOLOGY: Repeat urine culture is pending. Repeat urinalysis was done today, which showed urine is turbid with 1+ protein, 2+ blood, too numerous to count wbc and 77 rbc, a small amount of yeast was noted. CURRENT INPATIENT MEDICATIONS: Patient was started on Ceftaroline. Vancomycin and Zosyn have been stopped. He was given a dose of Lasix 40 mg I.V. early in the morning and another dose of Lasix 60 mg will be given in the evening. No other significant change in the medications today. ASSESSMENT AND PLAN: 1. Acute renal failure: Most likely it is secondary to the use of Vancomycin and Zosyn. There is a high likelihood patient might have developed acute interstitial nephritis, however given chronic infection and patient being on antibiotic, I am reluctant to start high dose steroids in this patient. Patient has anasarca and I am going to start the patient on diuretics as mentioned below. 2. Anasarca: Patient has been started on Lasix 40 mg I.V. twice a day. 3. Hypokalemia: Patient was already given potassium 40 mEq and he is getting it daily. Potassium level is improving. 4. 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 He was seen by infectious disease and he is currently getting Ceftaroline 300 mg every 12 hours. 5. Anemia: Patient was given one unit of PRBC transfusion. Hemoglobin level is better today.
--- NOTE | 2020-05-22 11:39 | IPNPDOC ---
Text Note Date of Service The patient was seen on 05/22/20. NOTE Subjective: No any evidence overnight. Patient denies fever, chills, nausea, diarrhea Objective: GENERAL APPEARANCE: Morbidly obese male HEENT: no scleral icterus, no JVD, EOMI CARDIOVASCULAR: Irregularly irregular LUNGS: Diminished lung sounds bilaterally ABDOMEN: soft & not tender w palpitation MUSCULOSKELETAL: no cyanosis, no swelling INTEGUMENT: no generalized pallor NEUROLOGICAL: cranial nerve function from 2-12 intact intact, follows commands, speech not dysarthric Assessment/Plan Patient is 69 years old male with past medical history of coronary artery diseas e, hypertension, peripheral neuropathy, diabetes, diabetic foot ulcer, bilateral renal cysts, compression lumbar vertebrae, right tibial fracture 01/2018; status post ORIF with nonunion due to steroid use, removal of hardware 12/21/2019 presented to the hospital with altered mental status. According to his family patient was somnolent and lethargic since morning. In ER patient was found to have leukocytosis of 13.9, potassium 3.1, lactic acid 2.4, blood gas showed pH 7.2 with CO2 81. Patient was placed on the BiPAP blood gas improved pH 7.3 CO2 is 73.9. Chest x-ray showed possible left perihilar and left basilar atelectasis. Problems (1) Acute hypercapnic respiratory failure Resolved Most likely is Secondary to polypharmacy Chest x-ray negative for acute infiltrate Patient was on the large dose of opioids and 800 mg of gabapentin 3 times a day which potentiate the effect of opioids DC gabapentin Reduced dose of opioids BiPAP qhs (2) FARRUKH treated with BiPAP See above (3) ARF (acute renal failure)/Acute oliguric renal failure Slightly improved today. Most likely patient developed acute interstitial nephritis Secondary to the large dose of opioid, dehydration, vancomycin and Zosyn Vancomycin IV and Zosyn IV was discontinued. Dr. Kelley changed antibiotics to ceftaroline Nephrology team follows him (4) Debility Due to multiple comorbidities PT/OT (5) Congestive heart failure (CHF). Diastolic Patient developed anasarca. 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 acnes on I.V. Vancomycin and Zosyn per [facility] from 04/25/2020 until 06/06/2020 Hematuria DC Eliquis Patient will need follow-up with urologist in the outpatient settings Anemia Combined anemia of chronic diseases and iron deficiency anemia secondary to hematuria and GI loss Stool positive occult blood Patient will need follow-up with GI in the outpatient settings Continue iron supplementation Patient received 1 unit of blood on 05/20/20. Hemoglobin stable Transaminitis with increased alkaline phosphatase CT showed Stable hepatic changes including cirrhosis and perihepatic ascites along with 2 rounded hypodense lesions unchanged compared to 05/09/2020. Metabolic encephalopathy Resolved Secondary to polypharmacy due to opioids and gabapentin. Patient received Narcan with positive effect in ER Morbid obesity BMI 47.9 Complicated care Hypokalemia Replaced VS,Fishbone, I+O VS, Fishbone, I+O Laboratory Tests 05/21/20 19:52 05/22/20 05:32 Vital Signs Date Time Temp Pulse Resp B/P (MAP) Pulse Ox O2 Delivery O2 Flow Rate FiO2 05/22/20 08:07 97.8 74 22 167/70 (102) 98 Nasal Cannula 2.0 05/20/20 04:16 23 I&O- Last 24 Hours up to 6 AM 05/22/20 06:00 Intake Total 790 ml Output Total 625 ml Balance 165 ml MAIKEL NESS DO May 22, 2020 11:39
[2020-05-22] MEDS: CEFTAROLINE FOSAMIL 300 MG in D5W 50 ML IV SCH ×2 (12:24→22:24)
[2020-05-22] MEDS: FLUCONAZOLE 100 MG TAB PO SCH (14:11)
[2020-05-22] MEDS: predniSONE 20 MG TAB PO SCH (14:12)
[2020-05-22] MEDS: ATORVASTATIN 20 MG TAB PO SCH (20:23)
[2020-05-22] MEDS: DULoxetine 30 MG CAP (CYMBALTA) PO SCH (20:23)
--- NOTE | 2020-05-22 21:47 | IPN ---
PROGRESS NOTE DATE: 05/22/2020 SUBJECTIVE: Patient was seen and examined at the bedside today morning. Patient is afebrile, hemodialysis stable. He was started on Lasix injections, he is responding well to the Lasix. Renal function is stable since yesterday. Creatinine was 4.4 yesterday, it has improved to 4.2 today. He denies any active complaints at this time. OBJECTIVE: Vital signs: Temperature is 97.9 degrees Fahrenheit, blood pressure 133/85, pulse is 66, respiratory rate of 18, saturating 96% on nasal cannula at two liters. Intake and output: Urine output recorded is 625 mL yesterday and when I saw him he had made 300 mL of urine. Weight in the bed scale is 143 kg. PHYSICAL EXAMINATION: General: Patient is awake, alert, oriented times three, morbidly obese, laying in bed, no apparent distress. Head and neck exam: Extraocular muscles intact. Pupils equally round and reactive to light. Mucous membranes are moist. Neck is supple. Mildly elevated jugular venous distension (JVD). Cardiovascular: S1, S2, regular rate. 2+ edema of the bilateral lower extremities. Respiratory: Chest is clear to auscultation bilaterally. Bilateral equal air entry. No rales or rhonchi. Abdomen: Soft, obese, positive bowel sounds, abdominal wall edema was noted. Musculoskeletal: Right leg external fixator is noted. Left leg has edema. Central nervous system (GUEST SERVICES OFFICER): No focal deficits. Power is 5/5 in bilateral upper extremities. LABORATORY REVIEW: CBC showed WBC of 13, hemoglobin 8.5, platelets are 323. BMP showed sodium 139, potassium 3.7, chloride 99, bicarbonate 31, BUN 50, creatinine is 4.2, calcium is 8.2, magnesium is 2. Microbiology: Repeat urine culture is also growing yeast-like organism. CURRENT INPATIENT MEDICATIONS: Patient's medications were all reviewed by myself. Patient was started on fluconazole 100 mg by mouth daily for a total of 1 week. He continues to be on IV ceftaroline. He is on IV Lasix 60 mg twice a day. I have started the patient on prednisone 40 mg by mouth daily for a total of 5 days. No other significant change in the medications. ASSESSMENT AND PLAN: 1. Acute renal failure superimposed on chronic kidney disease. There is a possibility that it might be vancomycin and Zosyn associated acute interstitial nephritis. Patient is already on 10 mg of prednisone. I am going to increase the prednisone dose to 40 mg by mouth daily for a total of 5 days and then prednisone dose will be decreased to 10 mg daily. 2. Anasarca. Continue current dose of Lasix 60 mg IV twice a day. 3. Hypokalemia. It is controlled with current dose of oral potassium. 4. Chronic infection of the tibia. Patient is currently on ceftaroline as per infectious disease recommendations. 5. Recurrent yeast infection of the urine. Patient has been started on fluconazole.
[2020-05-23] VITALS (7 sets, daily range): BP systolic 131–177; BP diastolic 58–73
[2020-05-23] MEDS: ONDANSETRON 4 MG TAB PO PRN ×2 (02:29→20:09)
[2020-05-23] MEDS: ACETAMINOPHEN TAB 650MG DOSE (2X325MG) PO PRN ×4 (04:18→22:08)
[2020-05-23 04:36] LABS: BASO % 0.2 % (0.0-1.0); HEMOGLOBIN 8.5 g/dl (13.5-17.5); LYMPH # 0.3 10^3/uL (1.5-5.0); LYMPH % 3.1 % (24.0-44.0); MEAN CORPUSCULAR HEMOGLOBIN 26.3 pg (27.0-33.0); MEAN CORPUSCULAR HGB CONC 29.3 g/dl (32.0-36.5); MEAN CORPUSCULAR VOLUME 89.8 fl (80.0-96.0); MONO # 0.5 10^3/uL (0.0-0.8); MONO % 4.6 % (0.0-5.0); NEUTROPHILS # 9.7 10^3/uL (1.5-8.5); NEUTROPHILS % 89.7 % (36.0-66.0); PLATELET COUNT, AUTOMATED 287 10^3/uL (150-450); RED BLOOD COUNT 3.23 10^6/uL (4.30-6.10); WHITE BLOOD COUNT 10.8 10^3/uL (4.0-10.0)
[2020-05-23 05:06] LABS: CALCIUM LEVEL 8.9 MG/DL (8.8-10.2); CREATININE FOR GFR 4.17 MG/DL (0.70-1.30); GLOMERULAR FILTRATION RATE 15.1 (>42); MAGNESIUM LEVEL 2.1 MG/DL (1.8-2.4); POTASSIUM SERUM 4.4 MEQ/L (3.5-5.1)
[2020-05-23] MEDS: SODIUM CHLORIDE 0.9% INJ 10 ML SYR IV SCH ×2 (05:23→17:13)
[2020-05-23] MEDS: LEVOTHYROXINE 112MCG TABLET (0.112MG) PO SCH (05:23)
[2020-05-23] MEDS: HumaLOG INSULIN (NovoLOG) PER UNIT SC SCH ×5 (09:29→20:04)
[2020-05-23] MEDS: FLUCONAZOLE 100 MG TAB PO SCH (09:30)
[2020-05-23] MEDS: FIBER-CON 625 MG TAB PO SCH (09:30)
[2020-05-23] MEDS: FUROSEMIDE 100MG/10ML VIAL (J1940) IV SCH ×2 (09:30→17:12)
[2020-05-23] MEDS: LEVEMIR (INSULIN DETEMIR) 1 UNITS/0.01ML SC SCH ×2 (09:30→20:03)
[2020-05-23] MEDS: POTASSIUM CHLORIDE 10 MEQ SR TABLET PO SCH (09:31)
[2020-05-23] MEDS: atenoloL 50 MG TAB PO SCH ×2 (09:31→20:05)
[2020-05-23] MEDS: ZINC SULFATE 220 MG CAP PO SCH ×2 (09:31→20:05)
[2020-05-23] MEDS: predniSONE 20 MG TAB PO SCH (09:31)
[2020-05-23] MEDS: FERROUS GLUCONATE 324 MG TAB PO SCH (09:31)
[2020-05-23] MEDS: CEFTAROLINE FOSAMIL 300 MG in D5W 50 ML IV SCH ×2 (11:56→22:08)
[2020-05-23] MEDS: SODIUM CHLORIDE 0.9% INJ 10 ML SYR IV PRN (13:13)
--- NOTE | 2020-05-23 14:21 | IPNPDOC ---
Text Note Date of Service The patient was seen on 05/23/20. NOTE Subjective: Patient stated that his breathing slowly improved. Objective: GENERAL APPEARANCE: Morbidly obese male HEENT: no scleral icterus, no JVD, EOMI CARDIOVASCULAR: Irregularly irregular LUNGS: Diminished lung sounds bilaterally ABDOMEN: soft & not tender w palpitation MUSCULOSKELETAL: no cyanosis, no swelling INTEGUMENT: no generalized pallor NEUROLOGICAL: cranial nerve function from 2-12 intact intact, follows commands, speech not dysarthric Assessment/Plan Patient is 69 years old male with past medical history of coronary artery disease, hypertension, peripheral neuropathy, diabetes, diabetic foot ulcer, bilateral renal cysts, compression lumbar vertebrae, right tibial fracture 01/2018; status post ORIF with nonunion due to steroid use, removal of hardware 12/21/2019 presented to the hospital with altered mental status. According to his family patient was somnolent and lethargic since morning. In ER patient was found to have leukocytosis of 13.9, potassium 3.1, lactic acid 2.4, blood gas showed pH 7.2 with CO2 81. Patient was placed on the BiPAP blood gas improved pH 7.3 CO2 is 73.9. Chest x-ray showed possible left perihilar and left basilar atelectasis. Problems (1) Acute hypercapnic respiratory failure Resolved Most likely is Secondary to polypharmacy Chest x-ray negative for acute infiltrate Patient was on the large dose of opioids and 800 mg of gabapentin 3 times a day which potentiate the effect of opioids DC gabapentin Reduced dose of opioids BiPAP qhs (2) FARRUKH treated with BiPAP See above (3) ARF (acute renal failure)/Acute oliguric renal failure Slightly improved today. Most likely patient developed acute interstitial nephri tis Secondary to the large dose of opioid, dehydration, vancomycin and Zosyn Vancomycin IV and Zosyn IV were discontinued. Dr. Kelley changed antibiotics to ceftaroline Nephrology team follows him (4) Debility Due to multiple comorbidities PT/OT (5) Congestive heart failure (CHF). Diastolic Patient developed anasarca. 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 acnes on I.V. Vancomycin and Zosyn per [facility] from 04/25/2020 until 06/06/2020 Hematuria DC Eliquis Patient will need follow-up with urologist in the outpatient settings Anemia Combined anemia of chronic diseases and iron deficiency anemia secondary to hematuria and GI loss Stool positive occult blood Patient will need follow-up with GI in the outpatient settings Continue iron supplementation Patient received 1 unit of blood on 05/20/20. Hemoglobin stable Transaminitis with increased alkaline phosphatase CT showed Stable hepatic changes including cirrhosis and perihepatic ascites along with 2 rounded hypodense lesions unchanged compared to 05/09/2020. Metabolic encephalopathy Resolved Secondary to polypharmacy due to opioids and gabapentin. Patient received Narcan with positive effect in ER Morbid obesity BMI 47.9 Complicated care Hypokalemia Replaced VS,Fishbone, I+O VS, Fishbone, I+O Laboratory Tests 05/23/20 04:30 Vital Signs Date Time Temp Pulse Resp B/P (MAP) Pulse Ox O2 Delivery O2 Flow Rate FiO2 05/23/20 13:17 135/63 (87) 05/23/20 12:00 96.7 63 18 99 Nasal Cannula 2.0 05/20/20 04:16 23 I&O- Last 24 Hours up to 6 AM 05/23/20 06:00 Intake Total 750 ml Output Total 1750 ml Balance -1000 ml MAIKEL NESS DO May 23, 2020 14:21
[2020-05-23 15:43] LABS: C REACTIVE PROTEIN QUANTITATIV 3.97 MG/DL (0.00-0.30)
[2020-05-23] MEDS: ATORVASTATIN 20 MG TAB PO SCH (20:05)
[2020-05-23] MEDS: DULoxetine 30 MG CAP (CYMBALTA) PO SCH (20:05)
[2020-05-23 20:28] LABS: APPEARANCE, URINE TURBID (CLEAR); BACTERIA, URINE AUTO 1+ (NEGATIVE); BILIRUBIN, URINE AUTO NEGATIVE (NEGATIVE); BLOOD, URINE BLOOD 1+ (NEGATIVE); COLOR, URINE YELLOW (YELLOW); GLUCOSE, URINE (UA) AUTO 2+ mg/dL (NEGATIVE); KETONE, URINE AUTO NEGATIVE (NEGATIVE); LEUKOCYTE ESTERASE, URINE AUTO 3+ (NEGATIVE); NITRITE, URINE AUTO NEGATIVE (NEGATIVE); PROTEIN, URINE AUTO NEGATIVE (NEGATIVE); RBC, URINE AUTO 32 /HPF (0-3); SPECIFIC GRAVITY URINE AUTO 1.009 (1.002-1.035); SQUAMOUS EPITHELIAL CELL UR AU 0 /HPF (0-6); UROBILINOGEN, URINE AUTO 0.2 mg/dL (0.0-2.0); WBC, URINE AUTO TNTC /HPF (0-3)
[2020-05-23] MEDS: PERCOCET 5MG/325MG TAB PO PRN (23:21)
[2020-05-24] VITALS (7 sets, daily range): BP systolic 94–202; BP diastolic 57–92
[2020-05-24] MEDS: ACETAMINOPHEN TAB 650MG DOSE (2X325MG) PO PRN ×4 (02:40→22:28)
[2020-05-24 05:23] LABS: BASO # 0.1 10^3/uL (0.0-0.2); BASO % 0.4 % (0.0-1.0); EOS % 0.3 % (0.0-3.0); HEMOGLOBIN 8.8 g/dl (13.5-17.5); LYMPH # 0.6 10^3/uL (1.5-5.0); LYMPH % 4.9 % (24.0-44.0); MEAN CORPUSCULAR HEMOGLOBIN 26.4 pg (27.0-33.0); MEAN CORPUSCULAR HGB CONC 29.3 g/dl (32.0-36.5); MEAN CORPUSCULAR VOLUME 90.1 fl (80.0-96.0); MONO # 1.1 10^3/uL (0.0-0.8); MONO % 8.9 % (0.0-5.0); NEUTROPHILS # 10.5 10^3/uL (1.5-8.5); NEUTROPHILS % 84.1 % (36.0-66.0); PLATELET COUNT, AUTOMATED 315 10^3/uL (150-450); RED BLOOD COUNT 3.33 10^6/uL (4.30-6.10); WHITE BLOOD COUNT 12.5 10^3/uL (4.0-10.0)
[2020-05-24] MEDS: SODIUM CHLORIDE 0.9% INJ 10 ML SYR IV SCH ×2 (05:26→17:46)
[2020-05-24] MEDS: LEVOTHYROXINE 112MCG TABLET (0.112MG) PO SCH (05:26)
[2020-05-24] MEDS: PERCOCET 5MG/325MG TAB PO PRN ×3 (05:27→17:57)
[2020-05-24 05:48] LABS: CALCIUM LEVEL 8.4 MG/DL (8.8-10.2); CREATININE FOR GFR 3.76 MG/DL (0.70-1.30); GLOMERULAR FILTRATION RATE 17.1 (>42); POTASSIUM SERUM 4.5 MEQ/L (3.5-5.1)
[2020-05-24] MEDS: LEVEMIR (INSULIN DETEMIR) 1 UNITS/0.01ML SC SCH ×2 (09:27→22:28)
[2020-05-24] MEDS: FUROSEMIDE 100MG/10ML VIAL (J1940) IV SCH ×2 (09:27→17:46)
[2020-05-24] MEDS: FIBER-CON 625 MG TAB PO SCH (09:28)
[2020-05-24] MEDS: POTASSIUM CHLORIDE 10 MEQ SR TABLET PO SCH (09:28)
[2020-05-24] MEDS: FLUCONAZOLE 100 MG TAB PO SCH (09:28)
[2020-05-24] MEDS: HumaLOG INSULIN (NovoLOG) PER UNIT SC SCH ×4 (09:28→21:00)
[2020-05-24] MEDS: ZINC SULFATE 220 MG CAP PO SCH ×2 (09:29→22:17)
[2020-05-24] MEDS: FERROUS GLUCONATE 324 MG TAB PO SCH (09:29)
[2020-05-24] MEDS: atenoloL 50 MG TAB PO SCH ×2 (09:29→21:00)
[2020-05-24] MEDS: predniSONE 20 MG TAB PO SCH (09:30)
[2020-05-24] MEDS: CEFTAROLINE FOSAMIL 300 MG in D5W 50 ML IV SCH ×2 (11:36→22:20)
[2020-05-24] MEDS: SODIUM CHLORIDE 0.9% INJ 10 ML SYR IV PRN ×2 (12:45→23:44)
--- NOTE | 2020-05-24 13:41 | IPNPDOC ---
Text Note Date of Service The patient was seen on 05/24/20. NOTE Subjective: No any acute events overnight. Patient denied fever, chills, nausea, vomiting, chest pain or palpitations Objective: GENERAL APPEARANCE: Morbidly obese male HEENT: no scleral icterus, no JVD, EOMI CARDIOVASCULAR: Irregularly irregular LUNGS: Diminished lung sounds bilaterally ABDOMEN: soft & not tender w palpitation MUSCULOSKELETAL: +2 Nonpitting edema, no cyanosis INTEGUMENT: no generalized pallor NEUROLOGICAL: cranial nerve function from 2-12 intact intact, follows commands, speech not dysarthric Assessment/Plan Patient is 69 years old male with past medical history of coronary artery disease, hypertension, peripheral neuropathy, diabetes, diabetic foot ulcer, bilateral renal cysts, compression lumbar vertebrae, right tibial fracture 01/2018; status post ORIF with nonunion due to steroid use, removal of hardware 12/21/2019 presented to the hospital with altered mental status. According to his family patient was somnolent and lethargic since morning. In ER patient was found to have leukocytosis of 13.9, potassium 3.1, lactic acid 2.4, blood gas s howed pH 7.2 with CO2 81. Patient was placed on the BiPAP blood gas improved pH 7.3 CO2 is 73.9. Chest x-ray showed possible left perihilar and left basilar atelectasis. Problems (1) Acute hypercapnic respiratory failure Resolved Most likely is Secondary to polypharmacy Chest x-ray negative for acute infiltrate Patient was on the large dose of opioids and 800 mg of gabapentin 3 times a day which potentiate the effect of opioids DC gabapentin Reduced dose of opioids BiPAP qhs (2) FARRUKH treated with BiPAP See above (3) ARF (acute renal failure)/Acute oliguric renal failure Slightly improved today. Most likely patient developed acute interstitial nephritis Secondary to the large dose of opioid, dehydration, vancomycin and Zosyn Vancomycin IV and Zosyn IV were discontinued. Dr. Kelley changed antibiotics to ceftaroline Nephrology team follows him (4) Debility Due to multiple comorbidities PT/OT (5) Congestive heart failure (CHF). Diastolic Patient developed anasarca. 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 acnes on I.V. Vancomycin and Zosyn per [facility] from 04/25/2020 until 06/06/2020 Hematuria DC Eliquis Patient will need follow-up with urologist in the outpatient settings Anemia Combined anemia of chronic diseases and iron deficiency anemia secondary to hematuria and GI loss Stool positive occult blood Patient will need follow-up with GI in the outpatient settings Continue iron supplementation Patient received 1 unit of blood on 05/20/20. Hemoglobin stable Transaminitis with increased alkaline phosphatase CT showed Stable hepatic changes including cirrhosis and perihepatic ascites along with 2 rounded hypodense lesions unchanged compared to 05/09/2020. Metabolic encephalopathy Resolved Secondary to polypharmacy due to opioids and gabapentin. Patient received Narcan with positive effect in ER Morbid obesity BMI 47.9 Complicated care Hypokalemia Replaced VS,Fishbone, I+O VS, Fishbone, I+O Laboratory Tests 05/24/20 05:00 Vital Signs Date Time Temp Pulse Resp B/P (MAP) Pulse Ox O2 Delivery O2 Flow Rate FiO2 05/24/20 12:13 18 Nasal Cannula 0.5 05/24/20 12:00 96.7 63 133/63 (86) 100 05/20/20 04:16 23 I&O- Last 24 Hours up to 6 AM 05/24/20 06:00 Intake Total 50 ml Output Total 2455 ml Balance -2405 ml MAIKEL NESS DO May 24, 2020 13:41
[2020-05-24] MEDS: ONDANSETRON 4 MG TAB PO PRN (17:57)
--- NOTE | 2020-05-24 20:40 | IPNPDOC ---
Text Note Date of Service The patient was seen on 05/24/20. NOTE I responded to a rapid assessment called on Mr. Szymanski this evening. When I ar rived the patient was responding, to commands but seemed confused. Nursing reported that they found him unresponsive to verbal or painful stimuli before call ing the code. Someone suggested that he looked blue, but no one would repeat or affirm this when I asked for more details. I was told that he had a procedure done on his R leg in [place] about a month ago. He has a fixator in place. He has apparently been on the ARU recently. It was reported that he is in for [facility] and that he required Narcan in the ER when he was brought in. It sounds as if he hasn't needed any more since admission. His vitals were reported as SBP 130s when I arrived shortly followed by 200/92, HR 101, O2 sat 100% on 15L via NRB. Blood glucose was 238 within an hour of the RAT call. Visually he was abdominal breathing and his lungs were clear, but with moderate movement of air secondary to the weight of his chest wall. He was pink and dry. He responded to my touch and when I called his name, but only by turning to look at me. My clinical impression was that this may be related to his FARRUKH. I requested that the 15L be reduced to 10L immediately and to get his BiPap ( at home) on him. I also requested an ABG, renal profile and CBC. He seemed to respond more within a few minutes of the flow rate being turned down (he responded with his name). I will reassess him in about an hour. PE is still high on my differential as he has a fixated leg and is currently not on anticoagulation. If he is not responding to the pressure support we may need to do a CT angiogram of his chest despite his poor renal function. Time at the bedside 22 minutes. VS,Aidenbone, I+O VS, Fishbone, I+O Laboratory Tests 05/24/20 05:00 Vital Signs Date Time Temp Pulse Resp B/P (MAP) Pulse Ox O2 Delivery O2 Flow Rate FiO2 05/24/20 18:27 20 05/24/20 14:00 0.5 05/24/20 13:50 99.6 68 130/72 (91) 98 Nasal Cannula 05/20/20 04:16 23 I&O- Last 24 Hours up to 6 AM 05/24/20 06:00 Intake Total 50 ml Output Total 2455 ml Balance -2405 ml Joey East MD May 24, 2020 20:40
[2020-05-24 20:41] LABS: ABG BASE EXCESS -6.9 (-2.0-2.0); ABG O2 SATURATION 94.5 % (95.0-99.0); ABG PARTIAL PRESSURE CO2 45.8 mmHg (35.0-45.0); ABG PARTIAL PRESSURE O2 83.5 mmHg (75.0-100.0); ABG STANDARD HCO3 18.8 MEQ/L (22.0-26.0); ABG TOTAL CO2 21.4 MEQ/L (23.0-31.0); ABG pH (ARTERIAL) 7.258 UNITS (7.350-7.450)
[2020-05-24 20:58] LABS: HEMATOCRIT 37.8 % (42.0-52.0); MEAN CORPUSCULAR HEMOGLOBIN 26.7 pg (27.0-33.0); MEAN CORPUSCULAR HGB CONC 28.6 g/dl (32.0-36.5); MEAN CORPUSCULAR VOLUME 93.6 fl (80.0-96.0); RED BLOOD COUNT 4.04 10^6/uL (4.30-6.10); WHITE BLOOD COUNT 19.9 10^3/uL (4.0-10.0)
[2020-05-24 21:06] LABS: ALBUMIN 3.1 GM/DL (3.2-5.2); CALCIUM LEVEL 9.5 MG/DL (8.8-10.2); CREATININE FOR GFR 3.88 MG/DL (0.70-1.30); GLOMERULAR FILTRATION RATE 16.4 (>42); PHOSPHORUS LEVEL 6.4 MG/DL (2.5-4.9); POTASSIUM SERUM 5.5 MEQ/L (3.5-5.1)
[2020-05-24 21:07] LABS: HEMOGLOBIN 10.8 g/dl (13.5-17.5); PLATELET COUNT, AUTOMATED 582 10^3/uL (150-450)
[2020-05-24 21:27] LABS: VENOUS BASE EXCESS -7.8 (-2.0-2.0); VENOUS HCO3 22.8 MEQ/L (23.0-27.0); VENOUS O2 SATURATION 98.9 % (60.0-80.0); VENOUS PARTIAL PRESSURE CO2 73.8 mmHg (38.0-50.0); VENOUS PH 7.107 UNITS (7.330-7.430); VENOUS STANDARD HCO3 18.2 MEQ/L
[2020-05-24] MEDS: DULoxetine 30 MG CAP (CYMBALTA) PO SCH (22:17)
[2020-05-24] MEDS: ATORVASTATIN 20 MG TAB PO SCH (22:17)
--- NOTE | 2020-05-24 23:15 | IPN ---
PROGRESS NOTE DATE: 05/23/2020. SUBJECTIVE: Patient seen and examined this morning at the bedside. He denies any shortness of breath at rest. He has been sedate. Reports pain is adequately controlled. PHYSICAL EXAMINATION: VITAL SIGNS: Temperature 97.3, pulse 66, respiratory rate 18, blood pressure 146/64, saturating 98% on 1 liter nasal cannula. INTAKE/OUTPUT: Intake yesterday was 800. Urine output was 1550. Weight in the bed scale today is 141.3 kg, which is decreased from yesterday. GENERAL: Patient is seen lying lateral, recumbent in bed, an obese male, in no apparent distress. HEENT: Extraocular muscles are intact. Pupils are round and reactive to light. Mucous membranes are moist. His neck circumference is significant and I could not assess his jugular veins secondary to the adipose tissue. CARDIAC: S1, S2 regular rate. There is 2+ edema in the right lower extremity and 1+ edema in the left. LUNGS: Clear to auscultation. Breath sounds are diminished, but there is no crackle or rale. ABDOMEN: Obese. There is some dependent edema at the sacrum. EXTREMITIES: Right leg external fixator, left leg has 1+ edema. LABORATORY DATA: White count 10.8, hemoglobin 8.5, platelets 287,000. Sodium 136, potassium 4.4, bicarbonate 32, BUN 53, creatinine 4.1. INPATIENT MEDICATIONS: Reviewed by myself and no change as compared to yesterday. He continues on a higher dose of steroid; Prednisone 40 mg daily. PROBLEMS: 1. Nonoliguric acute kidney injury: Renal imaging was negative for any obstruction. Urinalysis shows significant urinary wbc's; too numerous to count. He is on chronic prednisone, but it was increased to 40 mg daily for probable interstitial nephritis related to antibiotic. He is not on any known nephrotoxics. There is no dialysis indication at present. His renal function has been fairly unchanged the past three days with creatinine in the low 4's. His electrolytes are acceptable. He is responding to the diuretic. 2. Diastolic congestive heart failure: Echocardiogram in 2019 showed near normal left ventricular systolic function with grade 2 diastolic dysfunction. He has peripheral edema and is requiring supplemental oxygen. He tells me he was not on oxygen at all. Presently on Lasix 60 mg I.V. b.i.d. and I would continue the same for now. 3. Hypertension: Blood pressures are acceptable on current dose of Atenolol. 4. Right tibial fracture/chronic osteomyelitis of fibula with external fixator: Antimicrobials as per infectious disease. 5. Anemia multifactorial: His fecal occult blood was positive on this admission. He is also iron deficient. He is receiving oral iron supplementation. He is not suitable for I.V. iron in view of infectious issues.
[2020-05-24 23:17] LABS: ABG BASE EXCESS 3.3 (-2.0-2.0); ABG O2 SATURATION 93.3 % (95.0-99.0); ABG PARTIAL PRESSURE CO2 43.1 mmHg (35.0-45.0); ABG STANDARD HCO3 27.3 MEQ/L (22.0-26.0); ABG TOTAL CO2 29.3 MEQ/L (23.0-31.0)
--- NOTE | 2020-05-24 23:39 | IPN ---
PROGRESS NOTE DATE: 05/24/2020. SUBJECTIVE: Patient seen and examined this morning at the bedside. He denies any complaints. Specifically, he denies shortness of breath at rest. He reports he is tolerating diet without any issues. He is not having any nausea, vomiting or diarrhea. Reports his pain is acceptably controlled. He had excellent urine output yesterday of 2.6 liters and renal function shows modest improvement. PHYSICAL EXAMINATION: VITAL SIGNS: Temperature 97.9, pulse 64, respiratory rate 18, blood pressure 138/70, saturating 98% on 2 liters nasal cannula. INTAKE/OUTPUT: Urine output yesterday was 2.6 liters and total intake yesterday was not recorded. Weight in the bed scale today is not recorded. GENERAL: Patient is seen lying in bed, head of the bed elevated, morbidly obese male. HEENT: Extraocular muscles are intact. Tongue is moist. Neck is very large and there is significant adipose tissue and neck veins cannot be assessed. He is wearing nasal cannula. HEART: Heart sounds are regular. There is decreased leg edema in the left lower extremity. LUNGS: Show symmetric air entry diminished at the base. There is no crackle or rale. ABDOMEN: Obese and nontender. EXTREMITIES: Right leg with external fixator and edema. Left leg has only trace edema. NEURO: He answered simple questions appropriately, but does not converse much. LABORATORY DATA: Sodium 139, potassium 4.5, bicarbonate 32, BUN 56, creatinine 3.7. Magnesium 2.0. White count 12.5, hemoglobin 8.8, platelets 315,000. INPATIENT MEDICATIONS: Patient continues on I.V. Ceftaroline. There is no change in the remainder of his medications over the past 24 hours. PROBLEMS: 1. Nonoliguric acute kidney injury: Presumable acute interstitial nephritis related to antibiotic. Given that he has marked urinary wbc's (too numerous to count), he is receiving prednisone 40 mg p.o. daily for a total of five days and then it will be decreased to his usual chronic 10 mg daily dose. His renal function showed some improvement, which is encouraging and his urine output yesterday was also significantly improved up to 2.6 liters. 2. Diastolic congestive heart failure: Volume status is improving. He is on Lasix 60 mg I.V. b.i.d. and I will continue the same for now. His oxygen requirements appear to be decreasing now and his leg edema is certainly appreciably improved. 3. Anemia multifactorial: He had stool occult blood positivity. He has iron deficiency. He is on oral iron supplement. I do not see that he is on GI prophylaxis and it should be started given his stool positive occult blood and also given his chronic steroid use. 4. Hypertension: Blood pressures are acceptable with current regimen and no change is being made.
[2020-05-25] MEDS: PERCOCET 5MG/325MG TAB PO PRN ×3 (03:21→23:28)
[2020-05-25] MEDS: ONDANSETRON 4 MG TAB PO PRN (04:09)
[2020-05-25 06:00] VITALS: BP 139/62
[2020-05-25] MEDS: SODIUM CHLORIDE 0.9% INJ 10 ML SYR IV SCH ×2 (06:06→18:01)
[2020-05-25] MEDS: LEVOTHYROXINE 112MCG TABLET (0.112MG) PO SCH (06:06)
[2020-05-25] MEDS: HumaLOG INSULIN (NovoLOG) PER UNIT SC SCH ×4 (07:30→20:14)
[2020-05-25 08:05] LABS: CALCIUM LEVEL 8.5 MG/DL (8.8-10.2); CREATININE FOR GFR 3.39 MG/DL (0.70-1.30); GLOMERULAR FILTRATION RATE 19.2 (>42); MAGNESIUM LEVEL 2.1 MG/DL (1.8-2.4); POTASSIUM SERUM 4.1 MEQ/L (3.5-5.1)
[2020-05-25 08:07] LABS: BASO % 0.3 % (0.0-1.0); EOS # 0.1 10^3/uL (0.0-0.5); EOS % 0.8 % (0.0-3.0); HEMATOCRIT 30.2 % (42.0-52.0); HEMOGLOBIN 8.9 g/dl (13.5-17.5); LYMPH # 0.9 10^3/uL (1.5-5.0); LYMPH % 6.3 % (24.0-44.0); MEAN CORPUSCULAR HEMOGLOBIN 26.3 pg (27.0-33.0); MEAN CORPUSCULAR HGB CONC 29.5 g/dl (32.0-36.5); MEAN CORPUSCULAR VOLUME 89.3 fl (80.0-96.0); MONO # 1.4 10^3/uL (0.0-0.8); MONO % 9.9 % (0.0-5.0); NEUTROPHILS # 11.8 10^3/uL (1.5-8.5); NEUTROPHILS % 81.3 % (36.0-66.0); RED BLOOD COUNT 3.38 10^6/uL (4.30-6.10); WHITE BLOOD COUNT 14.5 10^3/uL (4.0-10.0)
[2020-05-25 08:17] LABS: PLATELET COUNT, AUTOMATED 335 10^3/uL (150-450)
[2020-05-25] MEDS: LEVEMIR (INSULIN DETEMIR) 1 UNITS/0.01ML SC SCH ×2 (09:00→20:21)
[2020-05-25] MEDS: FLUCONAZOLE 100 MG TAB PO SCH (10:05)
[2020-05-25] MEDS: FIBER-CON 625 MG TAB PO SCH (10:05)
[2020-05-25] MEDS: FERROUS GLUCONATE 324 MG TAB PO SCH (10:05)
[2020-05-25] MEDS: POTASSIUM CHLORIDE 10 MEQ SR TABLET PO SCH (10:05)
[2020-05-25] MEDS: predniSONE 20 MG TAB PO SCH (10:05)
[2020-05-25] MEDS: PANTOPRAZOLE 40MG TAB (PROTONIX) PO SCH (10:05)
[2020-05-25] MEDS: ZINC SULFATE 220 MG CAP PO SCH ×2 (10:05→20:13)
[2020-05-25] MEDS: atenoloL 50 MG TAB PO SCH ×2 (10:07→20:20)
[2020-05-25] MEDS: CEFTAROLINE FOSAMIL 300 MG in D5W 50 ML IV SCH ×2 (11:56→22:13)
[2020-05-25 12:10] LABS: CLOSTRIDIUM DIFFICILE PCR NEGATIVE (NEGATIVE)
[2020-05-25] MEDS: LACTOBACILLUS ACIDOPHILUS CAP (BACID) PO SCH (12:58)
[2020-05-25] MEDS: TAMSULOSIN 0.4 MG CAP PO SCH (12:58)
--- NOTE | 2020-05-25 13:14 | IPNPDOC ---
Text Note Date of Service The patient was seen on 05/25/20. NOTE Subjective: Patient developed 6 bowel movements with liquid stool. Overnight patient developed one episode of hypoxia resolved after BiPAP placement. Also patient developed urinary retention in the morning Objective: GENERAL APPEARANCE: Morbidly obese male HEENT: no scleral icterus, no JVD, EOMI CARDIOVASCULAR: Irregularly irregular LUNGS: Diminished lung sounds bilaterally ABDOMEN: soft & not tender w palpitation MUSCULOSKELETAL: +2 Nonpitting edema, no cyanosis INTEGUMENT: no generalized pallor NEUROLOGICAL: cranial nerve function from 2-12 intact intact, follows commands, speech not dysarthric Assessment/Plan Patient is 69 years old male with past medical history of coronary artery disease, hypertension, peripheral neuropathy, diabetes, diabetic foot ulcer, bi lateral renal cysts, compression lumbar vertebrae, right tibial fracture 01/2018; status post ORIF with nonunion due to steroid use, removal of hardware 12/21/2019 presented to the hospital with altered mental status. According to his family patient was somnolent and lethargic since morning. In ER patient was found to have leukocytosis of 13.9, potassium 3.1, lactic acid 2.4, blood gas showed pH 7.2 with CO2 81. Patient was placed on the BiPAP blood gas improved pH 7.3 CO2 is 73.9. Chest x-ray showed possible left perihilar and left basilar atelectasis. Problems (1) Acute hypercapnic respiratory failure Resolved Most likely is Secondary to polypharmacy Chest x-ray negative for acute infiltrate Patient was on the large dose of opioids and 800 mg of gabapentin 3 times a day which potentiate the effect of opioids DC gabapentin Reduced dose of opioids BiPAP qhs (2) FARRUKH treated with BiPAP See above (3) ARF (acute renal failure)/Acute oliguric renal failure Continues to improve. Most likely patient developed acute interstitial nephritis Secondary to the large dose of opioid, dehydration, vancomycin and Zosyn Vancomycin IV and Zosyn IV were discontinued. Dr. Kelley changed antibiotics to ceftaroline Nephrology team follows him (4) Debility Due to multiple comorbidities PT/OT (5) Congestive heart failure (CHF). Diastolic Patient developed anasarca. Continue 60mg IV Lasix twice a day Continue home cardioprotective medications I's and O's Cardiac diet Last echo was done in 2018 and showed Normal left ventricular (LV) size with probably normal or near normal LV systolic function and grade 2 diastolic dysfunction. 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 acnes on I.V. Vancomycin and Zosyn per [facility] from 04/25/2020 until 06/06/2020 Hematuria DC Eliquis Patient will need follow-up with urologist in the outpatient settings Anemia Combined anemia of chronic diseases and iron deficiency anemia secondary to h ematuria and GI loss Stool positive occult blood Patient will need follow-up with GI in the outpatient settings Continue iron supplementation Patient received 1 unit of blood on 05/20/20. Hemoglobin stable PPI Transaminitis with increased alkaline phosphatase CT showed Stable hepatic changes including cirrhosis and perihepatic ascites along with 2 rounded hypodense lesions unchanged compared to 05/09/2020. Metabolic encephalopathy Resolved Secondary to polypharmacy due to opioids and gabapentin. Patient received Narcan with positive effect in ER Morbid obesity BMI 47.9 Complicated care Hypokalemia Replaced Diarrhea C diff negative continue to monitor Urinary retention Flomax daily VS,Fishbone, I+O VS, Fishbone, I+O Laboratory Tests 05/24/20 20:05 05/24/20 23:41 05/25/20 07:24 05/25/20 07:50 Vital Signs Date Time Temp Pulse Resp B/P (MAP) Pulse Ox O2 Delivery O2 Flow Rate FiO2 05/25/20 10:07 70 142/61 05/25/20 06:00 98.8 18 98 NIPPV (BIPAP/CPAP) 05/24/20 21:00 0.5 05/20/20 04:16 23 I&O- Last 24 Hours up to 6 AM 05/25/20 06:00 Intake Total 1200 ml Output Total 1700 ml Balance -500 ml MAIKEL NESS DO May 25, 2020 13:14
[2020-05-25] MEDS: SODIUM CHLORIDE 0.9% INJ 10 ML SYR IV PRN ×2 (13:20→23:47)
[2020-05-25 14:00] VITALS: BP 157/67
[2020-05-25] MEDS: DULoxetine 30 MG CAP (CYMBALTA) PO SCH (20:13)
[2020-05-25] MEDS: ATORVASTATIN 20 MG TAB PO SCH (20:13)
[2020-05-25] MEDS: MORPHINE 2 MG/ML 1ML VIAL (J2270) IV PRN (20:29)
--- NOTE | 2020-05-25 21:23 | IPN ---
NEPHROLOGY PROGRESS NOTE DATE: 05/25/2020 SUBJECTIVE: The patient was seen and examined this morning at the bedside. There was a Rapid Response called on him yesterday evening because of confusion and lethargy. He was found to be acutely hypercapnic and was placed on BIPAP. He subsequently improved. However he then developed recurrent loose bowel movements, and he was placed on contact precautions pending a C-difficile test. He complains of generalized fatigue and weakness. Nursing staff also reports that he had urinary retention of 530 mL this morning and required straight catheterization. PHYSICAL EXAMINATION: VITAL SIGNS: Temperature 98.4, pulse 68, respiratory rate 20, blood pressure 157/67, saturating 96% on room air. INTAKE AND OUTPUT: Intake yesterday was 1200. Urine output yesterday was 1600. So far in the past 24 hours, there are greater than 10 bowel movements recorded. GENERAL APPEARANCE: The patient is seen lying in bed, appears fatigued and weak. BIPAP is in place. HEENT: The extraocular muscles are intact. Tongue is dry. NECK: Supple. Jugular veins do not look elevated. HEART: Regular. LUNGS: Symmetric air entry. He is on BIPAP. There is no tachypnea or accessory muscle use. ABDOMEN: Soft and obese. He does not grimace to palpation. The suprapubic bladder is not appreciable. EXTREMITIES: Only trace edema in the left lower extremity. There is external fixator on the right leg with generalized edema and the left leg has trace edema. NEUROLOGICAL: He follows simple commands. He is not conversant at present because of BIPAP. LABORATORY STUDIES: White count 14.5, hemoglobin 8.9, platelets 335. Sodium 141, potassium 4.1, bicarbonate 34, BUN 58, creatinine 3.3, glucose 68. Blood cultures May 25 pending x2. C-difficile PCR negative. INPATIENT MEDICATIONS: I held his Lasix. He was started yesterday on Protonix. His insulin was adjusted by the Primary Team. He was started on Lactobacillus. He has completed Prednisone 40 mg p.o. The remainder of medications are unchanged from prior. PROBLEMS: 1. Non oliguric acute kidney likely secondary to antibiotic mediated acute interstitial nephritis status post Prednisone 40 mg for 5 doses his renal function is slowly improving. His antibiotics were switched now to Ceftaroline. His PPI had also been stopped but given his chronic steroid use and FOBT positivity, I decided to start him back on PPI. The interstitial nephritis is more likely related to the antibiotics that he was previously on. Presently having recurrent diarrhea and his Lasix is held. 2. Diastolic congestive heart failure - The patient was being diuresed with IV Lasix. His volume status was nicely improving, however he now has had multiple recurrent bouts of watery diarrhea. I have held the Lasix for the same. 3. Anemia related to chronic inflammatory state and iron deficiency and GI bleed with stool positive occult blood he is receiving oral iron supplementation and he is back on PPI. 4. Hypertension - blood pressures are acceptable on current dose of Atenolol. 5. Hyperkalemia he had one elevated potassium reading overnight. As his Lasix is being held, I have also stopped his potassium supplementation. 6. Urinary retention he required straight catheterization today for 530 mL of retention. Nursing staff to continue postvoid residual bladder scan check. He may need a Weiner catheter if it reoccurs. He is on Flomax. 7. Chronic steroid dependence he is status post increased dose of oral Prednisone for interstitial nephritis and now he will resume his usual home dose of Prednisone 5 mg p.o. twice daily.
[2020-05-25 22:00] VITALS: BP 152/68
[2020-05-26] MEDS: ACETAMINOPHEN TAB 650MG DOSE (2X325MG) PO PRN (01:24)
[2020-05-26] MEDS: ONDANSETRON 4 MG TAB PO PRN (03:08)
[2020-05-26] MEDS: SODIUM CHLORIDE 0.9% INJ 10 ML SYR IV SCH ×2 (05:54→18:22)
[2020-05-26] MEDS: LEVOTHYROXINE 112MCG TABLET (0.112MG) PO SCH (05:54)
[2020-05-26 06:00] VITALS: BP 155/67
[2020-05-26] MEDS: PERCOCET 5MG/325MG TAB PO PRN ×2 (06:01→18:25)
[2020-05-26 06:15] LABS: BASO % 0.3 % (0.0-1.0); EOS % 0.3 % (0.0-3.0); HEMATOCRIT 28.9 % (42.0-52.0); HEMOGLOBIN 8.4 g/dl (13.5-17.5); LYMPH # 0.6 10^3/uL (1.5-5.0); LYMPH % 5.5 % (24.0-44.0); MEAN CORPUSCULAR HEMOGLOBIN 26.3 pg (27.0-33.0); MEAN CORPUSCULAR HGB CONC 29.1 g/dl (32.0-36.5); MEAN CORPUSCULAR VOLUME 90.3 fl (80.0-96.0); MONO # 1.2 10^3/uL (0.0-0.8); NEUTROPHILS # 8.8 10^3/uL (1.5-8.5); NEUTROPHILS % 81.6 % (36.0-66.0); PLATELET COUNT, AUTOMATED 296 10^3/uL (150-450); WHITE BLOOD COUNT 10.8 10^3/uL (4.0-10.0)
[2020-05-26 06:44] LABS: CALCIUM LEVEL 8.6 MG/DL (8.8-10.2); CREATININE FOR GFR 3.16 MG/DL (0.70-1.30); GLOMERULAR FILTRATION RATE 20.8 (>42); POTASSIUM SERUM 4.6 MEQ/L (3.5-5.1)
[2020-05-26] MEDS: CALCIUM CARBONATE 500 MG CHEW U/D PO PRN (06:46)
[2020-05-26] MEDS: HumaLOG INSULIN (NovoLOG) PER UNIT SC SCH ×4 (07:30→20:50)
--- NOTE | 2020-05-26 09:32 | ECHO ---
DATE OF PROCEDURE: 05/25/2020 Age: 69 Gender: Female Height: 170 cm Weight: 141 kg REFERRING PHYSICIAN: Shukri Rao DO. INDICATION: Heart failure, unspecified. MEASUREMENTS: 2D Measurements: Aortic root 3.7 cm Left atrium 3.6 cm Aortic annulus 2.3 cm Left ventricle diastole 5.55 cm Intraventricular septum 1.23 cm Posterior wall 1.18 cm Inferior vena cava 1.9 cm (more than 50% respiratory variation). Doppler Measurements: No aortic stenosis No aortic regurgitation Aortic valve velocity 115 cm/s LVOT velocity 85.8 cm/s LVOT VTI 18.8 cm No mitral regurgitation No mitral stenosis Mitral E velocity 151 cm/s Mitral A velocity 117 cm/s Mitral deceleration time 145 msec No tricuspid regurgitation No pulmonic regurgitation Pulmonary artery acceleration time 121 msec MITRAL ANNULAR TISSUE DOPPLER E prime septal 4.9 cm/s, E prime lateral 4.8 cm/s DESCRIPTION: Rhythm was sinus. Image quality was technically difficult. The study was performed supine. No pericardial effusion. This was a 2D, M-mode, color flow Doppler, and pulsed wave Doppler examination including mitral annular tissue Doppler. CONCLUSIONS: 1. Borderline concentric left ventricular hypertrophy. Left ventricle at the upper limits of normal in size and end-diastole for body size. Appearance of normal regional left ventricular (LV) wall motion and wall thickening. Normal left ventricular (LV) systolic function. Left ventricular ejection fraction (LVEF) of 60% by visual estimate. Grade 2 left ventricular (LV) diastolic dysfunction (pseudonormal left ventricular (LV) diastolic filling pattern). 2. Moderate aortic valve sclerosis of a 3-cuspid aortic valve. No aortic regurgitation or stenosis. 3. Moderate mitral annular calcification. No mitral regurgitation or stenosis. 4. Tiny pericardial effusion. 5. Appearance of normal right ventricle size and systolic function. 6. Probably normal pulmonary artery systolic pressure. 7. Technically difficult echocardiogram. [facility]
[2020-05-26] MEDS: PANTOPRAZOLE 40MG TAB (PROTONIX) PO SCH ×2 (10:04→20:59)
[2020-05-26] MEDS: FERROUS GLUCONATE 324 MG TAB PO SCH (10:04)
[2020-05-26] MEDS: FLUCONAZOLE 100 MG TAB PO SCH (10:04)
[2020-05-26] MEDS: FIBER-CON 625 MG TAB PO SCH (10:04)
[2020-05-26] MEDS: ZINC SULFATE 220 MG CAP PO SCH ×2 (10:04→20:59)
[2020-05-26] MEDS: LACTOBACILLUS ACIDOPHILUS CAP (BACID) PO SCH (10:04)
[2020-05-26] MEDS: atenoloL 50 MG TAB PO SCH ×2 (10:05→20:59)
[2020-05-26] MEDS: LEVEMIR (INSULIN DETEMIR) 1 UNITS/0.01ML SC SCH ×2 (10:06→21:13)
[2020-05-26] MEDS: predniSONE 5 MG TAB PO SCH ×2 (10:18→20:58)
[2020-05-26] MEDS: MORPHINE 2 MG/ML 1ML VIAL (J2270) IV PRN ×2 (10:18→21:13)
[2020-05-26] MEDS: TAMSULOSIN 0.4 MG CAP PO SCH (10:20)
[2020-05-26] MEDS: CEFTAROLINE FOSAMIL 300 MG in D5W 50 ML IV SCH ×2 (11:59→23:00)
[2020-05-26 12:00] VITALS: BP 128/61
[2020-05-26 12:48] LABS: ABG BASE EXCESS 4.1 (-2.0-2.0); ABG HCO3 28.9 MEQ/L (22.0-26.0); ABG O2 SATURATION 93.9 % (95.0-99.0); ABG PARTIAL PRESSURE CO2 44.8 mmHg (35.0-45.0); ABG PARTIAL PRESSURE O2 70.5 mmHg (75.0-100.0); ABG STANDARD HCO3 28.1 MEQ/L (22.0-26.0); ABG TOTAL CO2 30.3 MEQ/L (23.0-31.0); ABG pH (ARTERIAL) 7.428 UNITS (7.350-7.450)
[2020-05-26] MEDS: SODIUM CHLORIDE 0.9% INJ 10 ML SYR IV PRN ×2 (13:14→21:13)
--- NOTE | 2020-05-26 13:27 | REP ---
INDICATION: shortness of breath desatting. COMPARISON: Comparison chest x-ray May 18, 2020.. TECHNIQUE: Semi-erect AP portable radiograph. FINDINGS: The left-sided PICC line is seen with its tip in the expected location of the superior vena cava. Mild cardiomegaly. The lungs are exposed at a low level of inspiration unchanged from the prior study. No definite infiltrate. Pleural angles are sharp. Pulmonary vasculature is not increased. IMPRESSION: Low level of inspiration. No definite infiltrate. Left-sided PICC line. Prominent heart. <Electronically signed by Stanton Perera > 05/26/20 [id number]
[2020-05-26 14:00] VITALS: BP 136/60
[2020-05-26] MEDS ORDERED: HEPARIN SOD (PORCINE) 5000UNITS/ML 1ML VIAL/SYRINGE SQ SCH (14:00)
[2020-05-26] MEDS: APIXABAN 5 MG TAB (ELIQUIS) PO SCH (15:03)
--- NOTE | 2020-05-26 15:19 | IPNPDOC ---
Text Note Date of Service The patient was seen on 05/26/20. NOTE Subjective: Patient developed one episode of hypoxemia with desaturation to 70, placed back on the BiPAP, saturation increased to 95%. Objective: GENERAL APPEARANCE: Morbidly obese male HEENT: no scleral icterus, no JVD, EOMI CARDIOVASCULAR: S1S2 LUNGS: Diminished lung sounds bilaterally ABDOMEN: soft & not tender w palpitation MUSCULOSKELETAL: +2 Nonpitting edema, no cyanosis, there is some small amount of pus around one metal jennifer of external device INTEGUMENT: no generalized pallor NEUROLOGICAL: cranial nerve function from 2-12 intact intact, follows commands, speech not dysarthric Assessment/Plan Patient is 69 years old male with past medical history of coronary artery disease, hypertension, peripheral neuropathy, diabetes, on immunosuppressive therapy for right temporal arteritis, history of PE, diabetic foot ulcer, bilateral renal cysts, compression lumbar vertebrae, right tibial fracture 01/2018; status post ORIF with nonunion due to steroid use, removal of hardware 12/21/2019 presented to the hospital with altered mental status. According to his family patient was somnolent and lethargic since morning. In ER patient was found to have leukocytosis of 13.9, potassium 3.1, lactic acid 2.4, blood gas showed pH 7.2 with CO2 81. Patient was placed on the BiPAP blood gas improved pH 7.3 CO2 is 73.9. Chest x-ray showed possible left perihilar and left basilar atelectasis. Acute hypoxemic respiratory failure Today patient developed short episodes of hypoxemia with oxygen saturation 70s There is concern for PE, patient has a history of PE in the past and patient was taking Eliquis. Eliquis was stop on admission due to gross hematuria and slow GI bleed requiring blood transfusion. Patient continued to have hematuria, which was stopped after 3 days since admission and stool was positive for blood on 05/23/20. GI team recommended endoscopy in case of acute bleeding. Patient received 1 unit of blood on 05/26/20 D-dimer elevated to 1700. Due to poor kidney function we cannot proceed with CTA. VQ scan ordered. Because of high probability for PE I restarted Eliquis. We will watch closely any sign of bleeding. If patient developed bleeding we will proceed with IVC filter placement Acute hypercapnic respiratory failure on admission Resolved Most likely is Secondary to polypharmacy Chest x-ray negative for acute infiltrate Patient was on the large dose of opioids and 800 mg of gabapentin 3 times a day which potentiate the effect of opioids FARRUKH treated with BiPAP ARF (acute renal failure)/Acute oliguric renal failure Continues to improve. Most likely patient developed acute interstitial nephritis Secondary to the large dose of opioid, dehydration, vancomycin and Zosyn Vancomycin IV and Zosyn IV were discontinued. Dr. Kelley changed antibiotics to ceftaroline. Restarted PPI which was stopped due to declining kidney function. I talked to Dr. Chinchilla he recommended to increase the dose of PPI. He stated again that he will proceed with endoscopy if patient developed acute GI bleed Nephrology team follows him Debility Due to multiple comorbidities PT/OT Congestive heart failure (CHF). Diastolic Patient developed anasarca. Continue 60mg IV Lasix twice a day Continue home cardioprotective medications I's and O's Cardiac diet Last echo was done in 2019 and showed Normal left ventricular (LV) size with probably normal or near normal LV systolic function and grade 2 diastolic dysfunction. 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 acnes on I.V. Vancomycin and Zosyn per [facility] from 04/25/2020 until 06/06/2020 There is some pus around metal jennifer of external device. I asked Dr. Sierra for consult. Hematuria Gross hematuria resolved Patient has microhematuria I restarted Eliquis due to high probability of PE. We'll watch closely any signs of bleed Patient will need follow-up with urologist in the outpatient settings Anemia Combined anemia of chronic diseases and iron deficiency anemia secondary to hematuria and GI loss Stool positive occult blood Patient will need follow-up with GI in the outpatient settings Continue iron supplementation Patient received 1 unit of blood on 05/20/20. Hemoglobin stable PPI Transaminitis with increased alkaline phosphatase CT showed Stable hepatic changes including cirrhosis and perihepatic ascites along with 2 rounded hypodense lesions unchanged compared to 05/09/2020. Metabolic encephalopathy Resolved Secondary to polypharmacy due to opioids and gabapentin. Patient received Narcan with positive effect in ER Morbid obesity BMI 47.9 Complicated care Hypokalemia Replaced Diarrhea C diff negative continue to monitor VS,Fishbone, I+O VS, Fishbone, I+O Laboratory Tests 05/26/20 05:46 Vital Signs Date Time Temp Pulse Resp B/P (MAP) Pulse Ox O2 Delivery O2 Flow Rate FiO2 05/26/20 14:00 97.9 60 18 136/60 (85) 96 NIPPV (BIPAP/CPAP) 05/26/20 09:00 0.5 05/20/20 04:16 23 I&O- Last 24 Hours up to 6 AM 05/26/20 06:00 Intake Total 1870 ml Output Total 1625 ml Balance 245 ml MAIKEL NESS DO May 26, 2020 15:19
--- NOTE | 2020-05-26 17:15 | REP ---
INDICATION: shortness of breath, desat. COMPARISON: Comparison is made with chest x-ray from this date.. TECHNIQUE: 1.0 mCi of technetium 99m DTPA aerosol is utilized for the ventilation study and is followed by a 5.5 mCi dose of intravenous technetium 99m MAA for the perfusion study. A sequence of 8 planar images are acquired for each portion of the study. FINDINGS: There is some central bronchial deposition of inspired tracer consistent with some degree of COPD. Ventilatory uptake pattern is somewhat patchy. Perfusion distribution is more homogeneous. There is a matched ventilation perfusion deficit in the right lower lobe posteriorly. No mismatch is seen. Perfusion uptake is otherwise homogeneous. IMPRESSION: Low probability scan for pulmonary embolus. <Electronically signed by Stanton Perera > 05/26/20 [id number]
--- NOTE | 2020-05-26 17:23 | REP ---
INDICATION: drainage from pin site. COMPARISON: None. TECHNIQUE: Four views. FINDINGS: Four views of the right tib fib demonstrate complex external pin traction device which partially obscures the proximal tibia and fibula. There is also metallic pin in the distal fibula. There is diffuse osteopenia. Vascular calcification is noted. There is evidence of a healing fracture of the proximal tibial metaphysis. There is periosteal reaction associated with this. There is an old pin track in the medial cortex of the tibia at mid shaft level. No bony erosive changes appreciated at in the site. There is no soft tissue gas. There is Achilles and plantar calcaneal spurring.. . . IMPRESSION: Complex external heart the predicts pin stabilization device seen. No focal bony destructive lesion is appreciated. Healing proximal tibial fracture. Vascular calcification and diffuse osteopenia. No soft tissue gas seen.. <Electronically signed by Stanton Perera > 05/26/20 [id number]
--- NOTE | 2020-05-26 18:47 | CR ---
CONSULTATION DATE: 05/26/2020 The patient was not seen clinically. I did attempt to see him, but he was down getting a CT scan of his chest. Briefly, I spoke to the nurse who states the patient has an external fixator and there is concern of a pin tract infection. The patient has been treated at [facility] for a tibial fracture. As explained to the attending hospitalist, with any issue with this circular frame that the patient has on, he really needs to be seen at [facility] as this is a complex frame and not a standard ex-fix. He should receive local wound care and if he is going to be hospitalized for a significant amount of time, should either be transferred to [facility] so that he can have his external fixator looked at and his pin tracts. If he is going to be discharged shortly, he could follow-up with his surgeon as an outpatient. However, any prolonged inpatient stay the patient would be better under the care at [facility] so that he can have his external fixator looked after appropriately. Please contact Ortho if there are any other questions. I did review his x-rays and again, he does have a circular frame with a proximal tibia fracture.
[2020-05-26] MEDS: DULoxetine 30 MG CAP (CYMBALTA) PO SCH (20:58)
[2020-05-26] MEDS: ATORVASTATIN 20 MG TAB PO SCH (20:59)
[2020-05-26] MEDS ORDERED: APIXABAN 5 MG TAB (ELIQUIS) PO SCH (21:00)
[2020-05-26 22:00] VITALS: BP_SYST 151; BP_DIAS 163; BP_DIAS 63
[2020-05-27] MEDS: SODIUM CHLORIDE 0.9% INJ 10 ML SYR IV PRN ×3 (00:26→10:24)
[2020-05-27] MEDS: PERCOCET 5MG/325MG TAB PO PRN ×3 (02:59→15:50)
[2020-05-27] MEDS: LEVOTHYROXINE 112MCG TABLET (0.112MG) PO SCH (05:27)
[2020-05-27] MEDS: SODIUM CHLORIDE 0.9% INJ 10 ML SYR IV SCH ×2 (05:44→17:42)
[2020-05-27 06:00] VITALS: BP 148/69
[2020-05-27] MEDS: HumaLOG INSULIN (NovoLOG) PER UNIT SC SCH ×4 (07:30→21:00)
[2020-05-27] MEDS: LEVEMIR (INSULIN DETEMIR) 1 UNITS/0.01ML SC SCH ×2 (08:29→20:27)
[2020-05-27] MEDS ORDERED: LEVEMIR (INSULIN DETEMIR) 1 UNITS/0.01ML SC ONE (08:30)
[2020-05-27] MEDS: FIBER-CON 625 MG TAB PO SCH (08:50)
[2020-05-27] MEDS: TAMSULOSIN 0.4 MG CAP PO SCH (08:50)
[2020-05-27] MEDS: LACTOBACILLUS ACIDOPHILUS CAP (BACID) PO SCH (08:50)
[2020-05-27] MEDS: ZINC SULFATE 220 MG CAP PO SCH ×2 (08:50→22:02)
[2020-05-27] MEDS: FLUCONAZOLE 100 MG TAB PO SCH (08:50)
[2020-05-27] MEDS: PANTOPRAZOLE 40MG TAB (PROTONIX) PO SCH ×2 (08:50→20:25)
[2020-05-27] MEDS: FERROUS GLUCONATE 324 MG TAB PO SCH (08:51)
[2020-05-27] MEDS: APIXABAN 5 MG TAB (ELIQUIS) PO SCH ×2 (08:51→20:25)
[2020-05-27] MEDS: predniSONE 5 MG TAB PO SCH ×2 (08:51→20:25)
[2020-05-27] MEDS: atenoloL 50 MG TAB PO SCH ×2 (08:53→20:26)
[2020-05-27 09:39] LABS: HEMATOCRIT 30.4 % (42.0-52.0); HEMOGLOBIN 8.9 g/dl (13.5-17.5); MEAN CORPUSCULAR HEMOGLOBIN 27.3 pg (27.0-33.0); MEAN CORPUSCULAR HGB CONC 29.3 g/dl (32.0-36.5); MEAN CORPUSCULAR VOLUME 93.3 fl (80.0-96.0); PLATELET COUNT, AUTOMATED 300 10^3/uL (150-450); RED BLOOD COUNT 3.26 10^6/uL (4.30-6.10); WHITE BLOOD COUNT 12.1 10^3/uL (4.0-10.0)
[2020-05-27 10:14] LABS: ALBUMIN 2.5 GM/DL (3.2-5.2); BILIRUBIN,TOTAL 0.7 MG/DL (0.2-1.0); CALCIUM LEVEL 8.6 MG/DL (8.8-10.2); CREATININE FOR GFR 2.94 MG/DL (0.70-1.30); GLOMERULAR FILTRATION RATE 22.7 (>42); POTASSIUM SERUM 4.5 MEQ/L (3.5-5.1); TOTAL PROTEIN 5.8 GM/DL (6.4-8.2)
[2020-05-27] MEDS: MORPHINE 2 MG/ML 1ML VIAL (J2270) IV PRN ×2 (10:23→20:24)
[2020-05-27] MEDS: CEFTAROLINE FOSAMIL 300 MG in D5W 50 ML IV SCH ×2 (11:22→22:03)
--- NOTE | 2020-05-27 11:37 | IPNPDOC ---
Text Note Date of Service The patient was seen on 05/27/20. NOTE Subjective: No any acute events overnight. Objective: GENERAL APPEARANCE: Morbidly obese male HEENT: no scleral icterus, no JVD, EOMI CARDIOVASCULAR: S1S2 LUNGS: Diminished lung sounds bilaterally ABDOMEN: soft & not tender w palpitation MUSCULOSKELETAL: +2 Nonpitting edema, no cyanosis, there is some small amount of pus around one metal jennifer of external device INTEGUMENT: no generalized pallor NEUROLOGICAL: cranial nerve function from 2-12 intact intact, follows commands, speech not dysarthric Assessment/Plan Patient is 69 years old male with past medical history of coronary artery disease, hypertension, peripheral neuropathy, diabetes, on immunosuppressive therapy for right temporal arteritis, history of PE, diabetic foot ulcer, bilateral renal cysts, compression lumbar vertebrae, right tibial fracture 01/2018; status post ORIF with nonunion due to steroid use, removal of hardware 12/21/2019 presented to the hospital with altered mental status. According to his family patient was somnolent and lethargic since morning. In ER patient was found to have leukocytosis of 13.9, potassium 3.1, lactic acid 2.4, blood gas showed pH 7.2 with CO2 81. Patient was placed on the BiPAP blood gas improved pH 7.3 CO2 is 73.9. Chest x-ray showed possible left perihilar and left basilar atelectasis. Acute hypoxemic respiratory failure Resolved for now Today patient developed short episodes of hypoxemia with oxygen saturation 70s There is concern for PE, patient has a history of PE in the past and patient was taking Eliquis. Eliquis was stop on admission due to gross hematuria and slow GI bleed requiring blood transfusion. Patient continued to have hematuria, which was stopped after 3 days since admission and stool was positive for blood on 05/23/20. GI team recommended endoscopy in case of acute bleeding. Patient received 1 unit of blood on 05/26/20 D-dimer elevated to 1700. Due to poor kidney function we cannot proceed with CTA. VQ scan ordered it was negative for P. Because of high risk for PE I restarted Eliquis. We will watch closely any sign of bleeding. If patient developed bleeding we will proceed with IVC filter placement Acute hypercapnic respiratory failure on admission Resolved Most likely is Secondary to polypharmacy Chest x-ray negative for acute infiltrate Patient was on the large dose of opioids and 800 mg of gabapentin 3 times a day which potentiate the effect of opioids FARRUKH treated with BiPAP ARF (acute renal failure)/Acute oliguric renal failure Continues to improve. Most likely patient developed acute interstitial nephritis Secondary to the large dose of opioid, dehydration, vancomycin and Zosyn Vancomycin IV and Zosyn IV were discontinued. Dr. Kelley changed antibiotics to ceftaroline. Restarted PPI which was stopped due to declining kidney function. I talked to Dr. Chinchilla he recommended to increase the dose of PPI. He stated again that he will proceed with endoscopy if patient developed acute GI bleed Nephrology team follows him Debility Due to multiple comorbidities PT/OT Congestive heart failure (CHF). Diastolic Patient developed anasarca. Continue 60mg IV Lasix twice a day Continue home cardioprotective medications I's and O's Cardiac diet Last echo was done in 2019 and showed Normal left ventricular (LV) size with probably normal or near normal LV systolic function and grade 2 diastolic dysfunction. 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 acnes on I.V. Vancomycin and Zosyn per [facility] from 04/25/2020 until 06/06/2020 There is some pus around metal jennifer of external device. I asked Dr. Sierra for consult. Dr. Kelley consulted patient and recommended to continue ceftaroline and add daptomycin 1 gram IV every 48 hours due to recent elevation of white blood count of 19. One set of blood culture from 05/26/20 showed gram-positive cocci. -CT leg to make sure there is no worsening infection or abscess that is causing his bacteremia Await sensitivity. Hematuria Gross hematuria resolved Patient has microhematuria I restarted Eliquis due to high risk of PE. We'll watch closely any signs of bleed Patient will need follow-up with urologist in the outpatient settings Anemia Combined anemia of chronic diseases and iron deficiency anemia secondary to hematuria and GI loss Stool positive occult blood Patient will need follow-up with GI in the outpatient settings Continue iron supplementation Patient received 1 unit of blood on 05/20/20. Hemoglobin stable PPI Transaminitis with increased alkaline phosphatase CT showed Stable hepatic changes including cirrhosis and perihepatic ascites along with 2 rounded hypodense lesions unchanged compared to 05/09/2020. Metabolic encephalopathy Resolved Secondary to polypharmacy due to opioids and gabapentin. Patient received Narcan with positive effect in ER Morbid obesity BMI 47.9 Complicated care Hypokalemia Replaced Diarrhea C diff negative continue to monitor Candiduria with pyuria Continue fluconazole for 10 days, Last date will be May 31 VS,Fishbone, I+O VS, Fishbone, I+O Laboratory Tests 05/27/20 09:14 Vital Signs Date Time Temp Pulse Resp B/P (MAP) Pulse Ox O2 Delivery O2 Flow Rate FiO2 05/27/20 10:23 19 05/27/20 08:53 65 148/52 05/27/20 06:00 97.8 96 NIPPV (BIPAP/CPAP) 05/26/20 09:00 0.5 I&O- Last 24 Hours up to 6 AM 05/27/20 06:00 Intake Total 1070 ml Output Total 1050 ml Balance 20 ml MAIKEL NESS DO May 27, 2020 11:37
[2020-05-27 14:00] VITALS: BP 157/71
[2020-05-27] MEDS: DAPTOmycin 1,000 MG in NS 50 ML IV SCH (14:43)
--- NOTE | 2020-05-27 15:52 | IPN ---
PROGRESS NOTE DATE: 05/27/2020 Rosendo states that he did not want any lunch today. He was not hungry, but he had breakfast. He had a good night's sleep. He denies any chest pain or shortness of breath. He has some drainage around some of the wires from the external fixator, especially around his calf area. He states he may have a little bit more pain than usual. Temperature: Afebrile since admission, currently 97.8, pulse 65, respirations 17, blood pressure 148/80, oxygen saturation 96% on room air. HEART: Normal S1, S2. No murmurs, distant. LUNGS: Clear. No wheezes, rales, or rhonchi. ABDOMEN: Morbidly obese, soft, nontender. EXTREMITIES: Pitting edema +2 bilaterally. Right leg below-knee external fixator anteriorly and posteriorly. One of the wires has purulent discharge. The posterior wire has an area of ulceration about 1 cm around it, but there is no surrounding cellulitis. There is minimal tenderness. LABORATORY DATA: White count is 12.1, hemoglobin 8.9, hematocrit 30.4, platelets 300. Sodium 138, potassium 4.5, chloride 101, bicarbonate 30, BUN 43, creatinine 2.94, down from 4.43. Calcium 8.6, magnesium 2. Bilirubin 0.7, AST 93, ALT 98, alkaline phosphatase 501. Total protein 5.8, albumin 2.5. Procalcitonin was 2.07 on May 25. Blood cultures, one out of two, on May 25 was positive for gram-positive cocci in pairs and chains. The identification will be available tomorrow. It was just one out of two cultures. His wound culture from the right leg has no cells, no organisms seen, and the culture is pending. X-ray of the right tibia-fibula showed a complex external hardwiring with stabilization device with no focal destructive changes and healing fracture. IMPRESSION: 1. Chronic osteomyelitis of the right leg with one operative cultures that had Propionibacterium (P) acnes in December 2019 and on 04/22/2020 cultures were negative. The patient was on intravenous (IV) vancomycin and Zosyn but currently is on ceftaroline due to concern for nephrotoxicity. 2. Positive blood cultures with elevated procalcitonin and a white count that had spiked to 19.9. Was concerning for sepsis. Blood cultures one out of two had gram-positive cocci that looks like a streptococcus. Daptomycin will be started instead of vancomycin to decrease the risk of toxicity at a dose of 1 gram IV every 48 hours while waiting for susceptibility and identification of organism. Could have been transient bacteremia or line sepsis or possibly from his chronic osteomyelitis. 3. Candiduria with pyuria and acute kidney injury. Patient's urine white cells are too numerous to count. Even though patient did not have symptoms, he is on fluconazole, currently day #6 out of 10, and patient has received also one dose of micafungin. PLAN: 1. Continue with IV ceftaroline 300 mg every 12 hours. Adjust dose if his kidney function improves. 2. As far as candiduria with possible teresa urinary tract infection (UTI), would suggest discontinuing fluconazole on May 31 after 10 days. 3.Start daptomycin 1 gram IV every 48 hours to cover for positive blood cultures while waiting for identification. 4. Repeat complete blood count (CBC), C-reactive protein (CRP), erythrocyte sedimentation rate (ESR) tomorrow. 5. Obtain CT leg to make sure there is no worsening infection or abscess that is causing his bacteremia. MTDD
--- NOTE | 2020-05-27 17:31 | REP ---
INDICATION: non union fracture / abscess. COMPARISON: No comparison CT study. Comparison radiographs are from 05/26/2020.. TECHNIQUE: Helical scanning is acquired. 3 mm axial images re-formatted. Coronal and sagittal MPR images are generated. FINDINGS: There is considerable spray artifact from the external contraction halo device which is metallic. There are crossing metallic pins through the proximal tibia in the proximal tibial metaphyseal region. There is opaque is material centrally in the proximal tibia at the site of the nonunited proximal tibial fracture. The radial lucent changes at the level of the fracture but these are difficult to see with clarity due to the spray artifact. There is periosteal reaction and there are old pin tracks in the proximal tibial diaphysis below the fracture. There are fixation pins at mid tibial diaphyseal level. No erosive changes are seen around these. There is diffuse subcutaneous edema and there is considerable fatty marbling of the calf musculature. Periosteal callus formation is seen at a healing fracture of the distal fibular diametaphyseal zone. No distal tibial fracture is seen. IMPRESSION: Nonunited proximal tibial metaphyseal fracture with orthopedic hardware and, radiopaque material at the fracture site, periosteal reaction, and some central radiolucency. There is diffuse subcutaneous edema. Vascular calcification is noted and there is fatty marbling of the skeletal muscle of the calf. Healing distal fibular fracture. <Electronically signed by Stanton Perera > 05/27/20 [id number]
[2020-05-27] MEDS: ATORVASTATIN 20 MG TAB PO SCH (20:25)
[2020-05-27] MEDS: DULoxetine 30 MG CAP (CYMBALTA) PO SCH (20:25)
[2020-05-27 22:00] VITALS: BP 149/65
[2020-05-27] MEDS: ONDANSETRON 4 MG TAB PO PRN (22:32)
[2020-05-28] MEDS: ACETAMINOPHEN TAB 650MG DOSE (2X325MG) PO PRN
[2020-05-28] MEDS: PERCOCET 5MG/325MG TAB PO PRN ×3 (02:16→22:53)
[2020-05-28] MEDS: MORPHINE 2 MG/ML 1ML VIAL (J2270) IV PRN ×2 (05:45→12:52)
[2020-05-28] MEDS: LEVOTHYROXINE 112MCG TABLET (0.112MG) PO SCH (05:45)
[2020-05-28 06:00] VITALS: BP 170/68
[2020-05-28] MEDS: SODIUM CHLORIDE 0.9% INJ 10 ML SYR IV SCH ×2 (06:00→17:25)
[2020-05-28 06:24] LABS: HEMATOCRIT 28.6 % (42.0-52.0); HEMOGLOBIN 8.2 g/dl (13.5-17.5); MEAN CORPUSCULAR HEMOGLOBIN 26.6 pg (27.0-33.0); MEAN CORPUSCULAR HGB CONC 28.7 g/dl (32.0-36.5); MEAN CORPUSCULAR VOLUME 92.9 fl (80.0-96.0); PLATELET COUNT, AUTOMATED 294 10^3/uL (150-450); RED BLOOD COUNT 3.08 10^6/uL (4.30-6.10); WHITE BLOOD COUNT 10.5 10^3/uL (4.0-10.0)
[2020-05-28 06:43] LABS: CREATININE FOR GFR 2.56 MG/DL (0.70-1.30); GLOMERULAR FILTRATION RATE 26.6 (>42); POTASSIUM SERUM 4.1 MEQ/L (3.5-5.1)
[2020-05-28 06:44] LABS: C REACTIVE PROTEIN QUANTITATIV 7.64 MG/DL (0.00-0.30); CALCIUM LEVEL 8.5 MG/DL (8.8-10.2)
[2020-05-28] MEDS: HumaLOG INSULIN (NovoLOG) PER UNIT SC SCH ×4 (07:23→22:58)
[2020-05-28] MEDS: SENOKOT S TAB PO SCH ×2 (09:00→22:54)
[2020-05-28] MEDS: ZINC SULFATE 220 MG CAP PO SCH ×2 (09:22→22:54)
[2020-05-28] MEDS: FLUCONAZOLE 100 MG TAB PO SCH (09:22)
[2020-05-28] MEDS: FERROUS GLUCONATE 324 MG TAB PO SCH (09:22)
[2020-05-28] MEDS: LACTOBACILLUS ACIDOPHILUS CAP (BACID) PO SCH (09:22)
[2020-05-28] MEDS: PANTOPRAZOLE 40MG TAB (PROTONIX) PO SCH ×2 (09:22→22:54)
[2020-05-28] MEDS: TAMSULOSIN 0.4 MG CAP PO SCH (09:22)
[2020-05-28] MEDS: predniSONE 5 MG TAB PO SCH ×2 (09:22→22:54)
[2020-05-28] MEDS: APIXABAN 5 MG TAB (ELIQUIS) PO SCH ×2 (09:23→22:54)
[2020-05-28] MEDS: atenoloL 50 MG TAB PO SCH ×2 (09:25→23:01)
[2020-05-28] MEDS: LEVEMIR (INSULIN DETEMIR) 1 UNITS/0.01ML SC SCH ×2 (09:26→21:00)
[2020-05-28] MEDS: FIBER-CON 625 MG TAB PO SCH (09:29)
[2020-05-28] MEDS: CEFTAROLINE FOSAMIL 300 MG in D5W 50 ML IV SCH ×2 (11:13→23:04)
[2020-05-28] MEDS: SODIUM CHLORIDE 0.9% INJ 10 ML SYR IV PRN (12:53)
[2020-05-28 14:00] VITALS: BP 171/6
--- NOTE | 2020-05-28 16:17 | IPN ---
PROGRESS NOTE DATE: 05/28/2020 SUBJECTIVE: Mr. Szymanski is seen this morning on his bedside. He is sitting in the chair with head elevated and using his CPAP. Nursing staff reports that patient had a positive blood culture from 05/25/2020 and is getting more blood cultures. Patient denies any nausea or vomiting, but does have some abdominal discomfort. He is chronically short of breath and remains on CPAP. PHYSICAL EXAMINATION: VITALS: Temperature 99.2 degree Fahrenheit, heart rate 64 per minute, respiratory rate 18 per minute, blood pressure this morning 168/64 mmHg and oxygen saturation 97%. HEENT: Head is atraumatic. Neck is supple. JVD is difficult to be assessed. HEART: Heart sounds are regular. LUNGS: Good bilateral air entry. ABDOMEN: Obese and nontender. Bowel sounds are normal. EXTREMITIES: No cyanosis or clubbing. His right leg has an orthopedic device on it with some skin lesions and erythema. NEUROLOGIC: He is awake and alert, and able to answer questions. LABORATORY DATA: Today's labs show WBC 10.5, hemoglobin 8.2, hematocrit 28.6, platelets 294,000. ESR 77 today. Sodium 140, potassium 4.1, CO2 33, BUN 36, creatinine 2.56. PROBLEMS: 1. Acute kidney injury superimposed on chronic kidney disease: Kidney function is gradually improving and patient has no uremic symptoms. We will continue to monitor him closely. His volume status seems reasonably well compensated. 2. Anemia: At present, his anemia is significant but stable. No urgent indication for a transfusion. 3. Sepsis: Patient had blood cultures drawn again today and remains on antibiotics. He is currently afebrile. 4. Congestive heart failure: His volume status is reasonably well compensated with some edema in his right leg where he has infection and a prosthesis. I do not feel that we need to change his diuretic at this point.
--- NOTE | 2020-05-28 17:09 | IPN ---
INPATIENT PROGRESS NOTE DATE: 05/27/2020 SUBJECTIVE: Patient is seen and examined this morning at the bedside. He remains on BiPAP. He has been afebrile. He was cooperative with physical exam. Denied any shortness of breath. Nursing staff reports that he has been eating and drinking, has not had any more diarrheal bowel movements. His renal function continues to improve. He has not had any more episode of retention. PHYSICAL EXAMINATION: Vital signs: Temperature 99.6, pulse 62, respiratory rate 18, blood pressure 149/65, saturating 96% on room air. Intake yesterday was 1220, urine output was 1300. There was 1 bowel movement yesterday. There is no bowel movement thus far today. There is no weight on the bed scale. General: Patient is seen lying on his side, elderly male, obese with BiPAP in place. HEENT: Ears, nose and throat unremarkable. Heart: Sounds are mildly bradycardic, S1 and S2. Lungs: Symmetric, clear air entry and distant secondary to body habitus. There is BiPAP in place. Neck: Difficult to assess and is obese. Abdomen: Obese, soft and he does not have any tenderness to palpation. Extremities: There is 1+ edema on the left leg. Right below the knee external fixator is present. Neurologic: He is oriented times 3 and is cooperative with the physical exam and follows commands. LABORATORY DATA: Sodium 138, potassium 4.5, bicarbonate 30, BUN 43, creatinine 2.9. Magnesium 2. Hemoglobin 8.9, platelets 300. RADIOLOGY STUDIES: CT of the leg without contrast done today is reviewed. Non-united proximal tibial metaphysial fracture. INPATIENT MEDICATIONS: 1. He continues on ceftaroline 300 mg I.V. twice a day. 2. He was started by infectious disease on daptomycin 1 gram I.V. every other day. 3. He is on Eliquis 5 mg by mouth twice a day. The remainder of his medications are unchanged from prior. PROBLEMS/PLAN: 1. Nonoliguric acute kidney injury presumed secondary to antibiotic mediated acute interstitial nephritis: Status post prednisone 40 mg daily for 5 doses and now back on his usual chronic low dose daily prednisone. Offending antibiotics were discontinued and regimen was adjusted by Dr. Kelley. We did not think that the proton pump inhibitor was the culprit and that was resumed given that he is on chronic steroids and also anticoagulated and also has a history of FOBT positivity. His renal function continues to improve though is not yet back to baseline. 2. Diastolic congestive heart failure: Patient was diuresed with Lasix I.V. twice a day and his volume status has improved from prior. His diuretic was held when he was having recurrent watery bowel movements. Nursing staff reports no recurrent bowel movements that are loose the past 24 hours and he is tolerating oral intake again. Diuretic will be resumed based upon daily volume assessment. 3. Candiduria: Most likely his too numerous to count urinary WBCs are secondary to the interstitial nephritis; however, patient is also being treated with Diflucan and will complete the course on May 31. 4. Status post episode of urinary retention: Patient has not had any recurrent episode of retention. He did have 3 incontinent voids today. Post-void residual bladder scans have been less than 200 mL. He continues on Flomax. 5. Anemia secondary to chronic inflammatory state, iron deficiency and GI bleed with occult blood positive stool: He is on oral iron supplementation. He was not treated with I.V. iron due to multiple active infectious issues. He can receive transfusion for hemoglobin less than 8.
--- NOTE | 2020-05-28 17:47 | IPNPDOC ---
Text Note Date of Service The patient was seen on 05/28/20. NOTE Subjective: No any acute events overnight. Is only complaining of this time is that he does not wish to remain hospitalized, he is hopeful that he might be old to move over to a , but it was explained that these assessments only occur Saturday-Saturday, therefore he will at least remain here until Saturday. It is recommended that he continue to work with physical therapy until that time. Objective: GENERAL APPEARANCE: Morbidly obese male HEENT: no scleral icterus, EOMI CARDIOVASCULAR: Distant heart sounds are however it appears that he has regular rate and rhythm with no murmurs, rubs, or gallops. LUNGS: Diminished lung sounds bilaterally ABDOMEN: soft & not tender w palpitation MUSCULOSKELETAL: external fixation hardware noted on right lower extremity, some mild edema is present in the leg, and there is some minimal edema surrounding the entry points of the hardware, but otherwise no generalized erythema. INTEGUMENT: no generalized pallor Assessment/Plan Patient is 69 years old male with past medical history of coronary artery disease, hypertension, peripheral neuropathy, diabetes, on immunosuppressive therapy for right temporal arteritis, history of PE, diabetic foot ulcer, bilateral renal cysts, compression lumbar vertebrae, right tibial fracture 01/2018; status post ORIF with nonunion due to steroid use, removal of hardware 12/21/2019 presented to the hospital with altered mental status. According to his family patient was somnolent and lethargic since morning. In ER patient was found to have leukocytosis of 13.9, potassium 3.1, lactic acid 2.4, blood gas showed pH 7.2 with CO2 81. Patient was placed on the BiPAP blood gas improved pH 7.3 CO2 is 73.9. Chest x-ray showed possible left perihilar and left basilar atelectasis. Acute hypoxemic respiratory failure Resolved for now Today patient developed short episodes of hypoxemia with oxygen saturation 70s There is concern for PE, patient has a history of PE in the past and patient was taking Eliquis. Eliquis was stop on admission due to gross hematuria and slow GI bleed requiring blood transfusion. Patient continued to have hematuria, which was stopped after 3 days since admission and stool was positive for blood on 05/23/20. GI team recommended endoscopy in case of acute bleeding. Patient received 1 unit of blood on 05/26/20 D-dimer elevated to 1700. Due to poor kidney function we cannot proceed with CTA. VQ scan ordered it was negative for P. Because of high risk for PE I restarted Eliquis. We will watch closely any sign of bleeding. If patient developed bleeding we will proceed with IVC filter placement Acute hypercapnic respiratory failure on admission Resolved Most likely is Secondary to polypharmacy Chest x-ray negative for acute infiltrate Patient was on the large dose of opioids and 800 mg of gabapentin 3 times a day which potentiate the effect of opioids FARRUKH treated with BiPAP ARF (acute renal failure)/Acute oliguric renal failure Continues to improve. Most likely patient developed acute interstitial nephritis Secondary to the large dose of opioid, dehydration, vancomycin and Zosyn Vancomycin IV and Zosyn IV were discontinued. Dr. Kelley changed antibiotics to ceftaroline. Restarted PPI which was stopped due to declining kidney function. I talked to Dr. Chinchilla he recommended to increase the dose of PPI. He stated again that he will proceed with endoscopy if patient developed acute GI bleed Nephrology team follows him, their input is greatly appreciated. Debility Due to multiple comorbidities PT/OT Congestive heart failure (CHF). Diastolic Patient developed anasarca. Continue 60mg IV Lasix twice a day Continue home cardioprotective medications I's and O's Cardiac diet Last echo was done in 2019 and showed Normal left ventricular (LV) size with probably normal or near normal LV systolic function and grade 2 diastolic dysfunction. 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 acnes on I.V. Vancomycin and Zosyn per [facility] from 04/25/2020 until 06/06/2020 CT scan of the right lower extremity did not show any abscess. Infectious Disease consulted, and they have adjusted his antibiotics. Their input is greatly appreciated. Continue antibiotic therapy per their recommendations. Blood and wound cultures are still pending. Hematuria Gross hematuria resolved Patient has microhematuria I restarted Eliquis due to high risk of PE. We'll watch closely any signs of bleed Patient will need follow-up with urologist in the outpatient settings Anemia Combined anemia of chronic diseases and iron deficiency anemia secondary to hematuria and GI loss Stool positive occult blood Patient will need follow-up with GI in the outpatient settings Continue iron supplementation Patient received 1 unit of blood on 05/20/20. Hemoglobin stable PPI Transaminitis with increased alkaline phosphatase CT showed Stable hepatic changes including cirrhosis and perihepatic ascites along with 2 rounded hypodense lesions unchanged compared to 05/09/2020. Metabolic encephalopathy Resolved Secondary to polypharmacy due to opioids and gabapentin. Patient received Narcan with positive effect in ER Morbid obesity BMI 47.9 Complicated care Hypokalemia Replaced Diarrhea C diff negative continue to monitor Candiduria with pyuria Continue fluconazole for a total of 10 days, Last date will be May 31 VS,Adarsh, I+O VS, Adarsh, I+O Laboratory Tests 05/28/20 05:41 Vital Signs Date Time Temp Pulse Resp B/P (MAP) Pulse Ox O2 Delivery O2 Flow Rate FiO2 05/28/20 14:00 98.6 66 18 171/6 (60) 96 Room Air 05/26/20 09:00 0.5 I&O- Last 24 Hours up to 6 AM 05/28/20 06:00 Intake Total 630 ml Output Total 1250 ml Balance -620 ml LIGIA WILKS DO May 28, 2020 17:47
[2020-05-28 22:00] VITALS: BP 141/51
[2020-05-28 22:04] VITALS: BP 123/51
[2020-05-28] MEDS: DULoxetine 30 MG CAP (CYMBALTA) PO SCH (22:55)
[2020-05-28] MEDS: ATORVASTATIN 20 MG TAB PO SCH (22:56)
[2020-05-29] MEDS: PERCOCET 5MG/325MG TAB PO PRN (05:37)
[2020-05-29] MEDS: LEVOTHYROXINE 112MCG TABLET (0.112MG) PO SCH (05:37)
[2020-05-29] MEDS: SODIUM CHLORIDE 0.9% INJ 10 ML SYR IV SCH ×2 (05:38→17:35)
[2020-05-29 06:00] VITALS: BP 134/98
[2020-05-29 06:32] LABS: HEMATOCRIT 28.8 % (42.0-52.0); HEMOGLOBIN 8.6 g/dl (13.5-17.5); MEAN CORPUSCULAR HEMOGLOBIN 27.7 pg (27.0-33.0); MEAN CORPUSCULAR HGB CONC 29.9 g/dl (32.0-36.5); MEAN CORPUSCULAR VOLUME 92.9 fl (80.0-96.0); PLATELET COUNT, AUTOMATED 311 10^3/uL (150-450); WHITE BLOOD COUNT 10.3 10^3/uL (4.0-10.0)
[2020-05-29 06:40] LABS: CALCIUM LEVEL 8.2 MG/DL (8.8-10.2); CREATININE FOR GFR 2.56 MG/DL (0.70-1.30); GLOMERULAR FILTRATION RATE 26.6 (>42); POTASSIUM SERUM 4.5 MEQ/L (3.5-5.1)
[2020-05-29] MEDS: SENOKOT S TAB PO SCH ×2 (08:07→22:15)
[2020-05-29] MEDS: PANTOPRAZOLE 40MG TAB (PROTONIX) PO SCH ×2 (08:07→22:15)
[2020-05-29] MEDS: LEVEMIR (INSULIN DETEMIR) 1 UNITS/0.01ML SC SCH ×2 (08:07→21:00)
[2020-05-29] MEDS: LACTOBACILLUS ACIDOPHILUS CAP (BACID) PO SCH (08:07)
[2020-05-29] MEDS: FLUCONAZOLE 100 MG TAB PO SCH (08:08)
[2020-05-29] MEDS: predniSONE 5 MG TAB PO SCH ×2 (08:08→22:16)
[2020-05-29] MEDS: ZINC SULFATE 220 MG CAP PO SCH ×2 (08:08→22:18)
[2020-05-29] MEDS: FERROUS GLUCONATE 324 MG TAB PO SCH (08:08)
[2020-05-29] MEDS: APIXABAN 5 MG TAB (ELIQUIS) PO SCH ×2 (08:08→22:15)
[2020-05-29] MEDS: FIBER-CON 625 MG TAB PO SCH (08:08)
[2020-05-29] MEDS: HumaLOG INSULIN (NovoLOG) PER UNIT SC SCH ×4 (08:09→21:00)
[2020-05-29] MEDS: TAMSULOSIN 0.4 MG CAP PO SCH (08:09)
[2020-05-29] MEDS: atenoloL 50 MG TAB PO SCH ×2 (08:12→22:16)
[2020-05-29] MEDS: MORPHINE 2 MG/ML 1ML VIAL (J2270) IV PRN ×2 (08:19→22:14)
[2020-05-29] MEDS: SODIUM CHLORIDE 0.9% INJ 10 ML SYR IV PRN (08:20)
--- NOTE | 2020-05-29 11:53 | IPN ---
PROGRESS NOTE DATE: 05/29/2020 SUBJECTIVE: Rosendo is seen in [address] [place] [address] with a complicated medical history that has been well summarized in his last few office notes. Today, lab reports his blood culture is positive for vancomycin-resistant Enterococcus. He has been on an assortment of intravenous antibiotics for his multiple medical problems. Currently on daptomycin, fluconazole, ceftaroline. Denies any fevers, chills, or shortness of breath. OBJECTIVE: VITAL SIGNS: Blood pressure 130/54, pulse 67, afebrile. GENERAL APPEARANCE: Chronically ill-appearing, lying in bed. HEENT: Unremarkable. LUNGS: Decreased breath sounds, clear. HEART: Regular rate and rhythm. No murmur. ABDOMEN: Soft and nontender with no masses. EXTREMITIES: Trace peripheral edema right lower extremity. External fixation hardware in place. ASSESSMENT: 1. Vancomycin-resistant Enterococcus. I have a call out to Dr. Kelley from infectious disease. Will defer antibiotic choices to her. We will discuss the case when she calls me back. 2. Anemia of chronic disease, iron deficiency anemia from hematuria and gastrointestinal (GI) blood loss. He has heme positive stool and will need gastroenterology (GI) follow-up as an outpatient. He was transfused one unit of blood on 05/20. Hemoglobin is currently stable. 3. Right tibial fracture with chronic osteomyelitis. External fixator in place. Has osteomyelitis of tibia with nonunion. No abscess on CT scan. 4. Congestive heart failure diastolic with anasarca on Lasix 60 mg intravenously (IV) q. 12 hours.
[2020-05-29] MEDS: CEFTAROLINE FOSAMIL 400 MG in D5W MINI-BAG PLUS 50 ML IV SCH ×2 (12:05→22:13)
[2020-05-29 14:00] VITALS: BP 165/64
[2020-05-29] MEDS: DAPTOmycin 1,000 MG in NS 50 ML IV SCH (15:27)
[2020-05-29] MEDS ORDERED: LEVEMIR (INSULIN DETEMIR) 1 UNITS/0.01ML SC ONE (21:45)
[2020-05-29 22:00] VITALS: BP 163/64
[2020-05-29] MEDS: DULoxetine 30 MG CAP (CYMBALTA) PO SCH (22:15)
[2020-05-29] MEDS: ATORVASTATIN 20 MG TAB PO SCH (22:16)
[2020-05-30] MEDS: SODIUM CHLORIDE 0.9% INJ 10 ML SYR IV PRN ×3 (00:01→12:17)
[2020-05-30] MEDS: ACETAMINOPHEN TAB 650MG DOSE (2X325MG) PO PRN (01:58)
[2020-05-30] MEDS: PERCOCET 5MG/325MG TAB PO PRN ×2 (05:54→12:18)
[2020-05-30] MEDS: LEVOTHYROXINE 112MCG TABLET (0.112MG) PO SCH (05:54)
[2020-05-30] MEDS: SODIUM CHLORIDE 0.9% INJ 10 ML SYR IV SCH ×2 (05:54→17:05)
[2020-05-30 06:00] VITALS: BP 163/65
[2020-05-30 06:19] LABS: HEMOGLOBIN 8.4 g/dl (13.5-17.5); MEAN CORPUSCULAR VOLUME 93.2 fl (80.0-96.0); PLATELET COUNT, AUTOMATED 330 10^3/uL (150-450); RED BLOOD COUNT 3.11 10^6/uL (4.30-6.10); WHITE BLOOD COUNT 11.9 10^3/uL (4.0-10.0)
[2020-05-30 06:45] LABS: CALCIUM LEVEL 8.3 MG/DL (8.8-10.2); CREATININE FOR GFR 2.34 MG/DL (0.70-1.30); GLOMERULAR FILTRATION RATE 29.5 (>42); POTASSIUM SERUM 4.2 MEQ/L (3.5-5.1)
[2020-05-30] MEDS: HumaLOG INSULIN (NovoLOG) PER UNIT SC SCH ×4 (07:30→20:54)
[2020-05-30] MEDS: LEVEMIR (INSULIN DETEMIR) 1 UNITS/0.01ML SC SCH ×2 (09:00→21:47)
[2020-05-30] MEDS: ZINC SULFATE 220 MG CAP PO SCH ×2 (09:00→21:46)
[2020-05-30] MEDS: SENOKOT S TAB PO SCH (09:00)
--- NOTE | 2020-05-30 09:41 | IPN ---
PROGRESS NOTE DATE: 05/30/2020 SUBJECTIVE: Rosendo is [facility] [address] [facility] I spoke with Dr. Kelley yesterday who is adjusting his medications. Complicated medical history summarized in previous notes. Currently being treated for vancomycin-resistant Enterococcal bacteremia and chronic osteomyelitis with nonunion of right tibial fracture. Clinical status is unchanged from yesterday. OBJECTIVE: VITAL SIGNS: Blood pressure 163/65, pulse 64, temperature 98.2 degrees. GENERAL APPEARANCE: Alert, in no distress. LUNGS: Clear. HEART: Regular rhythm. ABDOMEN: Soft and nontender. EXTREMITIES: Unchanged. LABORATORY DATA: White count is 11.9, hemoglobin 8.4, platelets 330,000. Sodium 141, potassium 4.2, BUN 30, creatinine 2.3, glucose 119. ASSESSMENT AND PLAN: 1. Vancomycin-resistant Enterococcal bacteremia. Antibiotics are being managed by infectious disease oracle application consultant and appreciate their input. Currently on daptomycin and ceftaroline with Bacid to try to reduce the risk of Clostridium difficile colitis. 2. Elevated liver function tests. I see the end of last week, he had elevated liver function tests and those have not been repeated. I will order those for tomorrow. He already has had lab draw for the day. 3. Chronic osteomyelitis. Antibiotic choice per infectious disease. 4. Obstructive sleep apnea (FARRUKH). Continue CPAP. 5. Acute renal failure superimposed on stage III chronic kidney disease. Renal function continues to improve. He is being followed by nephrology. 6. Cirrhosis with ascites. He is pancytopenic related to this. 7. Candiduria with pyuria. He is on Fluconazole with last date being 05/31. 8. Morbid obesity. BMI is 48. This complicates his care.
[2020-05-30] MEDS: predniSONE 5 MG TAB PO SCH ×2 (10:23→21:46)
[2020-05-30] MEDS: TAMSULOSIN 0.4 MG CAP PO SCH (10:23)
[2020-05-30] MEDS: LACTOBACILLUS ACIDOPHILUS CAP (BACID) PO SCH (10:24)
[2020-05-30] MEDS: APIXABAN 5 MG TAB (ELIQUIS) PO SCH ×2 (10:24→21:46)
[2020-05-30] MEDS: FERROUS GLUCONATE 324 MG TAB PO SCH (10:24)
[2020-05-30] MEDS: PANTOPRAZOLE 40MG TAB (PROTONIX) PO SCH ×2 (10:24→21:46)
[2020-05-30] MEDS: atenoloL 50 MG TAB PO SCH ×2 (10:27→21:49)
[2020-05-30] MEDS: CEFTAROLINE FOSAMIL 400 MG in D5W MINI-BAG PLUS 50 ML IV SCH ×2 (10:27→21:55)
[2020-05-30] MEDS: FIBER-CON 625 MG TAB PO SCH (10:51)
[2020-05-30] MEDS: MORPHINE 2 MG/ML 1ML VIAL (J2270) IV PRN ×2 (10:53→21:50)
--- NOTE | 2020-05-30 13:04 | IPN ---
PROGRESS NOTE DATE: 05/30/2020 SUBJECTIVE: Mr. Szymanski is seen this morning at his bedside. The nursing staff is cleaning the wounds on his right leg where he has the orthopedic prosthesis on his leg with pins. The patient remains on his BiPAP and currently laying in the bed. He wants to go to rehab. PHYSICAL EXAMINATION: VITAL SIGNS: Temperature is 98.2 degrees Fahrenheit, heart rate is 70 per minute and respiratory rate is 20 per minute, blood pressure is 170/66 mmHg, and oxygen saturation 97%. HEAD AND NECK: Head is atraumatic. Neck veins are difficult to be assessed. HEART: His heart sounds are regular. LUNGS: Good bilateral air entry. ABDOMEN: Obese and nontender. Bowel sounds are present. EXTREMITIES: Without any cyanosis or clubbing. The right leg where he has the cage prosthesis on his leg with pins has multiple wounds with some drainage. He also has edema on his right leg. There is no edema on the left leg. LABORATORY DATA: Today's labs showed a WBC count of 11.9, hemoglobin 8.4 and hematocrit 29.0. Sodium 141, potassium 4.2, CO2 30, BUN 30 and creatinine 2.34. PROBLEMS: 1. Acute renal failure superimposed on chronic kidney disease. Slight improvement in kidney function is noticed since yesterday. No changes have been made in his medications. 2. Anemia. His anemia has been stable and does not need any urgent intervention. This is most likely related to ongoing infected wounds and acute and chronic kidney disease. He remains on oral iron supplement. 3. Infected leg wounds and positive blood cultures. Patient had positive blood culture just last week. Repeat blood cultures from May 28 are still negative so far. He remains on antibiotics including Daptomycin and Ceftaroline. 4. Congestive heart failure, volume status seems reasonably well compensated and no changes are being made today.
[2020-05-30 14:00] VITALS: BP 146/117
[2020-05-30 15:00] VITALS: BP 152/72
[2020-05-30] MEDS: DAPTOmycin 1,000 MG in NS 50 ML IV SCH (15:53)
[2020-05-30] MEDS: DULoxetine 30 MG CAP (CYMBALTA) PO SCH (21:46)
[2020-05-30] MEDS: ATORVASTATIN 20 MG TAB PO SCH (21:46)
[2020-05-30] MEDS: ONDANSETRON 4 MG TAB PO PRN (21:55)
[2020-05-30 22:00] VITALS: BP 166/70
[2020-05-31] MEDS: CALCIUM CARBONATE 500 MG CHEW U/D PO PRN (03:14)
[2020-05-31 06:00] VITALS: BP 168/70
[2020-05-31] MEDS: SODIUM CHLORIDE 0.9% INJ 10 ML SYR IV SCH ×2 (06:08→17:44)
[2020-05-31] MEDS: LEVOTHYROXINE 112MCG TABLET (0.112MG) PO SCH (06:08)
[2020-05-31 06:33] LABS: HEMATOCRIT 28.3 % (42.0-52.0); HEMOGLOBIN 8.5 g/dl (13.5-17.5); MEAN CORPUSCULAR VOLUME 93.1 fl (80.0-96.0); PLATELET COUNT, AUTOMATED 326 10^3/uL (150-450); RED BLOOD COUNT 3.04 10^6/uL (4.30-6.10); WHITE BLOOD COUNT 10.1 10^3/uL (4.0-10.0)
[2020-05-31 06:55] LABS: ERYTHROCYTE SEDIMENTATION RATE 89 mm/hr (0-20)
[2020-05-31 07:00] LABS: ALBUMIN 2.6 GM/DL (3.2-5.2); BILIRUBIN,DIRECT 0.3 MG/DL (0.0-0.2); BILIRUBIN,TOTAL 0.7 MG/DL (0.2-1.0); C REACTIVE PROTEIN QUANTITATIV 4.95 MG/DL (0.00-0.30); CALCIUM LEVEL 8.7 MG/DL (8.8-10.2); CREATININE FOR GFR 2.15 MG/DL (0.70-1.30); GLOMERULAR FILTRATION RATE 32.5 (>42); MAGNESIUM LEVEL 1.7 MG/DL (1.8-2.4); POTASSIUM SERUM 4.1 MEQ/L (3.5-5.1); TOTAL PROTEIN 5.7 GM/DL (6.4-8.2)
[2020-05-31] MEDS: TAMSULOSIN 0.4 MG CAP PO SCH (08:11)
[2020-05-31] MEDS: LACTOBACILLUS ACIDOPHILUS CAP (BACID) PO SCH (08:11)
[2020-05-31] MEDS: PANTOPRAZOLE 40MG TAB (PROTONIX) PO SCH ×2 (08:11→23:34)
[2020-05-31] MEDS: predniSONE 5 MG TAB PO SCH ×2 (08:11→23:34)
[2020-05-31] MEDS: APIXABAN 5 MG TAB (ELIQUIS) PO SCH ×2 (08:11→23:34)
[2020-05-31] MEDS: HumaLOG INSULIN (NovoLOG) PER UNIT SC SCH ×4 (08:11→23:18)
[2020-05-31] MEDS: PERCOCET 5MG/325MG TAB PO PRN ×2 (08:11→15:34)
[2020-05-31] MEDS: LEVEMIR (INSULIN DETEMIR) 1 UNITS/0.01ML SC SCH ×2 (08:12→23:39)
[2020-05-31] MEDS: atenoloL 50 MG TAB PO SCH ×2 (08:12→23:35)
[2020-05-31] MEDS: FERROUS GLUCONATE 324 MG TAB PO SCH (08:12)
[2020-05-31] MEDS: FIBER-CON 625 MG TAB PO SCH (08:12)
[2020-05-31] MEDS: SENOKOT S TAB PO SCH (08:12)
[2020-05-31] MEDS: ZINC SULFATE 220 MG CAP PO SCH ×2 (08:12→23:34)
[2020-05-31] MEDS: CEFTAROLINE FOSAMIL 400 MG in D5W MINI-BAG PLUS 50 ML IV SCH ×2 (12:14→23:35)
[2020-05-31] MEDS: SODIUM CHLORIDE 0.9% INJ 10 ML SYR IV PRN ×2 (12:14→23:35)
[2020-05-31 14:00] VITALS: BP 172/74
[2020-05-31] MEDS: DAPTOmycin 1,000 MG in NS 50 ML IV SCH (15:33)
[2020-05-31] MEDS: amLODIPine 5 MG TAB PO SCH (15:35)
--- NOTE | 2020-05-31 17:35 | IPN ---
PROGRESS NOTE DATE: 05/31/2020 Rosendo is stable. There is no new findings except that there is some drainage from the right leg wound, where a culture was done by the primary team. He denies any nausea, vomiting, or diarrhea. His kidney function has continued to improve. He was seen by Dr. Burns today. Creatinine is down to 2.34. His anemia is stable. He has been afebrile. His last temperature was 100.5 on May 28. Blood culture from May 25, one out of two sets, had vancomycin-resistant enterococci (VRE), but on May 28 two sets of blood cultures were negative after 72 hours. Wound culture from May 26 had staphylococcus coagulase negative. Wound culture from May 31 was repeated by a different hospitalist. LABORATORY DATA: White count is 10.1, hemoglobin 8.5, hemoglobin 28.3, platelets 326. White count on admission was 14.2. ESR 89, which has increased from 73. Sodium 139, potassium 4.1, chloride 104, bicarbonate 32, BUN 27, creatinine 2.15, glucose 170, calcium 8.7, phosphorus 1.7. Bilirubin 0.3, AST 57, ALT 61, alkaline phosphatase 448. CRP 4.95, down from 7.64. Total protein 5.7, albumin 2.6. PHYSICAL EXAMINATION: Temperature is 96.9, pulse 58, respirations 18, blood pressure 172/74, oxygen saturation 97% on room air. Right leg below the knee has a large fixator around the calf area, and one of the pins has mild yellowish drainage, and anteriorly another pin has an area of erythema, which has minimal drainage. IMPRESSION: 1. Chronic osteomyelitis of the right lower leg with an external fixator. Cultures have been negative except for one colony of Propionibacterium (P) acnes. The patient was on vancomycin and Zosyn from [facility] with anticipated end date of June 05, which will be 6 weeks from surgical date, April 22. The case was discussed with Dr. Reynaldo Nair, telephone number , who would like to see the patient before he stops antibiotic by the end of this month. He does not think that there is a need for an inpatient transfer. This could be done as an outpatient. 2. Abnormal liver function tests, stable. 3. Positive blood cultures with Enterococcus faecium, not vancomycin resistant. Patient had one out of four positive blood cultures, but his repeat cultures were negative before daptomycin was started. PLAN: Continue ceftaroline and daptomycin. Arrange for followup visit with Dr. Nair before his antibiotics are stopped, hopefully upon discharge. Extremity CT showed a nonunion proximal tibial fracture with orthopedic hardware, some periosteal reaction, and some central radial lucency, which is concerning, diffuse subcutaneous edema, vascular calcification, and a healed distal fibula fracture. Case has been discussed with Dr. Nair regarding his management. He does not want us to stop his antibiotics on June 05, which would be another 5 days. He has had culture-negative chronic osteomyelitis except for rare P. acnes, which I doubt is the cause of the problem. He may need change of pins if these pins continue to erode through the skin and cause drainage. Will discuss this with the hospitalist team and his , Nalini, who has called to check on his status.
--- NOTE | 2020-05-31 18:18 | IPN ---
NEPHROLOGY PROGRESS NOTE DATE: 05/31/2020 SUBJECTIVE: Mr. Szymanski is seen this morning at his bedside. No change is noted in his overall condition. He remains mostly bed bound and on his home BIPAP. He denies any fever or chills. PHYSICAL EXAMINATION: VITAL SIGNS: Temperature 96.9 degrees Fahrenheit, heart rate is 58 per minute and respiratory rate 18 per minute, blood pressure 172/74 mm of mercury and oxygen saturation is 97% on room air. HEENT: His head is atraumatic. NECK: Veins difficult to be assessed. HEART: Regular. LUNGS: Clear to auscultation. ABDOMEN: Soft, obese and nontender and bowel sounds are normal. EXTREMITIES: Without cyanosis or clubbing. His right lower extremity is in the orthopedic device with pins and there is some edema on his right leg. He also has multiple skin wounds due to those pins with minimal drainage. NEUROLOGICAL: He is awake, alert, and oriented x3. LABORATORY STUDIES: Today's labs show a WBC count of 10.1, hemoglobin 8.5 and hematocrit 28.3, platelets 326. Sodium 139, potassium 4.1, BUN 27, creatinine 2.15, glucose 170 and calcium 8.7. PROBLEMS: 1. Acute kidney injury superimposed on chronic kidney disease gradual, slow improvement in kidney function is noticed. Electrolytes are within normal range. 2. Congestive heart failure his volume status remains well compensated. Only right leg has edema related to his fracture and prosthetic device on his leg. There is no edema on the left leg. We will continue to use diuretics only on an as-needed bases. 3. Hypertension his blood pressure is somewhat high today. Antihypertensives are being adjusted by the Hospitalist service. 4. Anemia his anemia is also gradually getting worse. At this point there is no emergent need for a transfusion. No significant change noticed over the last few days. His anemia is most likely related to ongoing infection in his right leg and [id number] kidney disease. He continues with iron supplement. 5. Bacteremia and leg wounds - The patient remains on antibiotics and is currently afebrile.
--- NOTE | 2020-05-31 20:22 | IPNPDOC ---
Subjective Date Seen The patient was seen on 05/31/20. Subjective Chief Complaint/HPI Mr. 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 This morning, he was on the CPAP. He tells me he only uses it when he is sleeping and he has spent most of the day sleeping. Otherwise, he has been afebrile for more than 48 hours (last was 05/28/2020 at 22:14). Otherwise denies chest pain, abdominal pain, or dysuria. Looking at the hardware, there appears to be erythema around the pins. Took a wound culture around one pin that had thick yellowish drainage. Objective Physical Examination General Exam: Positive: Alert, Cooperative Eye Exam: Positive: PERRLA ENT Exam: Positive: Atraumatic Neck Exam: Positive: Supple; Negative: JVD Chest Exam: Positive: Diminished Heart Exam: Positive: Rate Normal Abdomen Exam: Positive: Normal bowel sounds, Soft; Negative: Tenderness Extremity Exam: Negative: Clubbing, Cyanosis Skin Exam: Positive: Nl turgor and temperature Neuro Exam: Positive: Cranial Nerves 3-12 NL Psych Exam: Positive: Oriented x 3 Assessment /Plan Assessment Mr. 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 ID has been following, recommendations appreciated. Patient will need to continue antibiotics until he sees his orthopedic physician, Dr. Reynaldo Nair, in [facility]. Otherwise, renal function has been improving Plan/VTE VTE Prophylaxis Ordered?: Yes Plan 1. VRE bacteremia -Afebrile for more than 48 hours (last fever 05/28/2020 at 22:14) -Negative blood cultures on 05/28/2020 -ID following recommendation appreciated -Will need to continue ceftaroline and daptomycin until he follows up with orthopedics in [facility] -Continue probiotics 2. Chronic osteomyelitis of the right lower leg with external fixator -Will need to follow up with his orthopedics in [facility] (Dr. Reynaldo Nair) until deciding to stop antibiotics -May need to changes the PIN as pins are eroding through skin and causing drai nage -Continue probiotics 3. LUIS ANGEL on CKD -Nephrology following, recommendations appreciated -Creatinine peaked at 4.43 -Baseline creatinine around 1.5 -Supportive care, avoid nephrotoxic agents, continue monitoring 4. DM -Continue ISS and Levemir 15u BID 5. Hypertension -Patient hypertensive today with BP in the 180s -Started amlodipine -Continue Atenolol 6. History of temporal arteritis -On chronic steroids 7. Hypothyroidism -Continue Levothyroxine 8. DVT ppx -Continue apixaban VS, I&O, 24H, Fishbone Vital Signs/I&O Vital Signs Date Time Temp Pulse Resp B/P (MAP) Pulse Ox O2 Delivery O2 Flow Rate FiO2 05/31/20 16:04 18 NIPPV (BIPAP/CPAP) 05/31/20 15:35 60 169/71 05/31/20 14:00 96.9 97 05/28/20 22:04 3.0 I&O- Last 24 Hours up to 6 AM 05/31/20 05:59 Intake Total 870 ml Output Total 1875 ml Balance -1005 ml Laboratory Data 24H LABS Laboratory Tests 2 05/30/20 20:24: Bedside Glucose (Misc Panel) 199H 05/31/20 06:10: Nucleated Red Blood Cells % (auto) 0.0, Erythrocyte Sedimentation Rate 89H, Anion Gap 3L, Glomerular Filtration Rate 32.5L, Calcium Level 8.7L, Magnesium Level 1.7L, Total Bilirubin 0.7, Direct Bilirubin 0.3H, Aspartate Amino Transf (AST/SGOT) 57H, Alanine Aminotransferase (ALT/SGPT) 61, Alkaline Phosphatase 448H, C-Reactive Protein, Quantitative 4.95H, Total Protein 5.7L, Albumin 2.6L, Albumin/Globulin Ratio 0.8 05/31/20 11:31: Bedside Glucose (Misc Panel) 146H 05/31/20 16:41: Bedside Glucose (Misc Panel) 170H CBC/BMP Laboratory Tests 05/31/20 06:10 Microbiology Microbiology 05/31/20 Wound Culture, Received Pending 05/28/20 Blood Culture - Preliminary, Resulted No Growth after 72 hours. All specime... 05/28/20 Blood Culture - Preliminary, Resulted No Growth after 72 hours. All specime... 05/26/20 Gram Stain - Final, Complete 05/26/20 Wound Culture - Final, Complete Staphylococcus Sp Coag Neg 05/25/20 Blood Culture - Preliminary, Resulted Enterococcus Faecium (Vre) 12/9/20 Blood Culture - Final, Complete NO GROWTH AFTER 5 DAYS 05/21/20 Urine Culture - Final, Complete Yeast Like Organism NIKI PAT DO May 31, 2020 20:22
[2020-05-31] MEDS: DULoxetine 30 MG CAP (CYMBALTA) PO SCH (23:34)
[2020-05-31] MEDS: ATORVASTATIN 20 MG TAB PO SCH (23:34)
[2020-05-31] MEDS: MORPHINE 2 MG/ML 1ML VIAL (J2270) IV PRN (23:38)
[2020-06-01] MEDS: SODIUM CHLORIDE 0.9% INJ 10 ML SYR IV PRN ×3 (01:33→23:37)
[2020-06-01] MEDS: PERCOCET 5MG/325MG TAB PO PRN (04:13)
[2020-06-01] MEDS: LEVOTHYROXINE 112MCG TABLET (0.112MG) PO SCH (05:55)
[2020-06-01] MEDS: SODIUM CHLORIDE 0.9% INJ 10 ML SYR IV SCH ×2 (05:56→17:31)
[2020-06-01 06:00] VITALS: BP 154/72
[2020-06-01 06:31] LABS: HEMATOCRIT 28.6 % (42.0-52.0); HEMOGLOBIN 8.6 g/dl (13.5-17.5); MEAN CORPUSCULAR HGB CONC 30.1 g/dl (32.0-36.5); MEAN CORPUSCULAR VOLUME 93.2 fl (80.0-96.0); PLATELET COUNT, AUTOMATED 321 10^3/uL (150-450); RED BLOOD COUNT 3.07 10^6/uL (4.30-6.10); WHITE BLOOD COUNT 9.9 10^3/uL (4.0-10.0)
[2020-06-01 06:49] LABS: CALCIUM LEVEL 8.1 MG/DL (8.8-10.2); CREATININE FOR GFR 1.93 MG/DL (0.70-1.30); GLOMERULAR FILTRATION RATE 36.8 (>42); MAGNESIUM LEVEL 1.8 MG/DL (1.8-2.4); POTASSIUM SERUM 4.5 MEQ/L (3.5-5.1)
[2020-06-01] MEDS: atenoloL 50 MG TAB PO SCH ×2 (09:36→23:34)
[2020-06-01] MEDS: PANTOPRAZOLE 40MG TAB (PROTONIX) PO SCH ×2 (09:36→23:34)
[2020-06-01] MEDS: ZINC SULFATE 220 MG CAP PO SCH ×2 (09:36→23:45)
[2020-06-01] MEDS: LACTOBACILLUS ACIDOPHILUS CAP (BACID) PO SCH (09:36)
[2020-06-01] MEDS: SENOKOT S TAB PO SCH (09:36)
[2020-06-01] MEDS: FIBER-CON 625 MG TAB PO SCH (09:37)
[2020-06-01] MEDS: FERROUS GLUCONATE 324 MG TAB PO SCH (09:37)
[2020-06-01] MEDS: TAMSULOSIN 0.4 MG CAP PO SCH (09:37)
[2020-06-01] MEDS: predniSONE 5 MG TAB PO SCH ×2 (09:37→23:34)
[2020-06-01] MEDS: APIXABAN 5 MG TAB (ELIQUIS) PO SCH ×2 (09:37→23:34)
[2020-06-01] MEDS: amLODIPine 5 MG TAB PO SCH (09:38)
[2020-06-01] MEDS: HumaLOG INSULIN (NovoLOG) PER UNIT SC SCH ×4 (09:39→23:14)
[2020-06-01] MEDS: LEVEMIR (INSULIN DETEMIR) 1 UNITS/0.01ML SC SCH ×2 (09:40→23:34)
[2020-06-01] MEDS: CEFTAROLINE FOSAMIL 400 MG in D5W MINI-BAG PLUS 50 ML IV SCH ×2 (10:08→23:35)
--- NOTE | 2020-06-01 12:35 | IPN ---
NEPHROLOGY PROGRESS NOTE DATE: 06/01/2020 SUBJECTIVE: Mr. Szymanski is seen this morning on his bedside. Nursing staff report that he has not been eating well. Patient reports that his appetite is not good. He denies any vomiting or diarrhea. There is no dyspnea or chest pain. He is currently off his BiPAP and looks quite comfortable. His was on the phone when I entered the room and he wanted me to talk to her. I did talk to his and answered her questions. She understands that his kidney function is gradually improving. PHYSICAL EXAMINATION: Temperature 98 degrees Fahrenheit, heart rate 65 per minute and respiratory rate 18 per minute. Blood pressure 146/56 mmHg and oxygen saturation 96% on room air. Head: Atraumatic. Neck: Supple and JVD difficult to be assessed. Heart: Sounds are regular. Lungs: Clear to auscultation. Abdomen: Obese, soft and nontender and bowel sounds are normal. Extremities: Without any cyanosis or clubbing. He has no edema on his left lower extremity and right lower extremity has edema and infection on the pin site and ulcers. Neurologically: He is at his baseline mentation. LABORATORY DATA: Today's labs show WBC count 9.9, hemoglobin 8.6, hematocrit 28.6, platelets 321. Sodium 139, potassium 4.5, CO2 28, BUN 23, creatinine 1.93, glucose 246 and calcium 8.1. His most recent blood culture from May 28 is still negative. Wound culture from May 31 is growing yeast like organism. Prior blood cultures from May 25 did grow Enterococcus faecium. PROBLEMS/PLAN: 1. Acute kidney injury superimposed on chronic kidney disease: Gradual improvement in kidney function is noticed. His electrolytes are stable and volume status is well compensated. 2. Congestive heart failure: Volume status is clinically well compensated. He currently is not on any standing dose of diuretic and we will use diuretic only on an as needed basis. 3. Anemia: At present his anemia is stable and does not need any urgent intervention. He does have iron deficiency and continues with oral iron supplement. 4. Bacteremia and sepsis: Patient remains on antibiotics and currently afebrile. His most recent blood cultures are negative.
--- NOTE | 2020-06-01 13:58 | IPN ---
DATE: 05/29/2020 SUBJECTIVE: Mr. Szymanski is seen this morning on his bedside. No change since last visit. He remains on CPAP and lying in the bed. He denies any nausea or vomiting. His chronic dyspnea is unchanged and he has no activity due to his right leg surgery. The patient had fever yesterday and blood cultures were done. Prior blood cultures did grown enterococcus and blood cultures from yesterday are still negative. PHYSICAL EXAMINATION: Temperature is 97 degrees Fahrenheit, heart rate 68 per minute and respiratory rate per minute. Blood pressure 130/55 mmHg and oxygen saturation 95% on his BIPAP. His head is atraumatic, neck is supple and jugular venous distention (JVD) difficulty to be assessed. Heart sounds are distant and regular. Lung sounds are clear to auscultation. Abdomen: Obese and nontender and bowel sounds are present. Extremities without any cyanosis or clubbing. He has no edema on the left leg. His right leg is in the surgical splint and also has edema. Neurologically, he is at his baseline mentation without focal deficit. LABORATORY: Today's labs show white blood cell count 10.3, hemoglobin 8.6 and hematocrit 28.8. Platelets 311. Sodium 139, potassium 4.5, Co2 31, BUN 35 and creatinine 2.56. Glucose 231 and calcium 8.2. PROBLEMS: 1. Acute kidney injury superimposed on chronic kidney disease. His kidney function was improving until yesterday and now it seems to be leveled off . No change noticed over the last 24 hours. The patient does not have any uremic symptoms. Electrolytes are within normal range. 2. Congestive heart failure. At present, his volume status seems clinical well compensated. He is not getting any daily dose of diuretic and we will use diuretic only on an as needed basis. 3. Bacteremia. He did have positive blood cultures from a few days ago and more blood cultures were drawn yesterday, which have been negative so far. He remains on daptomycin and ceftaroline. 4. Hypertension. Blood pressure is well controlled on current medications and no changes are needed. MTDD
[2020-06-01 14:00] VITALS: BP 171/76
[2020-06-01] MEDS: DAPTOmycin 1,000 MG in NS 50 ML IV SCH (14:50)
--- NOTE | 2020-06-01 21:06 | IPNPDOC ---
Subjective Date Seen The patient was seen on 06/01/20. Subjective Chief Complaint/HPI Mr. 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 Patient was seen this morning, and he continues with CPAP. He wears it most of the day and is afraid to take it off. Otherwise, he spends most of the day sleeping. Denies chest pain, abdominal pain, or dysuria. Objective Physical Examination General Exam: Positive: Alert, Cooperative Eye Exam: Positive: PERRLA ENT Exam: Positive: Atraumatic Neck Exam: Positive: Supple; Negative: JVD Chest Exam: Positive: Diminished Heart Exam: Positive: Rate Normal Abdomen Exam: Positive: Normal bowel sounds, Soft; Negative: Tenderness Extremity Exam: Negative: Clubbing, Cyanosis Neuro Exam: Positive: Cranial Nerves 3-12 NL Psych Exam: Positive: Oriented x 3 Assessment /Plan Assessment Mr. 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 ID has been following, recommendations appreciated. Patient will need to continue antibiotics until he sees his orthopedic physician, Dr. Reynaldo Nair, in [facility]. Otherwise, renal function has been improving. He has been lethargic and spending most of the day sleeping. Will check and ABG and ammonia level in the morning for causes of lethargy Spoke with ID today. Will try to de-esculate antibiotics with a new PICC line since he has had negative blood cultures. Plan/VTE VTE Prophylaxis Ordered?: Yes Plan 1. VRE bacteremia -Afebrile for more than 48 hours (last fever 05/28/2020 at 22:14) -Negative blood cultures on 05/28/2020 -ID following recommendation appreciated -Will need to continue antibiotics until he follows up with orthopedics in [facility]. -Continue probiotics -Will try to de-esculate antibiotics with new PICC line as his blood cultures have been negative 2. Chronic osteomyelitis of the right lower leg with external fixator -Will need to follow up with his orthopedics in [facility] (Dr. Reynaldo Nair) until deciding to stop antibiotics -May need to changes the PIN as pins are eroding through skin and causing drainage -Continue probiotics 3. LUIS ANGEL on CKD -Nephrology following, recommendations appreciated -Creatinine peaked at 4.43 -Baseline creatinine around 1.5 -Supportive care, avoid nephrotoxic agents, continue monitoring 4. DM -Continue ISS and Levemir 15u BID 5. Hypertension -Patient hypertensive today with BP in the 180s -Started amlodipine -Continue Atenolol 6. History of temporal arteritis -On chronic steroids 7. Hypothyroidism -Continue Levothyroxine 8. Lethargy -Will check ABG and ammonia level for lethargy 9. DVT ppx -Continue apixaban VS, I&O, 24H, Fishbone Vital Signs/I&O Vital Signs Date Time Temp Pulse Resp B/P (MAP) Pulse Ox O2 Delivery O2 Flow Rate FiO2 06/01/20 14:00 98.2 63 18 171/76 (107) 96 NIPPV (BIPAP/CPAP) 05/28/20 22:04 3.0 I&O- Last 24 Hours up to 6 AM 06/01/20 06:00 Intake Total 1150 ml Output Total 675 ml Balance 475 ml Laboratory Data 24H LABS Laboratory Tests 2 05/31/20 21:56: Bedside Glucose (Misc Panel) 181H 06/01/20 06:04: Nucleated Red Blood Cells % (auto) 0.0, Anion Gap 9, Glomerular Filtration Rate 36.8L, Calcium Level 8.1L, Magnesium Level 1.8 06/01/20 11:46: Bedside Glucose (Misc Panel) 246H 06/01/20 17:21: Bedside Glucose (Misc Panel) 201H 06/01/20 20:41: Bedside Glucose (Misc Panel) 164H CBC/BMP Laboratory Tests 06/01/20 06:04 Microbiology Microbiology 05/31/20 Wound Culture - Final, Complete Yeast Like Organism 05/28/20 Blood Culture - Preliminary, Resulted No Growth after 72 hours. All specime... 05/28/20 Blood Culture - Preliminary, Resulted No Growth after 72 hours. All specime... 05/26/20 Gram Stain - Final, Complete 05/26/20 Wound Culture - Final, Complete Staphylococcus Sp Coag Neg 05/25/20 Blood Culture - Preliminary, Resulted Enterococcus Faecium (Vre) 05/25/20 Blood Culture - Final, Complete NO GROWTH AFTER 5 DAYS NIKI PAT DO Jun 01, 2020 21:06
[2020-06-01 22:00] VITALS: BP 161/76
[2020-06-01] MEDS: DULoxetine 30 MG CAP (CYMBALTA) PO SCH (23:33)
[2020-06-01] MEDS: ATORVASTATIN 20 MG TAB PO SCH (23:34)
[2020-06-01] MEDS: MORPHINE 2 MG/ML 1ML VIAL (J2270) IV PRN (23:37)
[2020-06-01] MEDS: ONDANSETRON 4 MG TAB PO PRN (23:44)
[2020-06-02] MEDS: SODIUM CHLORIDE 0.9% INJ 10 ML SYR IV PRN ×5 (01:47→22:50)
[2020-06-02] MEDS: PERCOCET 5MG/325MG TAB PO PRN (01:49)
[2020-06-02] MEDS ORDERED: MORPHINE 2 MG/ML 1ML VIAL (J2270) IV PRN (04:00)
[2020-06-02 06:00] VITALS: BP 156/70
[2020-06-02] MEDS: SODIUM CHLORIDE 0.9% INJ 10 ML SYR IV SCH ×2 (06:28→18:56)
[2020-06-02] MEDS: LEVOTHYROXINE 112MCG TABLET (0.112MG) PO SCH (06:28)
[2020-06-02 07:48] LABS: HEMATOCRIT 28.5 % (42.0-52.0); HEMOGLOBIN 8.3 g/dl (13.5-17.5); MEAN CORPUSCULAR HEMOGLOBIN 26.9 pg (27.0-33.0); MEAN CORPUSCULAR HGB CONC 29.1 g/dl (32.0-36.5); MEAN CORPUSCULAR VOLUME 92.2 fl (80.0-96.0); PLATELET COUNT, AUTOMATED 333 10^3/uL (150-450); RED BLOOD COUNT 3.09 10^6/uL (4.30-6.10); WHITE BLOOD COUNT 9.6 10^3/uL (4.0-10.0)
[2020-06-02 08:07] LABS: CALCIUM LEVEL 7.8 MG/DL (8.8-10.2); CREATININE FOR GFR 1.84 MG/DL (0.70-1.30); GLOMERULAR FILTRATION RATE 38.9 (>42); MAGNESIUM LEVEL 1.7 MG/DL (1.8-2.4); POTASSIUM SERUM 4.3 MEQ/L (3.5-5.1)
[2020-06-02] MEDS: APIXABAN 5 MG TAB (ELIQUIS) PO SCH ×2 (08:44→21:05)
[2020-06-02] MEDS: FIBER-CON 625 MG TAB PO SCH (08:44)
[2020-06-02] MEDS: LACTOBACILLUS ACIDOPHILUS CAP (BACID) PO SCH (08:44)
[2020-06-02] MEDS: HumaLOG INSULIN (NovoLOG) PER UNIT SC SCH ×4 (08:44→21:00)
[2020-06-02] MEDS: SENOKOT S TAB PO SCH (08:45)
[2020-06-02] MEDS: predniSONE 5 MG TAB PO SCH ×2 (08:45→21:06)
[2020-06-02] MEDS: PANTOPRAZOLE 40MG TAB (PROTONIX) PO SCH ×2 (08:45→21:06)
[2020-06-02] MEDS: ZINC SULFATE 220 MG CAP PO SCH ×2 (08:45→21:04)
[2020-06-02] MEDS: amLODIPine 5 MG TAB PO SCH (08:45)
[2020-06-02] MEDS: TAMSULOSIN 0.4 MG CAP PO SCH (08:45)
[2020-06-02] MEDS: FERROUS GLUCONATE 324 MG TAB PO SCH (08:45)
[2020-06-02] MEDS: atenoloL 50 MG TAB PO SCH ×2 (08:46→21:05)
[2020-06-02] MEDS: LEVEMIR (INSULIN DETEMIR) 1 UNITS/0.01ML SC SCH ×2 (08:46→21:06)
[2020-06-02] MEDS: LIDOCAINE 5% (LIDODERM) PATCH TD SCH (11:11)
[2020-06-02] MEDS: CEFTAROLINE FOSAMIL 400 MG in D5W MINI-BAG PLUS 50 ML IV SCH ×2 (11:11→22:49)
[2020-06-02] MEDS: MORPHINE 2 MG/ML 1ML VIAL (J2270) IV PRN ×2 (11:12→18:55)
--- NOTE | 2020-06-02 11:44 | IPN ---
PROGRESS NOTE DATE: 06/02/2020 SUBJECTIVE: Mr. Szymanski is seen this morning on his bedside. He is feeling well and denies any dyspnea, chest pain, nausea, vomiting, fever or chills. He took off his BiPAP mask and was not in any respiratory distress. PHYSICAL EXAMINATION: VITAL SIGNS: Temperature is 98.0 degrees Fahrenheit, heart rate was 64 per minute and respiratory rate 18 per minute. Blood pressure 159/62 mmHg and oxygen saturation 96% on room air. HEAD: Atraumatic. NECK: Supple. JVD is difficult to be assessed due to short neck. HEART: His heart sounds are regular. LUNGS: Clear to auscultation. ABDOMEN: Obese, soft, and nontender. Bowel sounds are normal. EXTREMITIES: Without any cyanosis or clubbing. NEUROLOGIC: He is awake, alert and oriented x3. His right leg is the splint with pins. There is no edema on the left leg. LABORATORY DATA: Today's labs showed a WBC count of 9.6, hemoglobin 8.3 and hematocrit 28.5. Sodium 138, potassium 4.3, CO2 29, BUN 20 and creatinine 1.84. Calcium is now 7.8 and magnesium 1.7. PROBLEMS: 1. Acute kidney injury superimposed on chronic kidney disease. Kidney function is gradually improving and electrolytes are normal. The patient has been off diuretics and at this point we will continue to monitor his kidney function as needed. 2. Congestive heart failure. His volume status has been well-compensated. He reports that he is not drinking much fluid here in the hospital but at home he drinks a lot more fluid. His diuretics have been on hold and so far he has not required any diuretic for the last five days. 3. Infection of the right leg. Patient remains on antibiotics including Ceftaroline and Daptomycin. 4. Anemia. His anemia is stable and we will continue with iron supplement. No transfusion is indicated at this time. His anemia is more likely related to infection and acute kidney injury. Will anticipate improvement gradually as his infection and kidney are both improving.
[2020-06-02 14:00] VITALS: BP 176/75
[2020-06-02] MEDS: DAPTOmycin 1,000 MG in NS 50 ML IV SCH (15:29)
[2020-06-02] MEDS: LIDOCAINE 5% OINT 30 GM TOP PRN (15:30)
[2020-06-02] MEDS: oxyCODONE 5MG TAB PO PRN ×2 (15:34→22:56)
[2020-06-02] MEDS ORDERED: LIDOCAINE 1% MDV 20ML VIAL As Ordered ONE (16:34)
[2020-06-02] MEDS: ACETAMINOPHEN 500 MG TAB PO SCH ×2 (17:00→21:06)
[2020-06-02] MEDS ORDERED: ACETAMINOPHEN TAB 650MG DOSE (2X325MG) PO SCH (17:00)
--- NOTE | 2020-06-02 18:50 | REP ---
PROCEDURE NAME: PICC LINE INSERTION W/SITERITE CLINICAL INFORMATION: New PICC for de-escalation of antibiotics. COMPARISON: None. PROCEDURE DESCRIPTION: The procedure was performed by MEGAN Borden, under the direct supervision of Dr. Perera. The risks and benefits of the procedure were explained to the patient and an informed consent was obtained both verbally and written. Directly prior to the start of the procedure a formal time-out was completed in the procedure room. The right lateral brachial vein was localized using ultrasound guidance. The skin was prepped and draped in sterile fashion. Two mL of 1% lidocaine 10 mg/mL was used as a local anesthetic. Using ultrasound guidance the right lateral brachial vein was cannulated, and a 0.018 guidewire was inserted and advanced to the level of SVC using fluoroscopic guidance. The needle was removed and a 5.5 Tristanian dilator and peel-away sheath was inserted over the guidewire. A 5.5 Tristanian dual lumen catheter was cut to a length of 40 cm. The dilator was removed and the catheter was inserted over the guidewire with the tip ending at the level of the SVC. The peel-away sheath was removed and the catheter was flushed with heparinized saline as per hospital protocol. The catheter was affixed to the skin and a sterile dressing was applied. The patient tolerated the procedure well and there were no immediate complications. CONCLUSION: PICC line insertion into the right lateral brachial vein. 0.1 minutes of fluoroscopy time was utilized for this procedure. Some fluoroscopic images are performed with last image hold technology. These images require no additional radiation. <Electronically signed by Lita Galloway > 06/02/20 1819 <Electronically signed by Stanton Perera > 06/02/20 1746
[2020-06-02] MEDS ORDERED: SODIUM CHLORIDE 0.9% INJ 10 ML SYR IV PRN (19:30)
--- NOTE | 2020-06-02 20:01 | IPNPDOC ---
Subjective Date Seen The patient was seen on 06/02/20. Subjective Chief Complaint/HPI Mr. 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 This morning, he was more awake. He took off his bipap and we discussed about his hospital course. Denies any chest pain or abdominal pain, but he has back pain and knee pain. Started topical lidocaine patch for back pain and topical lidocaine cream for knees. Otherwise, I contacted the , Cookie Szymanski, for update on patient's condition and discharge planning. Explained that his lethargy and altered mental status may be secondary to his acute renal failure and high doses of opioids. He has been weaned down on opioids and his renal function is better. In terms planning for the future, says that he made the trip down there with the fixator in a wheelchair van. Patient was sitting up right. He has an appointment with [facility] orthopedics on Jun 21, 2020. Objective Physical Examination General Exam: Positive: Alert, Cooperative Eye Exam: Positive: PERRLA ENT Exam: Positive: Atraumatic Neck Exam: Positive: Supple; Negative: JVD Chest Exam: Positive: Diminished Heart Exam: Positive: Rate Normal Abdomen Exam: Positive: Normal bowel sounds, Soft; Negative: Tenderness Extremity Exam: Negative: Clubbing, Cyanosis Neuro Exam: Positive: Cranial Nerves 3-12 NL Psych Exam: Positive: Oriented x 3 Assessment /Plan Assessment Mr. Szymanski is a 69 year old male with nonunion of right tibial fracture and chronic osteomyelitis here with toxic metabolic encephalopathy 2/2 LUIS ANGEL on CKD and poor opioid clearance and VRE bacteremia. Encephalopathy has been resolving with improvement in renal function and reduced opioid dosing. Pain still present. Will work on pain control. Otherwise, ID has been following for chronic osteomyelitis and VRE bacteremia. Patient will need to continue antibiotics until he sees his orthopedic physician, Dr. Reynaldo Nair, in [facility]. In terms of his Daptomycin, will try to de-esculate after new PICC has been placed. Plan/VTE VTE Prophylaxis Ordered?: Yes Plan 1. Toxic metabolic encephalopathy -Uremia from acute renal failure -Poor opioid clearance from acute renal failure -Today, he seems more awake and was off of the bipap for discussion -Renal function almost back to normal, cautious with restarting opioid pain control 2. FARRUKH -High doses of opioids may have cause lethargy and decreased respiratory function leading to persistent need for BIPAP -Today more awake, had a discussion off of the bipap 3. VRE bacteremia -Afebrile for more than 48 hours (last fever 05/28/2020 at 22:14) -Negative blood cultures on 05/28/2020 -ID following recommendation appreciated -New PICC line placed on evening of 06/02/2020. May be able to de-esculate antibiotics with new PICC line as his blood cultures have been negative 4. Chronic osteomyelitis of the right lower leg with external fixator -Will need to follow up with his orthopedics in [facility] (Dr. Reynaldo Nair) until deciding to stop antibiotics -May need to changes the PIN as pins are eroding through skin and causing drainage -Continue probiotics 5. LUIS ANGEL on CKD -Nephrology following, recommendations appreciated -Creatinine peaked at 4.43 -Baseline creatinine around 1.5 -Supportive care, avoid nephrotoxic agents, continue monitoring 6. DM -Continue ISS and Levemir 15u BID 7. Hypertension -Patient hypertensive today with BP in the 180s -Started amlodipine -Continue Atenolol 8. History of temporal arteritis -On chronic steroids 9. Hypothyroidism -Continue Levothyroxine 10. DVT ppx -Continue apixaban Disposition: Patient will need rehab. Looking at [place]. Patient's reported that he was able to travel in wheelchair van sitting up. May need to go to orthopedic appointment from rehab in wheelchair van sitting up. I discussed this with , Cookie Szymanski VS, I&O, 24H, Adarsh Vital Signs/I&O Vital Signs Date Time Temp Pulse Resp B/P (MAP) Pulse Ox O2 Delivery O2 Flow Rate FiO2 06/02/20 18:55 18 Room Air 06/02/20 16:54 97.5 63 94 06/02/20 14:00 176/75 (108) 05/28/20 22:04 3.0 I&O- Last 24 Hours up to 6 AM 06/02/20 06:00 Intake Total 730 ml Output Total 1000 ml Balance -270 ml Laboratory Data 24H LABS Laboratory Tests 2 06/01/20 20:41: Bedside Glucose (Misc Panel) 164H 06/02/20 06:37: Nucleated Red Blood Cells % (auto) 0.0, Anion Gap 7L, Glomerular Filtration Rate 38.9L, Calcium Level 7.8L, Magnesium Level 1.7L, Ammonia 17 06/02/20 11:32: Bedside Glucose (Misc Panel) 164H 06/02/20 18:42: Bedside Glucose (Misc Panel) 246H CBC/BMP Laboratory Tests 06/02/20 06:37 Microbiology Microbiology 05/31/20 Wound Culture - Final, Complete Yeast Like Organism 05/28/20 Blood Culture - Final, Complete NO GROWTH AFTER 5 DAYS 05/28/20 Blood Culture - Final, Complete NO GROWTH AFTER 5 DAYS 05/26/20 Gram Stain - Final, Complete 05/26/20 Wound Culture - Final, Complete Staphylococcus Sp Coag Neg 05/25/20 Blood Culture - Preliminary, Resulted Enterococcus Faecium (Vre) 05/25/20 Blood Culture - Final, Complete NO GROWTH AFTER 5 DAYS NIKI PAT DO Jun 02, 2020 20:01
[2020-06-02] MEDS: POLYVINYL ALCOHOL OPHTH SOLN 15 ML(LIQUITEARS) OS SCH (21:04)
[2020-06-02] MEDS: DULoxetine 30 MG CAP (CYMBALTA) PO SCH (21:05)
[2020-06-02] MEDS: ATORVASTATIN 20 MG TAB PO SCH (21:06)
[2020-06-02] MEDS: **NOTE PATIENT COMMENT** MISC XX SCH (21:07)
[2020-06-02 22:00] VITALS: BP 150/73
[2020-06-03] MEDS: SODIUM CHLORIDE 0.9% INJ 10 ML SYR IV PRN (00:08)
[2020-06-03] MEDS: LEVOTHYROXINE 112MCG TABLET (0.112MG) PO SCH (05:52)
[2020-06-03] MEDS: SODIUM CHLORIDE 0.9% INJ 10 ML SYR IV SCH ×4 (05:54→17:44)
[2020-06-03 06:00] VITALS: BP 150/79
[2020-06-03 06:51] LABS: HEMATOCRIT 28.4 % (42.0-52.0); HEMOGLOBIN 8.6 g/dl (13.5-17.5); MEAN CORPUSCULAR HEMOGLOBIN 28.1 pg (27.0-33.0); MEAN CORPUSCULAR HGB CONC 30.3 g/dl (32.0-36.5); MEAN CORPUSCULAR VOLUME 92.8 fl (80.0-96.0); PLATELET COUNT, AUTOMATED 310 10^3/uL (150-450); RED BLOOD COUNT 3.06 10^6/uL (4.30-6.10); WHITE BLOOD COUNT 8.6 10^3/uL (4.0-10.0)
[2020-06-03 07:41] LABS: CALCIUM LEVEL 8.1 MG/DL (8.8-10.2); CREATININE FOR GFR 1.72 MG/DL (0.70-1.30); GLOMERULAR FILTRATION RATE 42.1 (>42); MAGNESIUM LEVEL 1.7 MG/DL (1.8-2.4); POTASSIUM SERUM 4.1 MEQ/L (3.5-5.1)
[2020-06-03] MEDS: APIXABAN 5 MG TAB (ELIQUIS) PO SCH ×2 (08:35→22:25)
[2020-06-03] MEDS: LIDOCAINE 5% (LIDODERM) PATCH TD SCH (08:35)
[2020-06-03] MEDS: SENOKOT S TAB PO SCH (08:35)
[2020-06-03] MEDS: FIBER-CON 625 MG TAB PO SCH (08:35)
[2020-06-03] MEDS: LACTOBACILLUS ACIDOPHILUS CAP (BACID) PO SCH (08:35)
[2020-06-03] MEDS: ZINC SULFATE 220 MG CAP PO SCH ×2 (08:35→22:25)
[2020-06-03] MEDS: predniSONE 5 MG TAB PO SCH ×2 (08:35→22:25)
[2020-06-03] MEDS: ACETAMINOPHEN 500 MG TAB PO SCH ×4 (08:35→22:27)
[2020-06-03] MEDS: POLYVINYL ALCOHOL OPHTH SOLN 15 ML(LIQUITEARS) OS SCH ×3 (08:38→22:29)
[2020-06-03] MEDS: LEVEMIR (INSULIN DETEMIR) 1 UNITS/0.01ML SC SCH ×2 (08:38→22:30)
[2020-06-03] MEDS: oxyCODONE 5MG TAB PO PRN ×2 (08:38→22:29)
[2020-06-03] MEDS: PANTOPRAZOLE 40MG TAB (PROTONIX) PO SCH ×2 (08:39→22:25)
[2020-06-03] MEDS: TAMSULOSIN 0.4 MG CAP PO SCH (08:39)
[2020-06-03] MEDS: HumaLOG INSULIN (NovoLOG) PER UNIT SC SCH ×4 (08:39→22:26)
[2020-06-03] MEDS: FERROUS GLUCONATE 324 MG TAB PO SCH (08:39)
[2020-06-03] MEDS: atenoloL 50 MG TAB PO SCH ×2 (08:40→22:25)
[2020-06-03] MEDS: amLODIPine 5 MG TAB PO SCH (08:41)
[2020-06-03] MEDS: LINEZOLID 600MG TABLET (ZYVOX) PO SCH ×2 (12:40→22:26)
[2020-06-03 14:00] VITALS: BP 163/71
--- NOTE | 2020-06-03 14:59 | IPN ---
PROGRESS NOTE DATE: 06/03/2020 Mr. Szymanski has been followed by the nephrology service for his acute renal failure and congestive heart failure. His volume status has been well compensated and he has not required any diuretic for several days. Kidney function has been gradually improving. I am currently not contributing much to his care and signing off the case. Please do not hesitate to call the nephrology service back for any assistance if needed in the future.
[2020-06-03] MEDS: cefTRIAXone SOD 2 GM in D5W MINI-BAG PLUS 50 ML IV SCH (17:42)
--- NOTE | 2020-06-03 19:06 | IPN ---
PROGRESS NOTE DATE: 06/03/2020 Rosendo seems to be doing good today. He is in good spirits. He agrees on going to the skilled nursing on Saturday hopefully for rehabilitation. He has no nausea, vomiting, or diarrhea. No abdominal pain. LABORATORY DATA: White count 8.6, hemoglobin 8.6, hematocrit 28.4, platelets 310. ESR on May 31 was 89. Sodium 140, potassium 4.1, chloride 103, bicarbonate 29, BUN 19, creatinine 1.72, glucose 167, calcium 8.1, magnesium 1.7, ammonia 17. CRP 4.95. Wound culture from the right leg had yeast-like organisms. This was done on some drainage from one of the screws. PHYSICAL EXAMINATION: Temperature is 97.5, pulse 65, respirations 18, blood pressure 163/71, oxygen saturation 95% on bilevel positive airway pressure (BiPAP), 97% on room air. He uses the BiPAP to sleep. HEART: Normal S1, S2. No murmurs. LUNGS: Clear. Diminished at the bases but no wheezes, rales, or rhonchi. ABDOMEN: Morbidly obese, soft, nontender. EXTREMITIES: Heel ulcer, less than 1 cm, on the right heel. Very shallow, stage I. No purulence. No discharge. Right below-knee external fixator. One of the rods has an area of a scab around it with minimal erythema. No drainage noted. No tenderness. IMPRESSION: 1. Chronic osteomyelitis of the right leg. Has been on vancomycin and Zosyn initially and developed acute kidney injury. He was switched in the hospital to ceftaroline, which he received from May 29 to June 03, daptomycin was added from May 30 to June 03 due to VRE 1/4 blood CX. The patient will be switched today in anticipation of skilled nursing placement to Rocephin 2 grams daily with linezolid 600 mg by mouth twice a day. Patient will need to remain on IV ceftriaxone for chronic osteomyelitis of the right leg until he sees Dr. Reynaldo Nair, Orthopedic Surgery at [facility], early June appointment. 2. Vancomycin-resistant enterococci (VRE) in one blood culture from May 25, one out of two blood cultures. Repeat blood cultures on May 28 were negative before daptomycin was started. Patient has received a total of 4 days of daptomycin. Will switch him to linezolid 600 mg by mouth twice a day for a total of 10 days. This will be discontinued on June 13. Patient had a new PICC line placed on June 02. PLAN: Continue IV Rocephin until he is seen by orthopedic surgery and June 21 Dr. Reynaldo Nair. Continue oral linezolid for possibility of VRE line infection, although I suspect that was a contaminant until June 13. assisted placement at [place]. [facility]
--- NOTE | 2020-06-03 20:38 | IPNPDOC ---
Subjective Date Seen The patient was seen on 06/03/20. Subjective Chief Complaint/HPI Mr. 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 This morning, he feels better. I saw him off bipap again. He has not needed IV morphine today (used IV morphine twice yesterday). Spoke to about plan. Hopeful to chcf on Saturday, then wheelchair van to [facility] for orthopedic appointment. I spoke with radiology and pushed for images to be sent up to [facility] orthopedics. Will need to check in on Saturday to see if arrived Objective Physical Examination General Exam: Positive: Alert, Cooperative Eye Exam: Positive: PERRLA ENT Exam: Positive: Atraumatic Neck Exam: Positive: Supple; Negative: JVD Chest Exam: Positive: Diminished Heart Exam: Positive: Rate Normal Abdomen Exam: Positive: Normal bowel sounds, Soft; Negative: Tenderness Extremity Exam: Negative: Clubbing, Cyanosis Neuro Exam: Positive: Cranial Nerves 3-12 NL Psych Exam: Positive: Oriented x 3 Assessment /Plan Assessment Mr. Szymanski is a 69 year old male with nonunion of right tibial fracture and chronic osteomyelitis here with toxic metabolic encephalopathy 2/2 LUIS ANGEL on CKD and poor opioid clearance and VRE bacteremia. Encephalopathy has been resolving with improvement in renal function and reduced opioid dosing. Pain still present. Will work on pain control. Otherwise, ID has been following for chronic osteomyelitis and VRE bacteremia. Patient will need to continue Rocephin until he sees his orthopedic physician, Dr. Reynaldo Nair, in [facility]. New PICC placed on 06/02/2020. De-esculated from Daptomycin to PO Linezolid to be continued until Jun 13 Plan is for [facility]cf at [place] on 06/06/2020. Continue PO Linezolid until 06/13/2020. Continue IV Rocephin until he sees Dr. Nair on 06/21/2020 Plan/VTE VTE Prophylaxis Ordered?: Yes Plan 1. Toxic metabolic encephalopathy -Uremia from acute renal failure -Poor opioid clearance from acute renal failure -Today, he seems more awake and was off of the bipap for discussion -Renal function almost back to baseline, cautious with opioid pain control 2. FARRUKH -High doses of opioids may have cause lethargy and decreased respiratory function leading to persistent need for BIPAP -Today more awake, had a discussion off of the bipap 3. VRE bacteremia -Afebrile for more than 48 hours (last fever 05/28/2020 at 22:14) -Negative blood cultures on 05/28/2020 -ID following recommendation appreciated -New PICC line placed on evening of 06/02/2020. De-esculate Daptomycin to PO Linezolid to be continued until 06/13/2020 4. Chronic osteomyelitis of the right lower leg with external fixator -Will need to follow up with his orthopedics in [facility] (Dr. Reynaldo Nair on 06/21/2020) until deciding to stop IV Ceftriaxone -May need to changes the PIN as pins are eroding through skin and causing drainage -Continue probiotics 5. LUIS ANGEL on CKD -Nephrology following, recommendations appreciated -Creatinine peaked at 4.43 -Baseline creatinine around 1.5 -Supportive care, avoid nephrotoxic agents, continue monitoring 6. DM -Continue ISS and Levemir 15u BID 7. Hypertension -Patient hypertensive today with BP in the 180s -Started amlodipine -Continue Atenolol 8. History of temporal arteritis -On chronic steroids 9. Hypothyroidism -Continue Levothyroxine 10. DVT ppx -Continue apixaban Disposition: Plan is for chcf at [place] on 06/06/2020. Continue PO Linezolid until 06/13/2020. Continue IV Rocephin until he sees Dr. Nair on 06/21/2020. Patient's reported that he was able to travel in wheelchair van sitting up. May need to go to orthopedic appointment from rehab in wheelchair van sitting up. I discussed this with , Cookie Szymanski VS, I&O, 24H, Adarsh Vital Signs/I&O Vital Signs Date Time Temp Pulse Resp B/P (MAP) Pulse Ox O2 Delivery O2 Flow Rate FiO2 06/03/20 14:00 97.5 65 18 163/71 (101) 95 NIPPV (BIPAP/CPAP) 05/28/20 22:04 3.0 I&O- Last 24 Hours up to 6 AM 06/03/20 06:00 Intake Total 620 ml Output Total 1425 ml Balance -805 ml Laboratory Data 24H LABS Laboratory Tests 2 06/03/20 06:02: Nucleated Red Blood Cells % (auto) 0.0, Anion Gap 8, Glomerular Filtration Rate 42.1, Calcium Level 8.1L, Magnesium Level 1.7L 06/03/20 12:13: Bedside Glucose (Misc Panel) 209H 06/03/20 16:24: Bedside Glucose (Misc Panel) 160H CBC/BMP Laboratory Tests 06/03/20 06:02 Microbiology Microbiology 05/31/20 Wound Culture - Final, Complete Yeast Like Organism 05/28/20 Blood Culture - Final, Complete NO GROWTH AFTER 5 DAYS 05/28/20 Blood Culture - Final, Complete NO GROWTH AFTER 5 DAYS 05/26/20 Gram Stain - Final, Complete 05/26/20 Wound Culture - Final, Complete Staphylococcus Sp Coag Neg 05/25/20 Blood Culture - Preliminary, Resulted Enterococcus Faecium (Vre) 05/25/20 Blood Culture - Final, Complete NO GROWTH AFTER 5 DAYS NIKI PAT DO Jun 03, 2020 20:38
[2020-06-03 22:00] VITALS: BP 146/69
[2020-06-03] MEDS: DULoxetine 30 MG CAP (CYMBALTA) PO SCH (22:24)
[2020-06-03] MEDS: ATORVASTATIN 20 MG TAB PO SCH (22:25)
[2020-06-03] MEDS: ONDANSETRON 4 MG TAB PO PRN (22:26)
[2020-06-03] MEDS: **NOTE PATIENT COMMENT** MISC XX SCH (22:29)
[2020-06-03] MEDS: LIDOCAINE 5% OINT 30 GM TOP PRN (22:30)
[2020-06-04] MEDS: oxyCODONE 5MG TAB PO PRN ×3 (05:38→23:11)
[2020-06-04] MEDS: LEVOTHYROXINE 112MCG TABLET (0.112MG) PO SCH (05:38)
[2020-06-04] MEDS: SODIUM CHLORIDE 0.9% INJ 10 ML SYR IV SCH ×3 (05:39→18:36)
[2020-06-04 06:00] VITALS: BP 130/83
[2020-06-04 06:15] LABS: HEMATOCRIT 28.7 % (42.0-52.0); HEMOGLOBIN 8.6 g/dl (13.5-17.5); MEAN CORPUSCULAR HEMOGLOBIN 27.7 pg (27.0-33.0); MEAN CORPUSCULAR VOLUME 92.6 fl (80.0-96.0); PLATELET COUNT, AUTOMATED 289 10^3/uL (150-450); WHITE BLOOD COUNT 8.1 10^3/uL (4.0-10.0)
[2020-06-04 06:40] LABS: CALCIUM LEVEL 7.8 MG/DL (8.8-10.2); CREATININE FOR GFR 1.67 MG/DL (0.70-1.30); GLOMERULAR FILTRATION RATE 43.5 (>42); POTASSIUM SERUM 4.1 MEQ/L (3.5-5.1)
[2020-06-04] MEDS: SENOKOT S TAB PO SCH (09:00)
[2020-06-04] MEDS: PANTOPRAZOLE 40MG TAB (PROTONIX) PO SCH ×2 (09:50→23:07)
[2020-06-04] MEDS: LACTOBACILLUS ACIDOPHILUS CAP (BACID) PO SCH (09:50)
[2020-06-04] MEDS: ZINC SULFATE 220 MG CAP PO SCH ×2 (09:50→23:07)
[2020-06-04] MEDS: LINEZOLID 600MG TABLET (ZYVOX) PO SCH ×2 (09:50→23:07)
[2020-06-04] MEDS: APIXABAN 5 MG TAB (ELIQUIS) PO SCH ×2 (09:50→23:06)
[2020-06-04] MEDS: FIBER-CON 625 MG TAB PO SCH (09:50)
[2020-06-04] MEDS: TAMSULOSIN 0.4 MG CAP PO SCH (09:50)
[2020-06-04] MEDS: ACETAMINOPHEN 500 MG TAB PO SCH ×4 (09:51→23:09)
[2020-06-04] MEDS: FERROUS GLUCONATE 324 MG TAB PO SCH (09:51)
[2020-06-04] MEDS: amLODIPine 5 MG TAB PO SCH (09:52)
[2020-06-04] MEDS: predniSONE 5 MG TAB PO SCH ×2 (09:52→23:06)
[2020-06-04] MEDS: atenoloL 50 MG TAB PO SCH ×2 (09:52→23:13)
[2020-06-04] MEDS: LEVEMIR (INSULIN DETEMIR) 1 UNITS/0.01ML SC SCH ×2 (09:55→23:07)
[2020-06-04] MEDS: POLYVINYL ALCOHOL OPHTH SOLN 15 ML(LIQUITEARS) OS SCH ×3 (09:55→23:08)
[2020-06-04] MEDS: LIDOCAINE 5% (LIDODERM) PATCH TD SCH (09:56)
[2020-06-04] MEDS: HumaLOG INSULIN (NovoLOG) PER UNIT SC SCH ×4 (09:56→23:07)
[2020-06-04] MEDS: LIDOCAINE 5% OINT 30 GM TOP PRN ×2 (10:02→23:14)
[2020-06-04 14:00] VITALS: BP 172/73
--- NOTE | 2020-06-04 18:02 | IPNPDOC ---
Subjective Date Seen The patient was seen on 06/04/20. Subjective Chief Complaint/HPI Mr. 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 This morning, the pain was controlled. Denies any chest pain, fever, abdominal pain, or dysuria. He has not used any of the IV morphine. He can use the PRN oxycodone 4 times a day, and he only has used it 2 times a day. This may change if he moves around more. Objective Physical Examination General Exam: Positive: Alert, Cooperative Eye Exam: Positive: PERRLA ENT Exam: Positive: Atraumatic Neck Exam: Positive: Supple; Negative: JVD Chest Exam: Positive: Diminished Heart Exam: Positive: Rate Normal Abdomen Exam: Positive: Normal bowel sounds, Soft; Negative: Tenderness Extremity Exam: Negative: Clubbing, Cyanosis Neuro Exam: Positive: Cranial Nerves 3-12 NL Psych Exam: Positive: Oriented x 3 Assessment /Plan Assessment Mr. Szymanski is a 69 year old male with nonunion of right tibial fracture and chronic osteomyelitis here with toxic metabolic encephalopathy 2/2 LUIS ANGEL on CKD and poor opioid clearance and VRE bacteremia. Encephalopathy has been resolving with improvement in renal function and reduced opioid dosing. Pain still present. Will work on pain control. Otherwise, ID has been following for chronic osteomyelitis and VRE bacteremia. Patient will need to continue Rocephin until he sees his orthopedic physician, Dr. Reynaldo Nair, in [facility]. New PICC placed on 06/02/2020. De-esculated from Daptomycin to PO Linezolid to be continued until Jun 13 Plan is for [facility] at [place] on 06/06/2020. Continue PO Linezolid until 06/13/2020. Continue IV Rocephin until he sees Dr. Nair on 06/21/2020 Plan/VTE VTE Prophylaxis Ordered?: Yes Plan 1. Toxic metabolic encephalopathy -Uremia from acute renal failure -Poor opioid clearance from acute renal failure -Today, he seems more awake and was off of the bipap for discussion -Renal function almost back to baseline, cautious with opioid pain control 2. FARRUKH -High doses of opioids may have cause lethargy and decreased respiratory function leading to persistent need for BIPAP -Today more awake, had a discussion off of the bipap 3. VRE bacteremia -Afebrile for more than 48 hours (last fever 05/28/2020 at 22:14) -Negative blood cultures on 05/28/2020 -ID following recommendation appreciated -New PICC line placed on evening of 06/02/2020. De-esculate Daptomycin to PO Linezolid to be continued until 06/13/2020 4. Chronic osteomyelitis of the right lower leg with external fixator -Will need to follow up with his orthopedics in [facility] (Dr. Reynaldo Nair on 06/21/2020) until deciding to stop IV Ceftriaxone -May need to changes the PIN as pins are eroding through skin and causing drainage -Continue probiotics 5. LUIS ANGEL on CKD -Nephrology following, recommendations appreciated -Creatinine peaked at 4.43 -Baseline creatinine around 1.5 -Supportive care, avoid nephrotoxic agents, continue monitoring 6. DM -Continue ISS and Levemir 15u BID 7. Hypertension -Hypertension may be related to pain as it fluctuate over a large range. Continue to monitor -On amlodipine -Continue Atenolol 8. History of temporal arteritis -On chronic steroids 9. Hypothyroidism -Continue Levothyroxine 10. DVT ppx -Continue apixaban Disposition: Plan is for [facility]p at [place] on 06/06/2020. Continue PO Linezolid until 06/13/2020. Continue IV Rocephin until he sees Dr. Nair on 06/21/2020. Patient's reported that he was able to travel in wheelchair van sitting up. May need to go to orthopedic appointment from rehab in wheelchair van sitting up. VS, I&O, 24H, Fishbone Vital Signs/I&O Vital Signs Date Time Temp Pulse Resp B/P (MAP) Pulse Ox O2 Delivery O2 Flow Rate FiO2 06/04/20 14:00 97.1 78 18 172/73 (106) 97 NIPPV (BIPAP/CPAP) 97 I&O- Last 24 Hours up to 6 AM 06/04/20 06:00 Intake Total 1105 ml Output Total 675 ml Balance 430 ml Laboratory Data 24H LABS Laboratory Tests 2 06/03/20 20:31: Bedside Glucose (Misc Panel) 150H 06/04/20 05:53: Nucleated Red Blood Cells % (auto) 0.0, Anion Gap 8, Glomerular Filtration Rate 43.5, Calcium Level 7.8L 06/04/20 11:35: Bedside Glucose (Misc Panel) 178H 06/04/20 16:37: Bedside Glucose (Misc Panel) 166H CBC/BMP Laboratory Tests 06/04/20 05:53 Microbiology Microbiology 05/31/20 Wound Culture - Final, Complete Yeast Like Organism 05/28/20 Blood Culture - Final, Complete NO GROWTH AFTER 5 DAYS 05/28/20 Blood Culture - Final, Complete NO GROWTH AFTER 5 DAYS 05/26/20 Gram Stain - Final, Complete 05/26/20 Wound Culture - Final, Complete Staphylococcus Sp Coag Neg 05/25/20 Blood Culture - Preliminary, Resulted Enterococcus Faecium (Vre) 05/25/20 Blood Culture - Final, Complete NO GROWTH AFTER 5 DAYS NIKI PAT DO Jun 04, 2020 18:02
[2020-06-04] MEDS: MORPHINE 2 MG/ML 1ML VIAL (J2270) IV PRN (18:35)
[2020-06-04] MEDS: cefTRIAXone SOD 2 GM in D5W MINI-BAG PLUS 50 ML IV SCH (18:36)
[2020-06-04 22:00] VITALS: BP 161/65
[2020-06-04] MEDS: DULoxetine 30 MG CAP (CYMBALTA) PO SCH (23:06)
[2020-06-04] MEDS: ATORVASTATIN 20 MG TAB PO SCH (23:07)
[2020-06-04] MEDS: **NOTE PATIENT COMMENT** MISC XX SCH (23:14)
[2020-06-04] MEDS: ONDANSETRON 4 MG TAB PO PRN (23:24)
[2020-06-05] MEDS: CALCIUM CARBONATE 500 MG CHEW U/D PO PRN (01:26)
[2020-06-05] MEDS: MORPHINE 2 MG/ML 1ML VIAL (J2270) IV PRN ×2 (02:22→09:39)
[2020-06-05] MEDS: SODIUM CHLORIDE 0.9% INJ 10 ML SYR IV PRN ×4 (02:23→12:35)
[2020-06-05 06:00] VITALS: BP 153/67
[2020-06-05] MEDS: LEVOTHYROXINE 112MCG TABLET (0.112MG) PO SCH (06:22)
[2020-06-05] MEDS: oxyCODONE 5MG TAB PO PRN ×2 (06:23→18:20)
[2020-06-05] MEDS: SODIUM CHLORIDE 0.9% INJ 10 ML SYR IV SCH ×2 (06:23→18:21)
[2020-06-05 06:47] LABS: HEMATOCRIT 28.5 % (42.0-52.0); HEMOGLOBIN 8.4 g/dl (13.5-17.5); MEAN CORPUSCULAR HEMOGLOBIN 27.2 pg (27.0-33.0); MEAN CORPUSCULAR HGB CONC 29.5 g/dl (32.0-36.5); MEAN CORPUSCULAR VOLUME 92.2 fl (80.0-96.0); PLATELET COUNT, AUTOMATED 270 10^3/uL (150-450); RED BLOOD COUNT 3.09 10^6/uL (4.30-6.10); WHITE BLOOD COUNT 8.3 10^3/uL (4.0-10.0)
[2020-06-05 07:18] LABS: CALCIUM LEVEL 8.1 MG/DL (8.8-10.2); CREATININE FOR GFR 1.64 MG/DL (0.70-1.30); GLOMERULAR FILTRATION RATE 44.4 (>42); POTASSIUM SERUM 4.1 MEQ/L (3.5-5.1)
[2020-06-05] MEDS: SENOKOT S TAB PO SCH (09:00)
[2020-06-05] MEDS: LIDOCAINE 5% (LIDODERM) PATCH TD SCH (09:37)
[2020-06-05] MEDS: LEVEMIR (INSULIN DETEMIR) 1 UNITS/0.01ML SC SCH ×2 (09:38→21:13)
[2020-06-05] MEDS: POLYVINYL ALCOHOL OPHTH SOLN 15 ML(LIQUITEARS) OS SCH ×3 (09:38→21:18)
[2020-06-05] MEDS: APIXABAN 5 MG TAB (ELIQUIS) PO SCH ×2 (09:39→21:15)
[2020-06-05] MEDS: FIBER-CON 625 MG TAB PO SCH (09:39)
[2020-06-05] MEDS: ONDANSETRON 4 MG TAB PO PRN ×2 (09:39→22:44)
[2020-06-05] MEDS: ZINC SULFATE 220 MG CAP PO SCH ×2 (09:39→21:18)
[2020-06-05] MEDS: LINEZOLID 600MG TABLET (ZYVOX) PO SCH ×2 (09:39→21:14)
[2020-06-05] MEDS: TAMSULOSIN 0.4 MG CAP PO SCH (09:39)
[2020-06-05] MEDS: LACTOBACILLUS ACIDOPHILUS CAP (BACID) PO SCH (09:39)
[2020-06-05] MEDS: predniSONE 5 MG TAB PO SCH ×2 (09:39→21:14)
[2020-06-05] MEDS: PANTOPRAZOLE 40MG TAB (PROTONIX) PO SCH ×2 (09:40→21:15)
[2020-06-05] MEDS: FERROUS GLUCONATE 324 MG TAB PO SCH (09:40)
[2020-06-05] MEDS: atenoloL 50 MG TAB PO SCH ×2 (09:42→21:15)
[2020-06-05] MEDS: amLODIPine 5 MG TAB PO SCH (09:42)
[2020-06-05] MEDS: HumaLOG INSULIN (NovoLOG) PER UNIT SC SCH ×4 (09:44→20:38)
[2020-06-05] MEDS: ACETAMINOPHEN 500 MG TAB PO SCH ×4 (09:44→21:14)
[2020-06-05] MEDS: LIDOCAINE 5% OINT 30 GM TOP PRN (09:46)
[2020-06-05] MEDS ORDERED: MAALOX 30 ML SUSP *UDC PO PRN (12:15)
[2020-06-05] MEDS ORDERED: ONDANSETRON 4MG/2ML VIAL IV PRN (12:15)
--- NOTE | 2020-06-05 12:47 | IPNPDOC ---
Subjective Date Seen The patient was seen on 06/05/20. Subjective Chief Complaint/HPI Mr. 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 This morning, he was sitting up at the side of the bed without the BIPAP. He was having some back pain while sitting up. Oxycodone did not help and needed IV morphine. Will add on PO morphine back to his regimen. Otherwise, denies chest pain, dyspnea, or abdominal pain. I called the in the room and passed the phone to the to speak to her. Objective Physical Examination General Exam: Positive: Alert, Cooperative Eye Exam: Positive: PERRLA ENT Exam: Positive: Atraumatic Neck Exam: Positive: Supple; Negative: JVD Chest Exam: Positive: Diminished Heart Exam: Positive: Rate Normal Abdomen Exam: Positive: Normal bowel sounds, Soft; Negative: Tenderness Extremity Exam: Negative: Clubbing, Cyanosis Neuro Exam: Positive: Cranial Nerves 3-12 NL Psych Exam: Positive: Oriented x 3 Assessment /Plan Assessment Mr. Szymanski is a 69 year old male with nonunion of right tibial fracture and chronic osteomyelitis here with toxic metabolic encephalopathy 2/2 LUIS ANGEL on CKD and poor opioid clearance and VRE bacteremia. Encephalopathy has been resolving with improvement in renal function and reduced opioid dosing. Pain still present. Will work on pain control. Otherwise, ID has been following for chronic osteomyelitis and VRE bacteremia. Patient will need to continue Rocephin until he sees his orthopedic physician, Dr. Reynaldo Nair, in [facility]. New PICC placed on 06/02/2020. De-esculated from Daptomycin to PO Linezolid to be continued until Jun 13 Plan is for correction at [place] on 06/06/2020. Continue PO Linezolid until 06/13/2020. Continue IV Rocephin until he sees Dr. Nair on 06/21/2020 Plan/VTE VTE Prophylaxis Ordered?: Yes Plan 1. Toxic metabolic encephalopathy -Uremia from acute renal failure -Poor opioid clearance from acute renal failure -Renal function almost back to baseline, cautious with opioid pain control -Resolved 2. FARRUKH -High doses of opioids may have cause lethargy and decreased respiratory function leading to persistent need for BIPAP -BIPAP when sleeping 3. VRE bacteremia -Afebrile for more than 48 hours (last fever 05/28/2020 at 22:14) -Negative blood cultures on 05/28/2020 -ID following recommendation appreciated -New PICC line placed on evening of 06/02/2020. De-esculate Daptomycin to PO Linezolid to be continued until 06/13/2020 4. Chronic osteomyelitis of the right lower leg with external fixator -Will need to follow up with his orthopedics in [facility] (Dr. Reynaldo Nair on 06/21/2020) until deciding to stop IV Ceftriaxone -May need to changes the PIN as pins are eroding through skin and causing drainage -Continue probiotics 5. LUIS ANGEL on CKD -Nephrology following, recommendations appreciated -Creatinine peaked at 4.43 -Baseline creatinine around 1.5 -Supportive care, avoid nephrotoxic agents, continue monitoring 6. DM -Continue ISS and Levemir 15u BID 7. Hypertension -Hypertension may be related to pain as it fluctuate over a large range. Continue to monitor -On amlodipine -Continue Atenolol 8. History of temporal arteritis -On chronic steroids 9. Hypothyroidism -Continue Levothyroxine 10. DVT ppx -Continue apixaban Disposition: Plan is for correction at [place] on 06/06/2020. Continue PO Linezolid until 06/13/2020. Continue IV Rocephin until he sees Dr. Nair on 06/21/2020. Patient's reported that he was able to travel in wheelchair van sitting up. May need to go to orthopedic appointment from rehab in wheelchair van sitting up. In terms of pain control. Will start with 15mg PO of Morphine scheduled. Continue 500mg QID acetaminophen scheduled and Oxycodone 5mg QID PRN VS, I&O, 24H, Fishbone Vital Signs/I&O Vital Signs Date Time Temp Pulse Resp B/P (MAP) Pulse Ox O2 Delivery O2 Flow Rate FiO2 06/05/20 09:49 18 Room Air 06/05/20 09:42 75 152/67 06/05/20 06:00 98.2 96 06/04/20 14:00 97 I&O- Last 24 Hours up to 6 AM 06/05/20 06:00 Intake Total 1070 ml Output Total 1475 ml Balance -405 ml Laboratory Data 24H LABS Laboratory Tests 2 06/04/20 16:37: Bedside Glucose (Misc Panel) 166H 06/04/20 20:05: Bedside Glucose (Misc Panel) 212H 06/05/20 06:32: Nucleated Red Blood Cells % (auto) 0.0, Anion Gap 6L, Glomerular Filtration Rate 44.4, Calcium Level 8.1L 06/05/20 11:45: Bedside Glucose (Misc Panel) 274H CBC/BMP Laboratory Tests 06/05/20 06:32 Microbiology Microbiology 05/31/20 Wound Culture - Final, Complete Yeast Like Organism 05/28/20 Blood Culture - Final, Complete NO GROWTH AFTER 5 DAYS 05/28/20 Blood Culture - Final, Complete NO GROWTH AFTER 5 DAYS 05/26/20 Gram Stain - Final, Complete 05/26/20 Wound Culture - Final, Complete Staphylococcus Sp NIKI Campos DO Jun 05, 2020 12:47
[2020-06-05] MEDS ORDERED: MAALOX 30 ML SUSP *UDC PO ONE (13:00)
[2020-06-05] MEDS ORDERED: ONDANSETRON 4MG/2ML VIAL IV ONE (13:30)
[2020-06-05 13:31] VITALS: BP 152/68
[2020-06-05] MEDS: cefTRIAXone SOD 2 GM in D5W MINI-BAG PLUS 50 ML IV SCH (18:19)
[2020-06-05 19:02] LABS: HEMATOCRIT 29.8 % (42.0-52.0); HEMOGLOBIN 8.7 g/dl (13.5-17.5); MEAN CORPUSCULAR HEMOGLOBIN 26.9 pg (27.0-33.0); MEAN CORPUSCULAR HGB CONC 29.2 g/dl (32.0-36.5); PLATELET COUNT, AUTOMATED 275 10^3/uL (150-450); RED BLOOD COUNT 3.24 10^6/uL (4.30-6.10); WHITE BLOOD COUNT 8.2 10^3/uL (4.0-10.0)
[2020-06-05 19:37] LABS: PERCENT SATURATION 15.7 % (19.7-50.0)
[2020-06-05] MEDS ORDERED: MORPHINE 15 MG SA TAB PO SCH (21:00)
[2020-06-05] MEDS: DULoxetine 30 MG CAP (CYMBALTA) PO SCH (21:14)
[2020-06-05] MEDS: ATORVASTATIN 20 MG TAB PO SCH (21:15)
[2020-06-05] MEDS: **NOTE PATIENT COMMENT** MISC XX SCH (21:18)
[2020-06-05 22:00] VITALS: BP 155/64
[2020-06-06] MEDS: LEVOTHYROXINE 112MCG TABLET (0.112MG) PO SCH (05:28)
[2020-06-06] MEDS: SODIUM CHLORIDE 0.9% INJ 10 ML SYR IV SCH (05:29)
[2020-06-06 06:00] VITALS: BP 141/55
[2020-06-06] MEDS ORDERED: CEFT2INJ4 IV (07:50)
[2020-06-06] MEDS ORDERED: LIDO5TD TD (07:50)
[2020-06-06] MEDS ORDERED: AMLO1TAB24 PO (07:50)
[2020-06-06] MEDS ORDERED: INSUDET SC (07:50)
[2020-06-06] MEDS ORDERED: LIDO5OIN19 TOP (07:50)
[2020-06-06] MEDS ORDERED: MORP15TASA PO (07:50)
[2020-06-06] MEDS ORDERED: DULO1CAP5 PO (07:50)
[2020-06-06] MEDS ORDERED: FLOM0.4C39 PO (07:50)
[2020-06-06] MEDS ORDERED: ACET-683 PO (07:50)
[2020-06-06] MEDS ORDERED: LINE1TAB6 PO (07:50)
[2020-06-06] MEDS ORDERED: SENN-52 PO (07:50)
[2020-06-06] MEDS ORDERED: INSUHUMDS SC ×2 (07:50)
--- NOTE | 2020-06-06 08:01 | DS.PDOC ---
Discharge Summary General Date of Admission May 18, 2020 at 17:40 Date of Discharge Jun 06, 2020 Attending Physician: NIKI PAT DO Specialist/Consultants Involve [facility], Dr. Kelley [facility], Dr. Burns and Dr. Leal Discharge Summary PROCEDURES PERFORMED DURING STAY: None ADMITTING DIAGNOSES: 1. Toxic metabolic encephalopathy 2. FARRUKH 3. VRE bacteremia 4. Chronic osteomyelitis of the right lower leg with external fixator 5. LUIS ANGEL on CKD 6. DM 7. Hypertension 8. History of temporal arteritis 9. Hypothyroidism DISCHARGE DIAGNOSES: 1. Toxic metabolic encephalopathy 2. FARRUKH 3. VRE bacteremia 4. Chronic osteomyelitis of the right lower leg with external fixator 5. LUIS ANGEL on CKD 6. DM 7. Hypertension 8. History of temporal arteritis (on chronic steroids) 9. Hypothyroidism COMPLICATIONS/CHIEF COMPLAINT: Acute Renal Failure/Debility/Medication Adverse Ef. HISTORY OF PRESENT ILLNESS: Mr. Szymanski is a 69 year old male with diabetes mellitus with peripheral neuropathy, chronic low back pain status post 5 surgeries, and right tibial fracture who presents to [facility] for altered mental status. He fractured his right tibia in 01/2018 and had ORIF. 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 He had removal of hardware in 12/21/2019. On 04/25/2020, he had osteomyelitis and intramedullary abscess and had debridement and placement of external fixator. Culture was positive for P.acnes. He was to continue IV vancomycin and IV zosyn per [facility] from 04/25/2020 until 06/06/2020. On 05/18/2020, he presented to [facility] for altered mental status. On day of admission, he was somnolent and lethargic. He was found to have acute hypercarbic respiratory failure. This was thought to be from opioid build up from acute on chronic kidney disease. He was on large doses of opioids (Morphine 45mg BID and oxycodone 5mg QID PRN) and gabapentin. The LUIS ANGEL on CKD was thought to be secondary to damage from antibiotics, diuretics, and dehydration. Patient was admitted. HOSPITAL COURSE: During patient's hospitalization, his opioid was decreased and gabapentin was held. He continued to use his Bipap which he also used for his FARRUKH. His hospitalization was complicated by worsening renal function. Creatinine increased from 2.27 to 4.43 at peak. Nephrology was consulted. ID was consulted and antibiotics were changed to ceftaroline. IVF was held as he was anasartic and patient was given Lasix. Patient was also anemic and fecal occult blood was positive. Patient should follow up with GI for colonoscopy. He was given a unit of pRBC. Renal function improved. His baseline creatinine is around 1.5 which he approached. His hospitalization was also complicated with VRE bacteremia. On 05/25/2020, blood culture were positive for VRE. Patient was started on Daptomycin. Blood cultures were negative on 05/28/2020, blood cultures were negative. Since patient required rehabilitation, ID recommended changing out the PICC (which was done on 06/02/2020) and starting PO linezolid until 06/13/2020. During his hospitalization, there was thought to be pus around the jennifer of the fixator. Our orthopedic surgeon was consulted, but they did not see the patient. They had recommended the patient be transferred to [facility] as they do not do external fixators. Patient's orthopedic physician from [facility] (Dr. Reynaldo Nair, ) was contacted. He would like too see the patient outpatient. Requested that patient stays on antibiotics until he sees the patient on 06/21/2020. ID was consulted, and the blood culture from above was ordered. Patient was put on IV Ceftaroline and IV Daptomycin. Since patient was going to rehabilitation, IV Ceftaroline was de-escalated to IV Rocephine. Otherwise, durine his hospitalization, he became more awake and interactive with reduced opioids. He does not move much due to the pain and may need more pain control at rehab. The lidocaine patch to the back and knees does help. I spoke with the about the plan. Continue PO Linezolid until 06/13/2020. Continue IV Rocephin until he sees Dr. Nair on 06/21/2020. Patient's reported that he was able to travel in wheelchair van sitting up. May need to go to orthopedic appointment from rehab in wheelchair van sitting up. This morning, he was seeing sleeping with Bipap on. He tells me he feels well. Denies fever, chest pain, dyspnea, abdominal pain, or dysuria. He feels ready for rehab, and he was subsequently discharged to [facility] today DISCHARGE MEDICATIONS: Please see below. ALLERGIES: Please see below. PHYSICAL EXAMINATION ON DISCHARGE: VITAL SIGNS: Please see below. GENERAL: Comfortable, in no apparent distress HEENT: EOMI, Sclera clear NECK: Supple CARDIOVASCULAR EXAMINATION: Regular rate and rhythm RESPIRATORY EXAMINATION: Clear to auscultation bilaterally ABDOMINAL EXAMINATION: Obese, but soft, non-tender, normal bowel sounds EXTREMITIES: Right leg external hardware SKIN: Warm and dry NEUROLOGICAL EXAMINATION: Cranial nerves 3-12 grossly intact PSYCHIATRIC EXAMINATION: Normal mood and affect LABORATORY DATA: Please see below. IMAGING: CT Tib/Fib without contrast right Nonunited proximal tibial metaphyseal fracture with orthopedic hardware and, radiopaque material at the fracture site, periosteal reaction, and some central radiolucency. There is diffuse subcutaneous edema. Vascular calcification is noted and there is fatty marbling of the skeletal muscle of the calf. Healing distal fibular fracture. Tibia, Fibular lower leg right Complex external heart the predicts pin stabilization device seen. No focal bony destructive lesion is appreciated. Healing proximal tibial fracture. Vascular calcification and diffuse osteopenia. No soft tissue gas seen.. CT abd/pelvis 1. Stable hepatic changes including cirrhosis and perihepatic ascites along with 2 rounded hypodense lesions unchanged compared to 05/09/2020. 2. No obvious acute process appreciated. PROGNOSIS: Good ACTIVITY: As tolerated. DIET: Carbohydrate consistent diet with Glucerna with each meal. Beneprotein with each meal DISCHARGE PLAN: [facility] DISCHARGE INSTRUCTIONS: 1. Follow up with your rehab physician on arrival 2. Follow up with your orthopedic physician Dr. Nair on 06/21/2019 3. Make referral to your [facility] ID on same day as Dr. Nair 4. I have started you on a lower dose of her home pain medication. You are on Morphine 15mg qHS. At home, you were on Morphine 45mg BID. You may need to titrate at rehab as you will be moving more. DISCHARGE CONDITION: Stable Total time spent on discharge planning, discharge summary, and medication reconciliation: 75 minutes Vital Signs/I&Os Vital Signs Date Time Temp Pulse Resp B/P (MAP) Pulse Ox O2 Delivery O2 Flow Rate FiO2 06/06/20 06:00 98.8 69 18 141/55 (83) 97 Room Air 06/04/20 14:00 97 I&O- Last 24 Hours up to 6 AM 06/06/20 06:00 Intake Total 350 ml Output Total 925 ml Balance -575 ml Laboratory Data Labs 24H Laboratory Tests 2 06/05/20 11:45: Bedside Glucose (Misc Panel) 274H 06/05/20 16:52: Bedside Glucose (Misc Panel) 196H 06/05/20 18:34: Reticulocyte # (auto) 70.0, Nucleated Red Blood Cells % (auto) 0.0, Percent Reticulocyte Count 2.2H, Reticulocyte Hemoglobin Equivalent 33.4 06/05/20 18:35: Iron Level 44L, Total Iron Binding Capacity 280, Transferrin % Saturation 15.7L, Ferritin 67, Lactate Dehydrogenase 158 06/05/20 20:05: Bedside Glucose (Misc Panel) 212H CBC/BMP Laboratory Tests 06/05/20 18:34 FSBS Laboratory Tests Test 06/05/20 11:45 06/05/20 16:52 06/05/20 20:05 Range/Units Bedside Glucose (Misc Panel) 274 196 212 83-110 MG/DL Microbiology Microbiology 06/05/20 Stool Occult Blood (LAURA) - Final, Complete 05/31/20 Wound Culture - Final, Complete Yeast Like Organism 05/28/20 Blood Culture - Final, Complete NO GROWTH AFTER 5 DAYS 05/28/20 Blood Culture - Final, Complete NO GROWTH AFTER 5 DAYS Discharge Medications Scheduled Acetaminophen (Acetaminophen) 500 Mg Tablet, 500 MG PO QID Amlodipine Besylate (Amlodipine Besylate) 5 Mg Tablet, 5 MG PO DAILY Apixaban (Eliquis) 5 Mg Tablet, 5 MG PO BID, (Reported) Ascorbic Acid (Ascorbic Acid) 500 Mg Tablet, 1,000 MG PO DAILY, (Reported) Aspirin (Ecotrin) 81 Mg Tablet.dr, 81 MG PO QHS, (Reported) Atenolol (Atenolol) 50 Mg Tablet, 50 MG PO BID, (Reported) Atorvastatin Calcium (Atorvastatin Calcium) 20 Mg Tab, 20 MG PO QHS, (Reported) Calcium Polycarbophil (Fibercon) 625 Mg Tablet, 625 MG PO DAILY, (Reported) Ceftriaxone in Is-Osm Dextrose (Ceftriaxone 2 gm-D5w Bag) 2 Gm/50 Ml Piggyback, 1 INJ IV Q24H Continued until 06/21/2019. See your orthopedic physician to discuss if antibio tics should be continued Duloxetine Hcl (Duloxetine HCl) 30 Mg Capsule.dr, 30 MG PO QHS Ferrous Gluconate (Ferrous Gluconate) 324 Mg Tablet, 324 MG PO DAILY, (Reported) Insulin Detemir (Levemir) 100 Unit/1 Ml Vial, 15 UNITS SC BID Insulin Human Lispro (Humalog) 100 Unit/1 Ml Vial, 0 UNITS SC AC Sliding scale protocol Insulin Human Lispro (Humalog) 100 Unit/1 Ml Vial, 0 UNITS SC QHS Sliding scale protocol L.acidoph/L.bulg/B.bif/S.therm (Bacid Caplet) 1 Each Tablet, 1 TAB PO DAILY, (Reported) Levothyroxine Sodium (Synthroid) 112 Mcg Tablet, 112 MCG PO DAILY, (Reported) Lidocaine (Lidocaine) 5% Adh..patch, 1 PATCH TD DAILY Apply to lower back, 12hours on and 12 hours off Linezolid (Linezolid) 600 Mg Tablet, 600 MG PO BID Morphine Sulfate (Morphine Sulfate ER) 15 Mg Tablet.er, 15 MG PO QHS Pantoprazole Sodium (Pantoprazole Sodium) 20 Mg Tablet.dr, 20 MG PO BID, (Reported) Prednisone (Prednisone) 2.5 Mg Tablet, 5 MG PO BID, (Reported) Sennosides/Docusate Sodium (Senna Plus Tablet) 1 Each Tablet, 1 TAB PO DAILY Tamsulosin HCl (Flomax) 0.4 Mg Capsule, 0.4 MG PO DAILY Zinc Sulfate (Zinc Sulfate) 220 Mg Capsule, 220 MG PO BID, (Reported) Scheduled PRN Calcium Carbonate (Antacid) 200 Mg Tab.chew, 500 MG PO DAILY PRN for HEARTBURN, (Reported) Docusate Sodium (Docusate Sodium) 100 Mg Capsule, 100 MG PO BID PRN for CONSTIPATION, (Reported) Lidocaine (Lidocaine) 120 Gm Oint...g., 0 DOSE TOP Q8HP PRN for KNEE PAIN Apply to knees bilaterally Ondansetron HCl (Ondansetron HCl) 4 Mg Tablet, 4 MG PO Q8H PRN for NAUSEA OR VOMITING, (Reported) Oxycodone HCl (Oxycodone HCl) 5 Mg Tablet, 5 MG PO QID PRN for BREAKTHROUGH PAIN, (Reported) Polyethylene Glycol 3350 (Miralax) 119 Gm Powder, 17 GM PO DAILY PRN for CONSTIPATION, (Reported) Polyvinyl Alcohol (Akwa Tears) 15 Ml Drops, 2 DROP OU QID PRN for DRY EYES, (Reported) Allergies Coded Allergies: No Known Allergies (Verified , 12/21/02) NIKI PAT DO Jun 06, 2020 08:01
[2020-06-06] MEDS: SENOKOT S TAB PO SCH (09:41)
[2020-06-06] MEDS: ZINC SULFATE 220 MG CAP PO SCH (09:41)
[2020-06-06] MEDS: HumaLOG INSULIN (NovoLOG) PER UNIT SC SCH ×2 (09:41→12:02)
[2020-06-06] MEDS: FIBER-CON 625 MG TAB PO SCH (09:41)
[2020-06-06] MEDS: LACTOBACILLUS ACIDOPHILUS CAP (BACID) PO SCH (09:41)
[2020-06-06] MEDS: PANTOPRAZOLE 40MG TAB (PROTONIX) PO SCH (09:42)
[2020-06-06] MEDS: LINEZOLID 600MG TABLET (ZYVOX) PO SCH (09:42)
[2020-06-06] MEDS: FERROUS GLUCONATE 324 MG TAB PO SCH (09:42)
[2020-06-06] MEDS: APIXABAN 5 MG TAB (ELIQUIS) PO SCH (09:42)
[2020-06-06] MEDS: POLYVINYL ALCOHOL OPHTH SOLN 15 ML(LIQUITEARS) OS SCH (09:42)
[2020-06-06] MEDS: predniSONE 5 MG TAB PO SCH (09:42)
[2020-06-06] MEDS: TAMSULOSIN 0.4 MG CAP PO SCH (09:42)
[2020-06-06] MEDS: ACETAMINOPHEN 500 MG TAB PO SCH (09:42)
[2020-06-06 09:43] VITALS: BP 163/66
[2020-06-06] MEDS: atenoloL 50 MG TAB PO SCH (09:43)
[2020-06-06] MEDS: LIDOCAINE 5% (LIDODERM) PATCH TD SCH (09:43)
[2020-06-06] MEDS: amLODIPine 5 MG TAB PO SCH (09:43)
[2020-06-06] MEDS: LEVEMIR (INSULIN DETEMIR) 1 UNITS/0.01ML SC SCH (09:44)
[2020-06-06 10:07] LABS: HEMATOCRIT 30.5 % (42.0-52.0); HEMOGLOBIN 8.8 g/dl (13.5-17.5); MEAN CORPUSCULAR HEMOGLOBIN 26.7 pg (27.0-33.0); MEAN CORPUSCULAR HGB CONC 28.9 g/dl (32.0-36.5); MEAN CORPUSCULAR VOLUME 92.7 fl (80.0-96.0); PLATELET COUNT, AUTOMATED 278 10^3/uL (150-450); RED BLOOD COUNT 3.29 10^6/uL (4.30-6.10); WHITE BLOOD COUNT 8.6 10^3/uL (4.0-10.0)
[2020-06-06 10:22] LABS: C REACTIVE PROTEIN QUANTITATIV 1.76 MG/DL (0.00-0.30); CALCIUM LEVEL 7.9 MG/DL (8.8-10.2); CREATININE FOR GFR 1.54 MG/DL (0.70-1.30); GLOMERULAR FILTRATION RATE 47.8 (>42); POTASSIUM SERUM 4.3 MEQ/L (3.5-5.1)
[2020-06-06 10:53] LABS: ERYTHROCYTE SEDIMENTATION RATE 65 mm/hr (0-20)
[2020-06-06] MEDS: ONDANSETRON 4 MG TAB PO PRN (12:01)
== END 2020-06-06 13:05 | DRG 91 ==
LOC: EDBD 12:34 → M ED 12:34 → EDSEX 12:34 → M ED INP 17:40 → EEVIPCON 17:40 → ENRESERV 05-19 04:37 → M ICU 05-19 05:26 → M PCU 05-19 20:08 → M MSPAV 05-24 13:47
PROVIDERS: ADMIT Internal Medicine; ATTEND Internal Medicine
PROC: 30233N1 Transfusion of Nonautologous Red Blood Cells into Peripheral Vein, Percutaneous Approach (ICD-10-PCS; principal; 2020-05-21)
PROC: 02HV33Z Insertion of Infusion Device into Superior Vena Cava, Percutaneous Approach (ICD-10-PCS; 2020-06-02)
DX: G92 Toxic encephalopathy (principal); J96.02 Acute respiratory failure with hypercapnia; N17.9 Acute kidney failure, unspecified; M86.661 Other chronic osteomyelitis, right tibia and fibula; Z68.42 Body mass index [BMI] 45.0-49.9, adult; I50.32 Chronic diastolic (congestive) heart failure; I13.0 Hypertensive heart and chronic kidney disease with heart failure and stage 1 through stage 4 chronic kidney disease, or unspecified chronic kidney disease; N10 Acute pyelonephritis; R78.81 Bacteremia; K92.2 Gastrointestinal hemorrhage, unspecified; S82.201G Unspecified fracture of shaft of right tibia, subsequent encounter for closed fracture with delayed healing; G47.33 Obstructive sleep apnea (adult) (pediatric); E66.01 Morbid (severe) obesity due to excess calories; N18.30 Chronic kidney disease, stage 3 unspecified; R60.1 Generalized edema; R31.9 Hematuria, unspecified; E11.51 Type 2 diabetes mellitus with diabetic peripheral angiopathy without gangrene; Z79.52 Long term (current) use of systemic steroids; E03.9 Hypothyroidism, unspecified; M31.6 Other giant cell arteritis; T40.2X5A Adverse effect of other opioids, initial encounter; Z79.899 Other long term (current) drug therapy; Z79.82 Long term (current) use of aspirin; Z79.4 Long term (current) use of insulin; E87.6 Hypokalemia

== ENCOUNTER 2020-06-22 06:41 | Emergency (ER) | payer MEDICARE, OTHER ==
[~2020-06-22] VITALS: Ht 170.2 cm; Wt 111.0 kg
[~2020-06-22 06:41] MED LIST changes: +ACET-683 PO; +AMLO1TAB24 PO; +ASCO500T PO; +BACITAB PO; +CEFT2INJ4 IV; +DULO1CAP5 PO; +FERR325T16 PO; +FIBE625T PO; +LIDO5OIN19 TOP; +LIDO5TD TD; +LINE1TAB6 PO; -MIRALAX *UNIT DOSE* 17GM PACKET PO PRN; +MORP15TASA PO; +SENN-52 PO
[2020-06-22] MEDS ORDERED: TOBRADEX OPHTH SUSP 2.5 ML OU ONE (08:00)
[2020-06-22] MEDS ORDERED: TOBRSUS8 OP (08:08)
[2020-06-22 08:19] VITALS: BP 134/83
== END 2020-06-22 09:59 | disposition home or self-care (01) ==
LOC: M ED 06:41
DX: H10.89 Other conjunctivitis (principal); E11.9 Type 2 diabetes mellitus without complications; I12.9 Hypertensive chronic kidney disease with stage 1 through stage 4 chronic kidney disease, or unspecified chronic kidney disease; N18.9 Chronic kidney disease, unspecified; E07.9 Disorder of thyroid, unspecified; G47.33 Obstructive sleep apnea (adult) (pediatric); Z99.89 Dependence on other enabling machines and devices; Z79.899 Other long term (current) drug therapy; Z79.82 Long term (current) use of aspirin; Z79.4 Long term (current) use of insulin; Z79.01 Long term (current) use of anticoagulants